=== PATIENT | female | born 1960 | race Caucasian/White ===

== ENCOUNTER 2022-10-18 08:49 | Outpatient (CLI) | payer MEDICAID, SELFPAY ==
--- NOTE | 2022-10-18 | DI.RAD_ITS ---
Exam(s) XR THUMB LT EXAM: XR THUMB LT EXAM DATE/TIME: CLINICAL HISTORY: LT THUMB PAIN, M79.645. TECHNIQUE: 2D digital imaging was performed of the left finger. Three views were obtained. PA/AP, oblique, and lateral views were obtained. COMPARISON: None. FINDINGS: BONES: No acute fracture is present. No bony destructive lesion is seen. JOINTS: No dislocation is present. SOFT TISSUE: Normal. IMPRESSION: No evidence of acute fracture or dislocation. DATA REPOSITORY: RADIATION DOSE DELIVERED:
== END 2022-10-18 09:09 ==
PROVIDERS: PCP Family Medicine; Visit Provider Physician Assistant
DX: M79.645 Pain in left finger(s) (principal)
CPT/HCPCS: 73140

== ENCOUNTER 2022-12-14 11:11 | Emergency (ER) | payer MEDICAID, SELFPAY ==
[2022-12-14 11:14] VITALS: BP 142/67; PULSE 78; RESP 16; TEMP 36.4; O2SAT 98
--- NOTE | 2022-12-14 11:29 | DI.CT_ITS ---
Exam(s) CT LUMBAR SPINE RECONS CT RENAL COLIC WO EXAM: CT RENAL COLIC WO and CT lumbar spine recons CLINICAL HISTORY: left flank pain. TECHNIQUE: Imaging Protocol: Axial computed tomography images with coronal and sagittal reformatted images were created and reviewed. COMPARISON: CT CT LUMBAR SPINE RECONS from 12/14/2022 FINDINGS: ABDOMEN: Lung Bases: Normal where visualized. Liver: Normal density. There is a 1.6 cm cyst in the left lobe of the liver. No suspicious hepatic l esions are seen on this noncontrast examination. Gallbladder and biliary tract: Status post cholecystectomy. No significant biliary ductal dilatation . Pancreas: Normal density, no abnormal calcifications or inflammatory process. Spleen: Normal. Kidneys: Normal size, contour and axis.No radiodense stones or obstructive uropathy. No masses seen. Adrenal glands: No mass is seen. Lymph nodes: Within normal limits. Abdominal Aorta: Abdominal portion non-dilated. Atherosclerosis. PELVIS: Bladder:Symmetric distention, no gross wall thickening. Bowel: No obstruction or bowel wall thickening. Appendix is unremarkable. There are few scattered di verticula seen in the sigmoid colon, but no evidence of acute diverticulitis. Peritoneal cavity: No ascites, collection or mesenteric inflammatory response. No free air. Reproductive organs: Unremarkable as visualized. Bones: Within normal limits. There is a mild left convex lumbar scoliosis. Soft Tissues: There are mildly prominent lymph nodes in the inguinal regions bilaterally. CT recons lumbar spine: Degenerative changes are present throughout the lumbar spine. No acute fract ure or subluxation is seen. Multilevel degenerative changes are seen particularly from L3-4 through L5-S1. Bilateral neural foraminal stenosis is seen at these levels. The findings are most marked on the right at L4-L5 and L5-S1. IMPRESSION: 1. No evidence of nephrolithiasis or hydronephrosis. 2. No acute abdominal pelvic process. 3. No acute fracture or subluxation in the lumbar spine. 4. Moderate degenerative changes in the lumbar spine as described above. 5. Findings were discussed with Dr. Wu at 12:16 p.m. on 12/14/2022. RADIATION DOSE DELIVERED: Total DLP DATA REPOSITORY: All CT scans at this facility are submitted to the National Radiology Data Registry (NRDR) Dose Index Registry (DIR) with the [employer] ([employer]). RADIATION OPTIMIZATION: All CT scans at this facility use at least one of these dose optimization te chniques: automated exposure control; mA and/or kV adjustment per patient size (includes targeted exa ms where dose is matched to clinical indication); or iterative reconstruction.
--- NOTE | 2022-12-14 11:31 | ED.GENADUL_ITS ---
Discharge Plan Disposition Patient Disposition: Home Condition: Stable Discharge Details Clinical Impression: Lumbar back pain Primary Care Provider: Aida Mccabe ED Provider: Efren Wu Home Meds and New Rx's Prescriptions: New oxycodone 5 mg tablet 5 mg PO Q6H PRNQty: 10 0RF Continued albuterol sulfate [Ventolin HFA] 90 mcg/actuation HFA aerosol inhaler 2 puff inhalation Q6H PRN bupropion HCl 150 mg tablet extended release 24 hr 150 mg PO QAM fluticasone furoate-vilanterol [Breo Ellipta] 100-25 mcg/dose blister with device 1 inh inhalation DAILY tizanidine [Zanaflex] 2 mg capsule 2 mg PO Q8H PRN baclofen 10 mg tablet 10 mg PO DAILY sertraline 100 mg tablet 100 mg PO DAILY Patient Comments: patient states it has been over a year since she took this medication fluticasone propion-salmeterol [Advair Diskus] 250-50 mcg/dose blister with device 1 inh inhalation BID tolterodine [Detrol LA] 4 mg capsule,extended release 24hr 4 mg PO DAILY amitriptyline 25 mg tablet 25 mg PO QHS cholecalciferol (vitamin D3) 25 mcg (1,000 unit) capsule 25 mcg PO DAILY magnesium oxide 400 mg (241.3 mg magnesium) tablet 400 mg PO DAILY teriflunomide [Aubagio] 14 mg tablet 14 mg PO DAILY vitamin B complex Capsule 1 cap PO DAILY Discharge Instructions Instructions: Back Pain (ED) Additional Instructions: Follow up as scheduled next week with your primary care provider you can take tylenol and ibuprofen as needed, follow dosing instructions on packaging if you feel more ill, have severe worsening pain or fevers return to the emergency department Medical Decision Making 62 yo female with hx of ms, rls, lumbar radiculopathy and si joint dysfunction comes in with 3 weeks of left lower back pain without history of trauma. She denies fevers, chills, chest pain, dyspnea, abdominal pain. She states the pain will intermittently radiate down the left leg. She arrives stable speaking clearly in no distress. She has tenderness to the left lumbar and mid lumbar region, no rashes or erythema noted. She has no saddle anesthesia, intact distal sensation and pulses, normal reflexes. no abdominal tenderness. Given location suspect lumbar radiculopathy vs sciatica, given 3 weeks and not improving with otc medications will obtain ct renal colic though seems unlikely given lack of colic pain, and recons of the lumbar spine. No findings on exam or history to suggest cauda equina or spinal epidural abscess. imaging shows no acute findings, does have degenerative disc disease, no other acute findings. Pain significantly better and no new findings on exam. She is stable for d/c, will provide short course of pain medication, she has f/u with pcp Tuesday, return precautions given Differential Diagnosis Differential Diagnosis: muscle spasm, disc hernation, compression fracture Imaging Data Radiologic Study: Attestation: I personally reviewed and interpreted this imaging study as follows: Imaging: CT Scan Radiologist's impression: no acute findings, degenerative disc disease Lab Data Lab results reviewed: Yes I reviewed the patient's lab results. HPI General Mode of arrival: ambulatory . Date/Time Provider Initiated Documentation: 12/14/22 11:12 . Limitations to Documentation: no limitations . Information obtained by: patient . History of Present Illness 62 year old F presents to the emergency department with the chief complaint of left lower back pain, Quality is described as aching, and is localized to the back. Patient started experiencing this week(s) (3) and it has been constant. No relieving factors improve symptom(s), No exacerbating factors reported . Patient notes denies fever/chills. Patient did receive the following treatments prior to arrival, none Related Data Home Medications Medication Instructions Recorded Confirmed albuterol sulfate 90 mcg/actuation 2 puff inhalation Q6H PRN 11/25/22 12/14/22 aerosol inhaler (Ventolin HFA) amitriptyline 25 mg tablet 25 mg PO QHS 11/25/22 baclofen 10 mg tablet 10 mg PO DAILY 11/25/22 12/14/22 bupropion HCl 150 mg 24 hr tablet, 150 mg PO QAM 11/25/22 12/14/22 extended release cholecalciferol (vitamin D3) 25 25 mcg PO DAILY 11/25/22 12/14/22 mcg (1,000 unit) capsule fluticasone 250 mcg-salmeterol 50 1 inh inhalation BID 11/25/22 12/14/22 mcg/dose blistr powdr for inhalation (Advair Diskus) fluticasone furoate 100 1 inh inhalation DAILY 11/25/22 12/14/22 mcg-vilanterol 25 mcg/dose inhalation powder (Breo Ellipta) magnesium oxide 400 mg (241.3 mg 400 mg PO DAILY 11/25/22 12/14/22 magnesium) tablet sertraline 100 mg tablet 100 mg PO DAILY 11/25/22 teriflunomide 14 mg tablet 14 mg PO DAILY 11/25/22 12/14/22 (Aubagio) tizanidine 2 mg capsule (Zanaflex) 2 mg PO Q8H PRN 11/25/22 12/14/22 tolterodine 4 mg capsule,extended 4 mg PO DAILY 11/25/22 12/14/22 release 24 hr (Detrol LA) vitamin B complex 1 cap PO DAILY 11/25/22 12/14/22 oxycodone 5 mg tablet 5 mg PO Q6H PRN #10 tabs 12/14/22 Previous Rx's Medication Instructions Recorded oxycodone 5 mg tablet 5 mg PO Q6H PRN #10 tabs 12/14/22 Allergies Allergy/AdvReac Type Severity Reaction Status Date / Time No Known Allergies Allergy Verified 12/14/22 11:23 General Stated Complaint: Nk/Back Pain ROSALVA: 4 Review of Systems All systems reviewed & are unremarkable except as noted in HPI and below Constitutional Constitutional: Denies chills, Denies fever(s) and Denies weakness Cardiovascular Cardiovascular: Denies chest pain and Denies dyspnea Respiratory Respiratory: Denies cough and Denies dyspnea Gastrointestinal Gastrointestinal: Denies abdominal pain and Denies vomiting Musculoskeletal Musculoskeletal: Denies joint swelling Neurologic Neurologic: Denies weakness PFSH All Active Problems (Updated 12/14/22 @ 12:32 by Efren Wu MD) Lumbar back pain (Acute) Corns and callosities (Acute) Equinus contracture of ankle (Acute) Metatarsalgia of both feet (Acute) Chronic fatigue (Acute) Exertional dyspnea (Acute) SI (sacroiliac) joint dysfunction (Acute) GERD (gastroesophageal reflux disease) (Chronic) RLS (restless legs syndrome) (Acute) Depression (Chronic) Cervical spondylosis without myelopathy (Acute) Radiculopathy, lumbar region (Acute) Multiple sclerosis (Chronic) Surgical History History of knee surgery right, microfracture surgery @ 1999 Social History Smoking/Tobacco Use Status: Never Smoking risk assessment performed?: Yes Do you feel safe at home: Yes Do you feel safe in your relationship?: Yes Exam Const General: no acute distress Orientation: alert HENMT Head: normal to inspection Ears: external ears normal General nose exam: external nose normal Mouth: moist mucous membranes Eyes General: appearance normal, both eyes and all related structures Neck Neck: normal visual inspection Resp Effort & Inspection: normal respiratory effort and able to speak in complete sentences Cardio Rate: regular rate GI Palpation: soft and nontender Back/Spine/Pelvis Back: no CVA tenderness Thoracic/Lumbar Spine: lumbar spinal tenderness Skin General skin exam: no rashes or lesions noted Neuro General: patient alert and patient oriented x3 Extrem General: normal to inspection Psych Mental Status: mental status grossly normal Course Vital Signs Vital signs: Vital Signs Temperature 36.4 C 12/14/22 11:14 Pulse 78 12/14/22 11:14 Respiratory Rate 16 12/14/22 11:14 Blood Pressure 142/67 H 12/14/22 11:14 Pulse Oximetry 98 12/14/22 11:14 Temperature 36.4 C 12/14/22 11:14 Temperature Source Oral 12/14/22 11:14 Pulse 78 12/14/22 11:14 Respiratory Rate 16 12/14/22 11:14 Respiratory Effort Normal 12/14/22 11:17 Blood Pressure 142/67 H 12/14/22 11:14 Blood Pressure Position Sitting 12/14/22 11:14 Pulse Oximetry 98 12/14/22 11:14 Oxygen Delivery Method Room Air 12/14/22 11:14 Oxygen Flow Rate 0 12/14/22 11:14 Pain Level 8 12/14/22 11:14
[2022-12-14 11:54] LABS: Abs Immature Grans 0.02 10^3/uL (0.0-0.06); Absolute Basophil Count 0.03 10^3/uL (0.0-0.2); Absolute Eosinophil Count 0.12 10^3/uL (0.0-0.7); Absolute Lymphocyte Count 1.37 10^3/uL (1.2-3.4); Absolute Monocyte Count 0.41 10^3/uL (0.1-0.8); Absolute Neutrophil Count 4.39 10^3/uL (1.2-6.7); Basophils % 0.5; Eosinophils % 1.9; HGB 13.1 g/dL (11.2-15.7); Immature Grans % 0.3; Lymphocytes % 21.6; MCH 30.6 pg (27.0-33.0); MCHC 33.6 % (32.0-36.0); MCV 91 fL (80-95); MPV 10.9 fL (8.0-11.0); Monocytes % 6.5; Neutrophils % 69.2; Platelet Count 249 10^3/uL (130-400); RBC 4.28 10^6/uL (3.93-5.22); RDW 12.5 % (11.7-14.6); RDW-SD 41.4 fL; WBC 6.34 10^3/uL (4.4-10.8)
[2022-12-14] MEDS: Ketorolac 15 MG/ML VIAL IVP (12:01)
[2022-12-14] MEDS: HYDROmorphone 2 MG/ML SYR 1 MG IVP (12:01)
[2022-12-14] MEDS: Normal Saline 1,000 ML 1000 ML IV (12:04)
[2022-12-14 12:10] LABS: ALT 24 U/L (14-59); AST 15 U/L (15-37); Albumin 3.9 g/dL (3.4-5.0); Alkaline Phosphatase 107 U/L (46-116); Anion Gap 6.8 mmol/L (3-11); BUN 19 mg/dL (7-18); Bilirubin, Total 0.5 mg/dL (0.2-1.0); CO2 28.2 mmol/L (21.0-32.0); CREATININE 0.8 mg/dL (0.55-1.02); Calcium 9.1 mg/dL (8.5-10.1); Chloride 105 mmol/L (98-107); Estimated GFR 83.78 (mL/min/1.73m2); Glucose 98 mg/dL (74-106); Lipase 25 U/L (16-77); Magnesium 1.9 mg/dL (1.8-2.4); Potassium 3.4 mmol/L (3.5-5.1); Sodium 140 mmol/L (136-145); Total Protein 7.7 g/dL (6.4-8.2)
== END 2022-12-14 12:38 | disposition home or self-care (01) ==
PROVIDERS: Emergency Provider Emergency Medicine; PCP Family Medicine
DX: M51.16 Intervertebral disc disorders with radiculopathy, lumbar region (principal)
CPT/HCPCS: 36415; 80053; 83690; 96361; 96374; 96375; 99284; 74176; 83735; 85025; J1170; J1885

== ENCOUNTER → 2024-03-07 02:26 | Outpatient (CLI) | payer BC, SELFPAY ==
--- NOTE | 2024-03-07 | DI.RAD_ITS ---
Exam(s) XR SACROILIAC JOINTS XR HIP RT COMPLETE AP PELVIS EXAM: XR HIP RT COMPLETE AP PELVIS CLINICAL HISTORY: Pain in rt hip, M25.551. TECHNIQUE: 2D digital imaging was performed. Two views COMPARISON: CT CT RENAL COLIC WO from 12/14/2022 CR XR SACROILIAC JOINTS from 03/07/2024 FINDINGS: BONES: No acute fracture is present. No bony destructive lesion is seen. JOINTS: No dislocation present. Mild hip joint spaces are maintained. Minimal acetabular spurring. SI joints show minimal degenerative changes. Pubic symphysis is unremarkable. There are advanced de generative changes at L4-5 and L5-S1. SOFT TISSUE: Normal. IMPRESSION: Mild degenerative changes of the hips and SI joints. DATA REPOSITORY: RADIATION DOSE DELIVERED:
--- OUTSIDE RECORDS SUMMARY | 2024-03-07 02:28 | XMS_ITS | Encounter Summary ---
Author Organization [facility] Address [facility] [place] [address] Care Team Providers Care Receiving Clerk Name Role Phone Rufina Mccabe MD Primary Care Provider [phone] Encounter Details Date Type Department Care Team (Late st Contact Info) Description 01/12/2023 Telephone Family Medicine at [facility] [address] [place] [phone] Rufina Mccabe MD [facility] [address] [address] Social History Tobacco Use Types Packs/Day Years Used Date Smoking Tobacco: Never Smokeless Tobacco: Never Alcohol Use Standard Drinks/Week Comments No 0 (1 standard drink = 0.6 oz pur e alcohol) Sex and Gender Information Value Date Recorded Sex Assigned at Not on file Gender Identity Female 11/18/2018 8:14 PM EDT Sexual Orientation Not on file documented as of this encounter Miscellaneous Notes * Telephone Encounter - Negrita Aly RN - 01/12/2023 4:09 PM EDT Call to patient. Patient identified by name and . Patient reports that she stopped taking gabapentin because it made her dizzy and lightheaded. She is made aware that the science writer can check with again regard to the the pain and spine referral. * Telephone Encounter - Negrita Aly RN - 01/12/2023 4:08 PM EDT Call to patient. Left a voice message to call the office back. The call back number is [phone]. * Telephone Encounter - Debbie Alejandra - 01/12/2023 4:06 PM EDT Call being returned to: Pepper Osman RN Comment: The patient is returning the call from the nurse. Please call back. Caller: Sherrie Bonner Best time to call back: Anytime Ok to leave a message: Yes Ok to send my- message: Unknown MA/Nurse/guidance secretary contacted via: Message: Yes Call: Yes Pager: No * Telephone Encounter - Julianne Boucher - 01/12/2023 3:35 PM EDT Attempted to reach nursing; please call patient again. * Telephone Encounter - Pepper Osman RN - 01/12/2023 3:27 PM EDT Attempted to contact patient at [phone], unable to reach. LM on unidentified VM to please callthe office at [phone] and ask to speak to a triage nurse. * Telephone Encounter - Caridad Verma - 01/12/2023 3:15 PM EDT Message: Patient calling in regard to my dh message from 01/07/23. She has not heard from the [facility] or from our office. Patient was hoping for an update and would like to speak with anurse. No active referral. Please call to advise. Ask caller their first and last name and relationship to the patient: Self Best time to call back: Any Ok to leave a message: Yes Ok to send my- message: No Offered Appointment: MA/Nurse/[place] contacted via: Message: Yes Call: Pager: documented in this encounter Plan of Treatment Not on file documented as of this encounter Visit Diagnoses Diagnosis Radiculopathy of lumbar region Thoracic or lumbosacral neuritis or radiculitis, unspecified documented in this encounter Care Teams Receiving Clerk Relationship Specialty Start Date End Date Rufina Mccabe MD [facility] [address] [address] PCP - General Family Medicine 11/30/18 05/18/23 documented as of this encounter
--- OUTSIDE RECORDS SUMMARY | 2024-03-07 02:28 | XMS_ITS | Encounter Summary ---
Author Organization [facility] Address [facility] [place] [address] Care Team Providers Care Linux Unix System Administrator Name Role Phone Rufina Mccabe MD Primary Care Provider [phone] Encounter Details Date Type Department Care Team (Latest Contact Info) Description 07/05/2021 2:51 PM EST - 07/05/2021 11:59 PM EST Hospital [place] [phone] Screening for colon cancer Discharge Disposition: Home Social History Tobacco Use Types Packs/Day Years Used Date Smoking Tobacco: Never Smokeless Tobacco: Never Alcohol Use Standard Drinks/Week Comments No 0 (1 standard drink = 0.6 oz pur e alcohol) Sex and Gender Information Value Date Recorded Sex Assigned at Not on file Gender Identity Female 11/18/2018 8:14 PM EDT Sexual Orientation Not on file documented as of this encounter Medications at Time of Discharge Medication Sig Dispensed Refills Start Date End Date cholecalciferol, Vitamin D3, 1,000 unit Tablet Take by mouth daily. magnesium oxide (MAG-OX) 400 mg (241.3 mg magnesium) Tablet Take 400 mg by mouth daily. teriflunomide (Aubagio) 14 mg Tablet Take 14 mg by mouth daily. b complex vitamins Capsule Take 1 capsule by mouth daily. tiZANidine (Zanaflex) 2 mg Tablet Take 2 mg by mouth nightly as needed. 04/15/2021 08/18/2022 tolterodine LA (Detrol LA) 4 mg Capsule, Sust. Release 24 hr Take 4 mg by mouth daily. 03/16/2021 12/27/2022 albuteroL 90 mcg/actuation HFA Aerosol InhalerIndications:SOB (shortness of breath) on exertion Inhale 2 puffs into the lungs every 6 hours as needed. 1 each 5 06/02/2021 05/27/2022 amitriptyline (ELAVIL) 25 mg Tablet Take 25 mg by mouth daily. 10/10/2018 12/27/2022 baclofen (LIORESAL) 10 mg Tablet TAKE ONE TABLET BY MOUTH AT BEDTIME AND ONE TABLET NEEDED DURING THE DAY FOR SPASMS. CAN INCREASE TO 2 TABLETS AT BEDTIME AFTER 5 DAYS IF 3 07/26/2018 07/07/2022 documented as of this encounter Plan of Treatment Not on file documented as of this encounter Procedures Procedure Name Priority Date/Time Associated Diagnosis Comments HC IFOB (FIT) FECAL BLOOD HEMOGLOBIN; 1-3 DETERMINATIONS Routine 07/05/2021 2:30 PM EST Screening for colon cancer documented in this encounter Results * Fecal Occult Blood, Immunoassay (07/05/2021 2:30 PM EST) Fecal Occult Blood, Immunoassay Negative Negative [facility] Stool 07/05/2021 2:30 PM EST 07/09/2021 7:17 PM EST Narrative Resulting Agency Comment Spec In Lab Rufina Mccabe MD BODY FLUIDS AND STO OLS ORDERABLES [facility] [place] [address] documented in this encounter Visit Diagnoses Diagnosis Screening for colon cancer Special screening for malignant neoplasms, colon documented in this encounter Care Teams Linux Unix System Administrator Relationship Specialty Start Date End Date Rufina Mccabe MD [facility] [address] [place] [address] PCP - General Family Medicine 11/30/18 05/18/23 documented as of this encounter
--- OUTSIDE RECORDS SUMMARY | 2024-03-07 02:28 | XMS_ITS | Encounter Summary ---
Author Organization [facility] [place] [address] Care Team Providers Care Call Center Director Name Role Phone Rufina Mccabe MD Primary Care Provider [phone] Reason for Visit * Reason Comments Medication Check Encounter Details Date Type Department Care Team ([facility] Contact Info) Description 12/27/2022 11:30 AM EDT Office Visit Family Medicine at [facility] [address] [place] [address] Rufina Mccabe MD [facility] [address] [place] [address] Medication management; Multiple sclerosis; Depression, recurrent; Radiculopathy of lumbar region; Screening for colon cancer Social History Tobacco Use Types Packs/Day Years Used Date Smoking Tobacco: Never Smokeless Tobacco: Never Alcohol Use Standard Drinks/Week Comments No 0 (1 standard drink = 0.6 oz pur e alcohol) Sex and Gender Information Value Date Recorded Sex Assigned at Not on file Gender Identity Female 11/18/2018 8:14 PM EDT Sexual Orientation Not on file documented as of this encounter Last Filed Vital Signs Vital Sign Reading Time Taken Comments Blood Pressure 153/75 12/27/2022 11:20 AM EDT Pulse 76 12/27/2022 11:20 AM EDT Temperature 36.8 ??C (98.3 ??F) 12/27/2022 11:20 AM E DT Respiratory Rate - - Oxygen Saturation 99% 12/27/2022 11:20 AM EDT Inhaled Oxygen Concentration - - Weight 83 kg (183 lb) 12/27/2022 11:20 AM EDT Height 170.2 cm (5' 7) 12/27/2022 11:20 AM EDT Body Mass Index 28.66 12/27/2022 11:20 AM EDT documented in this encounter Patient Instructions * Patient Instructions* Rufina Mccabe MD - 12/27/2022 11:30 AM EDT Please call your insurance to see if they cover a chiropractor. If yes, which ones in [place] do they cover. I sent a message to the pain specialist Elizabet Brooks to ask how to get you back in her pain office. Meanwhile, while we wait for her, plz read the Juarez book (because it was on her list for you, and it's a good book!) Consider the exercises I gave you -- only if they help and don't hurt more. No change in meds otherwise. Ask Dr. Varela about the skin pain on your scalp, and if it's MS (Maybe the gabapentin will help this) * Attachments The following attachments cannot be sent through Care Everywhere. * Low Back Pain: Exercises (Bermudian) documented in this encounter Progress Notes * Charlette Le RMA - 12/27/2022 11:30 AM EDT Subjective: Chief Complaint Patient presents with ??? Medication Check Patient ID: Sherrie Bonner is a 62 y.o. female. HPI Pt is a 62 yo female who presents to the office for re-evaluation of medication. Pt is walking 3,000 steps a day at work. Long history of lumbar area pain with radiculopathy. Has had back surgery, which helped initially, but now pain back Has had radiofrequency ablation Doesn't remember Gabapentin helping the radicular pain, but it's been a long time Doesn't think PT helps Hasn't read Juarez book Has seen [facility], who had ongoing plans for pt, but truncated by COVID pandemic and lost to follow-up Sherrie would like to re-engage with pain care and be seen again by Elaine Brooks Sometimes has sharp shooting pain in her lower back and in her left side. Did go to the ER a coupleof weeks ago for the pain at [facility]. Had a CT scan performed was prescribed Oxycodone 5mg. She states the Oxycodone did not touch the pain at all did make her dizzy and lightheaded. She only took it once while at home. Does not see a chiropractor. (I reviewed the ED charting from [facility] in the media tab. CT scan done because ED provider was ruling out kidney stones. His note said CT relatively wnl, no incidental findings). 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 Feels as if her legs have to be moving at all times. Tolerating Bupropion XL well with no side effects. Feels it's quite helpful for her mood, which is generally fine Continues to live with spouse On a waiting list for a Senior Housing complex. Her office is in that building, and she really likes all the people there. Looking forward to the move. Does not check bp at home and does not have a bp monitor at home either. Review of Systems Musculoskeletal: Left lower back pain/flank area. Skin pain on scalp in half-dollar sized region, right upper occipital area (higher than where occipital nerves exit scalp) No URI sx No fevers, easy bruising, unintentional weight loss, lymphadenopathy Denies any CP, syncope, palpitations, SOB or PINA, or peripheral edema No abd pain, appetite changes, nausea, vomiting, bowel changes No urinary changes I reviewed problem list and med list in EPIC Social History Tobacco Use ??? Smoking status: Never ??? Smokeless tobacco: Never Vaping Use ??? Vaping Use: Never used Substance Use Topics ??? Alcohol use: No ??? Drug use: No 12/22/2022 2:09 PM Behavorial Health Responses (QBHI) Total RONDA-7 8 (Mild Anxiety) Objective: BP 153/75 (BP Location (NBP): Left arm, Patient Position: Sitting, BP Cuff Sizes: Adult (25-34 cm)) Pulse 76 Temp 36.8 ??C (98.3 ??F) (Temporal) Ht 170.2 cm (5' 7) Wt 83 kg (183 lb) SpO2 99% BMI 28.66 kg/m?? Physical Exam Well-appearing, active in exam room Normal neck ROM RRR S1S2 without murmur Lungs CTA with normal resp effort No extremity deformities, normal ROM observed of all extremities/joints No peripheral edema Skin intact throughout Normal symmetric standing posture No point-tenderness over vertebrae. Pointing to an area in left paraspinals out to left lumbar musculature No CVA tenderness Grossly normal strength of hip flexors/ quads/hamstrings No LE skin changes Assessment and Plan: Orders Placed This Encounter Procedures ??? Fecal Occult Blood, Immunoassay Back Pain Note received from [facility] was reviewed in Epic. Discussed idea of going back to PE At this time pt would rather see a pain specialist first because PT did not help in the past. Given HEP with relevant exercises, see AVS Counseled to let pain be her guide when performing these exercises Encouraged pt to check with her insurance company to see if a chiropractor will be covered. Different stretches were also discussed with the pt to possibly alleviate the pain. No alarm sx/ signs of urgency with the radiculopathy E.g., no bowel or bladder changes, fever, or unexpected weight loss or sweats Prescribed Gabapentin 100mg TID prn as she hasn't tried it for years and doesn't have a clear memory of her response to it. SE counseling given. Watch out especially for sedation and constipation She has an appt with her MS neurologist in [facility]. Ask neurologist if there's any chance her MS is involved in the nerve pain in her left leg. Patient Instructions Please call your insurance to see if they cover a chiropractor. If yes, which ones in [place] do they cover. I sent a message to the pain specialist Elizabet Brooks to ask how to get you back in her pain office. Meanwhile, while we wait for her, plz read the Juarez book (because it was on her list for you, and it's a good book!) Consider the exercises I gave you -- only if they help and don't hurt more. No change in meds otherwise. Ask Dr. Varela about the skin pain on your scalp, and if it's MS (Maybe the gabapentin will help this) Fecal Occult Blood test ordered for colon cancer screening. Healthy diet and continued walking for movement advised. Would be helpful to get some home BPs. It's high here today, but she's in pain, and it's usually fine. Mammogram is scheduled. I, Charlette Le, have performed the documentation for this encounter in the presence of and acting as a scribe for Rufina Mccabe MD. ROV 12 months Time-based visit: Yes: 36 minutes visit spent reviewing chart (labs, meds, imaging, consult notes),interviewing and/or examining patient, developing and discussing treatment plan, educating patient,and documenting this encounter. documented in this encounter Plan of Treatment Not on file documented as of this encounter Results * Fecal Occult Blood, Immunoassay (02/10/2023 10:45 AM EDT) Fecal Occult Blood, Immunoassay Negative Negative [facility] Stool 02/10/2023 10:4 5 AM EDT 02/24/2023 11:58 AM EDT Narrative Resulting Agency Comment Spec In Lab Rufina Mccabe MD BODY FLUIDS AND STO OLS ORDERABLES [facility] [place] [address] documented in this encounter Visit Diagnoses Diagnosis Medication management Encounter for long-term (current) use of other medications Multiple sclerosis Depression, recurrent Major depressive disorder, recurrent episode, unspecified Radiculopathy of lumbar region Thoracic or lumbosacral neuritis or radiculitis, unspecified Screening for colon cancer Special screening for malignant neoplasms, colon documented in this encounter Care Teams Call Center Director Relationship Specialty Start Date End Date Rufina Mccabe MD [facility] [address] [place] [address] PCP - General Family Medicine 11/30/18 05/18/23 documented as of this encounter
--- OUTSIDE RECORDS SUMMARY | 2024-03-07 02:28 | XMS_ITS | Encounter Summary ---
Author Organization [facility] Address [facility] [place] [place] [address] Care Team Providers Care Monitoring And Evaluation Advisor Name Role Phone Rufina Mccabe MD Primary Care Provider [phone]- [phone] Reason for Visit * Reason Comments Medication Refill Encounter Details Date Type Department Care Team ([facility] st Contact Info) Description 09/08/2022 Refill Family Medicine at [facility] [address] [place] [address] Rufina Mccabe MD [facility] [address] [address] SOB (shortness of breath) on exertion Social History Tobacco Use Types Packs/Day Years [...] encounter Miscellaneous Notes * Telephone Encounter - Mariaelena Queen CMA - 09/08/2022 9:14 AM EST Prescription Refill Request Prescription(s) Requested: Requested Prescriptions Pending Prescriptions Disp Refills ??? Ventolin HFA 90 mcg/actuation HFA Aerosol Inhaler [Pharmacy Med Name: VENTOLIN HFA INH W/DOS CTR [id number]] 18 g Sig: INHALE 2 PUFFS INTO THE LUNGS EVERY 6 HOURS NEEDED Date of Encounter last in This Dept (If over a year and no apt scheduled send to secretaries to schedule): 03/09/2022 alex/eric Next Encounter in This Dept: Visit date not found Date of Last Refill (for each medication): 05/27/2022 1 each w/3RF Medication category req. lab studies documented in this encounter Plan of Treatment Not on file documented as of this encounter Visit Diagnoses Diagnosis SOB (shortness of breath) on exertion Shortness of breath documented in this encounter Care Teams Monitoring And Evaluation Advisor Relationship Specialty Start Date End Date Rufina Mccabe MD [facility] [address] [place] [address] PCP - General Family Medicine 11/30/18 05/18/23 documented as of this encounter
--- OUTSIDE RECORDS SUMMARY | 2024-03-07 02:28 | XMS_ITS | Clinical Summary ---
Author Organization [facility] Address [facility] [place] [address] Care Team Providers Care Slot Manager Name Role Phone Selma Contreras MD Primary Care Provider [phone] Allergies No known active allergies Medications Medication Sig Dispensed Refills Start Date End Date Status b complex vitamins Capsule Take 1 capsule by mouth daily. Active cholecalciferol, Vitamin D3, 1,000 unit Tablet Take by mouth daily. Active magnesium oxide (MAG-OX) 400 mg (241.3 mg magnesium) Tablet Take 400 mg by mouth daily. Active teriflunomide (Aubagio) 14 mg Tablet Take 14 mg by mouth daily. Active baclofen (Lioresal) 10 mg Tablet TAKE ONE TABLET BY MOUTH AT BEDTIME AND ONE TABLET NEEDED DURING THE DAY FOR SPASMS. CAN INCREASE TO 2 TABLETS AT BEDTIME AFTER 5 DAYS IF Strength: 10 mg 180 tablet 3 07/07/2022 Active tiZANidine (Zanaflex) 2 mg Tablet Take 1 tablet by mouth nightly as needed. 90 tablet 3 08/19/2022 Active Ventolin HFA 90 mcg/actuation HFA Aerosol InhalerIndications:S OB (shortness of breath) on exertion INHALE 2 PUFFS INTO THE LUNGS EVERY 6 HOURS NEEDED 18 g 3 12/14/2022 Active Breo Ellipta 100-25 mcg/dose Disk with Device INHALE 1 PUFF INTO THE LUNGS DAILY 180 each 1 12/15/2022 Active gabapentin (Neurontin) 100 mg capsule Take 1 capsule by mouth 3 times daily. 90 capsule 12/27/2022 Active buPROPion XL (Wellbutrin XL) 150 mg XL 24 hr tablet Take 1 tablet by mouth every morning. 90 tablet 1 03/14/2023 Active Active Problems Problem Noted Date Diagnosed Date Metatarsalgia of both feet 12/27/2022 Lumbar back pain 12/27/2022 History of knee surgery 12/27/2022 Equinus contracture of ankle 12/27/2022 Corns and callosities 12/27/2022 Sacroiliac joint dysfunction of left side 2019 Exertional dyspnea 09/17/2019 Assessment & Plan (12/17/2019 11:52 AM EDT): The cause of Sherrie's exertional dyspnea remains cryptic. At this point, I am most suspicious of deconditioning with or without a component of a neurodegenerative process for which I will need help from her neurologist to confirm or refute. I told Sherrie that we could perform cardiopulmonary exercise testing in the PFT lab to assess her level of aerobic fitness. She is agreeable to this testing. I told her that we might need to schedule the exercise test in a few weeks depending on how [facility] [place] re[place] in the setting of COVID-19. I had intended for Sherrie to have a transthoracic echocardiogram done here at [facility] for the dyspnea work-up. This is outstanding and needs to be rescheduled, but I am skeptical that it will show any problems with her heart. I told Sherrie that I would send my note to Dr. Varela for review. Assessment & Plan (09/17/2019 3:38 PM EST): Although I am just meeting Sherrie for the first time today, the work-up performed to date suggests that respiratory muscle weakness is at least part of the basis for her shortness of breath. We reviewed her diaphragm fluoroscopy (normal) and sitting and supine spirometry results. We talked about the potential benefit of inspiratory muscle training (IMT) as a way to specifically strengthen her diaphragm. She met with Ms. Reynoso to review use of the inspiratory muscle emr trainer. I hope that we might see improved mouth pressure measurement and/or sitting and supine spirometry values at our next visit in about 6 weeks if she uses the inspiratory muscle emr trainer routinely. We will explore additional causes of dyspnea by way of echocardiogram (question diastolic dysfunction, regurgitant valvular heart disease, pulmonary hypertension) and CT angiogram of the chest (exclude PE) and also evaluate the lung parenchyma (question ILD). We might end up having to do cardiopulmonary exercise testing in the PFT lab. I described how this testing is performed, and Sherrie is amenable to testing, if needed. Respiratory muscle weakness 09/17/2019 Assessment & Plan (09/17/2019 3:37 PM EST): Her serum CK and TSH are normal. These tests respectively argue against myositis/myopathy and hypothyroidism. It is my understanding that MS can cause episodic dyspnea during flares, but I have not seen this phenomenon be a cause of sustained exertional breathlessness. I may need to discuss her case with her neurologist if we continue to question an etiology. High risk medication use 09/17/2019 Assessment & Plan (09/17/2019 3:40 PM EST): Needs creatinine checked prior to CT for PE. Other chest pain 10/18/2018 Chronic fatigue 10/18/2018 Headache 10/18/2018 RLS (restless legs syndrome) 10/18/2018 Gastroesophageal reflux 10/18/2018 Cervical spondylosis without myelopathy 07/30/20 16 Radiculopathy of lumbar region 06/03/2016 Multiple sclerosis 10/15/2015 Lumbar disc herniation 10/14/2015 Depression, recurrent Immunizations Name Administration Dates Next Due Influenza Quadrivalent, Preservative Free 2020,07/02/2019 Moderna Covid-19 Monovalent 12Yr+ (Retail Account Manager 100mc g) 12/23/2020,11/25/2020 Tdap 11/22/2018 Family History Medical History Relation Comments No Known Problems Brother Alzheimer Disease Father Cancer Father Prostate Cervical Cancer Maternal Aunt Cancer Maternal Grandmother Cancer Mother Giant B Cell Lym phoma Cancer Paternal Aunt Breast No Known Problems Sister 1 No Known Problems Sister 2 Colorectal Cancer Neg Hx Relation Status Comments Brother Alive Father Alive Prostate Maternal Aunt Maternal Grandmother Mother lympthoma Paternal Aunt Sister 1 Alive Sister 2 Alive Social History Tobacco Use Types Packs/Day Years Used Date Smoking Tobacco: Never Smokeless Tobacco: Never Alcohol Use Standard Drinks/Week Comments No 0 (1 standard drink = 0.6 oz pur e alcohol) Sex and Gender Information Value Date Recorded Sex Assigned at Not on file Gender Identity Female 11/18/2018 8:14 PM EDT Sexual Orientation Not on file Last Filed Vital Signs Vital Sign Reading Time Taken Comments Blood Pressure 153/75 12/27/2022 11:20 AM EDT Pulse 76 12/27/2022 11:20 AM EDT Temperature 36.8 ??C (98.3 ??F) 12/27/2022 11:20 AM E DT Respiratory Rate 18 03/09/2022 11:00 AM EDT Oxygen Saturation 99% 12/27/2022 11:20 AM EDT Inhaled Oxygen Concentration - - Weight 83 kg (183 lb) 12/27/2022 11:20 AM EDT Height 170.2 cm (5' 7) 12/27/2022 11:20 AM EDT Body Mass Index 28.66 12/27/2022 11:20 AM EDT Plan of Treatment Health Maintenance Due Date Last Done Comments CT Colonography 1961 Colonoscopy 1961 FIT DNA 1961 Sigmoidoscopy (10 year) with FIT yearly 1961 Sigmoidoscopy 1961 HIV screen 1979 Zoster vaccine (1 of 2) 2011 Advance Directive 2016 Covid-19 Vaccine (2022-2 4 season) 2023 12/23/2020, 11/25/2020 HPV test 11/23/2023 11/22/2018 PAP Smear 11/23/2023 11/22/2018 Breast Cancer screening 02/02/2024 02/01/2023, 11/30 Colorectal Cancer Screening 02/11/2024 FIT 02/11/2024 02/10/2023, 07/05/2021 Influenza (Flu) vaccine (1 o f 1 - Influenza standard series) 04/22/2024 06/02/2021, 07/02/2019 Diabetes Screening (HgbA1C o r Glucose) 12/15/2024 12/15/2021, 09/17/2019, 11/30/2018, Additional history exists Tetanus vaccine 11/22/2028 11/22/2018 Tdap adult Completed 11/22/2018 Hepatitis C Screening Completed 11/30/2018 Lipid Screening Discontinued 11/30/2018 Procedures Procedure Name Priority Date/Time Associated Diagnosis Comments HC IFOB (FIT) FECAL BLOOD HEMOGLOBIN; 1-3 DETERMINATIONS Routine 02/10/2023 10:45 AM EDT Screening for colon cancer MAMMO SCREENING CAD AND VEL BILATERAL Routine 02/01/2023 9:15 AM EDT Visit for screening mammogram COMPREHENSIVE METABOLIC PANEL (NON-FASTING) Routine 12/15/2021 9:13 AM EDT Multiple sclerosis Vitamin D deficiency HDL/CHOL PROFILE Routine 11/30/2018 10:2 1 AM EDT Routine general medical examination at a health care facility HEPATITIS C ANTIBODY Routine 11/30/2018 10:21 AM EDT Healthcare maintenance HPV Routine 11/22/2018 1:00 PM EDT COPY PREPARER CYTOLOGY FINAL REPORT Routine 11/22/2018 1:00 PM EDT from Last 3 Months or Most Recently Relevant to Health Maintenance Results * Fecal Occult Blood, Immunoassay (02/10/2023 10:45 AM EDT) Fecal Occult Blood, Immunoassay Negative Negative [facility] Stool 02/10/2023 10:4 5 AM EDT 02/24/2023 11:58 AM EDT Narrative Resulting Agency Comment Spec In Lab Rufina Mccabe MD BODY FLUIDS AND STO OLS ORDERABLES Performing Organization Address City/State/[facility] Co de Phone Number [facility] [place] [address] * Mammo Screening Cad and Vel Bilateral (02/01/2023 9:15 AM EDT) Anatomical Region Laterality Modality Breast Bilateral Mammography Narrative 02/01/2023 12:14 PM EDT BILATERAL MAMMOGRAPHY REASON FOR EXAM: Screening TECHNIQUE: CC and MLO views were obtained of each breast using standard 2-D mammography as well as 3-D tomosynthesis. Computer aided detection was used. This is compared with prior images. FINDINGS: There are scattered areas of fibroglandular density. There are no suspicious microcalcifications, masses, or areas of distortion. The pattern is stable. CONCLUSION: No mammographic evidence of malignancy. RECOMMENDATION: Regular screening mammograms starting between age 40 and 50 reduces the risk of from breast cancer. All screening tests have both risks and benefits. These risks and benefits should be assessed for each individual patient through discussion with their provider to determine their preferred breast cancer screening schedule. Women should report any breast changes to a health care provider right away. Some women, because of their family history, a genetic tendency, or other factors, should be screened with annual breast MRI as well as with mammograms. (The number of women who fall into this category is very small). Patients and health care providers should discuss each patient? s history to decide if earlier screening and/or breast MRI are appropriate. Screening should continue as long as a woman is in good health and is expected to live 10 years or longer. Screening mammography may not detect 10-15% of breast cancers. A result letter has been sent to this patient by the [facility]. BIRADS CATEGORY 1: NEGATIVE Electronically signed by: Carl Dos Santos III, MD Rufina Mccabe MD IMG MAMMO ORDERABLE S * (ABNORMAL) Comprehensive metabolic panel (non-fasting) (12/15/2021 9:13 AM EDT) Glucose Lvl 97 65 - 199 mg/dL [facility] Comment:Diabetes: >=200 mg/d L plus symptoms BUN 24(H) 8 - 18 mg/dL [facility] Creatinine 0.74 0.70 - 1.20 mg/dL [facility] Sodium 140 135 - 145 mmol/L [facility] Potassium 3.8 3.5 - 5.0 mmol/L [facility] Comment: Please note: ??Patients with WBC >100,000 may have falsely elevated Potassium levels. ??For accurate Potassium quantification in these patients send serum separator tube (gold top) for subsequent determinations. ??Contact the Clinical Chemistry Laboratory if there are any questions. Chloride 102 98 - 107 mmol/L [facility] CO2 26 22 - 31 mmol/L [facility] Anion Gap 12 5 - 15 mmol/L [facility] Calcium 9.3 8.5 - 10.5 mg/dL [facility] Total Protein 7.3 6.1 - 8.0 g/dL [facility] Albumin 4.5 3.2 - 5.2 g/dL [facility] AST 15 0 - 30 unit/L [facility] ALT 17 0 - 30 unit/L [facility] Alk Phos 111(H) 35 - 105 unit/L [facility] Total Bilirubin 0.9 0.2 - 1.3 mg/dL [facility] Estimated GFR 88 >=60 mL/min/1. 73 m?? [facility] Comment: This patient? s estimated glomerular filtration rate (eGFR) is between 88 mL/min/1.73 m2 (patients with less muscle mass) and 102 mL/min/1.73 m2 (patients with more muscle mass) as determined by the CKD-EPI equation. Assessment of eGFR is not appropriate when creatinine concentrations are rapidly changing. For clinical decisions where creatinine clearance will affect therapy, a 24-hour urine creatinine clearance may be advised. Assignment of CKD stage 1 - 5 for patients with an eGFR near the transition point between stages may be based on clinical assessment of muscle mass and symptoms in addition to eGFR. Blood 12/15/2021 9:13 AM EDT 12/15/2021 9:24 AM EDT Narrative Resulting Agency Comment Spec In Lab Tiffany LAINEZ CHEMISTRY ORDERAB LES [facility] [place] [address] * Hepatitis C Antibody (11/30/2018 10:21 AM EDT) Hepatitis C Ab Negative Negative [facility] Blood specimen (specimen) 11/30/2018 10:21 AM EDT 11/30/2018 10:32 AM EDT Narrative Resulting Agency Comment Spec In Lab Rufina Mccabe MD IMMUNOLOGY ORDERABL ES Performing Organization Address [facility]/ZIP Co de Phone Number [facility] [place] [address] * HDL/Cholesterol Profile (11/30/2018 10:21 AM EDT) Chol, Total 208 mg/dL [facility] Comment: Lower Risk: <200 mg/dL Average Risk: 200-239 mg/dL Higher Risk: >jz=379 mg/dL HDL 68 mg/dL [facility] Comment: Males: ?? Higher Risk: <40 mg/dL Females: ?? HIgher Risk: <50 mg/dL Chol/HDL Ratio 3.1 ratio [facility] Chol/HDL Interpretation See Note [facility] Comment: Lipid management should be guided by a patient? s ASCVD risk, goals and preferences. ACC/AHA Guidelines recommend high intensity statin if clinical ASCVD or LDL greater than or equal to 190 mg/dL. http://MonkeyFind.com/ESL-WVR-Eaygsbknr Measure LDL if Total Cholesterol minus HDL Cholesterol is greater than 220 mg/dL. Adults aged 40-75 with LDL 70-189 mg/dL should have their 10 year ASCVD risk estimated with the ACC/AHA ASCVD risk drapery and upholstery estimator http://tools.acc.org/UEKAH-Wwax-Lewpchlju/ Statin should be discussed if risk greater than or equal to 7.5% in non-diabetics. With diabetes, moderate intensity statin is recommended if risk less than 7.5%, high intensity if risk greater than or equal to 7.5%. Annual lipid monitoring on statins is not necessary. Lifestyle modification is a critical component of ASCVD risk reduction. Blood specimen (specimen) 11/30/2018 10:21 AM EDT 11/30/2018 10:32 AM EDT Narrative Resulting Agency Comment Spec In Lab Rufina Mccabe MD CHEMISTRY ORDERABLE S Performing Organization Address City/[facility]/ZIP Co de Phone Number [facility] [place] [address] * HPV (11/22/2018 1:00 PM EDT) HPV 16 NEGATIVE NEGATIVE [facility] HPV 18 NEGATIVE NEGATIVE [facility] HPV Other HR NEGATIVE NEGATIVE [facility] HPV Interpretation See Comment [facility] Comment: NEGATIVE for high-risk HPV *. * Testing negative for high risk HPV means that the specimen is negative for the following 14 types tested: ??types 16, 18, 31, 33, 35, 39, 45, 51, 52, 56, 58, 59, 66, and 68. ??The test is not intended to detect low risk HPV types. Sirisha Katlyn HPV test Specimen: HPV Testing - Cytology Liquid Based Prep Cervical swab (specimen) 11/22/2018 1:00 PM EDT 11/22/2018 5:39 PM EDT Narrative Resulting Agency Comment Spec In Lab Rufina Mccabe MD PATHOLOGY/CYTOLOGY ORDERABLES Performing Organization Address City/State/[facility] Co de Phone Number [facility] [place] [address] * Roving Carrier Cytology Final Report (11/22/2018 1:00 PM EDT) Roving Carrier Cytology Final Report [id number] ? Location: [facility] The signing pathologist has (i) examined the relevant preparation(s) for the specimen(s) and (ii) rendered or confirmed the diagnosis(es). . ? Roving Carrier Final DIAGNOSIS Normal Negative for intraepithelial lesion or malignancy (NILM). For consensus guidelines for the management of cervical cancer screening test results, please see: ?? http://www.asccp.o rg . Electronically signed by: ??KEM Davila(ASCP)[place]islinn Verified: ??11/27/2018 ?Meat Blender Performed at: ??-[facility] Dept. of Pathology, [place], [place] HPV RESULTS HPV16 (Result) ?Negative HPV18 (Result) ?Negative HPVOHR (Result) ? Negative HPV (Interpretation) ?See Below HPV (Interpretation) Text: NEGATIVE for high-risk HPV *. *Testing negative for high risk HPV means that the specimen is negative for the following 14 types tested: types 16, 18, 31, 33, 35, 39, 45, 51, 52, 56, 58, 59, 66, and 68. The test is not intended to detect low risk HPV types. Air[employer] HPV test Specimen: HPV Testing - Cytology Liquid Based Prep The Webymaster katlyn ? HPV test was validated, performed and results reported through the [facility] ([facility]) at [facility]. ? - Ron Benavidez, PhD, [facility], Director-[facility] STATEMENT OF ADEQUACY Specimen submitted is satisfactory. Endocervical component present. CLINICAL INFORMATION HPV Option: ?Concurrent HPV and Pap CT/NG Option: ?? No Preparation: ? Liquid based Pap Specimen Source: ? Endocervical/Vagin al LMP: ? Post menopausal Hormones?: ? No Hysterectomy?: ? No ?: ? No ?: ? No I.U.D.?: ? No Pelvic Radiation: ?No Prior COPY PREPARER Therapy?: ?No Hist Abnl Pap/Biopsy?: ?? No Hist of HPV Vaccine?: ?No Hist of Smoking?: ?No Hist of ROSALEE exposure?: ?? No ICD Diagnosis: ? Z12.4 Encounter for screening for malignant neoplasm of cervix . CLINICAL INFORMATION Clinical Data, Significant Therapy and Clinical Impression ?? : ?_ This Pap Test has been evaluated with the assistance of the FarmainstantPrep Pap Test Imaging System. Note: The Pap test is a screening test for cervical cancer with an inherent false-negative rate dependent upon several variables. For further information please contact the [facility] Laboratory. Reference: Galo BIRD. Curtain Fitter of Pap Smear Results. In: Anitra BS, Alphonso HH, ed. The Pap Smear. [place]: Christopher, 2002: 71-77. [facility] 11/22/2018 1:00 PM EDT Rufina Mccabe MD PATHOLOGY/CYTOLOGY ORDERABLES Performing Organization Address City/State/[facility] Co de Phone Number [facility] [place] [address] from Last 3 Months or Most Recently Relevant to Health Maintenance Advance Directives * Full Code (Latest Code Status on File) Date Activated Date Inactivated Comments 10/14/2015 7:05 PM 10/15/2015 4:25 PM Question Answer Comments Does patient have capacity to make decision: Yes * Full Code Date Activated Date Inactivated Comments 10/14/2015 2:33 PM 10/14/2015 6:21 PM Question Answer Comments Does patient have capacity to make decision: Yes Care Teams Slot Manager Relationship Specialty Start Date End Date Selma Contreras MD [address] [place] [address] PCP - General 05/19/23
--- OUTSIDE RECORDS SUMMARY | 2024-03-07 02:28 | XMS_ITS | Encounter Summary ---
Author Organization [facility] Address [facility] [place] [address] Care Team Providers Care Structural Designer Name Role Phone Rufina Mccabe MD Primary Care Provider [phone] Encounter Details Date Type Department Care Team (Late st Contact Info) Description 03/16/2022 E-Consult Family Medicine at [address] [address] Dipika Galarza, [facility] Medication management Social History Tobacco Use Types Packs/Day Years [...] as of this encounter Miscellaneous Notes * [facility] - [facility]/16/2022 8:51 AM EDT Select F2 to choose the appropriate response: Proceed with eConsult 1. Restatement of the question: Pt is a 61 y.o. female on sertraline. The clinical question regarding this patient is: How often does Sertraline cause weight gain? 2. Recommendation(s): ?? Sertraline-associated weight gain is poorly understood. Product labeling stresses monitoring pediatric patients for weight loss but does not identify weight gain as an adverse effect in any population. ?? The majority of evidence suggests sertraline does not increase weight significantly compared to other SSRIs. Anticipated weight gain, if any, may be approximately 3 to 5 kg after a year of use. However, confounding factors such as dose/medication adjustments and clinical course including mood/appetite changes suggest individual patient response may vary. 3. Rationale and/or evidence for recommendation: ?? A review of short term studies (less than or equal to 12 weeks) found mean weight losses between0.5 kg and 1 kg for citalopram, duloxetine, fluoxetine and sertraline. ?? Studies that were supervisor intermediates (greater than or equal to 4 months) rosendo losses were found to be about 0.12 kg for sertraline however this was not found to be significant. ?? A 2010 meta-analysis observing antidepressants concluded data is too limited to determine the impact of antidepressants on body weight and the effects vary greatly on an individual's characteristics. ?? A 2013 analysis of 22,610 health records found no difference in sertraline- associated weight gain compared to the reference citalopram. ?? Per UpToDate: Treatment with SSRIs for longer periods of time may result in weight gain. However, in some cases it is not clear if this is a true medication side effect or the result of recovery from depression and the reversal of undesired weight loss. Sertraline leads to weight gain ranging from 1.0 to 1.6 percent of baseline body weight. A randomized trial showed a mean weight gain of 1.5 kg (3.3 lb) for sertraline, compared to 1.8 kg (4.0 lb) for placebo. A review found that weight gain during treatment with SSRIs may be due to remission of major depression, improved appetite, increased carbohydrate craving, and changes in serotonin 2C receptor activity. Conversely, weight loss during acute SSRI treatment may be related to poor appetite at the beginning of treatment. ?? Most studies have evaluated patients suffering from major depressive disorder. It is not clear whether weight change caused by SSRIs differs according to different demographic profiles such as ageor sex. References: 1. Denzel Palomo, HARRY Odonnell, Kamala Castillo. Weight gain and glucose dysregulation with second-generation antipsychotics and antidepressants: a review for primary care physicians. Postgrad Med. 2012;124(4):154-167. Doi:10.3810/pgm.2012.07.2577 2. Brayden Savage, Dewey Avery Elli. Antidepressants and body weight: a comprehensive review and meta-analysis. J Clin Psychiatry. 2010;71(10):6108-5835 3. Italo SR, Mckeon VM, Begum CC, et al. An electronic health records study of long-term weight gain following antidepressant use. CARSON psychiatry. 2014; 71(8):889-896. Doi: 10.1001/jamapsychiatry.2014.414 4. UpToDate This eConsult is focused on the specific clinical question(s) asked by the referring clinician, is based on the clinical data available to me, the consulting physician, at the time of the request, and is furnished without benefit of a comprehensive evaluation or physical examination of the patient by me. The guidance set forth in the eConsult note will need to be interpreted in light of any clinical issues not known to me or any changes in patient status that I may not be aware of at the time of filing this eConsult. If further consultation is necessary, an in-person visit with me or another member of our group is an option. documented in this encounter Plan of Treatment Not on file documented as of this encounter Visit Diagnoses Diagnosis Medication management Encounter for long-term (current) use of other medications documented in this encounter Care Teams Structural Designer Relationship Specialty Start Date End Date Rufina Mccabe MD [facility] [address] [place] [address] PCP - General Family Medicine 11/30/18 05/18/23 documented as of this encounter
--- OUTSIDE RECORDS SUMMARY | 2024-03-07 02:28 | XMS_ITS | Encounter Summary ---
Author Organization [facility] Address [facility] [place] [address] Care Team Providers Care Tip Finisher Name Role Phone Rufina Mccabe MD Primary Care Provider [phone] Reason for Visit * Reason Comments Results review test Medication Refill Encounter Details Date Type Department Care Team (Late st Contact Info) Description 06/02/2021 10:00 AM EDT Office Visit Family Medicine at [facility] [address] [place] [id number] Rufina Mccabe MD [facility] [address] [address] SOB (shortness of breath) on exertion; Routine general medical examination at a health care facility; Screening for colon cancer; Breast cancer screening by mammogram Social History Tobacco Use Types Packs/Day Years [...] Sign Reading Time Taken Comments Blood Pressure 126/74 06/02/2021 10:24 AM EDT Pulse 84 06/02/2021 9:33 AM EDT Temperature 36.6 ??C (97.9 ??F) 06/02/2021 9:33 AM ED T Respiratory Rate - - Oxygen Saturation 100% 06/02/2021 9:33 AM EDT Inhaled Oxygen Concentration - - Weight 85.3 kg (188 lb) 06/02/2021 9:33 AM EDT Height 170.2 cm (5' 7) 06/02/2021 9:33 AM EDT Body Mass Index 29.44 06/02/2021 9:33 AM EDT documented in this encounter Patient Instructions * Patient Instructions* Rufina Mccabe MD - 06/02/2021 10:00 AM EDT BP Cuff: Home Blood Pressure Monitoring: Choosing a blood pressure cuff Choose the right size cuff. If you are not sure which cuff size fits you: If you wear a small shirt use the small cuff If you wear a medium to large shirt use the medium cuff If you wear an extra-large or larger shirt use the large cuff These models are currently recommended by Consumer Reports: [id number] item #486135 [employer] Deluxe Automatic [id number] ReliOn BP 200 [id number] ([employer]) Omron 10 Series BP785 iHealthDock BP3 Taking an accurate blood pressure Ensure proper position Seated, relaxed Feet flat on floor Upper arm exposed and resting at heart level Sit for 5-10 minutes before taking the reading Sit quietly while checking your blood pressure If repeating blood pressure reading, wait at least one minute. Please bring your home cuff into the office to be checked for accuracy at least once/year. documented in this encounter Progress Notes * Rufina Mccabe MD - 06/02/2021 10:00 AM EDT Subjective: Chief Complaint Patient presents with ??? Results review test ??? Medication Refill Patient ID: Sherrie Bonner is a 60 y.o. female. 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 Went to apartment building for people 55+ Small 1-bedroom, hoping for a larger place, but everything is unaffordable as COVID pandemic has doubled prices of housing in her area and 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 Prn use of inhaler. No cough or wheeze currently. Wt Readings from Last 3 Encounters: 06/02/21 85.3 kg (188 lb) 10/09/19 77 kg (169 lb 12.1 oz) 09/17/19 77.1 kg (170 lb) Patient Active Problem List Diagnosis Code ??? 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 Multiple sclerosis G35 ??? Radiculopathy of lumbar region M54.16 ??? Cervical spondylosis without myelopathy M47.812 ??? Other chest pain R07.89 ??? Depression F32.A ??? Chronic fatigue R53.82 ??? Headache R51.9 ??? RLS (restless legs syndrome) G25.81 ??? Gastroesophageal reflux K21.9 ??? Exertional dyspnea R06.00 ??? Respiratory muscle weakness M62.81 ??? High risk medication use Z79.899 ??? Sacroiliac joint dysfunction of left side M53.3 Medications 06/02/21 0940 Medication Sig Taking? tiZANidine (Zanaflex) 2 mg Tablet Take 2 mg by mouth nightly as needed. Yes tolterodine LA (Detrol LA) 4 mg Capsule, Sust. Release 24 hr Take 4 mg by mouth daily. Yes albuteroL 90 mcg/actuation HFA Aerosol Inhaler Inhale 2 puffs into the lungs every 6 hours as needed. Yes amitriptyline (ELAVIL) 25 mg Tablet Yes baclofen (LIORESAL) 10 mg Tablet TAKE ONE TABLET BY MOUTH AT BEDTIME AND ONE TABLET NEEDED DURING THE DAY FOR SPASMS. CAN INCREASE TO 2 TABLETS AT BEDTIME AFTER 5 DAYS IF Yes AIMOVIG AUTOINJECTOR, 2 PACK, 70 mg/mL Auto-Injector Inject 140 mg subcutaneously. Yes cholecalciferol, Vitamin D3, 1,000 unit Tablet Take by mouth daily. Yes magnesium oxide (MAG-OX) 400 mg (241.3 mg magnesium) Tablet Take 400 mg by mouth daily. Yes teriflunomide (AUBAGIO) 14 mg Tablet Take 14 mg by mouth daily. Yes b complex vitamins Capsule Take 1 capsule by mouth daily. Yes Review of Systems No URI sx No fevers, easy bruising, unintentional weight loss, lymphadenopathy Denies any syncope, palpitations, SOB or PINA, or peripheral edema No abd pain, appetite changes, nausea, vomiting, bowel changes Social History Tobacco Use ??? Smoking status: Never Smoker ??? Smokeless tobacco: Never Used Vaping Use ??? Vaping Use: Never used Substance Use Topics ??? Alcohol use: No ??? Drug use: No Behavorial Health Responses 06/01/2021 Total PHQ-9 7 (Mild Depression) Total RONDA-7 5 (Mild Anxiety) Lives with Karl Objective: BP 126/74 Pulse 84 Temp 36.6 ??C (97.9 ??F) Ht 170.2 cm (5' 7) Wt 85.3 kg (188 lb) SpO2 100% BMI 29.44 kg/m?? Well-appearing, active in exam room HEENT: Normal scalp, EOMs intact KIM No cervical lymphadenopathy Normal thyroid Normal neck ROM RRR S1S2 without murmur Lungs CTA with normal resp effort Abd soft, ND/NT, no HSM/masses No extremity deformities, normal ROM observed of all extremities/joints SENIOR x 4 with equal strength Skin intact throughout Assessment and Plan: Sherrie was seen today for results and medication refill. In general, doing quite well. Will see MS specialty provider next week, her MS feels stable. Discusses migraines with neuro provider. Asthma in good shape. Diagnoses and all orders for this visit: SOB (shortness of breath) on exertion - albuteroL 90 mcg/actuation HFA Aerosol Inhaler; Inhale 2 puffs into the lungs every 6 hours as needed. Routine general medical examination at a health care facility - FluLaval Quadrivalent vaccine, Preservative Free 6MOS+ Screening for colon cancer - Fecal Occult Blood, Immunoassay; Future Breast cancer screening by mammogram - Mammo Screening Cad and Vel Bilateral; Future Time-based visit: Yes: 33 minutes visit spent reviewing chart (labs, meds, imaging, consult notes),interviewing and/or examining patient, developing and discussing treatment plan, educating patient,and documenting this encounter. ROV 6 months to f/u weight loss and BP. BP fine in clinic when accurate sized cuff used. She's seenan upward trend, so let's not go a whole year until next visit. documented in this encounter Plan of Treatment Not on file documented as of this encounter Results * Fecal Occult Blood, Immunoassay (07/05/2021 2:30 PM EST) Fecal Occult Blood, Immunoassay Negative Negative [facility] Stool 07/05/2021 2:30 PM EST 07/09/2021 7:17 PM EST Narrative Resulting Agency Comment Spec In Lab Rufina Mccabe MD BODY FLUIDS AND STO OLS ORDERABLES [facility] [place] [address] documented in this encounter Visit Diagnoses Diagnosis SOB (shortness of breath) on exertion Shortness of breath Routine general medical examination at a health care facility Screening for colon cancer Special screening for malignant neoplasms, colon Breast cancer screening by mammogram documented in this encounter Care Teams Tip Finisher Relationship Specialty Start Date End Date Rufina Mccabe MD [facility] [address] [place] [address] PCP - General Family Medicine 11/30/18 05/18/23 documented as of this encounter
--- OUTSIDE RECORDS SUMMARY | 2024-03-07 02:28 | XMS_ITS | Encounter Summary ---
Author Organization [facility] Address [facility] [place] [address] Care Team Providers Care Jewel Diameter Gauger Name Role Phone Rufina Mccabe MD Primary Care Provider [phone]- [phone] Reason for Visit * Reason Comments Medication Refill Encounter Details Date Type Department Care Team (Late st Contact Info) Description 12/14/2022 Refill Family Medicine at [facility] [address] [place] [address] Rufina Mccabe MD [facility] [place] [address] Social History Tobacco Use Types Packs/Day Years Used Date Smoking Tobacco: Never Smokeless Tobacco: Never Alcohol Use Standard Drinks/Week Comments No 0 (1 standard drink = 0.6 oz pur e alcohol) Sex and Gender Information Value Date Recorded Sex Assigned at Not on file Gender Identity Female 11/18/2018 8:14 PM EDT Sexual Orientation Not on file documented as of this encounter Plan of Treatment Not on file documented as of this encounter Visit Diagnoses Not on filedocumented in this encounter Care Teams Jewel Diameter Gauger Relationship Specialty Start Date End Date Rufina Mccabe MD [facility] [place] [address] PCP - General Family Medicine 11/30/18 05/18/23 documented as of this encounter
--- OUTSIDE RECORDS SUMMARY | 2024-03-07 02:28 | XMS_ITS | Encounter Summary ---
Author Organization [facility] [place] [address] Care Team Providers Care Sample Grinder Name Role Phone Rufina Mccabe MD Primary Care Provider [phone]- [phone] Encounter Details Date Type Department Care Team (Late st Contact Info) Description 12/14/2022 Ancillary Procedure [place] [address] Rufina Mccabe MD [facility] [address] [place] [address] Social History Tobacco Use Types Packs/Day Years [...] Procedure Name Priority Date/Time Associated Diagnosis Comments FILM LIBRARY STORAGE ONLY CT ABDOMEN Routine 12/14/2022 12:00 AM EDT documented in this encounter Results * Film Library- Storage Only CT Abdomen (12/14/2022 12:00 AM EDT) Narrative RAD - 01/24/2023 11:53 AM EDT This exam is auto-finalizing. It's purpose is for storage only. Rufina Mccabe MD IMG FILM LIBRARY OR DERABLES [place], [place] documented in this encounter Visit Diagnoses Not on filedocumented in this encounter Care Teams Sample Grinder Relationship Specialty Start Date End Date Rufina Mccabe MD [facility] [address] [place] [address] PCP - General Family Medicine 11/30/18 05/18/23 documented as of this encounter
--- OUTSIDE RECORDS SUMMARY | 2024-03-07 02:28 | XMS_ITS | Encounter Summary ---
Author Organization [facility] Address [facility] [place] [address] Care Team Providers Care Staffing Mgr Name Role Phone Rufina Mccabe MD Primary Care Provider [phone]- [phone] Reason for Visit * Reason Onset Date Comments Medication Refill 03/11/2023 Encounter Details Date Type Department Care Team ([facility] Contact Info) Description 03/11/2023 Refill Family Medicine at [facility] [address] [place] [address] Daniel Hughes PA [address] [place] [address] Social History Tobacco Use Types Packs/Day Years [...] encounter Miscellaneous Notes * Telephone Encounter - Brianna Sanchez CMA - 03/14/2023 8:16 AM EDT Prescription Renewal Request Name: Sherrie Bonner : 1960 Prescription(s) Requested: Requested Prescriptions Pending Prescriptions Disp Refills buPROPion XL (Wellbutrin XL) 150 mg XL 24 hr tablet 90 tablet 1 Sig: Take 1 tablet by mouth every morning. Date of Encounter last in This Dept (If need an appointment send to secretaries to schedule): 12/27/22 Next Encounter in This Dept: Visit date not found Date of Last Refill (for each medication): 09/07/22#90/1 Medication category requirements (labs etc): na Status of request: Pended No Known Allergies Brianna Sanchez CMA 03/14/23 8:17 AM documented in this encounter Plan of Treatment Not on file documented as of this encounter Visit Diagnoses Not on filedocumented in this encounter Care Teams Staffing Mgr Relationship Specialty Start Date End Date Rufina Mccabe MD [facility] [address] [place] [address] PCP - General Family Medicine 11/30/18 05/18/23 documented as of this encounter
--- OUTSIDE RECORDS SUMMARY | 2024-03-07 02:28 | XMS_ITS | Encounter Summary ---
Author Organization [facility] Address [facility] [place] [address] Care Team Providers Care Form Maker Plaster Name Role Phone Rufina Mccabe MD Primary Care Provider [phone]- [phone] Encounter Details Date Type Department Care Team (Latest Contact Info) Description 01/25/2023 Travel Social History Tobacco Use Types Packs/Day Years [...] on filedocumented in this encounter Care Teams Form Maker Plaster Relationship Specialty Start Date End Date Rufina Mccabe MD [facility] [address] [place] [address] PCP - General Family Medicine 11/30/18 05/18/23 documented as of this encounter
--- OUTSIDE RECORDS SUMMARY | 2024-03-07 02:28 | XMS_ITS | Encounter Summary ---
Author Organization [facility] Address [facility] [place] [address] Care Team Providers Care Veterinarian Poultry Name Role Phone Selma Contreras MD Primary Care Provider [phone] Encounter Details Date Type Department Care Team ([facility] Contact Info) Description 10/10/2023 Telephone Family Medicine at [facility] [address] [place] [phone] Deborah Ramsay Social History Tobacco Use Types Packs/Day Years [...] encounter Miscellaneous Notes * Telephone Encounter - Deborah Ramsay - 10/10/2023 11:11 AM EST Left patient a voicemail to help reschedule an appointment. Can be scheduled by [facility]. Department - [facility] family med Provider - Selma Contreras MD Appt type - Ov Appt notes - Return in about 1 year (around 12/28/2023). documented in this encounter Plan of Treatment Not on file documented as of this encounter Visit Diagnoses Not on filedocumented in this encounter Care Teams Veterinarian Poultry Relationship Specialty Start Date End Date Selma Contreras MD [address] [place] [address] PCP - General 05/19/23 documented as of this encounter
--- OUTSIDE RECORDS SUMMARY | 2024-03-07 02:28 | XMS_ITS | Encounter Summary ---
Author Organization [facility] Address [facility] [place] [address] Care Team Providers Care Link Knitting Machine Operator Name Role Phone Mike Love MD Primary Care Provider [phone] Encounter Details Date Type Department Care Team ([facility] st Contact Info) Description 11/12/2022 Telephone Family Medicine at [facility] [address] [place] [phone] Delvin Post RN Social History Tobacco Use Types Packs/Day Years [...] encounter Miscellaneous Notes * Telephone Encounter - Lyly Garcia - 11/22/2022 1:00 PM EDT Pt scheduled for an apt * Telephone Encounter - Delvin Post RN - 11/12/2022 3:20 PM EDT Copied from [facility] #[id number]. Topic: Triage - Triage >> Nov 12, 2022 1:31 PM Moira Elizabeth wrote: Symptom: Medication Check Appointment PCP: MIKE LOVE Additional Comments: Patient calling to schedule a Medication Review appointment with IVAN, MIKE O only. States pcp is taking over medications from a previous provider and also overdue for appointment. Unable to find appointment with pcp only within one week. Patient requesting a Tuesday if possible. Please call to assist. documented in this encounter Plan of Treatment Not on file documented as of this encounter Visit Diagnoses Not on filedocumented in this encounter Care Teams Link Knitting Machine Operator Relationship Specialty Start Date End Date Mike Love MD [facility] [address] [place] [address] PCP - General Family Medicine 11/30/18 05/18/23 documented as of this encounter
--- OUTSIDE RECORDS SUMMARY | 2024-03-07 02:28 | XMS_ITS | Encounter Summary ---
Author Organization Formerly [facility] [place] [address] Care Team Providers Care Plateman Name Role Phone Rufina Mccabe MD Primary Care Provider [phone] Encounter Details Date Type Department Care Team (Latest Contact Info) Description 12/15/2021 9:00 AM EDT Laboratory Appointment Lab [address] [place] [phone] Multiple sclerosis; Vitamin D deficiency Social History Tobacco Use Types Packs/Day Years [...] Procedure Name Priority Date/Time Associated Diagnosis Comments HEMOGRAM Routine 12/15/2021 9:13 AM EDT Multiple sclerosis Vitamin D deficiency DIFFERENTIAL, AUTOMATED Routine 12/15/2021 9:13 AM EDT Multiple sclerosis Vitamin D deficiency HC VITAMIN D TOTAL-25 HYDROXY Routine 12/15/2021 9:13 AM EDT Multiple sclerosis Vitamin D deficiency HC CBC,PLT & AUTO DIFF Routine 9:13 AM EDT Multiple sclerosis Vitamin D deficiency COMPREHENSIVE METABOLIC PANEL (NON-FASTING) Routine 12/15/2021 9:13 AM EDT Multiple sclerosis Vitamin D deficiency documented in this encounter Results * (ABNORMAL) Differential, Automated (12/15/2021 9:13 AM EDT) Neutrophils % 70.1 % [facility] Neutr Abs (ANC) 7.50(H) 1.70 - 6.10 x10(3)/ L [facility] Lymphocytes % 21.0 % [facility] Lymphocytes Abs 2.2 0.9 - 3.2 x10(3)/[facility]ORATORY Monocytes % 6.3 % [facility] Monocyte Abs 0.7 0.3 - 0.9 x10(3)/[facility] LABORATORY Eosinophils % 1.6 % [facility] Eosinophils Abs 0.2 0.0 - 0.4 x10(3)/[facility] LABORATORY Basophils % 0.5 % [facility] Basophils Abs 0.0 0.0 - 0.1 x10(3)/[facility] LABORATORY Immature Gran % 0.50 % [facility] Comment: Immature granulocytes(IG's)percentage and absolute count will include metamyelocytes, myelocytes, and promyelocytes. Blood smears from CBCs yielding IG's will be scanned manually for concordance. If this scan disagrees with the automated IG or if promyelocytes are noted, a manual differential will be performed. Vero Gran Abs 0.05(H) 0.00 - 0.04 x10(3)/ L [facility] Blood 12/15/2021 9:13 AM EDT 12/15/2021 9:24 AM EDT Narrative Resulting Agency Comment Spec In Lab Tiffayn LAINEZ HEMATOLOGY ORDERA BLES [facility] [place] [address] * (ABNORMAL) Hemogram (12/15/2021 9:13 AM EDT) [facility] WBC 10.7(H) 4.0 - 9.5 x10(3)/[facility] LABORATORY RBC 4.47 4.00 - 5.21 x10(6)/[facility] LABORATORY Hemoglobin 13.5 11.7 - 15.5 g/dL [facility] Hematocrit 40.8 35.7 - 45.8 % [facility] MCV 91.3 82.6 - 94.4 [facility] LABORATORY MCH 30.2 27.1 - 32.0 pg [facility] MCHC 33.1 31.7 - 35.0 g/dL [facility] Platelets 306 145 - 357 x10(3)/[facility] LABORATORY RDWSD 42.9 37.0 - 46.0 [facility] LABORATORY RDWCV 12.9 11.5 - 14.1 % [facility] MPV 10.2 7.6 - 12.9 [facility] LABORATORY nRBC % Auto 0.0 % [facility] nRBC Abs Auto 0.000 0.000 - 0.000 x10(3)/[facility] Blood 12/15/2021 9:13 AM EDT 12/15/2021 9:24 AM EDT Narrative Resulting Agency Comment Spec In Lab Tiffany LAINEZ HEMATOLOGY ORDERA BLES [facility] [place] [address] * (ABNORMAL) Comprehensive metabolic panel (non-fasting) (12/15/2021 9:13 AM EDT) [facility] Glucose Lvl 97 65 - 199 mg/dL [facility] Comment:Diabetes: >=200 mg/d L plus symptoms BUN 24(H) 8 - 18 mg/dL [facility] Creatinine 0.74 0.70 - 1.20 mg/dL [facility] Sodium 140 135 - 145 mmol/L [facility] Potassium 3.8 3.5 - 5.0 mmol/L [facility] Comment: Please note: ??Patients with WBC >100,000 may have falsely elevated Potassium levels. ??For accurate Potassium quantification in these patients send serum separator tube (gold top) for subsequent determinations. ??Contact the Clinical Chemistry Laboratory if there are any questions. Chloride 102 98 - 107 mmol/L [facility] CO2 26 22 - 31 mmol/L [facility] Anion Gap 12 5 - 15 mmol/L [facility] Calcium 9.3 8.5 - 10.5 mg/dL [facility] Total Protein 7.3 6.1 - 8.0 g/dL [facility] Albumin 4.5 3.2 - 5.2 g/dL [facility] AST 15 0 - 30 unit/L [facility] ALT 17 0 - 30 unit/L [facility] Alk Phos 111(H) 35 - 105 unit/L [facility] Total Bilirubin 0.9 0.2 - 1.3 mg/dL [facility] Estimated GFR 88 >=60 mL/min/1. 73 m?? [facility] Comment: This patient? s estimated glomerular [...] In Lab Tiffany LAINEZ CHEMISTRY ORDERAB LES Performing Organization Address City/[facility]/ZIP Co de Phone Number [facility] [place] [address] * Vitamin D, 25-Hydroxy (12/15/2021 9:13 AM EDT) 25-OH Vit D Total 30 21 - 100 ng/mL [facility] 25-OH Vit D Interp Sufficient [facility] Blood 12/15/2021 9:13 AM EDT 12/15/2021 9:24 AM EDT Narrative Resulting Agency Comment Spec In Lab Tiffany LAINEZ CHEMISTRY ORDERAB LES Performing Organization Address [facility] Co de Phone Number [facility] [place] [address] documented in this encounter Visit Diagnoses Diagnosis Multiple sclerosis Vitamin D deficiency Unspecified vitamin D deficiency documented in this encounter Care Teams Plateman Relationship Specialty Start Date End Date Rufina Mccabe MD [facility] [address] [facility] [facility]-[place] [address] PCP - General Family Medicine 11/30/18 05/18/23 documented as of this encounter
--- OUTSIDE RECORDS SUMMARY | 2024-03-07 02:28 | XMS_ITS | Encounter Summary ---
Author Organization [facility] Address [facility] [place] [address] Care Team Providers Care Boat Diesel Motor Mechanic Name Role Phone Rufina Mccabe MD Primary Care Provider [phone] Encounter Details Date Type Department Care Team (Latest Contact Info) Description 02/01/2023 8:44 AM EDT - 02/01/2023 11:59 PM EDT Hospital Encounter Mammography/[place] [address] Rufina Mccabe MD [facility] [address] [place] [address] Visit for screening mammogram Discharge Disposition: Home Social History Tobacco Use [...] Sig Dispensed Refills Start Date End Date gabapentin (Neurontin) 100 mg capsule Take 1 capsule by mouth 3 times daily. 90 capsule 12/27/2022 Breo Ellipta 100-25 mcg/dose Disk with Device INHALE 1 PUFF INTO THE LUNGS DAILY 180 each 1 12/15/2022 Ventolin HFA 90 mcg/actuation HFA Aerosol InhalerIndications:SOB (shortness of breath) on exertion INHALE 2 PUFFS INTO THE LUNGS EVERY 6 HOURS NEEDED 18 g 3 12/14/2022 tiZANidine (Zanaflex) 2 mg Tablet Take 1 tablet by mouth nightly as needed. 90 tablet 3 08/19/2022 baclofen (Lioresal) 10 mg Tablet TAKE ONE TABLET BY MOUTH AT BEDTIME AND ONE TABLET NEEDED DURING THE DAY FOR SPASMS. CAN INCREASE TO 2 TABLETS AT BEDTIME AFTER 5 DAYS IF Strength: 10 mg 180 tablet 3 07/07/2022 cholecalciferol, Vitamin D3, 1,000 unit Tablet Take by mouth daily. magnesium oxide (MAG-OX) 400 mg (241.3 mg magnesium) Tablet Take 400 mg by mouth daily. teriflunomide (Aubagio) 14 mg Tablet Take 14 mg by mouth daily. b complex vitamins Capsule Take 1 capsule by mouth daily. buPROPion XL (Wellbutrin XL) 150 mg Tablet Extended Release 24 hr TAKE 1 TABLET BY MOUTH EVERY MORNING 90 tablet 1 09/07/2022 03/11/2023 documented as of this encounter Plan of Treatment Not on file documented as of this encounter Procedures Procedure Name Priority Date/Time Associated Diagnosis Comments MAMMO SCREENING CAD AND VEL BILATERAL Routine 02/01/2023 9:15 AM EDT Visit for screening mammogram documented in this encounter Results * Mammo Screening Cad and Vel Bilateral [...] Rufina Mccabe MD IMG MAMMO ORDERABLE S documented in this encounter Visit Diagnoses Diagnosis Visit for screening mammogram Other screening mammogram documented in this encounter Care Teams Boat Diesel Motor Mechanic Relationship Specialty Start Date End Date Rufina Mccabe MD [facility] [address] [place] [address] PCP - General Family Medicine 11/30/18 05/18/23 documented as of this encounter
--- OUTSIDE RECORDS SUMMARY | 2024-03-07 02:28 | XMS_ITS | Encounter Summary ---
Author Organization [facility] Address [facility] [place] [address] Care Team Providers Care Bale Coverer Name Role Phone Rufina Mccabe MD Primary Care Provider [phone]- [phone] Reason for Visit * Reason Comments Medication Refill Encounter Details Date Type Department Care Team ([facility] st Contact Info) Description 08/10/2022 Refill Family Medicine at [facility] [address] [place] [address] Rufina Mccabe MD [facility] [address] [place] [address] Social History Tobacco Use Types Packs/Day Years [...] Telephone Encounter - Mariaelena Queen CMA - 08/10/2022 12:09 PM EST Prescription Refill Request Prescription(s) Requested: Requested Prescriptions Pending Prescriptions Disp Refills ??? buPROPion XL (Wellbutrin XL) 150 mg Tablet Extended Release 24 hr [Pharmacy Med Name: BUPROPIONXL 150MG TABLETS (24 H)] 30 tablet 3 Sig: TAKE 1 TABLET BY MOUTH EVERY MORNING Date of Encounter last in This Dept (If over a year and no apt scheduled send to secretaries to schedule):03/09/2022 w/pcp Next Encounter in This Dept: Visit date not found Date of Last Refill (for each medication):03/31/2022 #30 w/3RF Medication category req. lab studies documented in this encounter Plan of Treatment Not on file documented as of this encounter Visit Diagnoses Not on filedocumented in this encounter Care Teams Bale Coverer Relationship Specialty Start Date End Date Rufina Mccabe MD [facility] [address] [place] [address] PCP - General Family Medicine 11/30/18 05/18/23 documented as of this encounter
--- OUTSIDE RECORDS SUMMARY | 2024-03-07 02:28 | XMS_ITS | Encounter Summary ---
Author Organization [facility] Address [facility] [place] [address] Care Team Providers Care Auger Press Operator Name Role Phone Rufina Mccabe MD Primary Care Provider [phone] Reason for Visit * Reason Comments Medication Refill Encounter Details Date Type Department Care Team ([facility] st Contact Info) Description 09/07/2022 Refill Family Medicine at [facility] [address] [place] [address] Daniel Hughes PA [address] [place] [address] Social History Tobacco Use Types Packs/Day Years [...] Telephone Encounter - Mariaelena Queen CMA - 09/07/2022 1:25 PM EST Prescription Refill Request Prescription(s) Requested: Requested Prescriptions Pending Prescriptions Disp Refills ??? buPROPion XL (Wellbutrin XL) 150 mg Tablet Extended Release 24 hr [Pharmacy Med Name: BUPROPIONXL 150MG TABLETS (24 H)] 30 tablet 0 Sig: TAKE 1 TABLET BY MOUTH EVERY MORNING Date of Encounter last in This Dept (If over a year and no apt scheduled send to secretaries to schedule): 03/09/2022 w/pcp Next Encounter in This Dept: Visit date not found Date of Last Refill (for each medication): 08/10/2022 #30 Medication category req. lab studies documented in this encounter Plan of Treatment Not on file documented as of this encounter Visit Diagnoses Not on filedocumented in this encounter Care Teams Auger Press Operator Relationship Specialty Start Date End Date Rufina Mccabe MD [facility] [address] [place] [address] PCP - General Family Medicine 11/30/18 05/18/23 documented as of this encounter
--- OUTSIDE RECORDS SUMMARY | 2024-03-07 02:28 | XMS_ITS | Encounter Summary ---
Author Organization [facility] Address [facility] [place] [address] Care Team Providers Care Bleaching Machine Operator Name Role Phone Rufina Mccabe MD Primary Care Provider [phone]- [phone] Encounter Details Date Type Department Care Team (Latest Contact Info) Description 11/05/2022 Travel Social History Tobacco Use Types Packs/Day [...] on filedocumented in this encounter Care Teams Bleaching Machine Operator Relationship Specialty Start Date End Date Rufina Mccabe MD [facility] [address] [address] PCP - General Family Medicine 11/30/18 05/18/23 documented as of this encounter
--- OUTSIDE RECORDS SUMMARY | 2024-03-07 02:28 | XMS_ITS | Encounter Summary ---
Author Organization [facility] Address [facility] [place] [address] Care Team Providers Care Nip Wrapper Name Role Phone Rufina Mccabe MD Primary Care Provider [phone]- [phone] Reason for Visit * Reason Comments Medication Refill Encounter Details Date Type Department Care Team ([facility] st Contact Info) Description 08/26/2022 Refill Family Medicine at [facility] [address] [place] [phone] Rufina Mccabe MD [facility] DR [address] [facility] [address] Social History Tobacco Use Types Packs/Day Years [...] Telephone Encounter - Mariaelena Queen CMA - 08/26/2022 9:33 AM EST Prescription Refill Request Prescription(s) Requested: Requested Prescriptions Pending Prescriptions Disp Refills ??? fluticasone furoate-vilanteroL (Breo Ellipta) 100-25 mcg/dose Disk with Device [Pharmacy Med Name: FLUTIC/VILAN 100-25MCG ORAL INH(30)] 60 each 3 Sig: INHALE 1 PUFF INTO THE LUNGS DAILY Date of Encounter last in This Dept (If over a year and no apt scheduled send to secretaries to schedule): 03/09/2022 w/pcp Next Encounter in This Dept: Visit date not found Date of Last Refill (for each medication): 08/18/2021 1 each w/3RF Medication category req. lab studies documented in this encounter Plan of Treatment Not on file documented as of this encounter Visit Diagnoses Not on filedocumented in this encounter Care Teams Nip Wrapper Relationship Specialty Start Date End Date Rufina Mccabe MD [facility] DR [address] [place] [address] PCP - General Family Medicine 11/30/18 05/18/23 documented as of this encounter
--- OUTSIDE RECORDS SUMMARY | 2024-03-07 02:28 | XMS_ITS | Encounter Summary ---
Author Organization [facility] Address [facility] [place] [address] Care Team Providers Care Automotive Quality Manager Name Role Phone Rufina Mccabe MD Primary Care Provider [phone] Encounter Details Date Type Department Care Team (Late st Contact Info) Description 12/11/2021 Transcribe [place] [phone] Tiffany Wells PA [address] [place] [address] [id number] Multiple sclerosis; Vitamin D deficiency Social History [...] documented as of this encounter Results * Vitamin D, 25-Hydroxy (12/15/2021 9:13 AM EDT) 25-OH Vit D Total 30 21 - 100 ng/mL [facility] 25-OH Vit D Interp Sufficient [facility] Blood 12/15/2021 9:13 AM EDT 12/15/2021 9:24 AM EDT Narrative Resulting Agency Comment Spec In Lab Tiffany LAINEZ CHEMISTRY ORDERAB LES [facility] [place] [address] * (ABNORMAL) Comprehensive metabolic panel (non-fasting) (12/15/2021 9:13 AM EDT) Glucose Lvl 97 65 - 199 mg/dL [facility] Comment:Diabetes: >=200 mg/d L plus symptoms BUN 24(H) 8 - 18 mg/dL [facility] Creatinine 0.74 0.70 - 1.20 mg/dL [facility] Sodium 140 135 - 145 mmol/L [facility] Potassium 3.8 3.5 - 5.0 mmol/L [facility] Comment: Please note: ??Patients with WBC >100,000 may have falsely elevated Potassium levels. ??For accurate Potassium quantification in these patients send serum separator tube (gold top) for subsequent determinations. ??Contact the Clinical Chemistry Laboratory if there are any questions. Chloride 102 98 - 107 mmol/L [facility] CO2 26 22 - 31 mmol/L [facility] Anion Gap 12 5 - 15 mmol/L [facility] Calcium 9.3 8.5 - 10.5 mg/dL [facility] Total Protein 7.3 6.1 - 8.0 g/dL [facility] Albumin 4.5 3.2 - 5.2 g/dL [facility] AST 15 0 - 30 unit/L [facility] ALT 17 0 - 30 unit/L [facility] Alk Phos 111(H) 35 - 105 unit/L [facility] Total Bilirubin 0.9 0.2 - 1.3 mg/dL [facility] Estimated GFR 88 >=60 mL/min/1. 73 m?? [facility] Comment: This patient? s estimated [...] In Lab Tiffany LAINEZ CHEMISTRY ORDERAB LES [facility] [place] [address] documented in this encounter Visit Diagnoses Diagnosis Multiple sclerosis Vitamin D deficiency Unspecified vitamin D deficiency documented in this encounter Care Teams Automotive Quality Manager Relationship Specialty Start Date End Date Rufina Mccabe MD [facility] [address] [place] [address] PCP - General Family Medicine 11/30/18 05/18/23 documented as of this encounter
--- OUTSIDE RECORDS SUMMARY | 2024-03-07 02:28 | XMS_ITS | Encounter Summary ---
Author Organization [facility] Address [facility] [place] [address] Care Team Providers Care Preventive Medicine Physician Name Role Phone Rufina Mccabe MD Primary Care Provider [phone]- [phone] Reason for Visit * Reason Comments Medication Refill Encounter Details Date Type Department Care Team ([facility] st Contact Info) Description 12/14/2022 Refill Family Medicine at [facility] [address] [place] [phone] Rufina Mccabe MD [facility] [address] [place] [address] Social History Tobacco Use Types Packs/Day Years [...] encounter Miscellaneous Notes * Telephone Encounter - Kaylen Enrique MA - 12/15/2022 2:30 PM EDT Prescription Renewal Request Name: Sherrie Bonner : 1960 Prescription(s) Requested: Requested Prescriptions Pending Prescriptions Disp Refills ??? Breo Ellipta 100-25 mcg/dose Disk with Device [Pharmacy Med Name: BREO ELLIPTA 100-25MCG ORAL INH(30)] 180 each 1 Sig: INHALE 1 PUFF INTO THE LUNGS DAILY Date of Encounter last in This Dept (If need an appointment send to secretaries to schedule): 03/09/2022 [place] Next Encounter in This Dept: 12/27/2022 Date of Last Refill (for each medication): 08/26/2022 60 w 3 refill Medication category requirements (labs etc): Status of request: Pended No Known Allergies Kaylen Enrique MA 12/15/22 2:31 PM documented in this encounter Plan of Treatment Not on file documented as of this encounter Visit Diagnoses Not on filedocumented in this encounter Care Teams Preventive Medicine Physician Relationship Specialty Start Date End Date Rufina Mccabe MD [facility] [address] [place] [address] PCP - General Family Medicine 11/30/18 05/18/23 documented as of this encounter
--- OUTSIDE RECORDS SUMMARY | 2024-03-07 02:28 | XMS_ITS | Encounter Summary ---
Author Organization [facility] Address [facility] [place] [address] Care Team Providers Care Regional Guide Name Role Phone Rufina Mccabe MD Primary Care Provider [phone] Encounter Details Date Type Department Care Team (Latest Contact Info) Description 02/10/2023 9:50 AM EDT - 02/10/2023 11:59 PM EDT [place] [phone] Screening for colon cancer Discharge Disposition: Home [...] 10:45 AM EDT Screening for colon cancer documented in this encounter Results * Fecal Occult Blood, Immunoassay (02/10/2023 10:45 AM EDT) Fecal Occult Blood, Immunoassay Negative Negative [facility] Stool 02/10/2023 10:4 5 AM EDT 02/24/2023 11:58 AM EDT Narrative Resulting Agency Comment Spec In Lab Rufina Mccabe MD BODY FLUIDS AND STO OLS ORDERABLES [facility] [place] [address] documented in this encounter Visit Diagnoses Diagnosis Screening for colon cancer Special screening for malignant neoplasms, colon documented in this encounter Care Teams Regional Guide Relationship Specialty Start Date End Date Rufina Mccabe MD [facility] [address] [facility] [address] PCP - General Family Medicine 11/30/18 05/18/23 documented as of this encounter
--- OUTSIDE RECORDS SUMMARY | 2024-03-07 02:28 | XMS_ITS | Encounter Summary ---
Author Organization [facility] Address [facility] [place] [address] Care Team Providers Care Composite Assembler Name Role Phone Rufina Mccabe MD Primary Care Provider [phone]- [phone] Reason for Referral * E-Consultation (Routine) - Closed Specialty Diagnoses / Procedures Referred By Nelda sheppard Referred To Contact Pharmacy Diagnoses Weight gain Procedures eConsult to Amb Pharmacy (Primary Care Use Only) Rufina Mccabe MD [facility] [place] [address] Referral ID Status Reason Start Date Expiration Date Visits Re quested Visits Authorized [id number] Closed 03/12/2022 03/12/2023 1 1 Reason for Visit * Reason Comments Follow-up Encounter Details Date Type Department Care Team ([facility] Contact Info) Description 03/09/2022 11:00 AM EDT Office Visit Family Medicine at [facility] [address] [place] [address] Rufina Mccabe MD [facility] [place] [address] Weight gain Social History Tobacco Use Types Packs/Day Years [...] Sign Reading Time Taken Comments Blood Pressure 138/68 03/09/2022 11:00 AM EDT Pulse 73 03/09/2022 11:00 AM EDT Temperature 36.4 ??C (97.5 ??F) 03/09/2022 11:00 AM E DT Respiratory Rate 18 03/09/2022 11:00 AM EDT Oxygen Saturation 98% 03/09/2022 11:00 AM EDT Inhaled Oxygen Concentration - - Weight 91.7 kg (202 lb 3.2 oz) 03/09/2022 11:00 AM EDT Height 170.2 cm (5' 7) 03/09/2022 11:00 AM EDT Body Mass Index 31.67 03/09/2022 11:00 AM EDT documented in this encounter Patient Instructions * Patient Instructions* Rufina Mccabe MD - 03/09/2022 11:00 AM EDT Nice to see you today, Sherrie Lind had asked you to come back today to follow the weight gain. It is common after 60 to gain weight even when eating the same foods you previously ate. Let's check your thyroid function. You're already moving your body enough. Sometimes stress can cause weight gain, even if you don't eat more. The adrenalin has an effect on other hormones. Perhaps it's the sertraline increase, though that is rare. I'll call you after I see your thyroid lab result. documented in this encounter Progress Notes * Fredy Lloyd - 03/09/2022 11:00 AM EDT Annual Exam Patient ID: Sherrie Bonner is a 61 y.o. 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 Life-style choices: Dietary choices discussed Discussed weight goals, 05/31 motivation for weight management Exercise program: 150 minutes of moderate intensity exercise per week Sleep: Sleeping 6 hours per night with tossing and turning, going to bed at different times at night, no snoring Stress: Stress has increased with depression mood. Zoloft increased last month.to 50mg. Patient Active Problem List Diagnosis Code ??? 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 CHOLECYSTECTOMY ??? KNEE SURGERY Right approx 2013 Microfracture surgery ([facility], Dr. Barrera) ??? LAMINECTOMY ??? PRO LAMINOTOMY, LUMBAR DISK, 1 INTRSP N/A 10/14/2015 LAMINOTOMY, DECOMPRESSION, FORAMINOTOMY, LUMBAR performed by Trevor Rodriguez MD at [facility] MAIN OR ??? PRO MICROSURG TECHNIQUES, REQ OPER MICROSCOPE N/A 10/14/2015 MICROSCOPE USE performed by Trevor Rodriguez MD at [facility] MAIN OR ??? TUBAL LIGATION Medications 03/09/22 1102 Medication Sig Taking? sertraline (ZOLOFT) 100 mg Tablet Take 50 mg by mouth daily. Yes fluticasone furoate-vilanteroL (Breo Ellipta) 100-25 mcg/dose Disk with Device Inhale 1 puff into the lungs daily. Yes fluticasone propion-salmeteroL (ADVAIR) 250-50 mcg/dose Disk with Device Inhale 2 puffs into the lungs daily. Yes tiZANidine (Zanaflex) 2 mg Tablet Take 2 mg by mouth nightly as needed. Yes tolterodine LA (Detrol LA) 4 mg Capsule, Sust. Release 24 hr Take 4 mg by mouth daily. Yes albuteroL 90 mcg/actuation HFA Aerosol Inhaler Inhale 2 puffs into the lungs every 6 hours as needed. Yes amitriptyline (ELAVIL) 25 mg Tablet Take 25 mg by mouth daily. Yes baclofen (LIORESAL) 10 mg Tablet TAKE ONE TABLET BY MOUTH AT BEDTIME AND ONE TABLET NEEDED DURING THE DAY FOR SPASMS. CAN INCREASE TO 2 TABLETS AT BEDTIME AFTER 5 DAYS IF Yes cholecalciferol, Vitamin D3, 1,000 unit Tablet Take by mouth daily. Yes magnesium oxide (MAG-OX) 400 mg (241.3 mg magnesium) Tablet Take 400 mg by mouth daily. Yes teriflunomide (Aubagio) 14 mg Tablet Take 14 mg by mouth daily. Yes b complex vitamins Capsule Take 1 capsule by mouth daily. Yes Family History Problem Relation Age of Onset ??? Cancer Mother Giant B Cell Lymphoma ??? Cancer Father Prostate ??? Alzheimer Disease Father ??? No Known Problems Sister ??? No Known Problems Brother ??? No Known Problems Sister ??? Cancer Maternal Grandmother ??? Cervical Cancer Maternal Aunt ??? Cancer Paternal Aunt Breast ??? Colorectal Cancer Neg Hx No Known Allergies Social History Tobacco Use ??? Smoking status: Never Smoker ??? Smokeless tobacco: Never Used Vaping Use ??? Vaping Use: Never used Substance Use Topics ??? Alcohol use: No ??? 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 Well-appearing, active in exam room HEENT: Normal scalp, EOMs intact KIM No cervical lymphadenopathy Thyroid is soft and homogenous, no goiter Normal neck ROM RRR S1S2 without murmur Lungs CTA with normal resp effort Abd soft, ND, no HSM/masses, tender in LLQ No extremity deformities, normal ROM observed of all extremities/joints SENIOR x 4 with equal strength Skin intact throughout Assessment/Plan: Sherrie is a 61 yo female with hx of MS, Depression, GERD, RLS, and radiculopathy s/p lumbar procedures who was seen today for follow-up. Sleep Melatonin is working well. Discussed sleep hygiene, such as making sleep a routine and avoiding screen time before bed. Will f/u Weight gain Likely multifactorial from metabolic tolerance decline with current diet and dysregulated sleep. Adequate activity each day though can try different exercises in addition to walking. Will look into association between Sertraline and weight gain. Weight gain preceded sertraline though can be synergistic. Most recent TSH in 2020, nml. Will recheck for newly acquired hypothyroidism associated with depressed mood. CBC reviewed. - TSH [place]; Future Depression Mood is depressed with recent increase in Zoloft. Will monitor for improvement after recent dose increase Consider switching or augmenting if there is no improvement. Will also check TSH for depression due to hypothyroidism. MS and ANSARI Stable. Appreciate management from Neuro Cardiometabolic: Discussed weight in the context of BMI goals for avoidance of chronic disease Discussed structured exercise program of 30 minutes of exercise 5x/week Discussed Mediterranean diet for life-long heart health Discussed BP goals Smoking hx discussed if relevant to this specific patient Discussed patient's most recent lipids Bone Health: Discussed nutrition and exercise in terms of maintaining healthy bones Cancer screening: Discussed age and gender specific cancer screening guidelines Discussed diet, exercise, and maintaining healthy weight as cancer prevention strategies Vaccines: Discussed - Shingles vaccine is not covered by insurance and is cost-prohibitive Signed: Fredy Lloyd MS3 03/09/22 * Rufina Mccabe MD - 03/09/2022 11:00 AM EDT I have seen the patient and reviewed the medical student's above history/ROS/PE/Assessement & Plan and I agree with the details as written. The assessment and plan were formulated in discussion with me and I agree with them as documented. Pertinent History: As per HPI Pertinent Exam: As per med student PE. I independently performed exam. Major issues addressed: Health maintenance items, meds on list. Slow steady weight gain over past few years, with BMI now greater than 50 Plan: Check TSH today to ensure weight gain is not hypothyroidism. Though Sertraline is usually weight neutral, this weight gain is temporally associated with when she started this medication. Will check with psychiatry to ask how often they see weight gain with this medication. May be a coincidence. Sherrie walks 20,000 steps per day at work, and is trying to cut out carbs/ sugar I wonder if her amitriptyline could be contributing to her weight gain? She states she's been on that for many years without weight gain. Could consider a trial of Metformin, perhaps, for weight loss Insurance wouldn't pay for Ozempic as patient has normal blood sugars Last 3 Hemoglobin A1Cs Lab Results Component Value Date HA1C 5.0 11/30/2018 documented in this encounter Plan of Treatment Not on file documented as of this encounter Procedures Procedure Name Priority Date/Time Associated Diagnosis Comments HC VENIPUNCTURE Routine 03/09/2022 12:17 PM EDT Weight gain documented in this encounter Results * TSH [place] (03/09/2022 12:17 PM EDT) TSH 2.70 0.27 - 4.20 mcIU/mL [facility] Comment: Reference Interval (mcIU/mL): Females: ??First Trimester: 0.23-3.88 ??Second Trimester: 0.22-3.90 ??Third Trimester: 0.44-4.66 Blood 03/09/2022 12:1 7 PM EDT 03/09/2022 5:09 PM EDT Narrative Resulting Agency Comment Spec In Lab Rufina Mccabe MD CHEMISTRY ORDERABLE S [facility] [place] [address] documented in this encounter Visit Diagnoses Diagnosis Weight gain Abnormal weight gain documented in this encounter Care Teams Composite Assembler Relationship Specialty Start Date End Date Rufina Mccabe MD [facility] [address] [place] [address] PCP - General Family Medicine 11/30/18 05/18/23 documented as of this encounter
--- OUTSIDE RECORDS SUMMARY | 2024-03-07 02:28 | XMS_ITS | Encounter Summary ---
Author Organization [facility] Address [facility] [place] [address] Care Team Providers Care Fabrication Machine Operator Name Role Phone Rufina Mccabe MD Primary Care Provider [phone]- [phone] Reason for Visit * Reason Onset Date Comments Prior Authorization 09/10/2022 fluticasone furoate-vilanteroL (Breo Ellipta) 100-25 mcg/dose Disk with Device Encounter Details Date Type Department Care Team ([facility] Contact Info) Description 09/10/2022 Telephone Family Medicine at [facility] [address] [place] [address] Dusty Mercedes MA Prior Authorization (fluticasone furoate-vilanteroL (Breo Ellipta) 100-25 mcg/dose Disk with Device ) Social History Tobacco Use Types Packs/Day Years [...] encounter Miscellaneous Notes * Telephone Encounter - Dusty Mercedes MA - 09/10/2022 4:06 PM EST Received correspondence from insurance that patients fluticasone furoate-vilanteroL (Breo Ellipta) 100-25 mcg/dose Disk with Device Is not on formulary. Call to pharmacy, patient has secondary insurance and has already picked up this prescription at no cost. Nothing further neded documented in this encounter Plan of Treatment Not on file documented as of this encounter Visit Diagnoses Not on filedocumented in this encounter Care Teams Fabrication Machine Operator Relationship Specialty Start Date End Date Rufina Mccabe MD [facility] [address] [place] [address] PCP - General Family Medicine 11/30/18 05/18/23 documented as of this encounter
--- OUTSIDE RECORDS SUMMARY | 2024-03-07 02:28 | XMS_ITS | Encounter Summary ---
Author Organization [facility] Address [facility] [place] [address] Care Team Providers Care Caustic Room Operator Name Role Phone Rufina Mccabe MD Primary Care Provider Reason for Visit * Reason Onset Date Comments Prior Authorization 08/17/2021 fluticasone propion-salmeteroL (ADVAIR) 250-50 mcg/dose Disk with Device Encounter Details Date Type Department Care Team ([facility] Contact Info) Description 08/17/2021 Telephone Family Medicine at [facility] [address] [place] [address] Nancy Ryan LNA Prior Authorization (fluticasone propion-salmeteroL (ADVAIR) 250-50 mcg/dose Disk with Device ) Social History [...] Telephone Encounter - Negrita Aly RN - 08/18/2021 2:30 PM EST The message sent to patient via my on 08/13/21 * Telephone Encounter - Nancy Ryan LNA - 08/18/2021 2:18 PM EST Images from the original note were not included. [place] [address] DENIED: Advair Case/Reference #: [id number] Additional Information from Insurance: See media for complete letter * Telephone Encounter - Nancy Ryan LNA - 08/17/2021 12:46 PM EST Medication Prior Authorization Submitted Request received via: [facility] Patient: Sherrie Bonner Patient : 1960 Insurance Company: [employer] Medicare Part D Electronic Prior Authorization Form Sent via: [facility] [place]: [id number] - Rx #: [id number] Physician: Teddy Cool DO Medication Requested:fluticasone propion-salmeteroL (ADVAIR) 250-50 mcg/dose Disk with Device Frequency/Sig: Inhale 2 puffs into the lungs daily. Disp: 1 each Refills: 5 Currently taking: no Diagnosis for this medication: SOB (shortness of breath) on exertion (R06.02) Asthma Prior medications trialed in this patient: Adjacent Treatments: albuteroL 90 mcg/actuation HFA Aerosol Inhaler Medication: montelukast (SINGULAIR) 10 mg Tablet Approx Dates: 06/2012-09/2018 Outcome/Adverse Reactions: Additional Notes: documented in this encounter Plan of Treatment Not on file documented as of this encounter Visit Diagnoses Not on filedocumented in this encounter Care Teams Caustic Room Operator Relationship Specialty Start Date End Date Rufina Mccabe MD [facility] [address] [place] [address] PCP - General Family Medicine 11/30/18 05/18/23 documented as of this encounter
--- OUTSIDE RECORDS SUMMARY | 2024-03-07 02:28 | XMS_ITS | Encounter Summary ---
Author Organization [facility] Address [facility] [place] [address] Care Team Providers Care Boilerhouse Mechanic Name Role Phone Rufina Mccabe MD Primary Care Provider [phone]- [phone] Encounter Details Date Type Department Care Team (Latest Contact Info) Description 12/27/2022 Travel Social History Tobacco Use Types Packs/Day [...] on filedocumented in this encounter Care Teams Boilerhouse Mechanic Relationship Specialty Start Date End Date Rufina Mccabe MD [facility] [address] [address] PCP - General Family Medicine 11/30/18 05/18/23 documented as of this encounter
--- OUTSIDE RECORDS SUMMARY | 2024-03-07 02:28 | XMS_ITS | Encounter Summary ---
Author Organization [facility] Address [facility] [place] [address] Care Team Providers Care Duct Cleaner Name Role Phone Rufina Mccabe MD Primary Care Provider [phone]- [phone] Encounter Details Date Type Department Care Team (Latest Contact Info) Description 12/22/2022 Travel Social History Tobacco Use Types Packs/Day [...] on filedocumented in this encounter Care Teams Duct Cleaner Relationship Specialty Start Date End Date Rufina Mccabe MD [facility] [place] [address] PCP - General Family Medicine 11/30/18 05/18/23 documented as of this encounter
--- OUTSIDE RECORDS SUMMARY | 2024-03-07 02:28 | XMS_ITS | Encounter Summary ---
Author Organization [facility] Address [facility] [place] [address] Care Team Providers Care Washtub Worker Helper Name Role Phone Rufina Mccabe MD Primary Care Provider [phone] Encounter Details Date Type Department Care Team (Late st Contact Info) Description 06/02/2022 Transcribe [place] [address] Tiffany Wells PA [address] [facility] [address] [place] [address] Multiple sclerosis Social History Tobacco Use Types Packs/Day Years [...] documented as of this encounter Results * Hepatic Function Panel (11/05/2022 8:46 AM EDT) Total Protein 7.4 6.1 - 8.0 g/dL [facility] Albumin 4.4 3.2 - 5.2 g/dL [facility] AST 17 0 - 30 unit/L [facility] ALT 30 0 - 30 unit/L [facility] Alk Phos 104 35 - 105 unit/L [facility] Total Bilirubin 0.6 0.2 - 1.3 mg/dL [facility] Bili, Direct 0.1 0.0 - 0.3 mg/dL [facility] Blood 11/05/2022 8:46 AM EDT 11/05/2022 8:48 AM EDT Narrative Resulting Agency Comment Spec In Lab Tiffany LAINEZ CHEMISTRY ORDERAB LES Performing Organization Address City/State/[facility] Co de Phone Number [facility] [place] [address] documented in this encounter Visit Diagnoses Diagnosis Multiple sclerosis documented in this encounter Care Teams Washtub Worker Helper Relationship Specialty Start Date End Date Rufina Mccabe MD [facility] [address] [place] [address] PCP - General Family Medicine 11/30/18 05/18/23 documented as of this encounter
--- OUTSIDE RECORDS SUMMARY | 2024-03-07 02:28 | XMS_ITS | Encounter Summary ---
Author Organization [facility] [place] [address] Care Team Providers Care Repairing Calibrator Name Role Phone Rufina Mccabe MD Primary Care Provider [phone]- [phone] Reason for Visit * Reason Onset Date Comments Other 08/17/2022 Encounter Details Date Type Department Care Team ([facility] Contact Info) Description 08/17/2022 Telephone Family Medicine at [facility] [address] [place] [address] Rufina Mccabe MD [facility] [address] [place] [address] Other Social History Tobacco Use Types Packs/Day Years [...] Telephone Encounter - Negrita Aly RN - 08/18/2022 9:28 AM EST Call to patient. Patient identified by name and . She is made aware that we did not call her. She expresses understanding . * Telephone Encounter - Rufina Mccabe MD - 08/18/2022 8:30 AM EST I did not call her I sent her a portal msg about her med request, but I didn't call. * Telephone Encounter - Elida Victoria - 08/17/2022 10:35 AM EST Message: Patient is returning call she missed to a nurse. Patient stated her answered phone. They would not give any information on who was calling. This mortgage or loan underwriter was unable to see any messagesabout a call. Please advise Ask caller their first and last name and relationship to the patient: Sherrie Bonner Best time to call back: any Ok to leave a message: yes Ok to send my- message: yes Offered Appointment: NA MA/Nurse/Newspaper Publisher contacted via: Message: yes Call: no Pager: no documented in this encounter Plan of Treatment Not on file documented as of this encounter Visit Diagnoses Not on filedocumented in this encounter Care Teams Repairing Calibrator Relationship Specialty Start Date End Date Rufina Mccabe MD [facility] [address] [place] [address] PCP - General Family Medicine 11/30/18 05/18/23 documented as of this encounter
--- OUTSIDE RECORDS SUMMARY | 2024-03-07 02:28 | XMS_ITS | Encounter Summary ---
Author Organization [facility] Address [facility] [place] [address] Care Team Providers Care Insert Operator Name Role Phone Rufina Mccabe MD Primary Care Provider [phone]- [phone] Encounter Details Date Type Department Care Team (Latest Contact Info) Description 02/01/2023 Travel Social History Tobacco Use Types Packs/Day [...] on filedocumented in this encounter Care Teams Insert Operator Relationship Specialty Start Date End Date Rufina Mccabe MD [facility] [place] [address] PCP - General Family Medicine 11/30/18 05/18/23 documented as of this encounter
--- OUTSIDE RECORDS SUMMARY | 2024-03-07 02:28 | XMS_ITS | Encounter Summary ---
Author Organization [facility] Address [facility] [place] [address] Care Team Providers Care Helminthology Teacher Name Role Phone Rufina Mccabe MD Primary Care Provider [phone]- [phone] Reason for Visit * Reason Comments Medication Refill Encounter Details Date Type Department Care Team ([facility] st Contact Info) Description 12/14/2022 Refill Family Medicine at [facility] [address] [place] [address] Rufina Mccabe MD [facility] [address] [address] SOB (shortness of breath) on exertion Social [...] Telephone Encounter - Kaylen Enrique MA - 12/14/2022 4:08 PM EDT Prescription Renewal Request Name: Sherrie Bonner : 1960 Prescription(s) Requested: Requested Prescriptions Pending Prescriptions Disp Refills ??? Ventolin HFA 90 mcg/actuation HFA Aerosol Inhaler [Pharmacy Med Name: VENTOLIN HFA INH W/DOS CTR 200PUFFS] 18 g 3 Sig: INHALE 2 PUFFS INTO THE LUNGS EVERY 6 HOURS NEEDED Date of Encounter last in This Dept (If need an appointment send to secretaries to schedule): 03/09/2022 Estelle Next Encounter in This Dept: 12/27/2022 Date of Last Refill (for each medication): 09/08/2022 18g w 3 refill Medication category requirements (labs etc): Status of request: Pended No Known Allergies Kaylen Enrique MA 12/14/22 4:09 PM documented in this encounter Plan of Treatment Not on file documented as of this encounter Visit Diagnoses Diagnosis SOB (shortness of breath) on exertion Shortness of breath documented in this encounter Care Teams Helminthology Teacher Relationship Specialty Start Date End Date Rufina Mccabe MD [facility] [address] [address] PCP - General Family Medicine 11/30/18 05/18/23 documented as of this encounter
--- OUTSIDE RECORDS SUMMARY | 2024-03-07 02:28 | XMS_ITS | Encounter Summary ---
Author Organization [facility] Address [facility] [address] Care Team Providers Care School Aide Name Role Phone Selma Contreras MD Primary Care Provider [phone] Reason for Visit * Reason Comments Medication Refill Encounter Details Date Type Department Care Team (Late st Contact Info) Description 08/26/2022 Refill Family Medicine at [facility] [address] [place] [address] Rufina Mccabe MD [facility] [address] [place] [address] Social History Tobacco Use Types Packs/Day Years [...] Telephone Encounter - Mariaelena Queen CMA - 08/27/2022 10:35 AM EST Last filled 08/26/2022 #60 w/[facility] #[id number] - [place], [place] - [address] [place] [address] AT [address] [address] ?? documented in this encounter Plan of Treatment Not on file documented as of this encounter Visit Diagnoses Not on filedocumented in this encounter Care Teams School Aide Relationship Specialty Start Date End Date Selma Contreras MD [address] [address] PCP - General 05/19/23 documented as of this encounter
--- OUTSIDE RECORDS SUMMARY | 2024-03-07 02:28 | XMS_ITS | Encounter Summary ---
Author Organization [facility] [place] [address] Care Team Providers Care Intertype Operator Name Role Phone Rufina Mccabe MD Primary Care Provider [phone] Encounter Details Date Type Department Care Team (Latest Contact Info) Description 11/05/2022 8:35 AM EDT Laboratory Appointment Lab [address] [place] [id number] Multiple sclerosis Social History Tobacco Use Types [...] Priority Date/Time Associated Diagnosis Comments HEMOGRAM Routine 11/05/2022 8:46 AM EDT Multiple sclerosis DIFFERENTIAL, AUTOMATED Routine 11/05/2022 8:46 AM EDT Multiple sclerosis HC CBC,PLT & AUTO DIFF Routine 11/05/2022 8:46 AM EDT Multiple sclerosis HEPATIC FUNCTION PANEL Routine 11/05/2022 8:46 AM EDT Multiple sclerosis documented in this encounter Results * Differential, Automated (11/05/2022 8:46 AM EDT) Neutrophils % 63.3 % [facility] Neutr Abs (ANC) 4.08 1.70 - 6.10 x10(3)/[facility] Lymphocytes % 24.7 % [facility] Lymphocytes Abs 1.6 0.9 - 3.2 x10(3)/[facility] Monocytes % 8.4 % [facility] Monocyte Abs 0.5 0.3 - 0.9 x10(3)/[facility] Eosinophils % 2.8 % [facility] Eosinophils Abs 0.2 0.0 - 0.4 x10(3)/[facility] Basophils % 0.6 % [facility] Basophils Abs 0.0 0.0 - 0.1 x10(3)/[facility] Immature Gran % 0.20 % [facility] Comment: Immature granulocytes(IG's)percentage and absolute count will include metamyelocytes, myelocytes, and promyelocytes. Blood smears from CBCs yielding IG's will be scanned manually for concordance. If this scan disagrees with the automated IG or if promyelocytes are noted, a manual differential will be performed. Vero Gran Abs 0.01 0.00 - 0.04 x10(3)/[facility] Blood 11/05/2022 8:46 AM EDT 11/05/2022 8:49 AM EDT Narrative Resulting Agency Comment Spec In Lab Tiffany LAINEZ HEMATOLOGY ORDERA BLES [facility] [place] [address] * Hemogram (11/05/2022 8:46 AM EDT) WBC 6.4 4.0 - 9.5 x10(3)/[facility] RBC 4.33 4.00 - 5.21 x10(6)/[facility] Hemoglobin 12.9 11.7 - 15.5 g/dL [facility] Hematocrit 39.0 35.7 - 45.8 % [facility] MCV 90.1 82.6 - 94.4 fL [facility] MCH 29.8 27.1 - 32.0 pg [facility] MCHC 33.1 31.7 - 35.0 g/dL [facility] Platelets 245 145 - 357 x10(3)/[facility] RDWSD 42.0 37.0 - 46.0 [facility] RDWCV 12.7 11.5 - 14.1 % [facility] MPV 10.5 7.6 - 12.9 [facility] nRBC % Auto 0.0 % [facility] nRBC Abs Auto 0.000 0.000 - 0.000 x10(3)/[facility] Blood 11/05/2022 8:46 AM EDT 11/05/2022 8:49 AM EDT Narrative Resulting Agency Comment Spec In Lab Tiffany LAINEZ HEMATOLOGY ORDERA BLES [facility] [place] [address] * Hepatic Function Panel (11/05/2022 8:46 AM EDT) Total Protein 7.4 6.1 - 8.0 g/dL [facility] Albumin 4.4 3.2 - 5.2 g/dL [facility] AST 17 0 - 30 unit/L [facility] ALT 30 0 - 30 unit/L [facility] Alk Phos 104 35 - 105 unit/L [facility] Total Bilirubin 0.6 0.2 - 1.3 mg/dL [facility] Bili, Direct 0.1 0.0 - 0.3 mg/dL [facility] Blood 11/05/2022 8:46 AM EDT 11/05/2022 8:48 AM EDT Narrative Resulting Agency Comment Spec In Lab Tiffany LAINEZ CHEMISTRY ORDERAB LES [facility] [place] [address] documented in this encounter Visit Diagnoses Diagnosis Multiple sclerosis documented in this encounter Care Teams Intertype Operator Relationship Specialty Start Date End Date Rufina Mccabe MD [facility] [address] [place] [address] PCP - General Family Medicine 11/30/18 05/18/23 documented as of this encounter
--- OUTSIDE RECORDS SUMMARY | 2024-03-07 02:29 | XMS_ITS | Encounter Summary ---
Author Organization [facility] Address [facility] [place] [address] Care Team Providers Care Cognos Tm1 Developer Name Role Phone Rufina Mccabe MD Primary Care Provider [phone] Encounter Details Date Type Department Care Team (Late st Contact Info) Description 11/13/2019 [place] [phone] Leta Anne, DRIVE MAN Social History Tobacco Use Types Packs/Day Years [...] on filedocumented in this encounter Care Teams Cognos Tm1 Developer Relationship Specialty Start Date End Date Rufina Mccabe MD [facility] [address] [address] PCP - General Family Medicine 11/30/18 05/18/23 documented as of this encounter
--- OUTSIDE RECORDS SUMMARY | 2024-03-07 02:29 | XMS_ITS | Encounter Summary ---
Author Organization [facility] Address [facility] [place] [address] Care Team Providers Care Medical Transcription Supervisor Name Role Phone Rufina Mccabe MD Primary Care Provider [phone] Reason for Visit * Reason Comments Pain Management Back Pain Encounter Details Date Type Department Care Team (Late st Contact Info) Description 09/11/2019 10:00 AM EST Office Visit [place] [address] Elizabet Brooks APRN [facility] [place] [address] Facet arthritis of lumbar region (Primary Dx) Social History Tobacco Use Types Packs/Day Years [...] Sign Reading Time Taken Comments Blood Pressure 142/69 09/11/2019 9:26 AM EST Pulse 76 09/11/2019 9:26 AM EST Temperature - - Respiratory Rate - - Oxygen Saturation 100% 09/11/2019 9:26 AM EST Inhaled Oxygen Concentration - - Weight 77.1 kg (170 lb) 09/11/2019 9:26 AM EST Height 170.2 cm (5' 7) 09/11/2019 9:26 AM EST Body Mass Index 26.63 09/11/2019 9:26 AM EST documented in this encounter Progress Notes * Elizabet Brooks Dewey, HYDRAULIC PLUMBER HELPER - 09/11/2019 10:00 AM EST . [facility] [place] [place] [address] Phone: PAIN MANAGEMENT NEW PATIENT / CONSULTATION NOTE DATE OF VISIT 09/11/2019 Patient Sherrie Bonner 1960 REFERRING PROVIDER Mayra Ocampo APRN [facility] [address] [place] [address] PRIMARY CARE PROVIDER Rufina Mccabe MD CHIEF COMPLAINT: Sherrie Bonner is a 59 y.o. female with left low back pain and left calf pain/tingling, who is seen in consultation at the request of Dr. Julien for evaluation, recommendations, and management. The history is obtained from the patient, and I have reviewed medical records, provided by the referringphysician and located in the electronic medical record, to fill in gaps in the patient's recollection of events, treatments, and outcomes. HPI Ms. Bonner had a left L5-S1 diskectomy and foraminotomy on 10/14/[address] Julien for left posterolateral thigh and calf pain. She had resolution of her low back and leg pain at her follow-up appointment with Dr. Julien on 11/27/15, although she reports today that she had some residual numbness and tingling in her lower leg. In February 2016, she had an onset of worsening posterior left leg pain followi ng a fall on 01/19 (she reports that it does not feel like the pain she had prior to surgery)- she was started on Gabapentin at that time. She was also worked up for DVT- no evidence of DVT. She also has a history of multiple sclerosis, depression, and chronic headaches (followed by [facility] neurology). Interval history: Sherrie had a LESI for recurrent left-sided low back pain with some radiating pain down the left low back, buttock, lateral leg to the calf. The injection of steroid did not help her at all and subsequently she went on to have a lumbar medial branch block. She was previously seen by Ms. Vela who formulated this plan. I am following up with her because Ms. Torres has left the clinic and this is my first visit with her. She reports that she had months and months of relief from the medial branch block and but symptoms have started to recur. Her pain level is 6-7 on a scale of 10 it sharp and shooting in quality. She has had prior back surgery with Dr. julien. She is also seen Dr. Moreno for the injection. She has some sacroiliac pain as well but the majority of her pain is farther up. Interval history, September 11, 2019 Sherrie is back to review her left-sided low back pain. She was seen last September had a left-sidedmedial branch block and radiofrequency at L2-3 and L3- 4. Unfortunately she had a lot of other things going on including the of her father and did not return for follow-up. She then called around May saying that she had increasing back pain. She feels that the pain is in a different spot than it was in the past. She just continues to have the buttock pain and radiation down the leg however. She is had a prior surgery done by Dr. julien in 2015 which was a laminotomy and L5-S1 on the leftwith residual granulation tissue which may explain her left leg pain. She is also had procedures onthe right for radiofrequency lesioning. These were resulted in good results. Her pain level is described as 7-8 on a scale of 10 currently predominantly on the left. There has been a change in her health history and that she has been having some chest pain which was worked up by a tooth clerk and she is now seeing pulmonology and sees the next on Tuesday. PAIN ASSESSMENT: -Sharp and shooting left-sided low back pain radiating to the lateral leg - No saddle anesthesia - Aggravated by: hard to say, unable to see any patterns; prolonged sitting - Alleviated by: heat takes the edge off - Average pain in past week: 7-8/10 MEDICATIONS The [place] and [place] Prescription Monitoring Program was checked and no concerns were identified. -- CURRENT THERAPIES: None currently for this problem PAST THERAPIES: Oral prednisone- no relief Vicodin- no relief LESI prior to surgery Toradol- no relief Diclofenac- no relief Flexeril- no relief Tizanidine- no relief Gabapentin 900mg tid Cymbalta 60mg daily tramadol 50mg every six hours prn- takes once per day Review of Systems Constitutional: denies fever, chills, weight changes, fatigue HEENT: + daily headaches, occasional blurry vision/vision changes, denies difficulty hearing Cardiac: denies chest pain, palpitations, lower extremity edema Lungs: denies shortness of breath, wheezing, cough GI: denies constipation or diarrhea, nausea or vomiting, black or bloody stool, loss of control of bowel : denies frequency, urgency, hesitation, or incontinence Neuro: denies changes in attention or orientation; denies dizziness, seizures, tremors Muscloskeletal: denies joint swelling, use of ambulatory aide, falls Skin: denies open sores or rashes, pruritis Psychological/Mood: so-so related to pain, depression under good control- does not take medication or see counselor; denies suicidal/homicidal ideations Sleep: interrupted due to pain FUNCTIONAL /SOCIAL Lives with: and daughter 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 no Ever received methadone or suboxone (buprenorphine) for substance abuse? no Ever participated in drug or alcohol rehabilitation program? no Shared your pain medications or accepted pain medications from family/friends? no Opioid Risk Tool Female Male 1. Family history of Substance Abuse Alcohol [x] 1 [] 3 Illegal Drugs [] 2 [] 3 Prescription Drugs [] 4 [] 4 2. Personal History of Substance Abuse Alcohol [] 3 [] 3 Illegal Drugs [] 4 [] 4 Prescription Drugs [] 5 [] 5 3. Age (connor box if 16-45) [] 1 [] 1 4. History of Preadolescent Sexual Abuse [] 3 [] 0 5. Psychological Disease Attention Deficit Disorder, Obsessive Compulsive D/o, Bipolar, Schizophrenia [] 2 [] 2 Depression [x] 1 [] 1 TOTAL: 2 Comments about ORT in relation to this patient: 2- low risk Opioid Risk Category: Low risk 0-3 Moderate risk 4-7 High risk >=8 MEDICAL HISTORY Past Medical History: Diagnosis Date ??? Asthma ??? Back pain ??? Depression ??? Depression 10/18/2018 ??? Headache(784.0) ??? Leg pain, right ??? MS (multiple sclerosis) ??? RLS (restless legs syndrome) Current/history of: Heart arrhythmia? No Sleep apnea? No Implanted pacemaker? No Kidney disease? No Liver dysfunction? No SURGICAL HISTORY Past Surgical History: Procedure Laterality Date ??? CHOLECYSTECTOMY ??? KNEE SURGERY Right approx 2014 Microfracture surgery ([facility], Dr. Barrera) ??? LAMINECTOMY ??? PRO LAMINOTOMY, LUMBAR DISK, 1 INTRSP N/A 10/14/2015 LAMINOTOMY, DECOMPRESSION, FORAMINOTOMY, LUMBAR performed by Trevor Julien MD at [facility] MAIN OR ??? PRO MICROSURG TECHNIQUES, REQ OPER MICROSCOPE N/A 10/14/2015 MICROSCOPE USE performed by Trevor Julien MD at [facility] MAIN OR ??? TUBAL LIGATION FAMILY HISTORY Family History Problem Relation Age of Onset ??? Cancer Mother Giant B Cell Lymphoma ??? Cancer Father Prostate ??? Alzheimer Disease Father ??? No Known Problems Sister ??? No Known Problems Brother ??? No Known Problems Sister ??? Cancer Maternal Grandmother ??? Cervical Cancer Maternal Aunt ??? Cancer Paternal Aunt Breast ??? Colorectal Cancer Neg Hx PHYSICAL EXAMINATION Most Recent Vitals: 09/11/19 0926 BP: 142/69 Pulse: 76 SpO2: 100% PainSc: 6 Body mass index is 26.63 kg/m??. BP 142/69 Pulse 76 Ht 170.2 cm (5' 7) Wt 77.1 kg (170 lb) Appearance/ Behavior Well groomed, good eye contact, relaxed, cooperative, normal speech, no acute distress. Seen alone. Eyes Pupils round and equal, extraoccular movements intact. No conjunctival injection or excessive tearing. Sclera non-icteric. ENT Hearing grossly intact Lungs Clear to auscultation bilaterally Cardiovascular Rate and rhythm regular without murmur. Skin No rash, asymmetric hair loss, bruises, scars, swelling, or masses noted. Vascular warm to touch, + 2 pulses in bilateral upper and lower extremities, no edema Focused Musckuloskeletal/Neurological LUMBAR SPINE EXAMINATION: Inspection: Scar: Yeslumbar, consistent with stated surgery; Scoliosis: No; Obvious rash or infection: No Gait:normal gait and station and normal balance Range of motion: restricted with lumbar spine extension Left Right Muscle spasm/pain No No Sacroiliac joint tenderness No No Facet joint tenderness Yes No Yaadv's test (facet loading) Positive Negative Paraspinous region tenderness Yes No Heel walk Normal Normal Toe walk Normal Normal Straight leg raise negative negative HIP EXAMINATION: Left Right Range of motion unrestricted with internal and external rotation. unrestricted with internal and external rotation. Groin pain with range of motion? Negative Negative Trochanteric bursa tenderness? Negative Negative Psoas tenderness? Negative Negative Piriformis muscle tenderness Negative Negative SI JOINT EXAMINATION: negative Left Right Compression negative negative Gaenslen negative} negative BLAIR positive negative Brigida Finger Test positive negative Motor: Segment Muscle Action R L L3 Quadriceps Knee extension 5 /5 5/5 L4,5 Hamstring Knee Flexion 5/5 5 /5 L4 Tibialis anterior Dorsiflexion 5/5 5 /5 L5 Extensor hallucis Great toe extension 4/5 5 /5 S1 Gastrocnemius, FHL Plantar flexion 5/5 5/5 Hip ADduction 5/5 5/5 Hip ABduction 5/5 5/5 * exam limited by pain Reflexes: Segment Tendon Right Left L4 Patellar 2+ 2+ S1 Achilles 2+ 2+ Sensory: Light Touch (0=absent, 1-impaired, 2=normal) Segment location Right Left L1 upper inner thigh 2 2 L2 mid-ant thigh 2 2 L3 med femoral condyle 2 2 L4 medial mal 2 1 L5 dorsum foot, 3rd MT 2 1 S1 lat heel 2 1 S2 Popliteal fossa 2 1 No clonus, negative Bello's, Babinski with downward going toes. RADIOGRAPHIC STUDIES I have personally reviewed images from the following studies: MRI Lumbar Spine 04/05/16 FINDINGS: There is normal alignment of 5 lumbar type vertebral bodies. There is retrolisthesis of L5 on S1. Disc degenerative changes with disc space narrowing and decreased signal intensity on T2 sequence seen from L2-3 through L5-S1. Vertebral bodies are normal in height. Endplate reactive changes are seen asymmetric to the right at L3-4 and on the left L5-S1. No pars defects. Extensive facet arthropathy at L5-S1 worse on the left. Conus and straits normal size shape and signal intensity and terminates at a low normal position at the L2 level. No abdominal aortic aneurysm. T12-L1, L1-2: No disc protrusion central stenosis or foraminal narrowing. L2-3: Mild annular bulge and facet arthropathy with mild overall canal narrowing. Mild caudal foraminal narrowing bilaterally greater on the left. L3-4: Mild effacement of the ventral thecal sac secondary to annular bulge and facet arthropathy. Moderate right and mild left foraminal narrowing with asymmetric endplate proliferative change and disc space narrowing. Findings similar to prior exam L4-5: Left greater than right facet arthropathy present. There is a mild annular bulge with mild effacement of the ventral thecal sac. Mild left and mild to moderate right foraminal narrowing similar to prior examination. L5-S1: Left-sided laminotomy. There is enhancing granulation tissue projecting on the left in the epidural space extending into the left foramina. There is some and nonenhancing soft tissue centrally within the granulation tissue on the left image 6 of series 7.. There is some effacement of the thecal sac on the left. There is nonenhancing soft tissue on the left in the foramina which appears to contact but not displace or deform the exiting left L5 nerve root on image 2 and image 1 of series 7. IMPRESSION Similar pattern of degenerative changes in lumbar spine. Interval left-sided laminotomy at L5-S1 with both enhancing granulation tissue and some nonenhancing soft tissue projecting in the left epidural space and the left foramina at L5-S1. Findings suggest recurrent or residual disc material and granulation tissue ASSESSMENT Ms. Bonner has a recurrence of left-sided low back pain and lateral leg pain. Interestingly thisimproved dramatically, for almost a year after lumbar medial branch block. On the right. She has recurrent symptoms on the left. PLAN/RECOMMENDATIONS We discussed the following recommendations: I have asked her to have medial branch blocks and radio frequency if appropriate on the left at a different level, her she is pointing lower on her spine at L4- 5 and L5-S1. She will have the medial branch blocks and preprocedure RFA as appropriate. If this does not seem to help her then I might repeat her imaging. In addition, if she returns for follow-up in the spine center and does not just follow-up on the telephone I would like her to have physical therapy scheduled for the same day. Elizabet Brooks, MS, HOP FARM WORKER-BC, HYDRAULIC PLUMBER HELPER Nurse practitioner [facility] documented in this encounter Plan of Treatment Scheduled Orders Name Type Priority Associated Diagnoses Orde r Schedule INJECTION, FACET JOINT,W\FLUORO, LUMBAR, SINGLE Procedures Routine Facet arthritis of lumbar region Ordered: 09/11/2019 documented as of this encounter Visit Diagnoses Diagnosis Facet arthritis of lumbar region- Primary Lumbosacral spondylosis without myelopathy documented in this encounter Care Teams Medical Transcription Supervisor Relationship Specialty Start Date End Date Rufina Mccabe MD [facility] [address] [place] [address] PCP - General Family Medicine 11/30/18 05/18/23 documented as of this encounter
--- OUTSIDE RECORDS SUMMARY | 2024-03-07 02:29 | XMS_ITS | Encounter Summary ---
Author Organization [facility] Address [facility] [place] [address] Care Team Providers Care Painter Bottom Name Role Phone Rufina Mccabe MD Primary Care Provider [phone] Encounter Details Date Type Department Care Team (Latest Contact Info) Description 10/09/2019 7:15 AM EST - 10/09/2019 8:23 AM EST Hospital [place] [address] Yesy Hansen MD [facility] [place] [address] Spondylosis without myelopathy or radiculopathy, lumbar region; Sacroiliac joint dysfunction of left side Discharge Disposition: Home Social History Tobacco Use [...] Sign Reading Time Taken Comments Blood Pressure - - Pulse - - Temperature - - Respiratory Rate 16 10/09/2019 8:00 AM EST Oxygen Saturation - - Inhaled Oxygen Concentration - - Weight 77 kg (169 lb 12.1 oz) 10/09/2019 8:00 AM EST Height 170 cm (5' 6.93) 10/09/2019 8:00 AM EST Body Mass Index 26.64 10/09/2019 8:00 AM EST documented in this encounter Discharge Instructions * Discharge Instructions* Fabian Segal RN - 10/09/2019 8:21 AM EST Pain Management Center Discharge Instructions: You were seen today by Surgeon(s): Yesy Hansen MD Delva, Ralph Rodriguez MD The following was performed: Procedure(s) (LRB): INJECTION, FACET JOINT, W\FLUORO, LUMBAR, SINGLE (WRVU 1.52) (Left) It is normal that the injection site will be sore for up to 48 hours. [x] You may also experience mild stiffness in the joint near the injection site. You may resume your normal activities: tomorrow. You may shower today. DO NOT tub bathe, use whirlpools, hot tubs or pool therapy for 2 days. RemoveBand-Aid(s) later today/tomorrow. Do not drive until tomorrow. Use caution walking/climbing stairs as you may be unsteady on your feet. You may use your usual medications, including pain medications, as directed, unless otherwise instructed. You may use an ice pack as needed for the first 24 hours, on for 20 minutes then off for 20 minutes. Do not apply heat today. Attempt to empty your bladder 4-6 hours after your procedure. You received the following medications: Medications Given During Procedure Date/Time Order Dose Route Action 10/09/2019 0819 iohexoL (OMNIPAQUE) 240 mg/mL solution 1 mL Given 10/09/2019 0820 methylPREDNISolone acetate (DEPO-Medrol) injection 40 mg Given During regular business hours, please phone the Pain Management Center at with any questions or if the following or other troubling symptoms develop: 1) Prolonged dizziness or weakness (more than 1 day). 2) Localized swelling, redness or drainage at the injection site(s). 3) Temperature of 101 degrees that lasts for more than 4 hours. After 5 PM or on weekends, call and ask for Pain Clinic provider on-call. If you are unable to reach the Pain Management Center and have a complication, please call your Primary Care Provider or proceed to your local emergency department. Fabian Segal RN Special instructions documented in this encounter Medications at Time of Discharge Medication Sig Dispensed Refills Start Date End Date cholecalciferol, Vitamin D3, 1,000 unit Tablet Take by mouth daily. magnesium oxide (MAG-OX) 400 mg (241.3 mg magnesium) Tablet Take 400 mg by mouth daily. teriflunomide (Aubagio) 14 mg Tablet Take 14 mg by mouth daily. b complex vitamins Capsule Take 1 capsule by mouth daily. albuterol 90 mcg/actuation HFA Aerosol InhalerIndications:SOB (shortness of breath) on exertion Inhale 2 puffs into the lungs every 6 hours as needed. 1 Inhaler 11 11/22/2018 06/02/2021 amitriptyline (ELAVIL) 25 mg Tablet Take 25 mg by mouth daily. 10/10/2018 12/27/2022 baclofen (LIORESAL) 10 mg Tablet TAKE ONE TABLET BY MOUTH AT BEDTIME AND ONE TABLET NEEDED DURING THE DAY FOR SPASMS. CAN INCREASE TO 2 TABLETS AT BEDTIME AFTER 5 DAYS IF 3 07/26/2018 07/07/2022 AIMOVIG AUTOINJECTOR, 2 PACK, 70 mg/mL Auto-Injector Inject 140 mg subcutaneously. 09/22/2018 06/02/2021 oxybutynin (DITROPAN) 5 mg Tablet Take 5 mg by mouth once. 06/02/2021 documented as of this encounter H&P Notes * Ralph Sheridan - 10/09/2019 7:49 AM EST Patient Name: Sherrie Bonner Patient Age: 59 y.o. Birthdate: 1960 Admit date: 10/09/2019 Attending Physician: Yesy Hansen MD PREPROCEDURE HISTORY AND PHYSICAL Date of Visit: October 09, 2019 Chief Complaint: Chronic low back pain HPI: Subjective Sherrie Bonner is a 59 y.o. female who presents today for left lumbar medial branch block however on chart review patient is noted to have undergone a Lumbar RFA along the same region where she isscheduled for her left lumbar medial branch blocks. She reports 50% of relief after prior RFA. Today she reports focal pain along her left SI joint region. On physical exam patient demonstrates postive ayanna's finger left (left), positive Velvet test (left) and positive Gaenslen's test (left) with a diagnosis of 1. Spondylosis without myelopathy or radiculopathy, lumbar region 2. Sacroiliac joint dysfunction of left side . The history is obtained from the patient, and I have reviewed medical records provided by the referring physician and located in the electronic medical record to fill in gaps in the patient's recollection of events, treatments and outcomes. LOCATION: left sacroiliac area. PAIN LEVEL AT REST 03/31 PAST MEDICAL HISTORY: Past Medical History: Diagnosis Date ??? Asthma ??? Back pain ??? Depression ??? Depression 10/18/2018 ??? Headache(784.0) ??? Leg pain, right ??? MS (multiple sclerosis) ??? RLS (restless legs syndrome) There are no medical history contraindications to this procedure. PAST SURGICAL HISTORY: Past Surgical History: Procedure Laterality Date ??? CHOLECYSTECTOMY ??? KNEE SURGERY Right approx 2013 Microfracture surgery ([facility], Dr. Barrera) ??? LAMINECTOMY ??? PRO LAMINOTOMY, LUMBAR DISK, 1 INTRSP N/A 10/14/2015 LAMINOTOMY, DECOMPRESSION, FORAMINOTOMY, LUMBAR performed by Trevor Rodriguez MD at [facility] MAIN OR ??? PRO MICROSURG TECHNIQUES, REQ OPER MICROSCOPE N/A 10/14/2015 MICROSCOPE USE performed by Trevor Rodriguez MD at [facility] MAIN OR ??? TUBAL LIGATION There are no past surgical contraindications to this procedure ALLERGIES: Patient has no known allergies. There are no allergic contraindications to this procedure. MEDICATIONS: @[email or web address]@ There are no medication contraindications to this procedure. FAMILY HISTORY: Family History Problem Relation Age of Onset ??? Cancer Mother Giant B Cell Lymphoma ??? Cancer Father Prostate ??? Alzheimer Disease Father ??? No Known Problems Sister ??? No Known Problems Brother ??? No Known Problems Sister ??? Cancer Maternal Grandmother ??? Cervical Cancer Maternal Aunt ??? Cancer Paternal Aunt Breast ??? Colorectal Cancer Neg Hx SOCIAL HISTORY: Social History Socioeconomic History ??? Marital status: Spouse name: Not on file ??? Number of children: Not on file ??? Years of education: Not on file ??? Highest education level: Not on file Occupational History ??? Not on file Social Needs ??? Financial resource strain: Not on file ??? Food insecurity Worry: Not on file Inability: Not on file ??? Transportation needs Medical: Not on file Non-medical: Not on file Tobacco Use ??? Smoking status: Never Smoker ??? Smokeless tobacco: Never Used Substance and Sexual Activity ??? Alcohol use: No ??? Drug use: No ??? Sexual activity: Yes Partners: Male Lifestyle ??? Physical activity Days per week: Not on file Minutes per session: Not on file ??? Stress: Not on file Relationships ??? Social connections Talks on phone: Not on file Gets together: Not on file Attends judaism service: Not on file Active member of club or organization: Not on file Attends meetings of clubs or organizations: Not on file Relationship status: Not on file ??? Intimate partner violence Fear of current or ex partner: Not on file Emotionally abused: Not on file Physically abused: Not on file Forced sexual activity: Not on file Other Topics Concern ??? Not on file Social History Narrative ??? Not on file There are no social history contraindications to this procedure. ROS: Review of Systems Constitutional: Negative for fever, chills, or recent infection. Respiratory: Negative for shortness of breath. Cardiovascular: Negative for chest pain. Musculoskeletal: Positive for chronic low back pain and left sacroiliac pain. Psychiatric/Behavioral: Negative for agitation and behavioral problems. Lab Results Component Value Date HA1C 5.0 11/30/2018 Lab Results Component Value Date WBC 5.5 09/17/2019 HGB 12.6 09/17/2019 HCT 40.2 09/17/2019 MCV 94.6 (H) 09/17/2019 PLATELET 244 09/17/2019 No results found for: INR, PT PHYSICAL EXAM: There were no vitals taken for this visit. Physical Exam Constitutional: She appears well-developed and well-nourished. No distress. Cardiovascular: Normal heart rate. Pulmonary/Chest: Effort normal and breath sounds normal. Skin: She is not diaphoretic. This is no rash, apparent infection, or other abnormality to the areaof the proposed injection. Musculoskeletal exam: noted above There are no physical examination findings which would preclude this procedure. RADIOLOGIC DATA: X-ray reviewed LABS/DX RESULTS: Last wbc, hgb, hct plt No results for input(s): WBC, HGB, HCT in the last 72 hours. Invalid input(s): PLT ASSESSMENT: 1. Spondylosis without myelopathy or radiculopathy, lumbar region 2. Sacroiliac joint dysfunction of left side PLAN: Proceed with procedure as planned. The risks and benefits of this treatment plan were discussed andthe patient was encouraged to ask questions regarding today's visit and plan. For future considerations: patient would likely benefit from a repeat Lumbar RFA (left) given that she has had 50% + relief with RFA. Thank you for the opportunity to participate in Sherrie Bonner's care. Please feel free to contact me with any questions. Sincerely, Ralph Sheridan MD Pain Management Fellow [address] [id number] [email or web address] * Yesy Hansen MD - 10/02/2019 10:28 AM EST Visit rescheduled. Physical Exam documented in this encounter Miscellaneous Notes * Op Note - Yesy Hansen MD - 10/09/2019 8:06 AM EST Pain Management Operative Note Patient Name: Sherrie Bonner : [id number] MR#: [id number] Case Date: 10/09/2019 Surgeon: Surgeon(s) and Role: * Yesy Hansen MD - Primary * Ralph Sheridan MD - Fellow Present on Admission: ??? Sacroiliac joint dysfunction of left side Postoperative diagnosis: same Procedure: Left Sacroiliac Joint Injection Procedure Note:left Sacroiliac Joint Injection Chief Complaint: left Sacroiliac joint mediated pain. Sherrie Bonner has been referred to the Pain Management Center for left Sacroiliac Joint Injection. The patient presented for left lumbar MBB L4-5, L5-S1 facet joint levels. She underwent RF 10/2018 and had 50% relief for at least 6 months. She does not need to have MBB and can undergo repeat RF perMedicare criteria. She has left upper buttock today and has positive provocative SI joint testing along with positive ayanna finger's test and PSIS region tenderness. WE discussed proceeding with left Sacroiliac joint injection. The risks and benefits were reviewed with the patient, questions were answered and they wished to proceed. There are no contraindications to proceed. If the patient has ongoing back pain and relief of upper buttock pain, she can return for RF. Ms. Bonner was interviewed and the medical record reviewed. There were no medical, pharmacologic, radiographic or other structural contraindications to attempting fluoroscopically guided sacroiliac joint injection. Risks and expected side effects as well as potential benefit of the procedure were reviewed with Ms. Bonner, and her voiced concerns were addressed. The printed consent form was signed and witnessed. (The risks, benefits and rationale of sacroiliac joint injection were reviewed with the patient including but not limited to infection, allergic reaction, possible increase in symptoms over the ensuing 24 to 48 hours, possible spread of local anesthesia causing transient lower extremity numbness. The patient appeared to understand questions were answered and the patient agreed to proceed.) Standard time-out procedure was performed. Sherrie Bonner was greeted by the nurse who verified patients name and . Patient was then taken to the fluoroscopy suite. TECHNIQUE: After informed written consent was obtained, the patient was placed in the prone position. The leftlumbar spine and presacral area were prepped with ChloraPrep and draped. Sterile technique was used. Vitals signs were monitored, time out was done. The left side(s) were marked. Cap, glove, mask were worn. The C-arm was angled slightly CAUDAD and oblique. The skin and subcutaneous structures were anesthetized with Lidocaine 1% to a total volume of 5 mL. 22-gauge spinal needle(s) was advanced in co-axial approach until well seated in the sacroiliac joint. Omnipaque 240 was injected while visualized with live fluoroscopy. The joint(s) was well delineated. Lateral view was obtained and needles were within the sacroiliac joint. The patient then received Depo-Medrol 40 mg diluted in preservative-free 0.5% Bupivacaine to a total volume of 2 ml on each side after negative aspiration. OUTCOME: The patient tolerated the procedure well and had stable vital signs. The patient noted after getting up after the procedure that their pain was at a 2 -3out of 10 level. Preprocedure pain level was a 7 out of 10. Follow up plans and appointments were discussed with Sherrie Bonner. The patient was observed in the pain clinic and then discharged after having met discharge criteria to the care of a dedicated local truck driver. The patient received written instructions as documented in nursing records. COMMENTS: The patient presented for left lumbar MBB L4-5, L5-S1 facet joint levels. She underwent RF 10/2018 and had 50% relief for at least 6 months. She does not need to have MBB and can undergo repeat RF perMedicare criteria. She has left upper buttock today and has positive provocative SI joint testing along with positive ayanna finger's test and PSIS region tenderness. WE discussed proceeding with left Sacroiliac joint injection. The risks and benefits were reviewed with the patient, questions were answered and they wished to proceed. There are no contraindications to proceed. If the patient has ongoing back pain and relief of upper buttock pain, she can return for RF. Follow-up with No primary care provider on file. Follow up with DALILA Kennedy MD Pain Fellow I was the attending physician supervising the fellow or resident in the above care and I was present with the resident for the entire procedure. 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 Disorders of sacrum Sacroiliac joint dysfunction of left side Disorders of sacrum documented in this encounter Administered Medications Inactive Administered Medications - up to 3 most recent administrations Medication Order MAR Action Action Date Dose Rate Site BUpivacaine (PF) (MARCAINE) 0.5 % (5 mg/mL) injection 5 mg 5 mg (1 mL), Intra-articular, ONCE, 1 dose, On 10/09/19 at 0830, 29 mL Wasted, Routine iohexoL (OMNIPAQUE) 240 mg/mL solution 1 mL 1 mL, Other, ONCE, 1 dose, On 10/09/19 at 0830, Wasted 49 mL, Routine methylPREDNISolone acetate (DEPO-Medrol) injection 40 mg 40 mg, Intra-articular, ONCE, 1 dose, On 10/09/19 at 0830, Routine documented in this encounter Active and Recently Administered Medications Times are shown in EST. Scheduled Medication Order 10/07/2019 10/08/2019 10/09/2019 BUpivacaine (PF) (MARCAINE) 0.5 % (5 mg/mL) injection 5 mg 5 mg (1 mL), Intra-articular, ONCE, 1 dose, On Tue10/09/19 at 0830, 29 mL Wasted, Routine iohexoL (OMNIPAQUE) 240 mg/mL solution 1 mL 1 mL, Other, ONCE, 1 dose, On Tue10/09/19 at 0830, Wasted 49 mL, Routine methylPREDNISolone acetate (DEPO-Medrol) injection 40 mg 40 mg, Intra-articular, ONCE, 1 dose, On Tu10/09/19 at 0830, Routine PRN Medication Order 10/07/2019 10/08/2019 10/09/2019 BUpivacaine (PF) (MARCAINE) 0.5 % (5 mg/mL) injection (CANCELED) ONCE PRN, Starting on e 10/09/19 at 0821, Until 10/09/19 at 1023, Intra-Operative (Intra-Procedure), Routine 0821 (Given - Provid er: Ralph Sheridan - Comment: Left SI Joint) iohexoL (OMNIPAQUE) 240 mg/mL solution (CANCELED) ONCE PRN, Starting on 10/09/19 at 0819, Until 10/09/19 at 1023, Intra-Operative (Intra-Procedure), Routine 0819 (Given - Provid er: Ralph Sheridan - Comment: Left SI Joint) methylPREDNISolone acetate (DEPO-Medrol) injection (CANCELED) ONCE PRN, Starting on Tue10/09/19 at 0820, Until Tue10/09/19 at 1023, Intra-Operative (Intra-Procedure), Routine 0820 (Given - Provid er: Ralph Sheridan - Comment: Left SI Joint) documented in this encounter Care Teams Painter Bottom Relationship Specialty Start Date End Date Rufina Mccabe MD [facility] [address] [facility] [address] PCP - General Family Medicine 11/30/18 05/18/23 documented as of this encounter
--- OUTSIDE RECORDS SUMMARY | 2024-03-07 02:29 | XMS_ITS | Encounter Summary ---
Author Organization [facility] Address [facility] [place] [address] Care Team Providers Care Gunstock Spray Unit Adjuster Name Role Phone Rufina Mccabe MD Primary Care Provider [phone] Encounter Details Date Type Department Care Team (Latest Contact Info) Description 11/30/2018 10:24 AM EDT - 11/30/2018 11:59 PM EDT Hospital [place] [address] SOB (shortness of breath) on exertion Discharge Disposition: Home Social History Tobacco Use [...] once. 06/02/2021 documented as of this encounter Procedure Notes * Naveen Ricci MD - 11/30/2018 11:59 PM EDTAssociated Order(s): PULMONARY FUNCTION TEST Spirometry: FVC is normal FEV1 is normal FEV1 / FVC ratio is normal Lung Volumes: TLC is normal FRC is decreased RV is decreased RV/TLC is decreased ERV is normal Diffusion: DLCO is normal Oxygen Saturation: Oxygen saturation was 99% at rest Interpretation: Spirometry is normal. Lung volumes demonstrate a reduced RV and FRC in isolation with normal TLC. Diffusing capacity is normal (data acceptable but not reproducible). Resting oxyhemoglobin saturationis normal. Clinical correlation required. Naveen Ricci MD, 12/03/2018, 5:17 PM Pulmonary & Critical Care documented in this encounter Plan of Treatment Not on file documented as of this encounter Procedures Procedure Name Priority Date/Time Associated Diagnosis Comments COMMON PULMONARY FUNCTION TEST Routine 11/30/2018 11:59 PM EDT SOB (shortness of breath) on exertion documented in this encounter Results * Pulmonary Function Testing (11/30/2018 11:59 PM EDT) Narrative Naveen Ricci MD - 11/30/2018 11:59 PM EDT Naveen Ricci MD ? 12/03/2018 ??5:24 PM Spirometry: FVC is normal FEV1 is normal FEV1 / FVC ratio is normal Lung Volumes: TLC is normal FRC is decreased RV is decreased RV/TLC is decreased ERV is normal Diffusion: DLCO is normal Oxygen Saturation: Oxygen saturation was 99% at rest Interpretation: Spirometry is normal. Lung volumes demonstrate a reduced RV and FRC in isolation with normal TLC. Diffusing capacity is normal (data acceptable but not reproducible). Resting oxyhemoglobin saturation is normal. Clinical correlation required. Naveen Ricci MD, 12/03/2018, 5:17 PM Pulmonary & Critical Care Rufina Mccabe MD PFT ORDERABLES documented in this encounter Visit Diagnoses Diagnosis SOB (shortness of breath) on exertion Shortness of breath documented in this encounter Care Teams Gunstock Spray Unit Adjuster Relationship Specialty Start Date End Date Rufina Mccabe MD [facility] [address] [address] PCP - General Family Medicine 11/30/18 05/18/23 documented as of this encounter
--- OUTSIDE RECORDS SUMMARY | 2024-03-07 02:29 | XMS_ITS | Encounter Summary ---
Author Organization [facility] Address [facility] [place] [address] Care Team Providers Care Communication Lecturer Name Role Phone Rufina Mccabe MD Primary Care Provider [phone] Encounter Details Date Type Department Care Team (Latest Contact Info) Description 03/06/2019 1:14 PM EDT - 03/06/2019 2:02 PM EDT Hospital Encounter XRay at [address] [place] [address] Tabatha Martel MD [facility] [place]UL[place] [address] PINA (dyspnea on exertion) Discharge Disposition: Home Social History Tobacco Use [...] Capsule Take 1 capsule by mouth daily. benzonatate (TESSALON) 100 mg Capsule Take 1 capsule by mouth 3 times daily as needed for Cough. 30 tablet 12/26/2018 09/17/2019 albuterol 90 mcg/actuation HFA Aerosol InhalerIndications:SOB (shortness [...] once. 06/02/2021 documented as of this encounter Plan of Treatment Not on file documented as of this encounter Procedures Procedure Name Priority Date/Time Associated Diagnosis Comments XR FLUORO WITHOUT FILMS Routine 03/06/2019 1:58 PM EDT PINA (dyspnea on exertion) documented in this encounter Results * XR Fluoro Without Films (03/06/2019 1:58 PM EDT) Anatomical Region Laterality Modality N/A Radio Fluoroscop y Impressions 03/06/2019 2:17 PM EDT Normal motion and symmetric diaphragmatic excursion. I have personally reviewed the image(s) and the residents interpretation and agree with the findings, Megan Oreilly at 03/06/2019 2:17 PM Thank you for letting us participate in the care of this patient. For questions regarding this report, please contact the number below. ? Electronically signed by: Megan Oreilly [facility] ([phone]), at 03/06/2019 2:17 PM Narrative 03/06/2019 2:17 PM EDT EXAMINATION: XR FLUORO WITHOUT FILMS CLINICAL HISTORY: Sniff for diaphragme please. ??suspected diaphragm weakness. TECHNIQUE: Multiple fluoroscopic images of the diaphragms were obtained under continuous videofluoroscopy with the patient performing inspiration/expiration and sniff maneuver. COMPARISON: Standing PA and lateral chest radiographs dated 11/30/2018. FINDINGS: Normal and symmetric excursion of the bilateral hemidiaphragms with normal directional movement. No asymmetric diaphragmatic elevation. Procedure Note Megan Oreilly MD - 03/06/2019 EXAMINATION: XR FLUORO WITHOUT FILMS CLINICAL HISTORY: Sniff for diaphragme please. suspected diaphragmweakness. TECHNIQUE: Multiple fluoroscopic images of the diaphragms were obtained undercontinuous videofluoroscopy with the patient performing inspiration/expiration andsniff maneuver. COMPARISON: Standing PA and lateral chest radiographs dated 11/30/2018. FINDINGS: Normal and symmetric excursion of the bilateral hemidiaphragms withnormal directional movement. No asymmetric diaphragmatic elevation. IMPRESSION Normal motion and symmetric diaphragmatic excursion. I have personally reviewed the image(s) and the residents interpretationand agree with the findings, Megan Oreilly at 03/06/2019 2:17 PM Thank you for letting us participate in the care of this patient. Forquestions regarding this report, please contact the number below. Electronically signed by: Megan Oreilly [facility]([phone]), at 03/06/2019 2:17 PM Tabatha Martel MD IMG FLUORO ORDERABLE S documented in this encounter Visit Diagnoses Diagnosis PINA (dyspnea on exertion) Other dyspnea and respiratory abnormality documented in this encounter Care Teams Communication Lecturer Relationship Specialty Start Date End Date Rufina Mccabe MD [facility] [place] [address] PCP - General Family Medicine 11/30/18 05/18/23 documented as of this encounter
--- OUTSIDE RECORDS SUMMARY | 2024-03-07 02:29 | XMS_ITS | Encounter Summary ---
Author Organization [facility] [place] [address] Care Team Providers Care Supervisor Trust Accounts Name Role Phone Rufina Mccabe MD Primary Care Provider [phone]- [phone] Reason for Referral * Diagnostic Test (Emergency) - Specialty Diagnoses / Procedures Referred By Nelda sheppard Referred To Contact Radiology Diagnoses Chest pain, unspecified type Procedures CTA Chest for Pulmonary Embolus w Contrast Rufina Mccabe MD [facility] [place] [address] [facility] [place] [address] Referral ID Status Reason Start Date Expiration Date Visits Requested Visits Authorized [id number] Specialty Service Requested 01/25/2019 01/25/2020 1 1 Encounter Details Date Type Department Care Team (Late st Contact Info) Description 01/25/2019 Orders Only Family Medicine at [facility] [address] [place] [address] Rufina Mccabe MD [facility] [place] [address] Chest pain, unspecified type Social History Tobacco Use Types Packs/Day Years [...] as of this encounter Plan of Treatment Scheduled Orders Name Type Priority Associated Diagnoses Orde r Schedule CTA Chest for Pulmonary Embolus w Contrast Imaging STAT Chest pain, unspecified type Expected: 01/26/2019 (Approximate), Expires: 07/28/2019 documented as of this encounter Visit Diagnoses Diagnosis Chest pain, unspecified type documented in this encounter Care Teams Supervisor Trust Accounts Relationship Specialty Start Date End Date Rufina Mccabe MD [facility] [address] [place] [address] PCP - General Family Medicine 11/30/18 05/18/23 documented as of this encounter
--- OUTSIDE RECORDS SUMMARY | 2024-03-07 02:29 | XMS_ITS | Encounter Summary ---
Author Organization [facility] Address [facility] [place] [address] Care Team Providers Care Gathering Machine Setter Name Role Phone Rufina Mccabe MD Primary Care Provider +1- [phone] Encounter Details Date Type Department Care Team (Late st Contact Info) Description 05/28/2019 Telephone [place] [address] Charlette Goodman Social History Tobacco Use Types Packs/Day Years [...] on filedocumented in this encounter Care Teams Gathering Machine Setter Relationship Specialty Start Date End Date Rufina Mccabe MD [facility] [address] [place] [address] PCP - General Family Medicine 11/30/18 05/18/23 documented as of this encounter
--- OUTSIDE RECORDS SUMMARY | 2024-03-07 02:29 | XMS_ITS | Encounter Summary ---
Author Organization [facility] [place] [address] Care Team Providers Care Hospice Director Name Role Phone Rufina Mccabe MD Primary Care Provider +1- [phone] Encounter Details Date Type Department Care Team ([facility] st Contact Info) Description 12/12/2018 External Results [place] [address] Provider, Scanning Social History Tobacco Use Types Packs/Day Years [...] Procedure Name Priority Date/Time Associated Diagnosis Comments MAMMOGRAM SCAN Routine 09/24/2006 MAMMOGRAM SCAN Routine 02/17/2004 documented in this encounter Results * Scan Doc: Mammogram (09/24/2006) Anatomical Region Laterality Modality Other Scanning Provider MEDIA MGR SCAN EXT O RDR/RSLT * Scan Doc: Mammogram (02/17/2004) Anatomical Region Laterality Modality Other Scanning Provider MEDIA MGR SCAN EXT O RDR/RSLT documented in this encounter Visit Diagnoses Not on filedocumented in this encounter Care Teams Hospice Director Relationship Specialty Start Date End Date Rufina Mccabe MD [facility] [address] [address] PCP - General Family Medicine 11/30/18 05/18/23 documented as of this encounter
--- OUTSIDE RECORDS SUMMARY | 2024-03-07 02:29 | XMS_ITS | Encounter Summary ---
Author Organization [facility] Address [facility] [place] [address] Care Team Providers Care Film Spooler Name Role Phone Rufina Mccabe MD Primary Care Provider [phone] Encounter Details Date Type Department Care Team (Latest Contact Info) Description 09/25/2019 9:15 AM EST - 09/25/2019 11:59 PM EST Hospital Encounter [place] [phone] Respiratory muscle weakness Discharge Disposition: Home Social History Tobacco Use [...] as of this encounter Procedure Notes * Leonie Pérez MD - 09/25/2019 4:02 PM ESTAssociated Order(s): PULMONARY FUNCTION TEST Pulmonary function study interpretation FVC is normal. FEV1 is normal. FEV1/FVC ratio is normal. Supine spirometry is performed FVC is reduced by 7%. FEV1 is reduced by 5%. FEV1/FVC ratio is unchanged. Maximum inhalatory force is normal. Maximum expiratory force is reduced As compared to previous studies performed in 2019, there has been a 15% reduction in FEV1 values Conclusion Interpretation of the spirometry raises concern for respiratory muscle weakness is the driving force of possible restrictive physiology. Leonie Pérez MD documented in this encounter Plan of Treatment Not on file documented as of this encounter Procedures Procedure Name Priority Date/Time Associated Diagnosis Comments COMMON PULMONARY FUNCTION TEST Routine 09/25/2019 4:02 PM EST Respiratory muscle weakness documented in this encounter Results * Pulmonary Function Testing (09/25/2019 4:02 PM EST) Narrative Leonie Pérez MD - 09/25/2019 4:02 PM EST Leonie Pérez MD ? 09/25/2019 ??4:05 PM Pulmonary function study interpretation FVC is normal. ??FEV1 is normal. ??FEV1/FVC ratio is normal. Supine spirometry is performed FVC is reduced by 7%. ??FEV1 is reduced by 5%. ??FEV1/FVC ratio is unchanged. Maximum inhalatory force is normal. Maximum expiratory force is reduced As compared to previous studies performed in 2019, there has been a 15% reduction in FEV1 values Conclusion Interpretation of the spirometry raises concern for respiratory muscle weakness is the driving force of possible restrictive physiology. Leonie Pérez MD Emre Milligan MD PFT ORDERABLES documented in this encounter Visit Diagnoses Diagnosis Respiratory muscle weakness Muscle weakness (generalized) documented in this encounter Care Teams Film Spooler Relationship Specialty Start Date End Date Rufina Mccabe MD [facility] [address] [address] PCP - General Family Medicine 11/30/18 05/18/23 documented as of this encounter
--- OUTSIDE RECORDS SUMMARY | 2024-03-07 02:29 | XMS_ITS | Encounter Summary ---
[place] [address] Care Team Providers Care Mallet Cutter Name Role Phone Rufina Mccabe MD Primary Care Provider [phone] Encounter Details Date Type Department Care Team (Late st Contact Info) Description 05/29/2019 Transcribe [place] [id number] Sammi Varela, DO [facility] [place] [address] Multiple sclerosis Social History Tobacco Use Types [...] documented as of this encounter Results * Urinalysis with reflex Culture (09/17/2019 11:47 AM EST) Glucose UA Negative Negative mg/dL [facility] Protein UA Negative Negative mg/dL [facility] Bilirubin UA Negative Negative mg/dL [facility] Comment: Clinical correlation required for positive Urine Bilirubin results as false positive may occur with some drugs and drug related products. If a false positive is suspected a serum total bilirubin should be considered if clinically indicated. Urobilinogen UA Normal Normal mg/dL [facility] pH UA 5.5 5.0 - 8.0 [facility] Blood UA Negative Negative mg/dL [facility] Ketones UA Negative Negative mg/dL [facility] Nitrite UA Negative Negative [facility] Leukocytes UA Negative Negative mcL [facility] Appearance UA Clear Clear [facility] Spec [place] UA >=1.030 1.002 - 1.030 [facility] Color UA Yellow [facility] Culture Reflexed No [facility] Urine specimen obtained by clean catch procedure (specimen) 09/17/2019 11:47 AM EST 09/17/2019 11:55 AM EST Narrative Resulting Agency Comment Spec In Lab Sammi C [place] DO URINE ORDERABLES Performing Organization Address City/State/[facility] Co de Phone Number [facility] [place] [address] * (ABNORMAL) Comprehensive metabolic panel (non-fasting) (09/17/2019 11:43 AM EST) Glucose Lvl 101 65 - 199 mg/dL [facility] Comment:Diabetes: >=200 mg/d L plus symptoms BUN 15 8 - 18 mg/dL [facility] Creatinine 0.67(L) 0.70 - 1.20 mg/dL [facility] Sodium 141 135 - 145 mmol/L [facility] Potassium 3.7 3.5 - 5.0 mmol/L [facility] Comment: Please note: ??Patients with WBC >100,000 may have falsely elevated Potassium levels. ??For accurate Potassium quantification in these patients send serum separator tube (gold top) for subsequent determinations. ??Contact the Clinical Chemistry Laboratory if there are any questions. Chloride 106 98 - 107 mmol/L [facility] CO2 23 22 - 31 mmol/L [facility] Anion Gap 12 5 - 15 mmol/L [facility] Calcium 9.3 8.5 - 10.5 mg/dL [facility] Total Protein 7.4 6.1 - 8.0 gm/dL [facility] Albumin 4.4 3.2 - 5.2 gm/dL [facility] AST 19 0 - 30 unit/L [facility] ALT 16 0 - 30 unit/L [facility] Alk Phos 109(H) 35 - 105 unit/L [facility] Total Bilirubin 0.4 0.2 - 1.3 mg/dL [facility] Estimated GFR 97 >=60 mL/min/1. 73 m?? [facility] Comment: The eGFR was calculated using the CKD-EPI equation. As with all creatinine based estimates of kidney function, eGFR values calculated with the CKD-EPI equation are not accurate in patients with acute kidney failure, extremes of body mass or the acutely ill. [email or web address] eGFR 112 >=60 mL/min/1. 73 m?? [facility] Comment: The eGFR was calculated using the CKD-EPI equation. As with all creatinine based estimates of kidney function, eGFR values calculated with the CKD-EPI equation are not accurate in patients with acute kidney failure, extremes of body mass or the acutely ill. [email or web address] Blood specimen (specimen) 09/17/2019 11:43 AM EST 09/17/2019 11:56 AM EST Narrative Resulting Agency Comment Spec In Lab Sammi Varela DO CHEMISTRY ORDERABLES [facility] [place] [address] documented in this encounter Visit Diagnoses Diagnosis Multiple sclerosis documented in this encounter Care Teams Mallet Cutter Relationship Specialty Start Date End Date Rufina Mccabe MD [facility] [address] [place] [address] PCP - General Family Medicine 11/30/18 05/18/23 documented as of this encounter
--- OUTSIDE RECORDS SUMMARY | 2024-03-07 02:29 | XMS_ITS | Encounter Summary ---
Author Organization [facility] Address [facility] [place] [address] Care Team Providers Care Biometrics Technician Name Role Phone Rufina Mccabe MD Primary Care Provider +1- [phone] Encounter Details Date Type Department Care Team (Late st Contact Info) Description 08/07/2019 [place] [phone] Annalisa Maldonado Social History Tobacco Use Types Packs/Day Years [...] encounter Miscellaneous Notes * Telephone Encounter - Annalisa Maldonado - 08/07/2019 10:13 AM EST Spoke with patient who said she would need to call back as she was driving at the moment, and couldnot think of a good time when she could come in for her appointment. documented in this encounter Plan of Treatment Not on file documented as of this encounter Visit Diagnoses Not on filedocumented in this encounter Care Teams Biometrics Technician Relationship Specialty Start Date End Date Rufina Mccabe MD [facility] [address] [place] [address] PCP - General Family Medicine 11/30/18 05/18/23 documented as of this encounter
--- OUTSIDE RECORDS SUMMARY | 2024-03-07 02:29 | XMS_ITS | Encounter Summary ---
Author Organization [facility] Address [facility] [place] [address] Care Team Providers Care Scuba Diver Name Role Phone Rufina Mccabe MD Primary Care Provider +1- [phone] Encounter Details Date Type Department Care Team (Late st Contact Info) Description 10/09/2019 8:00 AM EST - 10/09/2019 8:30 AM EST [place] [phone] Yesy Hansen MD [facility] [place] [address] INJECTION, FACET JOINT, W\FLUORO, LUMBAR, SINGLE (WRVU 1.52) Social History Tobacco Use Types Packs/Day Years [...] this encounter Discharge Instructions * Discharge Instructions* Scripture, Max E, RN - 10/09/2019 8:21 AM EST Pain [...] this encounter H&P Notes * Ralph Sheridan R - 10/09/2019 7:49 AM EST Patient Name: [...] left sacroiliac area. PAIN LEVEL AT REST 10 PAST MEDICAL HISTORY: Past Medical History: Diagnosis Date ??? Asthma ??? Back pain ??? Depression ??? Depression 10/18/2018 ??? Headache(784.0) ??? Leg pain, right ??? MS (multiple sclerosis) ??? RLS (restless legs syndrome) There are no medical history contraindications to this procedure. PAST SURGICAL HISTORY: Past Surgical History: Procedure Laterality Date ??? CHOLECYSTECTOMY ??? KNEE SURGERY Right approx 2013 Microfracture surgery ([facility], Dr. Barrera) ??? LAMINECTOMY ??? PRO LAMINOTOMY, LUMBAR DISK, 1 INTRSP N/A 10/14/2015 LAMINOTOMY, DECOMPRESSION, FORAMINOTOMY, LUMBAR performed by Trevor Rodriguez MD at [facility] MAIN OR ??? PRO MICROSURG TECHNIQUES, REQ OPER MICROSCOPE N/A 10/14/2015 MICROSCOPE USE performed by Trveor Rodriguez MD at [facility] MAIN OR ??? TUBAL LIGATION There are [...] Sincerely, Ralph Sheridan MD Pain Management Fellow [address] [address] [email or web address] * Yesy Hansen MD - 10/02/2019 10:28 AM EST Visit rescheduled. Physical Exam documented in this encounter Miscellaneous Notes * Op Note - Yesy Hansen MD - 10/09/2019 8:06 AM EST Pain Management Operative Note Patient Name: Sherrie Bonner : [id number] MR#: [id number] Case Date: 10/09/2019 Surgeon: Surgeon(s) and Role: [...] discharge criteria to the care of a route sales delivery drivers supervisor. The patient received written instructions as documented [...] for the entire procedure. 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 Disorders of sacrum Sacroiliac joint dysfunction of left side Disorders of sacrum Facet arthritis of lumbar region Lumbosacral spondylosis without myelopathy documented in this encounter Administered Medications Inactive Administered Medications - up to 3 most recent administrations Medication Order MAR Action Action Date Dose Rate Site BUpivacaine (PF) (MARCAINE) 0.5 % (5 mg/mL) injection 5 mg 5 mg (1 mL), Intra-articular, ONCE, 1 dose, On 10/09/19 at 0830, 29 mL Wasted, Routine BUpivacaine (PF) (MARCAINE) 0.5 % (5 mg/mL) injection ONCE PRN, Starting on Tue10/09/19 at 0821, Until Tue10/09/19 at 1023, Intra-Operative (Intra-Procedure), Routine Given 10/09/2019 8:21 AM EST 3 mLs iohexoL (OMNIPAQUE) 240 mg/mL solution 1 mL 1 mL, Other, ONCE, 1 dose, On Tue10/09/19 at 0830, Wasted 49 mL, Routine iohexoL (OMNIPAQUE) 240 mg/mL solution ONCE PRN, Starting on Tue10/09/19 at 0819, Until Tue10/09/19 at 1023, Intra-Operative (Intra-Procedure), Routine Given 10/09/2019 8:19 AM EST 1 mL methylPREDNISolone acetate (DEPO-Medrol) injection 40 mg 40 mg, Intra-articular, ONCE, 1 dose, On Tue10/09/19 at 0830, Routine methylPREDNISolone acetate (DEPO-Medrol) injection ONCE PRN, Starting on Tue10/09/19 at 0820, Until Tue10/09/19 at 1023, Intra-Operative (Intra-Procedure), Routine Given 10/09/2019 8:20 AM EST 40 mg documented in this encounter Active and Recently [...] 1 dose, On 10/09/19 at 0830, Routine PRN Medication Order 10/07/2019 10/08/2019 10/09/2019 BUpivacaine (PF) (MARCAINE) 0.5 % (5 mg/mL) injection (CANCELED) ONCE PRN, Starting on 10/09/19 at 0821, Until 10/09/19 at 1023, Intra-Operative (Intra-Procedure), Routine 0821 (Given - Provid er: Ralph Sheridan - Comment: Left SI Joint) iohexoL (OMNIPAQUE) 240 mg/mL solution (CANCELED) ONCE PRN, Starting on 10/09/19 at 0819, Until 10/09/19 at 1023, Intra-Operative (Intra-Procedure), Routine 0819 (Given - Provid er: Ralph Sheridan - Comment: Left SI Joint) methylPREDNISolone acetate (DEPO-Medrol) injection (CANCELED) ONCE PRN, Starting on 10/09/19 at 0820, Until 10/09/19 at 1023, Intra-Operative (Intra-Procedure), Routine 0820 (Given - Provid er: Ralph Sheridan - Comment: Left SI Joint) documented in this encounter Care Teams Scuba Diver Relationship Specialty Start Date End Date Rufina Mccabe MD [facility] [address] [place] [address] PCP - General Family Medicine 11/30/18 05/18/23 documented as of this encounter
--- OUTSIDE RECORDS SUMMARY | 2024-03-07 02:29 | XMS_ITS | Encounter Summary ---
Author Organization [facility] [place] [address] Care Team Providers Care Networking Administrator Name Role Phone Rufina Mccabe MD Primary Care Provider [phone] Encounter Details Date Type Department Care Team (Late st Contact Info) Description 05/28/2019 Telephone [facility] and Sp[facility] at [facility] [place] [phone] Edith Chaney RN Social History Tobacco Use Types Packs/Day [...] encounter Miscellaneous Notes * Telephone Encounter - Edith Chaney RN - 05/28/2019 3:59 PM EDT In Basket message from patient she states I was seen by you and had a procedure were they burn the nerves in my back. They only burned the nerves on one side and now the pain is over the whole lower back Nurse asked pain and spine schedulers to call patient to schedule her for an office visit toevaluate for the right side back pain. Pain and spine schedulers will call patient and get her scheduled. documented in this encounter Plan of Treatment Not on file documented as of this encounter Visit Diagnoses Not on filedocumented in this encounter Care Teams Networking Administrator Relationship Specialty Start Date End Date Rufina Mccabe MD [facility] [place] [address] PCP - General Family Medicine 11/30/18 05/18/23 documented as of this encounter
--- OUTSIDE RECORDS SUMMARY | 2024-03-07 02:29 | XMS_ITS | Encounter Summary ---
Author Organization [facility] Address [facility] [place] [address] Care Team Providers Care Irish Moss Operator Name Role Phone Rufina Mccabe MD Primary Care Provider [phone]- [phone] Encounter Details Date Type Department Care Team (Late st Contact Info) Description 07/02/2019 Orders Only Family Medicine at [address] [place] [address] Rufina Mccabe MD [facility] [place] [address] Routine general medical examination at a health care facility Social History Tobacco Use Types Packs/Day Years [...] as of this encounter Visit Diagnoses Diagnosis Routine general medical examination at a health care facility documented in this encounter Care Teams Irish Moss Operator Relationship Specialty Start Date End Date Rufina Mccabe MD [facility] [place] [address] PCP - General Family Medicine 11/30/18 05/18/23 documented as of this encounter
--- OUTSIDE RECORDS SUMMARY | 2024-03-07 02:29 | XMS_ITS | Encounter Summary ---
Author Organization [facility] [place] [address] Care Team Providers Care Teacher Music Name Role Phone Rufina Mccabe MD Primary Care Provider [phone] Encounter Details Date Type Department Care Team (Late st Contact Info) Description 10/08/2019 Telephone Pain [place] [phone] Fabian Segal, RN Social History Tobacco Use Types Packs/Day [...] encounter Miscellaneous Notes * Telephone Encounter - Fabian Segal RN - 10/08/2019 8:10 AM EST Sherrie Bonner :[id number] Message left: I left a message on answering machine Ms. Bonner at 8:10 AM regarding her upcoming Left lumbar medial branch block with Dr. Yesy Hansen MD. Message included the followin. Patient instructed to arrive at 0730 (30 minutes prior to procedure start time) on 10/09/2019 (date of procedure) with their bicycle taxi driver. 2. Following instructions left in the message: - Bring Updated list of medications including dosage and reason for taking. - Call the Pain Clinic Nurse at for: ~Procedure instructions. ~If you are taking antibiotics. ~If you have any signs or symptoms of infection, cold or flu. ~If you have any skin breakdown (rashes, cysts, or abscess.) ~If you are taking anticoagulants / blood thinners (Plavix, Pletal, Lovenox, Coumadin, etc). ~If you had any steroid injections anywhere in your body within the last two weeks/or if you have taken any oral steroids in the past two weeks. MARIA T Peralta documented in this encounter Plan of Treatment Not on file documented as of this encounter Visit Diagnoses Not on filedocumented in this encounter Care Teams Teacher Music Relationship Specialty Start Date End Date Rufina Mccabe MD [facility] [address] [place] [address] PCP - General Family Medicine 11/30/18 05/18/23 documented as of this encounter
--- OUTSIDE RECORDS SUMMARY | 2024-03-07 02:29 | XMS_ITS | Encounter Summary ---
Author Organization [facility] [place] [address] Care Team Providers Care Manager Application Development Name Role Phone Rufina Mccabe MD Primary Care Provider [phone] Reason for Visit * Reason Onset Date Comments Follow-up 07/02/2019 schedule f/u Encounter Details Date Type Department Care Team (Late st Contact Info) Description 07/02/2019 [place] [id number] Ana Blount RN Follow-up (schedule f/u) Social History Tobacco Use Types Packs/Day Years [...] encounter Miscellaneous Notes * Telephone Encounter - Ana Blount RN - 07/02/2019 11:32 AM EST Called Sherrie to f/u on her [facility] message regarding scheduling f/u with Dr. Lucero today or Dr. Martel in Jul. She states she could not stay today due impending weather and travel distance. She would like to coordinate f/u for [facility]. when she will be seeing her PMD at [facility] at 8am. Was able to offer a 9:30 f/u with Dr. Martel which she accepted. We reviewed purpose of the appointmentwill be to discuss test results/findings in person and make a plan for next steps with Dr. Dodgeaving the practice in August. Sherrie denies further questions at this time. Ana Blount, RN, BSN Pulmonary Department [email or web address] Phone: [phone] Pager: [phone] documented in this encounter Plan of Treatment Not on file documented as of this encounter Visit Diagnoses Not on filedocumented in this encounter Care Teams Manager Application Development Relationship Specialty Start Date End Date Rufina Mccabe MD [facility] [address] [facility] [address] PCP - General Family Medicine 11/30/18 05/18/23 documented as of this encounter
--- OUTSIDE RECORDS SUMMARY | 2024-03-07 02:29 | XMS_ITS | Encounter Summary ---
Author Organization [facility] Address [facility] [place] [address] Care Team Providers Care Ground Crew Lines Person Name Role Phone Rufina Mccabe MD Primary Care Provider [phone] Encounter Details Date Type Department Care Team (Late st Contact Info) Description 12/13/2018 Telephone Family Medicine at [facility] [address] [place] [phone] Rufina Mccabe MD [facility] [address] [facility] [place] [address] Social History Tobacco Use Types Packs/Day Years [...] encounter Miscellaneous Notes * Telephone Encounter - Sanjana Lechuga RN - 12/21/2018 4:20 PM EDT T/C to patient. Left VM stating we have not received recent labs from [facility] and she should reach out to them and request them again. * Telephone Encounter - David Pulliam - 12/21/2018 4:10 PM EDT Patient is calling back to see if we received the lab results from [facility]. Please give the patient a call back to let her know. * Telephone Encounter - Rufina Mccabe MD - 12/13/2018 9:24 AM EDT I called patient to discuss PFTs I'm not sure why her RV is low, and wonder if that is related to her SOB at both rest and exertion This condition is present but unchanged in the past few months. I would like to refer her to pulm, and she agreed. She had a CBC at [facility] in Sep 2018 as part of MS drug monitoring. She'll call [facility] lab and ask them to fax her February labs to for the network operations technician's review as they require a recent CBC (last 6 months). * Telephone Encounter - Rufina Mccabe MD - 12/13/2018 9:24 AM EDT Regarding: FW:test results Contact: ----- Message ----- From: Sherrie Bonner Sent: 12/08/2018 9:16 AM To: [facility] Primary Care Team S1 Nurse Subject: RE:test results ----- Message from Christy Maldonado D - sent at 12/08/2018 9:16 AM EDT ----- Good morning, My breathing is about the same, some times it gets worst. Thank you Sherrie Bonner ----- Message ----- From: Rufina Mccabe MD Sent: 12/08/2018 7:48 AM EDT To: Sherrie Bonner Subject: RE:test results Good morning, Sherrie I apologize for the delay in getting back to you with the PFT result. I have viewed it. Most of the functions are normal, but there's a subtle one that is diminished. I need to ask a lung doctor whether that is a significant finding. I will reach out to them through the computer ([facility] e-consult). It will likely take a few days for them to get back to me, and then you'll hear from me again. Meanwhile, have you had any changes in your breathing? Warm regards, Rufina Mccabe MD Family Medicine [facility] ----- Message ----- From: Sherrie Bonner Sent: 12/07/2018 9:27 AM EDT To: Rufina Mccabe MD Subject: RE:test results Dr. Mccabe, I was just wondering if you have got my PFT that was done on the 30 of November yet. This test was done on the same day as my labs, chest x-ray and mammo. Thank You, Sherrie Bonner ----- Message ----- From: Rufina Mccabe MD Sent: 12/01/2018 8:21 AM EDT To: Sherrie Bonner Subject: test results Hi Sherrie, Your chest xray was completely normal, so I'm not concerned that your shortness of breath is related to a structural abnormality like a growth. I wonder if it's airway reactivity (asthma, basically) because you respond to the Albuterol. Albuterol works by dilating the airways so more air can flow through. So, I think the next step is to repeat the PFTs (pulmonary function test) that you had. If I heard you correctly, this was 5 - 10 years ago, but your current breathing problem has worsened in the past year. So, I think PFTs would help me understand if the problem is asthma, or if the problem is something else that leads to breathing difficulty with exertion. Okay with you if I order that? I think your cholesterol is fine as is. No need to make changes in that regard. You do not have pre-diabetes or diabetes, which is great. You do not have Hepatitis C. I'll await your reply about the PFTs. Warm regards, Rufina Mccabe MD Family Medicine [facility] Your mammogram was normal too. The breast center will send you a letter about that. documented in this encounter Plan of Treatment Not on file documented as of this encounter Visit Diagnoses Not on filedocumented in this encounter Care Teams Ground Crew Lines Person Relationship Specialty Start Date End Date Rufina Mccabe MD [facility] DR [facility] [place] [address] PCP - General Family Medicine 11/30/18 05/18/23 documented as of this encounter
--- OUTSIDE RECORDS SUMMARY | 2024-03-07 02:29 | XMS_ITS | Encounter Summary ---
Author Organization [facility] Address [facility] [place] [address] Care Team Providers Care Crimper Operator Name Role Phone Rufina Mccabe MD Primary Care Provider [phone] Reason for Visit * Reason Comments Referral * Consultation (Routine) - Closed Specialty Diagnoses / Procedures Referred By Nelda sheppard Referred To Contact Pulmonology Diagnoses SOB (shortness of breath) Rufina Mccabe MD [facility] [address] [facility] [place] [address] [facility] Pulmonology [address] [place] [phone] Referral ID Status Reason Start Date Expiration Date V isits Requested Visits Authorized [id number] Closed Specialty Service Requested 12/13/2018 12/13/2019 1 1 Encounter Details Date Type Department Care Team (Late st Contact Info) Description 02/19/2019 9:00 AM EDT Office [place] [phone] Tabatha Martel MD [facility] [place] [address] PINA (dyspnea on exertion) Social History Tobacco Use Types Packs/Day Years [...] Sign Reading Time Taken Comments Blood Pressure 135/63 02/19/2019 8:39 AM EDT Pulse 82 02/19/2019 8:39 AM EDT Temperature - - Respiratory Rate 20 02/19/2019 8:39 AM EDT Oxygen Saturation 100% 02/19/2019 8:39 AM EDT Inhaled Oxygen Concentration - - Weight 74.8 kg (165 lb) 02/19/2019 8:39 AM EDT Height 170.2 cm (5' 7) 02/19/2019 8:39 AM EDT Body Mass Index 25.84 02/19/2019 8:39 AM EDT documented in this encounter Progress Notes * Tabatha Martel MD - 02/19/2019 9:00 AM EDT Pulmonary Clinic Consult Note Reason for Consult: I was asked by Rufina Mccabe MD to evaluate this patient for exertional dyspnea I have personally interviewed and examined the patient, reviewed history, radiographic studies( if any) and laboratory data(if any). HPI: This is a 58 y.o. female, never smoker, with a past medical history significant for multiple sclerosis ( headache, weakness of legs and arms), cervical spondylosis, restricts leg syndrome and gastroesophageal reflex, presents here for evaluation of exertional dyspnea. Patient has had dyspnea, for the last 6 months. It is a feeling of difficult to take deep breath/catching a breath. It is mostly exertional but can happen even at rest. She also has chest pain in left upper chest. Rarely, she gets a complaint of wheezing on exertion. She has tried albuterol with subjective benefit. She has beenusing once or twice daily. Also she has tried Advair sample in the past and she felt it was helpful. She had no cough or sputum. Also has complaint of chest pain, which is different from symptoms of GERD she had in the past. She had a unremarkable chest x-ray on 11/30/2018. A PFT on 11/30/2018 showed normal spirometry and DLco. Lung volume study revealed no evidence of restriction, however RV and RV/TLC were both reduced. In October 2018, she had formal stress nuclear myocardial perfusion study, which was negative for ischemia. No ECHO available. Her primary care provider I have scheduled her for CT angiogram of the chest, which will be done after this visit. Problem List: Patient Active Problem List Diagnosis Date Noted ??? Other chest pain 10/18/2018 ??? Depression 10/18/2018 ??? Chronic fatigue 10/18/2018 ??? Headache 10/18/2018 ??? RLS (restless legs syndrome) 10/18/2018 ??? Gastroesophageal reflux 10/18/2018 ??? Cervical spondylosis without myelopathy 07/30/2016 ??? Radiculopathy of lumbar region 06/03/2016 ??? Multiple sclerosis 10/15/2015 ??? Lumbar disc herniation 10/14/2015 PMHx: Past Medical History: Diagnosis Date ??? Asthma ??? Back pain ??? Depression ??? Depression 10/18/2018 ??? Headache(784.0) ??? Leg pain, right ??? MS (multiple sclerosis) ??? RLS (restless legs syndrome) FHx: Family History Problem Relation Age of Onset ??? Cancer Mother Giant B Cell Lymphoma ??? Cancer Father Prostate ??? Alzheimer Disease Father ??? No Known Problems Sister ??? No Known Problems Brother ??? No Known Problems Sister ??? Cancer Maternal Grandmother ??? Cervical Cancer Maternal Aunt ??? Cancer Paternal Aunt Breast ??? Colorectal Cancer Neg Hx Social Hx: Social History Tobacco Use ??? Smoking status: Never Smoker ??? Smokeless tobacco: Never Used Substance Use Topics ??? Alcohol use: No ??? Drug use: No Tobacco: Work/Environmental: Allergy: No Known Allergies Medications: Outpatient Medications Marked as Taking for the 02/19/19 encounter (Office Visit) with Tabatha Martel MD Medication Sig Dispense Refill ??? albuterol 90 mcg/actuation HFA Aerosol Inhaler Inhale 2 puffs into the lungs every 6 hours as needed. 1 Inhaler 11 ??? amitriptyline (ELAVIL) 25 mg Tablet ??? baclofen (LIORESAL) 10 mg Tablet TAKE ONE TABLET BY MOUTH AT BEDTIME AND ONE TABLET NEEDED DURING THE DAY FOR SPASMS. CAN INCREASE TO 2 TABLETS AT BEDTIME AFTER 5 DAYS IF 3 ??? AIMOVIG AUTOINJECTOR, 2 PACK, 70 mg/mL Auto-Injector Inject 140 mg subcutaneously. ??? cholecalciferol, Vitamin D3, 1,000 unit Tablet Take by mouth daily. ??? oxybutynin (DITROPAN) 5 mg Tablet Take 5 mg by mouth once. ??? magnesium oxide (MAG-OX) 400 mg (241.3 mg magnesium) Tablet Take 400 mg by mouth daily. ??? teriflunomide (AUBAGIO) 14 mg Tablet Take 14 mg by mouth daily. ??? b complex vitamins Capsule Take 1 capsule by mouth daily. ROS: x: positive. [x ] Shortness of breath [ ] Abdominal pain or bloating [ ] Frequent or chronic cough [ ] Weight gain or loss [ ] Coughing up blood [ x ] Chest pain [ ] Nose, sinus, mouth, throat problems [ ] Palpitations or flutter [ ] Fevers or severe chills [ ] Swelling of hands feet ankles [ ] Night sweats [ ] Convulsions or seizures [ ] Enlarged or swollen lymph glands [ x] Frequent or severe headache [ ] Skin disease or rash [ ] Fainting or loss of consciousness [ x ] Easy bruising or bleeding [ x ] Extreme fatigue or weakness [ ] Significant joint pains or stiffness [ x ] Depression [ ] Changes in bowel habits [ x ] Changes in sleep pattern [ ] Changes in appetite [ ] All unmarked were reviewed and found negative. [ ] other system: Vitals and Physical Exam: BP 135/63 Pulse 82 Resp 20 Ht 170.2 cm (5' 7) Wt 74.8 kg (165 lb) SpO2 100% BMI 25.84 kg/m?? Gen: comfortable. HEENT: Pupils equal and round. EOMI, no pallor no icteric sclera on conjunctiva Neck: No stridor No cervical LAP Chest: CTA without wheezing/rhonchi/crackles Symmetric excursion. Cor: RRR, S1S2, No MRG. Abd: S/ND/NT Extrem: no C/C/E. Labs/Tests: Diagnostic studies: -CXR: 11/30/2018 Chest x-ray FINDINGS: ?? The cardiomediastinal silhouette, liza, and central pulmonary vascular markings are within normal limits. No focal airspace opacity. No pleural effusion. No pneumothorax. The trachea is midline. Visualized osseous structures are unremarkable. Surgical clips project in the right upper quadrant, related to prior cholecystectomy. IMPRESSION No acute cardiopulmonary abnormality. -CT:(I have reviewed personally) -PFTs: date FVC FEV1 FEV/FVC VC TLC RV RV/TLC Dsb SpO2 11/30/2018 3.71 101 3.02# 106 81 3.71 101 4.89 86 59 68 20.58 90 99 #No BD response -ECHO: -Serology: -PET: -Biopsy: -Other: Labs Summary: -PINA -r/o respiratory muscle weakness. -r/o ms related chest sx ( such as ms hug). - Other Issues: - Impression/recommendation: -58 yo woman with Multiple sclerosis ( headache and weakness of arms and legs), here for evaluationon 6 months h/o dyspnea and chest pain/discomfort. CXR was normal. Both spirometry and DLco are normal, except for reduced RV. Lungs are clear. SpO2 is 100%. She tried albuterol and Advair in the past with some subjective benefit. No cough nor sputum production. -atypical presentation for airway and parenchymal lung disease. Asthma is possible but presentationis atypical. ( no cough, mucus, ? Rare wheezing). -I am most concerned about respiratory muscle weakness from MS. MS also is known to cause non-specific chest sx, discomfort, pain and tightness MS hug. Plan 1) PFT ( upright, supine jasson, MIP/MEP and walk) 2) Sniff testing 3) If the above is not revealing, will consider ECHO to r/o PH and CT, especially if she desaturateprofoundly on walk. ( I have held CTA for now). 60 mins of this 60 min visit was used in conversation with the patient (and accompanying family members, if present) regarding my impressions and recommendations and providing counseling. All the questions were answered. I have spent an additional time in reviewing charts/records/labs/tests, or disc ussion with other health care providers. This does NOT include the time spent in ( ) Smoking cessation counseling ( ) inhaler technique demonstration and teaching. ( checked if applicable) - I personally reviewed (x ) radiographic images. ( x ) pulmonary function testing DATA ( ) Laboratory DATA ( apply if checked ) Thank you very much for participating in the care of this patient. Please contact us at [phone] for any further questions or requests. 03/12/2019 MIP 91% argues with a significant respiratory muscle weakness, though FVC and FEV1 dropped in supine significantly. Wide variation in mouth pressure may be the result is inaccurate. Sniff testing wasnegative ( for unilateral paralysis). No ambulatory desaturation ( together with normal DLco, I think PE is less likely). Continue clinical monitoring with repeat MIP/MEP as necessary. documented in this encounter Plan of Treatment Not on file documented as of this encounter Results * Pulmonary Function Testing (03/06/2019 5:07 PM EDT) Narrative Leonie Pérez MD - 03/06/2019 5:07 PM EDT Leonie Pérez MD ? 03/06/2019 ??5:09 PM Pulmonary function study interpretation: Normal spirometry. Spirometry assessed while patient is supine with significant decrease of both FVC and FEV1 of greater than 22% change. Patient is unable to reproduce mouth pressures due to large difference in measurements from the first the second third effort. Current measurements of the inspiratory mouth pressure is 91% predicted. ??Current measurements of expiratory mouth pressures 47% predicted. Normal spirometry however significant changes present when patient is lying supine. ??FEV1 and FVC show evidence of restriction that may be a component of potential diaphragmatic paresis or paralysis. ??Normal resting and ambulatory oximetry on room air. ??Mouth pressures cannot be fully interpreted due to large difference in attempts Tabatha Martel MD PFT ORDERABLES * XR Fluoro Without Films (03/06/2019 1:58 [...] report, please contact the number below. ? Narrative 03/06/2019 2:17 PM EDT EXAMINATION: XR [...] this report, please contact the number below. Tabatha Martel MD IMG FLUORO ORDERABLE S documented in this encounter Visit Diagnoses Diagnosis PINA (dyspnea on exertion) Other dyspnea and respiratory abnormality Chest pain, unspecified type PINA (dyspnea on exertion) Other dyspnea and respiratory abnormality PINA (dyspnea on exertion) Other dyspnea and respiratory abnormality documented in this encounter Care Teams Crimper Operator Relationship Specialty Start Date End Date Rufina Mccabe MD [facility] [address] [facility] [place] [address] PCP - General Family Medicine 11/30/18 05/18/23 documented as of this encounter
--- OUTSIDE RECORDS SUMMARY | 2024-03-07 02:29 | XMS_ITS | Encounter Summary ---
Author Organization [facility] Address [facility] [place] [address] Care Team Providers Care Complaint Supervisor Name Role Phone Rufina Mccabe MD Primary Care Provider [phone] Reason for Referral * Diagnostic Test (Routine) - Closed Specialty Diagnoses / Procedures Referred By Contac t Referred To Contact Cardiology Diagnoses Exertional dyspnea Procedures Echocardiogram Transthoracic([facility]) Juventino Milligan MD [facility] [address] [facility] [place] [address] Referral ID Status Reason Start Date Expiration Date V isits Requested Visits Authorized [id number] Closed Specialty Service Requested 09/19/2019 09/18/2020 1 1 * Diagnostic Test (Emergency) - Closed Specialty Diagnoses / Procedures Referred By Contac t Referred To Contact Radiology Diagnoses Exertional dyspnea Procedures CT Angiogram Chest for Pulmonary Embolus w Contrast Juventino Milligan MD [facility] [address] [facility] [place] [address] Referral ID Status Reason Start Date Expiration Date V isits Requested Visits Authorized [id number] Closed Specialty Service Requested 09/17/2019 03/17/2021 1 1 Reason for Visit * Reason Comments Follow-up Encounter Details Date Type Department Care Team (Late st Contact Info) Description 09/17/2019 10:00 AM EST [place] [address] Juventino Milligan MD [facility] [place] [address] Exertional dyspnea; Respiratory muscle weakness; High risk medication use Social History Tobacco Use Types Packs/Day Years [...] Sign Reading Time Taken Comments Blood Pressure 142/60 09/17/2019 9:45 AM EST Pulse 65 09/17/2019 9:45 AM EST Temperature - - Respiratory Rate 16 09/17/2019 9:45 AM EST Oxygen Saturation 100% 09/17/2019 9:45 AM EST Inhaled Oxygen Concentration - - Weight 77.1 kg (170 lb) 09/17/2019 9:45 AM EST Height 170.2 cm (5' 7) 09/17/2019 9:45 AM EST Body Mass Index 26.63 09/17/2019 9:45 AM EST documented in this encounter Progress Notes * Elizabeth Reynoso, RT - 09/17/2019 10:00 AM EST BREATHING EXERCISES: -Introduced concept of Inspiratory Muscle Training (IMT) to Sherrie Ha Initial settings: 11 cm H20 X 10 breaths, Sherrie Bonner tolerated this well with minimal to moderate dyspnea at the end of the 10th breath Plan: utilize IMT 10 breaths X 3 times per day. Once able to do this comfortably will increase to 15 breaths x 3 times per day and then 20 breaths x 3 times per day. She will send message via [employer] once she is able to do this with goal to then increase pressure to 13 cm H20 and repeat cycle of progressive breaths on this. * Juventino Milligan MD - 09/17/2019 10:00 AM EST [facility] Section of Pulmonary and Critical Care Medicine Follow-Up Visit Date of Encounter: 09/17/2019 Location: Office Referring Provider: Rufina Mccabe MD [address] [place] [address] Pulmonary Problem List: 1. Exertional breathlessness: Work-up has included multiple diagnostic tests; suspect respiratory muscle weakness as predominant mechanism ?? Negative nuclear cardiac stress test (November 02, 2018) ?? Spirometry (November 23, 2018): Normal with no bronchodilator response ?? Lung volume measurement (November 23, 2018): Normal TLC, mildly reduced FRC and RV ?? Diffusion capacity (November 23, 2018): Normal. ?? Spirometry sitting and supine (March 06, 2019): Decrease in FEV1 of 22% and decrease in FVC of 23% in supine position; progressive decline in maximal inspiratory pressure and maximal expiratory pressure measurements but variable performance of these maneuvers ?? Normal diaphragm fluoroscopy (March 06, 2019). Interval History: Sherrie is a 59-year-old woman with relapsing remitting muscular sclerosis here for follow-up of dyspnea. She has heretofore been seen by , a colleague who has recently left our section. I reviewed his notes and the aforementioned work-up. Dr. Martel last saw her in February 2019. His note mentions that she often experiences difficulty taking a deep breath. Today, she says that she also catches herself sighing sometimes. Equivocal response to bronchodilators and inhaled steroids. Dr. Martel did not think that she had asthma. He questioned whether her symptoms wererelated to the MS. He ordered the most recent round of testing to evaluate respiratory muscle strength. Today, Sherrie says that she is skeptical about the relationship between her MS and the dyspnea. She says that she has discussed this with her neurologist. She has not had any major changes in symptomatology. She does say that she sometimes feels discomfort in the left breast area at the same time that she feels short of breath. This is consistent with the memorandum associated with her cardiac st ress testing. She does not have any brash or dysphagia. She is not having diplopia. She is not having any trouble getting up out of a chair from a seated position. SOBQ Responses 09/16/2019 Rate my breathlessness at rest 3 Walking on a level at your own pace 2 Walking on a level with others your age 3 Walking up a hill 3 Walking up stairs 3 Eating 2 Standing up from chair 2 Brushing teeth 3 Shaving and/or brushing 2 Showering or bathing 2 Dressing 3 Picking up/Straightening 3 Doing dishes 2 Sweeping/vaccuming 3 Making bed 2 Shopping 2 Doing laundry 2 Washing car 3 Mowing lawn 0 None at all Watering lawn 0 None at all Sexual activities 2 Shortness of breath limiting daily life 3 Fear of hurting myself 3 Fear of shortness of breath 3 SOBQ Score 56 Past Medical History: Past Medical History: Diagnosis Date ??? Asthma ??? Back pain ??? Depression ??? Depression 10/18/2018 ??? Headache(784.0) ??? Leg pain, right ??? MS (multiple sclerosis) ??? RLS (restless legs syndrome) Past Surgical History: Past Surgical History: Procedure Laterality Date ??? CHOLECYSTECTOMY ??? KNEE SURGERY Right approx 2013 Microfracture surgery ([facility], Dr. Barrera) ??? LAMINECTOMY ??? PRO LAMINOTOMY, LUMBAR DISK, 1 INTRSP N/A 10/14/2015 LAMINOTOMY, DECOMPRESSION, FORAMINOTOMY, LUMBAR performed by Trevor Rodriguez MD at [facility] MAIN OR ??? PRO MICROSURG TECHNIQUES, REQ OPER MICROSCOPE N/A 10/14/2015 MICROSCOPE USE performed by Trevor Rodriguez MD at [facility] MAIN OR ??? TUBAL LIGATION Updated Social History: Never smoker. Says that she ran cross-country and track in high school. Current Medications: Medications 09/17/19 0922 Medication Sig Taking? albuterol 90 mcg/actuation HFA Aerosol Inhaler Inhale [...] unit Tablet Take by mouth daily. Yes oxybutynin (DITROPAN) 5 mg Tablet Take 5 mg by mouth once. Yes teriflunomide (AUBAGIO) 14 mg Tablet Take 14 mg by mouth daily. Yes b complex vitamins Capsule Take 1 capsule by mouth daily. Yes magnesium oxide (MAG-OX) 400 mg (241.3 mg magnesium) Tablet Take 400 mg by mouth daily. Adverse Drug Reactions: No Known Allergies Review of Systems: Review of Systems Constitutional: Positive for malaise/fatigue. Negative for sleep disturbance. Respiratory: Positive for shortness of breath and chest discomfort. Negative for cough, increased sputum, wheezing, hemoptysis, orthopnea and pleuritic pain. Gastrointestinal: Negative for abdominal discomfort and GERD. HENT: Negative for throat clearing, hoarse voice and voice change. Psychiatric/Behavioral: Negative for depression and physiological symptoms of anxiety. Musculoskeletal: Muscle stiffness and pain attributed to MS. Cardiovascular: Negative for near-syncope and syncope. All other systems reviewed and are negative. Physical Examination: BP 142/60 Pulse 65 Resp 16 Ht 170.2 cm (5' 7) Wt 77.1 kg (170 lb) SpO2 100% BMI 26.63 kg/m?? I did not examine the patient today given that this was exclusively a counseling visit. IMAGING: Reviewed above. SPIROMETRY: Reviewed above. PERTINENT LABS: Metabolic Parameters Lab Results Component Value Date NA 141 09/17/2019 K 3.7 09/17/2019 CL 106 09/17/2019 CO2 23 09/17/2019 ANIONGAP 12 09/17/2019 BUN 15 09/17/2019 CREATININE 0.67 (L) 09/17/2019 GLUCOSE 101 09/17/2019 CALCIUM 9.3 09/17/2019 TSH (mcIU/mL) Date Value Status 09/17/2019 2.23 Final CK, Total (unit/L) Date Value Status 09/17/2019 68 Final Hematologic Parameters Lab Results Component Value Date WBC 5.5 09/17/2019 NEUTOPHILPCT 60.3 09/17/2019 IMMGRANPCT 0.40 09/17/2019 LYMPHOPCT 30.6 09/17/2019 MONOPCT 5.6 09/17/2019 BASOPCT 0.4 09/17/2019 EOSPCT 2.7 09/17/2019 HGB 12.6 09/17/2019 HCT 40.2 09/17/2019 RBC 4.25 09/17/2019 MCV 94.6 (H) 09/17/2019 MCHC 31.3 (L) 09/17/2019 RDWSD 43.4 09/17/2019 PLATELET 244 09/17/2019 LFT and Associated Parameters Lab Results Component Value Date AST 19 09/17/2019 ALT 16 09/17/2019 ALKPHOS 109 (H) 09/17/2019 BILITOT 0.4 09/17/2019 ALBUMIN 4.4 09/17/2019 Diabetes Laboratory Tests Lab Results Component Value Date HA1C 5.0 11/30/2018 Immunology Laboratory Tests Impression / Plan of Care: Problem List Items Addressed This Visit Exertional dyspnea Although I am just meeting Sherrie for the first time today, the work-up performed to date suggeststhat respiratory muscle weakness is at least part of the basis for her shortness of breath. We reviewed her diaphragm fluoroscopy (normal) and sitting and supine spirometry results. We talked about the potential benefit of inspiratory muscle training (IMT) as a way to specifically strengthen her diaphragm. She met with Edgardo to review use of the inspiratory muscle assistive technology trainer. I hope that we might see improved mouth pressure measurement and/or sitting and supine spirometry values at our next visit in about 6 weeks if she uses the inspiratory muscle assistive technology trainer routinely. We will explore additional causes [...] Sherrie is amenable to testing, if needed. Relevant Orders Echocardiogram Transthoracic([facility]) CT Angiogram Chest for Pulmonary Embolus w Contrast Respiratory muscle weakness Her serum CK and TSH are normal. These tests respectively argue against myositis/myopathy and hypothyroidism. It is my understanding that MS can cause episodic dyspnea during flares, but I have not seen this phenomenon be a cause of sustained exertional breathlessness. I may need to discuss her case with her neurologist if we continue to question an etiology. Relevant Orders CK (Completed) TSH (Completed) Aldolase Acetylcholine Receptor Ab Binding Pulmonary Function Testing High risk medication use Needs creatinine checked prior to CT for PE. Follow-up: 11/12/2019 JUVENTINO MILLIGAN MD 09/17/2019 3:15 PM documented in this encounter Miscellaneous Notes * Assessment & Plan Note - Juventino Milligan MD - 09/17/2019 3:39 PM EST Associated Problem(s): High risk medication use Needs creatinine checked prior to CT for PE. * Assessment & Plan Note - Juventino Milligan MD - 09/17/2019 3:36 PM EST Associated Problem(s): Respiratory muscle weakness Her serum CK and TSH are normal. These tests respectively argue against myositis/myopathy and hypothyroidism. It is my understanding that MS can cause episodic dyspnea during flares, but I have not seen this phenomenon be a cause of sustained exertional breathlessness. I may need to discuss her case with her neurologist if we continue to question an etiology. * Assessment & Plan Note - Juventino Milligan MD - 09/17/2019 3:33 PM EST Associated Problem(s): Exertional dyspnea Although I am just meeting Sherrie for the first time today, the work-up performed to date suggeststhat respiratory muscle weakness is at least part of the basis for her shortness of breath. We reviewed her diaphragm fluoroscopy (normal) and sitting and supine spirometry results. We talked about the potential benefit of inspiratory muscle training (IMT) as a way to specifically strengthen her diaphragm. She met with Ms. Reynoso to review use of the inspiratory muscle assistive technology trainer. I hope that we might see improved mouth pressure measurement and/or sitting and supine spirometry values at our next visit in about 6 weeks if she uses the inspiratory muscle assistive technology trainer routinely. We will explore additional causes [...] Sherrie is amenable to testing, if needed. * Addendum Note - Juventino Milligan MD - 09/17/2019 10:00 AM ESTAddended by: JUVENTINO MILLIGAN on: 09/19/2019 11:54 AM Modules accepted: Orders documented in this encounter Plan of Treatment Not on file documented as of this encounter Results * ECHO COMPLETE (04/07/2020 11:11 AM EDT) EF 66 HEARTLAB SYSTEM Anatomical Region Laterality Modality Other 04/07/2020 Narrative 04/07/2020 11:18 AM EDT Procedure: ?Transthoracic Echocardiogram Patient: ?HA SHERRIE ? (Age): 1960(59y) Med Rec#: ? [id number] ?Sex: ?F ? Site Loc: ? [facility] ?Ht / Wt: ??170(cm)/77(kg) Pt. Loc: ?Echo Lab ?BSA: ?1.88 Study Date: ?? 04/07/2020 ?Pt. Type: Outpatient Tape: ? Referring: TRACEE Reading: Bernabe Miller ([id number]) Beater Dumper: Zeenat Carmen Diagnosis: *Dyspnea, unspecified (R06.00) BP: ? 141/65 SUMMARY: 1. The left ventricular chamber size is normal. ??Left ventricular wall thickness is normal. ??There is normal global left ventricular systolic function. ??The quantitative left ventricular ejection fraction by biplane Tang's method is 66%. ??There are no left ventricular segmental wall motion abnormalities. 2. Right ventricular chamber size, wall thickness, and systolic function are within normal limits. 3. There is no hemodynamically significant valve disease. 4. See remainder of report for additional findings. Findings ? : Left Ventricle: ? The left ventricular chamber size is normal. ?Left ventricular wall thickness is normal. ?There is no evidence of LVOT obstruction. ?There is normal global left ventricular systolic function. ?The quantitative left ventricular ejection fraction by biplane Tang's method is 66%. ?There are no left ventricular segmental wall motion abnormalities. ?Doppler assessment is consistent with normal left sided filling pressure. Left Atrium: ? The left atrium is normal in size.(26 ml/m2) Right Ventricle: ? Right ventricular chamber size, wall thickness, and systolic function are within normal limits. ?The estimated pulmonary artery systolic pressure is 24 mmHg. ?The estimated right atrial pressure is 3 mmHg. Right Atrium: ? The right atrium appears normal. Aortic Valve: ? The aortic valve is trileaflet. The leaflets are thin with normal excursion. There is no aortic stenosis or regurgitation present. Mitral Valve: ? The mitral valve appears normal in structure and function. ?There is trace mitral regurgitation present. Tricuspid Valve: ? The tricuspid valve appears normal in structure and function. ?There is trace tricuspid regurgitation present. Pulmonic Valve: ? The pulmonic valve appears normal in structure and function. Pericardium: ? The pericardium appears normal and there is no evidence of a pericardial effusion. Aorta: ? The aortic root is normal in size. ?The ascending aorta is normal in size. Pulmonary Artery: ? The main pulmonary artery appears normal. Venous: ? The inferior vena cava appears normal in size. ?There is a greater than 50% respiratory change in the inferior vena cava dimension. Misc: ? There is no hemodynamically significant valve disease. ?Two-dimensional echo, spectral Doppler and color Doppler performed. Chambers 2D ?Value ?Units (Range) ? IVSd (2D) ? 0.75 ? cm ? LVPWd (2D) ?0.92 ? cm ? IVS:LVPW ratio (2D) 0.82 ? ratio ? RWT (2D) ?0.4 ?ratio ? RWT PW (2D) ? 0.44 ? ratio ? LVIDd (2D) ?4.2 ?cm ? LVIDs (2D) ?2.79 ? cm ? LVIDd (2D) index ?2.23 ? cm/m2 ? LVIDs (2D) index ?1.48 ? cm/m2 ? LV FS (2D) ?33.7 ? % ? EF Teichholz (2D) ?? 62.89 ?% ? Ao root diameter (2D2.99 ? cm (2.1 - 3.6) ? Ascending Ao ?2.9 ?cm (2 - 3.5) ? Volumes/Mass ?Value ?Units (Range) ? LA Area 4 CH ?14.2 ? cm2 (<21) ? LA ESV BP (A/L) inde26.38 ?ml/m2 ? RA AREA 4CH ? 13.1 ? cm2 ? LV ESV SP 4CH (MOD) 34.22 ?ml ? LV ESV SP 2CH (MOD) 33.86 ?ml ? LV EDV BP ? 102.65 ? ml ? LV ESV BP ? 34.62 ?ml ? LV EDV BP index ? 54.47 ?ml/m2 ? LV ESV BP index ? 18.37 ?ml/m2 ? BP EF (MOD) ? 66.27 ?% ? LV mass (2D) ?107.61 ? g ? LV mass (2D) index ??57.1 ? g/m2 ? Diastolic/Systolic Function ?Value ?Units (Range) ? MV E-wave Vmax ?0.84 ? m/sec ? MV deceleration qcmx329.39 ? msec ? MV A-wave Vmax ?0.93 ? m/sec ? MV E:A ratio ?0.91 ? ratio ? LV septal e' Vmax ?? 0.09 ? m/sec ? LV lateral e' Vmax ??0.13 ? m/sec ? LV average e' Vmax ??0.11 ? m/sec ? LV E:e' septal ratio9.35 ? ratio ? LV E:e' lateral rati6.47 ? ratio ? LV average E:e' rati7.65 ? ratio ? Tricuspid Valve ?Value ?Units (Range) ? TR Vmax ? 2.3 ?m/sec ? TR peak gradient ?21.16 ?mmHg ? RAP ? 3 ?mmHg ? RVSP ?24 ? mmHg ? Wall Motion: Segment Name ?Rest ? Base-Anteroseptal ?? Normal ? Base-Anterior ? Normal ? Base-Anterolateral ??Normal ? Base-Posterolateral Normal ? Base-Inferior ? Normal ? Base-Inferoseptal ?? Normal ? Mid-Anteroseptal ?Normal ? Mid-Anterior ?Normal ? Mid-Anterolateral ?? Normal ? Mid-Posterolateral ??Normal ? Mid-Inferior ?Normal ? Mid-Inferoseptal ?Normal ? [place]-Septal ? Normal ? [place]-Anterior ? Normal ? [place]-Lateral ?Normal ? [place]-Inferior ? Normal ? [place]-Tip ?Normal ? This report has been electronically signed by: Bernabe Miller M.D. ? 04/07/2020 11:17:34 Images reviewed and interpretation verified [facility] Cardiac Ultrasound Laboratory Procedure Note Bernabe Miller MD - 04/07/2020 Procedure: Transthoracic Echocardiogram Patient: HA NEWMAN (Age): 1960(59y) Med Rec#: [id number] Sex: F Site Loc: [facility] Ht / Wt: 170(cm)/77(kg) Pt. Loc: Echo Lab BSA: 1.88 Study Date: 04/07/2020 Pt. Type: Outpatient Tape: Referring: MARTHA Reading: Bernabe Miller ([id number]) Beater Dumper: Zeenat Carmen Diagnosis: *Dyspnea, unspecified (R06.00) BP: 141/65 SUMMARY: 1. The left ventricular chamber size is normal. Left ventricular wall thickness is normal. There is normal global left ventricular systolic function. The quantitative left ventricular ejection fraction by biplane Tang's method is 66%. There are no left ventricular segmental wall motion abnormalities. 2. Right ventricular chamber size, wall thickness, and systolic function are within normal limits. 3. There is no hemodynamically significant valve disease. 4. See remainder of report for additional findings. Findings : Left Ventricle: The left ventricular chamber size is normal. Left ventricular wall thickness is normal. There is no evidence of LVOT obstruction. There is normal global left ventricular systolic function. The quantitative left ventricular ejection fraction by biplane Tang's method is 66%. There are no left ventricular segmental wall motion abnormalities. Doppler assessment is consistent with normal left sided filling pressure. Left Atrium: The left atrium is normal in size.(26 ml/m2) Right Ventricle: Right ventricular chamber size, wall thickness, and systolic function are within normal limits. The estimated pulmonary artery systolic pressure is 24 mmHg. The estimated right atrial pressure is 3 mmHg. Right Atrium: The right atrium appears normal. Aortic Valve: The aortic valve is trileaflet. The leaflets are thin with normal excursion. There is no aortic stenosis or regurgitation present. Mitral Valve: The mitral valve appears normal in structure and function. There is trace mitral regurgitation present. Tricuspid Valve: The tricuspid valve appears normal in structure and function. There is trace tricuspid regurgitation present. Pulmonic Valve: The pulmonic valve appears normal in structure and function. Pericardium: The pericardium appears normal and there is no evidence of a pericardial effusion. Aorta: The aortic root is normal in size. The ascending aorta is normal in size. Pulmonary Artery: The main pulmonary artery appears normal. Venous: The inferior vena cava appears normal in size. There is a greater than 50% respiratory change in the inferior vena cava dimension. Misc: There is no hemodynamically significant valve disease. Two-dimensional echo, spectral Doppler and color Doppler performed. Chambers 2D Value Units (Range) IVSd (2D) 0.75 cm LVPWd (2D) 0.92 cm IVS:LVPW ratio (2D) 0.82 ratio RWT (2D) 0.4 ratio RWT PW (2D) 0.44 ratio LVIDd (2D) 4.2 cm LVIDs (2D) 2.79 cm LVIDd (2D) index 2.23 cm/m2 LVIDs (2D) index 1.48 cm/m2 LV FS (2D) 33.7 % EF Teichholz (2D) 62.89 % Ao root diameter (2D2.99 cm (2.1 - 3.6) Ascending Ao 2.9 cm (2 - 3.5) Volumes/Mass Value Units (Range) LA Area 4 CH 14.2 cm2 (<21) LA ESV BP (A/L) inde26.38 ml/m2 RA AREA 4CH 13.1 cm2 LV ESV SP 4CH (MOD) 34.22 ml LV ESV SP 2CH (MOD) 33.86 ml LV EDV BP 102.65 ml LV ESV BP 34.62 ml LV EDV BP index 54.47 ml/m2 LV ESV BP index 18.37 ml/m2 BP EF (MOD) 66.27 % LV mass (2D) 107.61 g LV mass (2D) index 57.1 g/m2 Diastolic/Systolic Function Value Units (Range) MV E-wave Vmax 0.84 m/sec MV deceleration pbgc911.39 msec MV A-wave Vmax 0.93 m/sec MV E:A ratio 0.91 ratio LV septal e' Vmax 0.09 m/sec LV lateral e' Vmax 0.13 m/sec LV average e' Vmax 0.11 m/sec LV E:e' septal ratio9.35 ratio LV E:e' lateral rati6.47 ratio LV average E:e' rati7.65 ratio Tricuspid Valve Value Units (Range) TR Vmax 2.3 m/sec TR peak gradient 21.16 mmHg RAP 3 mmHg RVSP 24 mmHg Wall Motion: Segment Name Rest Base-Anteroseptal Normal Base-Anterior Normal Base-Anterolateral Normal Base-Posterolateral Normal Base-Inferior Normal Base-Inferoseptal Normal Mid-Anteroseptal Normal Mid-Anterior Normal Mid-Anterolateral Normal Mid-Posterolateral Normal Mid-Inferior Normal Mid-Inferoseptal Normal [place]-Septal Normal [place]-Anterior Normal [place]-Lateral Normal [place]-Inferior Normal [place]-Tip Normal This report has been electronically signed by: Bernabe Miller M.D. 04/07/2020 11:17:34 Images reviewed and interpretation verified [facility] Cardiac Ultrasound Laboratory Juventino Milligan MD ECHO ORDERABLES * Pulmonary Function Testing (09/25/2019 4:02 PM [...] of possible restrictive physiology. Leonie Pérez MD Juventino Milligan MD PFT ORDERABLES * CT Angiogram Chest for Pulmonary Embolus w Contrast (09/25/2019 9:08 AM EST) Anatomical Region Laterality Modality Chest Computed Tomogra phy Impressions 09/25/2019 10:23 AM EST No pulmonary embolism identified. I have personally reviewed the image(s) and the resident's interpretation and agree with the findings, Yulia Washburn at 09/25/2019 10:23 AM Thank you for letting us participate in the care of this patient. For questions regarding this report, please contact the number below. ? Electronically signed by: Yulia Washburn [facility] ([phone]), at 09/25/2019 10:23 AM Narrative 09/25/2019 10:23 AM EST EXAMINATION: CTA CHEST PULMONARY EMBOLISM W CONTRAST CLINICAL HISTORY: Shortness of breath TECHNIQUE: 3mm thick axial contiguous sections were obtained through the chest via helical acquisition after the intravenous administration of contrast, Administered 53.0 ml of OMNIPAQUE 350.00 mg/ml. Thin-section reconstructions as well as coronal and sagittal MIP reformatted images were generated to aid in evaluation. COMPARISON: Chest radiograph 11/30/2018 FINDINGS: Pulmonary arteries: No pulmonary arterial filling defects. Other cardiovascular structures: No significant findings. Pulmonary parenchyma: Trace dependent atelectasis. No architectural distortion or evidence of fibrosis. Airways: No significant findings. Pleura: No pleural effusion. Lymph nodes: Small bilateral axillary lymph nodes, likely reactive. Other mediastinal structures: No significant findings. Upper abdomen: Status post cholecystectomy. Skeletal structures: No significant findings. Procedure Note Yulia Washburn MD - 09/25/2019 EXAMINATION: CTA CHEST PULMONARY EMBOLISM W CONTRAST CLINICAL HISTORY: Shortness of breath TECHNIQUE: 3mm thick axial contiguous sections were obtained through thechest via helical acquisition after the intravenous administration ofcontrast, Administered 53.0 ml of OMNIPAQUE 350.00 mg/ml. Thin-sectionreconstructions as well as coronal and sagittal MIP reformatted images were generated to aidin evaluation. COMPARISON: Chest radiograph 11/30/2018 FINDINGS: Pulmonary arteries: No pulmonary arterial filling defects. Other cardiovascular structures: No significant findings. Pulmonary parenchyma: Trace dependent atelectasis. No architecturaldistortion or evidence of fibrosis. Airways: No significant findings. Pleura: No pleural effusion. Lymph nodes: Small bilateral axillary lymph nodes, likely reactive. Other mediastinal structures: No significant findings. Upper abdomen: Status post cholecystectomy. Skeletal structures: No significant findings. IMPRESSION No pulmonary embolism identified. I have personally reviewed the image(s) and the resident's interpretationand agree with the findings, Yulia Washburn at 09/25/2019 10:23 AM Thank you for letting us participate in the care of this patient. Forquestions regarding this report, please contact the number below. Electronically signed by: Yulia Washburn [facility]([phone]), at 09/25/2019 10:23 AM Juventino Milligan MD IMG CT ORDERABLES * Acetylcholine Receptor Ab Binding (09/17/2019 11:43 AM EST) ACHr Binding Ab 0.00 <=0.02 nmol/L [facility] Comment: ADDITIONAL INFORMATION This test was developed and its performance characteristics determined by [facility] in a manner consistent with CLIA requirements. This test has not been cleared or approved by the U.S. Food and Drug Administration. Test Performed by: [place] [address] Concert Promoter: Guero Bateman M.D. Ph.D.; CLIA# [id number] Blood specimen (specimen) 09/17/2019 11:43 AM EST 09/17/2019 4:07 PM EST Narrative Resulting Agency Comment Spec In Lab Juventino Milligan MD CHEMISTRY ORDERABLES Performing Organization Address [facility] Co de Phone Number [facility] [place] [address] * Aldolase (09/17/2019 11:43 AM EST) [facility] Aldolase 4.0 <7.7 unit/L [facility] Comment: Test Performed by: [facility] - [address] [address] Concert Promoter: Guero Bateman M.D. Ph.D.; CLIA# [id number] Blood specimen (specimen) 09/17/2019 11:43 AM EST 09/17/2019 4:07 PM EST Narrative Resulting Agency Comment Spec In Lab Juventino Milligan MD CHEMISTRY ORDERABLES Performing Organization Address [facility] Co de Phone Number [facility] [place] [address] * TSH (09/17/2019 11:43 AM EST) TSH 2.23 0.27 - 4.20 mcIU/mL [facility] Blood specimen (specimen) 09/17/2019 11:43 AM EST 09/17/2019 11:56 AM EST Narrative Resulting Agency Comment Spec In Lab Juventino Milligan MD CHEMISTRY ORDERABLES Performing Organization Address [facility] Co de Phone Number [facility] [place] [address] * CK (09/17/2019 11:43 AM EST) CK, Total 68 0 - 160 unit/L [facility] Blood specimen (specimen) 09/17/2019 11:43 AM EST 09/17/2019 11:56 AM EST Narrative Resulting Agency Comment Spec In Lab Juventino Milligan MD CHEMISTRY ORDERABLES Performing Organization Address [facility] de Phone Number [facility] [place] [address] documented in this encounter Visit Diagnoses Diagnosis Exertional dyspnea Other dyspnea and respiratory abnormality Respiratory muscle weakness Muscle weakness (generalized) High risk medication use Encounter for long-term (current) use of other medications Exertional dyspnea Other dyspnea and respiratory abnormality Respiratory muscle weakness Muscle weakness (generalized) Exertional dyspnea Other dyspnea and respiratory abnormality documented in this encounter Care Teams Complaint Supervisor Relationship Specialty Start Date End Date Rufina Mccabe MD [facility] [address] [place] [address] PCP - General Family Medicine 11/30/18 05/18/23 documented as of this encounter
--- OUTSIDE RECORDS SUMMARY | 2024-03-07 02:29 | XMS_ITS | Encounter Summary ---
Author Organization [facility] Address [facility] [place] [address] Care Team Providers Care Fire Prevention Officer Name Role Phone Rufina Mccabe MD Primary Care Provider Encounter Details Date Type Department Care Team (Latest Contact Info) Description 11/30/2018 9:43 AM EDT - 11/30/2018 10:23 AM EDT Hospital Encounter XRay at [address] [place] [address] Rufina Mccabe MD [facility] [address] [address] SOB (shortness of breath) on exertion Discharge [...] Name Priority Date/Time Associated Diagnosis Comments XR CHEST PA AND LATERAL Routine 11/30/2018 10:08 AM EDT SOB (shortness of breath) on exertion documented in this encounter Results * XR Chest PA & Lateral (Generic) (11/30/2018 10:08 AM EDT) Anatomical Region Laterality Modality Chest N/A Digital Radiogra phy Impressions 11/30/2018 10:33 AM EDT No acute cardiopulmonary abnormality. Thank you for letting us participate in the care of this patient. For questions regarding this report, please contact the number below. ? Narrative 11/30/2018 10:33 AM EDT EXAMINATION: XR CHEST PA AND LATERAL (GENERIC) CLINICAL HISTORY: shortness of breath with exertion TECHNIQUE: Frontal and lateral views of the chest COMPARISON: None FINDINGS: The cardiomediastinal silhouette, liza, and central pulmonary vascular markings are within normal limits. No focal airspace opacity. No pleural effusion. No pneumothorax. The trachea is midline. Visualized osseous structures are unremarkable. Surgical clips project in the right upper quadrant, related to prior cholecystectomy. Procedure Note Kaushik Nagy MD - 11/30/2018 EXAMINATION: XR CHEST PA AND LATERAL (GENERIC) CLINICAL HISTORY: shortness of breath with exertion TECHNIQUE: Frontal and lateral views of the chest COMPARISON: None FINDINGS: The cardiomediastinal silhouette, liza, and central pulmonary vascularmarkings are within normal limits. No focal airspace opacity. No pleural effusion.No pneumothorax. The trachea is midline. Visualized osseous structures are unremarkable. Surgical clips project in the right upper quadrant, related to prior cholecystectomy. IMPRESSION No acute cardiopulmonary abnormality. Thank you for letting us participate in the care of this patient. Forquestions regarding this report, please contact the number below. Rufina Mccabe MD IMG DX ORDERABLES documented in this encounter Visit Diagnoses Diagnosis SOB (shortness of breath) on exertion Shortness of breath documented in this encounter Care Teams Fire Prevention Officer Relationship Specialty Start Date End Date Rufina Mccabe MD [facility] [address] [address] PCP - General Family Medicine 11/30/18 05/18/23 documented as of this encounter
--- OUTSIDE RECORDS SUMMARY | 2024-03-07 02:29 | XMS_ITS | Encounter Summary ---
Author Organization [facility] [place] [address] Care Team Providers Care Rice Dryer Mechanic Name Role Phone Rufina Mccabe MD Primary Care Provider [phone] Encounter Details Date Type Department Care Team (Late st Contact Info) Description 12/17/2019 8:00 AM EDT TH Visit (TeleHealth) [place] [phone] Juventino Milligan MD [facility] [place] [address] Exertional dyspnea Social History Tobacco Use Types Packs/Day Years Used Date Smoking Tobacco: Never Smokeless Tobacco: Never Alcohol Use Standard Drinks/Week Comments No 0 (1 standard drink = 0.6 oz pur e alcohol) Sex and Gender Information Value Date Recorded Sex Assigned at Not on file Gender Identity Female 11/18/2018 8:14 PM EDT Sexual Orientation Not on file documented as of this encounter Progress Notes * Juventino Milligan MD - 12/17/2019 8:00 AM EDT Images from the original note were not included. MEDICINE Section of Pulmonary and Critical Care Medicine Telephone Visit Sammi Varela DO [id number] [place] [address] Rufina Mccabe MD [address] [place], [place] [id number] Date of Visit: 12/17/2019 Time of Visit: 7:54 AM Has the patient provided verbal consent to have today's telephone visit? Yes Does the patient understand that he/she and/or his/her health insurance plan may receive a bill forthis visit? Yes Medication List Reconciled with Patient? Yes Medication Allergy/Adverse Drug Reaction List Reconciled with Patient? Yes Pulmonary Problem List: 1. Exertional breathlessness: Work-up [...] ?? Normal diaphragm fluoroscopy (March 06, 2019). ?? Chest CT scan for PE (September 25, 2019): No PE. No ILD. Normal. 2. Relapsing-remitting multiple sclerosis Interval History: Sherrie is a 59-year-old woman with exertional breathlessness. 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 She had previously seen my colleague, , who left the practice. The work-up performed to date is outlined above. I was most suspicious of a neuromuscular basis for her dyspnea based on findings of sitting and supine spirometry and pertinent negative results from other tests. I had wanted her to see her primary neurologist prior to ourfollow-up visit, but the COVID-19 pandemic disrupted this plan. During our phone call today, she says that not much has changed with respect to her exertional breathlessness. 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 She continues to have episodic dyspnea not triggered by specific activities or changes in body position. She still has some left-sided chest discomfort in the area of her left breast (she mentioned this to me in August). Does not sound anginal. No associated diaphoresis or nausea. She has been working with our pain clinic recently for back pain. Review of Systems: Review of Systems Constitution: Negative for chills, decreased appetite, fever, night sweats and weight loss. HENT: Negative for hoarse voice. Eyes: Negative for visual disturbance. Cardiovascular: Positive for dyspnea on exertion. Negative for irregular heartbeat and leg swelling. Respiratory: Negative for cough (had cough on phone today - says not major problem, only recent onset) and hemoptysis. Musculoskeletal: Positive for back pain. Gastrointestinal: Negative for change in bowel habit and dysphagia. All other systems reviewed and are negative. Since our last visit, she had a negative CT scan of the chest. She also had normal serum CPK and aldolase levels. She had negative acetylcholinesterase antibody testing. She also had the following relatively normal blood work. TSH (mcIU/mL) Date Value Status 09/17/2019 2.23 Final Lab Results Component Value Date NA 141 09/17/2019 K 3.7 09/17/2019 CL 106 09/17/2019 CO2 23 09/17/2019 BUN 15 09/17/2019 CREATININE 0.67 (L) 09/17/2019 GLUCOSE 101 09/17/2019 CALCIUM 9.3 09/17/2019 ESTGFR 97 09/17/2019 Lab Results Component Value Date ALT 16 09/17/2019 AST 19 09/17/2019 ALKPHOS 109 (H) 09/17/2019 BILITOT 0.4 09/17/2019 ALBUMIN 4.4 09/17/2019 PROT 7.4 09/17/2019 Lab Results Component Value Date WBC 5.5 09/17/2019 HGB 12.6 09/17/2019 HCT 40.2 09/17/2019 MCV 94.6 (H) 09/17/2019 PLATELET 244 09/17/2019 Impression / Plan of Care: Problem List Items Addressed This Visit Exertional dyspnea The cause of Sherrie's exertional dyspnea remains [...] in a few weeks depending on how [facility] reopens in the setting of COVID-19. I had intended for Sherrie to have a transthoracic echocardiogram done here at [facility] for the dyspnea work-up. This is outstanding and needs to be rescheduled, but I am skeptical that it will show anyproblems with her heart. I told Sherrie that I would send my note to Dr. Varela for review. Relevant Orders Pulmonary Function Testing Medication Changes / Refills Conducted Today: None Follow-Up: Schedule cardiopulmonary exercise test and echocardiogram here at [facility], as soon as feasible. I asked Sherrie to follow-up GENOVEVA with . I will get back to the patient with the aforementioned test results. Counseling Statement: I spent >50% of this 25 minute visit counseling the patient about the following topics: Differential diagnosis for exertional dyspnea; review of test results performed to date. Patient did not have any outstanding questions. Level of Service Codes (check one that applies) [] PRO ESTABLISHED PATIENT LEVEL 1 [[id number]] [] PRO ESTABLISHED PATIENT LEVEL 2 [[id number]] [] PRO ESTABLISHED PATIENT LEVEL 3 [[id number]] [x] PRO ESTABLISHED PATIENT LEVEL 4 [[id number]] [] PRO ESTABLISHED PATIENT LEVEL 5 [[id number]] JUVENTINO MILLIGAN MD 12/17/2019 7:19 AM documented in this encounter Miscellaneous Notes * Assessment & Plan Note - Juventino Milligan MD - 12/17/2019 11:49 AM EDT Associated Problem(s): Exertional dyspnea The cause of Sherrie's exertional dyspnea remains [...] in a few weeks depending on [facility] in the setting of [facility]-19. I had intended for Sherrie to have a transthoracic echocardiogram done here at [facility] for the dyspnea work-up. This is outstanding and needs to be rescheduled, but I am skeptical that it will show anyproblems with her heart. I told Sherrie that I would send my note to Dr. Varela for review. documented in this encounter Plan of Treatment Not on file documented as of this encounter Visit Diagnoses Diagnosis Exertional dyspnea Other dyspnea and respiratory abnormality documented in this encounter Care Teams Rice Dryer Mechanic Relationship Specialty Start Date End Date Rufina Mccabe MD [facility] [address] [place] [address] PCP - General Family Medicine 11/30/18 05/18/23 documented as of this encounter
--- OUTSIDE RECORDS SUMMARY | 2024-03-07 02:29 | XMS_ITS | Encounter Summary ---
Author Organization [facility] Address [facility] [place] [address] Care Team Providers Care Supreme Court Justice Name Role Phone Rufina Mccabe MD Primary Care Provider [phone] Encounter Details Date Type Department Care Team (Late st Contact Info) Description 12/11/2019 Telephone [place] [phone] Dorys oMura Social History Tobacco Use Types Packs/Day Years [...] on filedocumented in this encounter Care Teams Supreme Court Justice Relationship Specialty Start Date End Date Rufina Mccabe MD [facility] [address] [place] [address] PCP - General Family Medicine 11/30/18 05/18/23 documented as of this encounter
--- OUTSIDE RECORDS SUMMARY | 2024-03-07 02:29 | XMS_ITS | Encounter Summary ---
Author Organization [facility] [place] [address] Care Team Providers Care Photography Sales Associate Name Role Phone Rufina Mccabe MD Primary Care Provider [phone] Reason for Referral * Diagnostic Test (Emergency) - Specialty Diagnoses / Procedures Referred By Nelda sheppard Referred To Contact Radiology Diagnoses Chest pain, unspecified type Procedures CTA Chest for Pulmonary Embolus w Contrast Rufina Mccabe MD [facility] [address] [place] [address] [facility] [place] [address] Referral ID Status Reason Start Date Expiration Date Visits Requested Visits Authorized [id number] Specialty Service Requested 01/25/2019 01/25/2020 1 1 Encounter Details Date Type Department Care Team (Latest Contact Info) Description 03/06/2019 2:03 PM EDT - 03/06/2019 11:59 PM EDT Hospital En[place] [address] Chest pain, unspecified type; PINA (dyspnea on exertion) Discharge Disposition: Home [...] Procedure Notes * Leonie Pérez MD - 03/06/2019 5:07 PM EDTAssociated Order(s): PULMONARY FUNCTION TEST Pulmonary function study interpretation: Normal spirometry. Spirometry assessed while patient is supine with significant decrease of both FVC and FEV1 of greater than 22% change. Patient is unable to reproduce mouth pressures due to large difference in measurements from the first the second third effort. Current measurements of the inspiratory mouth pressure is 91% predicted. Current measurements of expiratory mouth pressures 47% predicted. Normal spirometry however significant changes present when patient is lying supine. FEV1 and FVC show evidence of restriction that may be a component of potential diaphragmatic paresis or paralysis. Normal resting and ambulatory oximetry on room air. Mouth pressures cannot be fully interpreted due to large difference in attempts documented in this encounter Plan of Treatment Scheduled Orders Name Type Priority Associated Diagnoses Orde r Schedule CTA Chest for Pulmonary Embolus w Contrast Imaging STAT Chest pain, unspecified type 1 Occurrences starting 03/06/2019 until 03/06/2019 documented as of this encounter Procedures Procedure Name Priority Date/Time Associated Diagnosis Comments COMMON PULMONARY FUNCTION TEST Routine 03/06/2019 5:07 PM EDT PINA (dyspnea on exertion) documented in this encounter Results * Pulmonary [...] in attempts Tabatha Martel MD PFT ORDERABLES documented in this encounter Visit Diagnoses Diagnosis Chest pain, unspecified type PINA (dyspnea on exertion) Other dyspnea and respiratory abnormality documented in this encounter Care Teams Photography Sales Associate Relationship Specialty Start Date End Date Rufina Mccabe MD [facility] [address] [place] [address] PCP - General Family Medicine 11/30/18 05/18/23 documented as of this encounter
--- OUTSIDE RECORDS SUMMARY | 2024-03-07 02:29 | XMS_ITS | Encounter Summary ---
Author Organization [facility] Address [facility] [place] [address] Care Team Providers Care Route Relief Driver Name Role Phone Rufina Mccabe MD Primary Care Provider [phone] Encounter Details Date Type Department Care Team (Latest Contact Info) Description 07/02/2019 10:00 AM EST Clinical Support Family Medicine at [facility] [address] [place] [address] Routine general medical examination at a health [...] Pressure - - Pulse - - Temperature 36.5 ??C (97.7 ??F) 07/02/2019 8:48 AM ES T Respiratory Rate - - Oxygen Saturation - - Inhaled Oxygen Concentration - - Weight - - Height - - Body Mass Index - - documented in this encounter Progress Notes * Edna Boyd CCMA - 07/02/2019 10:00 AM EST Pt name and verified. Flu vaccine was administered in Left arm successfully . Pt afebrile, tempis 97.7. Pt accompanied by spouse. VIS sheet was given and pt had no questions. No further appointments needed. documented in this encounter Plan of Treatment Not on file documented as of this encounter Visit Diagnoses Diagnosis Routine general medical examination at a health care facility documented in this encounter Care Teams Route Relief Driver Relationship Specialty Start Date End Date Rufina Mccabe MD [facility] [address] [place] [address] PCP - General Family Medicine 11/30/18 05/18/23 documented as of this encounter
--- OUTSIDE RECORDS SUMMARY | 2024-03-07 02:29 | XMS_ITS | Encounter Summary ---
Author Organization [facility] Address [facility] [place] [address] Care Team Providers Care Guard Sergeant Name Role Phone Rufina Mccabe MD Primary Care Provider [phone] Encounter Details Date Type Department Care Team (Late st Contact Info) Description 01/08/2019 Telephone [place] [phone] Dusty Hui Social History Tobacco Use Types Packs/Day Years [...] Miscellaneous Notes * Telephone Encounter - Dusty Hui - 01/08/2019 9:05 AM EDT LMOAM x1 to reschedule appointment, previously scheduled for 01/[address] Fried (new patient appointment). Please reschedule appointment with patient with any available provider, next available. documented in this encounter Plan of Treatment Not on file documented as of this encounter Visit Diagnoses Not on filedocumented in this encounter Care Teams Guard Sergeant Relationship Specialty Start Date End Date Rufina Mccabe MD [facility] [address] [place] [address] PCP - General Family Medicine 11/30/18 05/18/23 documented as of this encounter
--- OUTSIDE RECORDS SUMMARY | 2024-03-07 02:29 | XMS_ITS | Encounter Summary ---
Author Organization [facility] [place] [address] Care Team Providers Care Operational Intelligence Analyst Name Role Phone Vidhya Benitez DO Primary Care Provider Encounter Details Date Type Department Care Team (Late st Contact Info) Description 11/22/2018 [place] [phone] Ann Jaimes Social History Tobacco Use Types Packs/Day Years [...] encounter Miscellaneous Notes * Telephone Encounter - Ann Jaimes - 11/22/2018 2:27 PM EDT Sherrie Bonner [id number] Diagnosis: Healthcare maintenance 1. Have you ever had a colonoscopy before? [x] YES [] NO If Yes, Date of Last Farrell: per patient 2008 If yes, did you have any problems with the procedure? [] YES [x] NO Explain: What type of sedation was used: 2. Do you take any Blood Thinners? [] YES [] NO If Yes, type: 3. Do you have a Pacemaker or Defibrillator device? [] YES [x] NO If Yes send inc-crowd message to [employer] ENDO DEVICE CHECK 4. Are you a diabetic? [] YES [x] NO If yes, controlled by meds or diet? 5. Do you have any Allergies to Eggs, Latex or Medications? [] YES [x] NO If Yes, what: 6. Do you take any Oral Iron Supplements (Including multi vitamins)? [x] YES [] NO 7. Do you have a history of three or more abdominal surgeries? [] YES [x] NO 8. Have you had a problem with sedation or anesthesia? [] YES [x] NO 9. Do you have a c-pap machine or oxygen tank? [] C-PAP [] Oxygen [x] NO 10. Do you take prescription narcotic pain medications? [] YES [x] NO 11. You must have a responsible libertarian stay at the facility during your procedure and drive you home? [x] YES 12. Is there any other information you would like to give us to aid in scheduling? Height: 5'7 Weight:184 BMI: 28.8 Age:58 y.o. documented in this encounter Plan of Treatment Not on file documented as of this encounter Visit Diagnoses Not on filedocumented in this encounter Care Teams Operational Intelligence Analyst Relationship Specialty Start Date End Date Vidhya Benitez DO PCP - General Family Medicine 05/10/16 11/29/18 documented as of this encounter
--- OUTSIDE RECORDS SUMMARY | 2024-03-07 02:29 | XMS_ITS | Encounter Summary ---
Author Organization [facility] Address [facility] [place] [address] Care Team Providers Care Trailer Assembler Name Role Phone Rufina Mccabe MD Primary Care Provider [phone]- [phone] Reason for Referral * Diagnostic Test (Routine) - Closed Specialty Diagnoses / Procedures Referred By Contac t Referred To Contact Cardiology Diagnoses Exertional dyspnea Procedures Echocardiogram Transthoracic([facility]) Emre Milligan MD [facility] [place] [address] [facility] [place] [address] Referral ID Status Reason Start Date Expiration Date V isits Requested Visits Authorized [id number] Closed Specialty Service Requested 09/19/2019 09/18/2020 1 1 Reason for Visit * Diagnostic Test (Routine) - Closed Specialty Diagnoses / Procedures Referred By Contac t Referred To Contact Cardiology Diagnoses Exertional dyspnea Procedures Echocardiogram Transthoracic([facility]) Emre Milligan MD [facility] [place] [address] [facility] [place] [address] Referral ID Status Reason Start Date Expiration Date V isits Requested Visits Authorized [id number] Closed Specialty Service Requested 09/19/2019 09/18/2020 1 1 Encounter Details Date Type Department Care Team (Latest Contact Info) Description 04/07/2020 9:31 AM EDT - 04/07/2020 11:59 PM EDT Hospital Encounter Non-Invasive [place] [address] Emre Milligan MD [facility] [place] [address] Exertional dyspnea Discharge Disposition: Home Social History Tobacco Use [...] Procedure Name Priority Date/Time Associated Diagnosis Comments ECHO COMPLETE Routine 04/07/2020 11:11 AM EDT Exertional dyspnea documented in this encounter Results * ECHO COMPLETE (04/07/2020 11:11 AM EDT) EF 66 HEARTLAB SYSTEM Anatomical Region Laterality Modality Other 04/07/2020 Narrative 04/07/2020 11:18 AM EDT Procedure: ?Transthoracic Echocardiogram Patient: ?MARCELO SHERRIE ? (Age): 1960(59y) Med Rec#: ? [id number] ?Sex: ?F ? Site Loc: ? [facility] ?Ht / Wt: ??170(cm)/77(kg) Pt. Loc: ?Echo Lab ?BSA: ?1.88 Study Date: ?? 04/07/2020 ?Pt. Type: Outpatient Tape: ? Referring: TRACEE Reading: Bernabe Miller ([id number]) Dynamite Shooter: Zeenat Carmen Diagnosis: *Dyspnea, unspecified (R06.00) BP: [...] Vmax ?0.84 ? m/sec ? MV deceleration shfw407.39 ? msec ? MV A-wave Vmax ?0.93 [...] ? Mid-Inferior ?Normal ? Mid-Inferoseptal ?Normal ? [place]-Septal ? Normal ? [place]-Anterior ? Normal ? [place]-Lateral ?Normal ? [place]-Inferior ? Normal ? [place]-Tip ?Normal ? This report has been electronically signed by: Bernabe Miller M.D. ? 04/07/2020 11:17:34 Images reviewed and interpretation verified [facility] Cardiac Ultrasound Laboratory Procedure Note Bernabe Miller MD - 04/07/2020 Procedure: Transthoracic Echocardiogram Patient: MARCELO MONTERO(Age): 1960(59y) Med Rec#: [id number] Sex: F Site Loc: [facility] Ht / Wt: 170(cm)/77(kg) Pt. Loc: Echo Lab BSA: 1.88 Study Date: 04/07/2020 Pt. Type: Outpatient Tape: Referring: NATHAN Reading: Bernabe Miller ([id number]) Dynamite Shooter: Zeenat Carmen Diagnosis: *Dyspnea, unspecified (R06.00) BP: [...] MV E-wave Vmax 0.84 m/sec MV deceleration [id number] msec MV A-wave Vmax 0.93 m/sec MV [...] Normal Mid-Posterolateral Normal Mid-Inferior Normal Mid-Inferoseptal Normal [place]-Septal Normal [place]-Anterior Normal [place]-Lateral Normal [place]-Inferior Normal [place]-Tip Normal This report has been electronically signed by: Bernabe Miller M.D. 04/07/2020 11:17:34 Images reviewed and interpretation verified [facility] Cardiac Ultrasound Laboratory Emre Milligan MD ECHO ORDERABLES documented in this encounter Visit Diagnoses Diagnosis Exertional dyspnea Other dyspnea and respiratory abnormality documented in this encounter Care Teams Trailer Assembler Relationship Specialty Start Date End Date Rufina Mccabe MD [facility] [place] [address] PCP - General Family Medicine 11/30/18 05/18/23 documented as of this encounter
--- OUTSIDE RECORDS SUMMARY | 2024-03-07 02:29 | XMS_ITS | Encounter Summary ---
Author Organization [facility] Address [facility] [place] [address] Care Team Providers Care Occupational Therapy Assistant Name Role Phone Rufina Mccabe MD Primary Care Provider [phone]- [phone] Encounter Details Date Type Department Care Team (Late st Contact Info) Description 11/02/2019 Telephone [facility] Sp[facility] at [facility] [place] [id number] Charlette Goodman Social History Tobacco Use Types [...] encounter Miscellaneous Notes * Telephone Encounter - Charlette Goodman - 11/05/2019 9:35 AM EDT ----- Message from Fabian Segal RN sent at 11/05/2019 7:55 AM EDT ----- Regarding: FW: Other Contact: Co! Could we reach out to this Pt to see if she can see Elaine Brooks APRN on the ? Thank you, Fabian ----- Message ----- From: Sherrie Bonner Sent: 11/04/2019 11:05 AM EDT To: [facility] -Pain Team Nurse Subject: RE: Stephenie Mcneal, I have 2 appointments on the of this month, one is at 8:30 and the other is at 9:30. I would like to get the appointments together as [place] the [facility]. I am also trying to schedule an appointment with my primary provider for the same day. Thank You, Sherrie documented in this encounter Plan of Treatment Not on file documented as of this encounter Visit Diagnoses Not on filedocumented in this encounter Care Teams Occupational Therapy Assistant Relationship Specialty Start Date End Date Rufina Mccabe MD [facility] [address] [place] [address] PCP - General Family Medicine 11/30/18 05/18/23 documented as of this encounter
--- OUTSIDE RECORDS SUMMARY | 2024-03-07 02:29 | XMS_ITS | Encounter Summary ---
Author Organization [facility] [place] [address] Care Team Providers Care Draw Bench Operator Name Role Phone Vidhya Benitez DO Primary Care Provider Encounter Details Date Type Department Care Team ([facility] st Contact Info) Description 11/22/2018 Telephone [place] [phone] Ann Jaimes Social History Tobacco Use Types [...] Telephone Encounter - Ann Jaimes - 11/22/2018 2:30 PM EDT Spoke with patient this afternoon to schedule her colonoscopy. While on the phone the patient stated that she was not aware that she would need a tower truck driver. She said sh would call the office back to schedule once she has spoken with her . documented in this encounter Plan of Treatment Not on file documented as of this encounter Visit Diagnoses Not on filedocumented in this encounter Care Teams Draw Bench Operator Relationship Specialty Start Date End Date Vidhya Benitez DO PCP - General Family Medicine 05/10/16 11/29/18 documented as of this encounter
--- OUTSIDE RECORDS SUMMARY | 2024-03-07 02:29 | XMS_ITS | Encounter Summary ---
Author Organization [facility] Address [facility] [place] [address] Care Team Providers Care Regional Climate Change Analyst Name Role Phone Rufina Mccabe MD Primary Care Provider +1- [phone] Encounter Details Date Type Department Care Team (Late st Contact Info) Description 11/09/2019 [place] [phone] Christ Garay Social History Tobacco Use Types Packs/Day Years [...] on filedocumented in this encounter Care Teams Regional Climate Change Analyst Relationship Specialty Start Date End Date Rufina Mccabe MD [facility] [address] [place] [address] PCP - General Family Medicine 11/30/18 05/18/23 documented as of this encounter
--- OUTSIDE RECORDS SUMMARY | 2024-03-07 02:29 | XMS_ITS | Encounter Summary ---
Author Organization [facility] Address [facility] [place] [address] Care Team Providers Care Kitchen Aide Name Role Phone Rufina Mccabe MD Primary Care Provider +1- [phone] Encounter Details Date Type Department Care Team (Late st Contact Info) Description 12/19/2019 Telephone [place] [phone] Leta Anne LNA Social History Tobacco Use Types Packs/Day Years [...] encounter Miscellaneous Notes * Telephone Encounter - Leta Anne LNA - 12/19/2019 1:19 PM EDT Pt calling back to schedule CPEX and Echo for 03/04. Letter sent. documented in this encounter Plan of Treatment Not on file documented as of this encounter Visit Diagnoses Not on filedocumented in this encounter Care Teams Kitchen Aide Relationship Specialty Start Date End Date Rufina Mccabe MD [facility] [address] [address] PCP - General Family Medicine 11/30/18 05/18/23 documented as of this encounter
--- OUTSIDE RECORDS SUMMARY | 2024-03-07 02:29 | XMS_ITS | Encounter Summary ---
Author Organization [facility] Address [facility] [place] [address] Care Team Providers Care Extruding Press Adjuster Name Role Phone Rufina Mccaeb MD Primary Care Provider +1- [phone] Reason for Visit * Reason Onset Date Comments Appointment 03/16/2021 Encounter Details Date Type Department Care Team ([facility] Contact Info) Description 03/16/2021 Telephone Family Medicine at [facility] [address] [place] [address] Shital Denise Appointment Social History Tobacco Use Types Packs/Day Years [...] * Telephone Encounter - Lyly Garcia - 03/17/2021 11:45 AM EDT Got pt scheduled for the next available Tuesday * Telephone Encounter - Shital Denise - 03/16/2021 4:09 PM EDT Message: Patient is calling to reschedule her appointment from 03/30/21. Patient states she wanted this for a Tuesday but only wants to see PCP. No availability. Please call to help reschedule Ask caller their first and last name and relationship to the patient: self Best time to call back: any Ok to leave a message: y Ok to send my- message: n Offered Appointment: n MA/Nurse/Basket Operator contacted via: Message: y Call: y Pager: n documented in this encounter Plan of Treatment Not on file documented as of this encounter Visit Diagnoses Not on filedocumented in this encounter Care Teams Extruding Press Adjuster Relationship Specialty Start Date End Date Rufina Mccabe MD [facility] [address] [place] [address] PCP - General Family Medicine 11/30/18 05/18/23 documented as of this encounter
--- OUTSIDE RECORDS SUMMARY | 2024-03-07 02:29 | XMS_ITS | Encounter Summary ---
Author Organization [facility] [place] [address] Care Team Providers Care Cv/Cvn Cv Tsc System Operator Name Role Phone Rufina Mccabe MD Primary Care Provider +1- [phone] Reason for Referral * Physical Therapy (Routine) - Closed Specialty Diagnoses / Procedures Referred By Contannie t Referred To Contact Physical Therapy Diagnoses Lumbosacral spondylosis without myelopathy Eval & treat - wait for MRI to be completed before scheduling *patient also needs to schedule MRI and f/u with Elizabet (safety questions need to be asked) Elizabet Brooks APRN [facility] [place] [address] [facility] [place] [address] Referral ID Status Reason Start Date Expiration Date V isits Requested Visits Authorized [id number] Closed Evaluate and Treat 12/17/2019 12/16/2020 12 12 Reason for Visit * Reason Comments Back Pain Encounter Details Date Type Department Care Team (Latest Contact Info) Description 12/17/2019 12:00 PM EDT TH Visit (TeleHealth) [facility] [place] [address] Elizabet Brooks APRN [facility] [place] [address] Lumbosacral spondylosis without myelopathy (Primary Dx) Social History Tobacco Use Types Packs/Day Years Used Date Smoking Tobacco: Never Smokeless Tobacco: Never Alcohol Use Standard Drinks/Week Comments No 0 (1 standard drink = 0.6 oz pur e alcohol) Sex and Gender Information Value Date Recorded Sex Assigned at Not on file Gender Identity Female 11/18/2018 8:14 PM EDT Sexual Orientation Not on file documented as of this encounter Patient Instructions * Patient Instructions* Elizabet Brooks APRN - 12/17/2019 12:00 PM EDT Lumbar MRI Pt evaluation same day as MRI FU with me,either in person ( same as PT and MRI) or by phone documented in this encounter Progress Notes * Elizabet Brooks APRN - 12/17/2019 12:00 PM EDT . [facility] [place] [address] Phone: PAIN MANAGEMENT TELEPHONE FOLLOW UP NOTE DATE OF VISIT 12/17/2019 Patient Sherrie Bonner 1960 REFERRING PROVIDER Rufina Mccabe MD [address] [place] [id number] PRIMARY CARE PROVIDER Rufina Mccabe MD CHIEF [...] sclerosis, depression, and chronic headaches (followed by [facility] neurology) The patient verbally consents to this telephone visit and understands that this visit may be billed, similar to a clinic office visit. I provided care to the patient today via telephone call. The total time associated with this visit was the patient did have a pulmonary telephone visit and the palliative medicine physician has ordered some pulmonary function tests and a fitness evaluation and he believes that her complaint of shortness of breath may be related to deconditioning. The patient reports he has had no different difference in her symptoms. Since I saw her last, she reports her pain level is worse but on further discussion she reports pain level of 7-8 which is the same as her previous visit. She tells me that after her last injection she actually feels that her symptoms were worse and not better. 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 She is tells me she walks a lot through the day. We had discussed at her last visit that if she did not have a good response to this it might be worthwhile to reimage her lumbar spine and we revisited that today. Interval history, September 11, 2019 Sherrie is [...] pain which was worked up by a traffic safety administrator and she is now seeing pulmonology and sees the next on Tuesday. 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 Barrera) ??? LAMINECTOMY ??? PRO LAMINOTOMY, LUMBAR DISK, 1 INTRSP N/A 10/14/2015 LAMINOTOMY, DECOMPRESSION, FORAMINOTOMY, LUMBAR performed by Trevor Julien MD at [facility] MAIN OR ??? PRO MICROSURG TECHNIQUES, REQ OPER MICROSCOPE N/A 10/14/2015 MICROSCOPE USE performed by Trevor Julien MD at [facility] MAIN OR ??? TUBAL LIGATION FAMILY [...] Neg Hx PHYSICAL EXAMINATION Most Recent Vitals: 12/17/19 1135 PainSc: 8 There is no height or weight on file to calculate BMI. There were no vitals taken for this visit. Physical exam was not performed today as the patient is visiting with me in a telephone visit because of the COVID-19 pandemic. Her speech is nonpressured. She does answer questions appropriately. She has full opportunity and voices an understanding and that all of her questions were answered today. RADIOGRAPHIC STUDIES I have personally reviewed images [...] low back pain and lateral leg pain. This did not improve after lumbar medial branch blocks. The patient did not follow-up with my previous recommendation of physical therapy and we had a conversation about this. PLAN/RECOMMENDATIONS We discussed the following recommendations: She is going to have an MRI of the lumbar spine and follow-up with me either the same day or via telephone. She understands that if I did not follow-up with him or her in person she will not be able to view the the results but I could not describe them to her. If she follows up the same day as her MRI, in person, I will go ahead and review everything with her using the computer monitor. I would also like her to have a [place] physical therapy evaluation I did discuss with her this was evidence-based and something that usually local physical therapy providers are not able to do for her. I answered all her questions today. 20 minutes was spent in discussion of present symptoms, future plan of care, documentation. Elizabet Brooks, MS, MANAGER SECONDARY-BC, HIGHWAY RESEARCH ENGINEER Nurse practitioner [facility] documented in this encounter Plan of Treatment Scheduled Referrals Name Type Priority Associated Diagnoses Orde r Schedule Referral to Physical Therapy Outpatient Referral Routine Lumbosacral spondylosis without myelopathy Ordered: 12/17/2019 documented as of this encounter Visit Diagnoses Diagnosis Lumbosacral spondylosis without myelopathy- Primary documented in this encounter Care Teams Cv/Cvn Cv Tsc System Operator Relationship Specialty Start Date End Date Rufina Mccabe MD [facility] [address] [place] [address] PCP - General Family Medicine 11/30/18 05/18/23 documented as of this encounter
--- OUTSIDE RECORDS SUMMARY | 2024-03-07 02:29 | XMS_ITS | Encounter Summary ---
Author Organization [facility] Address [facility] [place] [address] Care Team Providers Care Cyber Incident Handler Name Role Phone Rufina Mccabe MD Primary Care Provider [phone]- [phone] Reason for Visit * Reason Onset Date Comments Public Health Screening 08/14/2020 Encounter Details Date Type Department Care Team ([facility] Contact Info) Description 08/14/2020 Tele[address] Medicine [address] [facility] [address] [place] [address] Anh Lakhani Public Health Screening Social History Tobacco Use Types Packs/Day Years [...] encounter Miscellaneous Notes * Telephone Encounter - Anh Lakhani - 08/14/2020 3:11 PM EST HTI Questions- Travel Y/N: N Exposure Y/N: Yes Symptoms Y/N: N Other notes: Pt's daughters boyfriends friend tested positive for Covid-19 today and she has come in contact with her daughters boyfriend. Please call back to discuss. Ask Caller their name and relationship to the patient: Pt Best time to call back: any Ok to leave message: yes Nurse contacted via: Message: x Call: Pager: documented in this encounter Plan of Treatment Not on file documented as of this encounter Visit Diagnoses Not on filedocumented in this encounter Care Teams Cyber Incident Handler Relationship Specialty Start Date End Date Rufina Mccabe MD [facility] [address] [place] [address] PCP - General Family Medicine 11/30/18 05/18/23 documented as of this encounter
--- OUTSIDE RECORDS SUMMARY | 2024-03-07 02:29 | XMS_ITS | Encounter Summary ---
Author Organization [facility] [place] [address] Care Team Providers Care Industrial Engineering Analyst Name Role Phone Rufina Mccabe MD Primary Care Provider [phone] Encounter Details Date Type Department Care Team (Latest Contact Info) Description 11/30/2018 9:55 AM EDT Laboratory Appointment Lab [address] [place] [phone] Healthcare maintenance; Routine general medical examination at a health [...] Procedure Name Priority Date/Time Associated Diagnosis Comments HEPATITIS C ANTIBODY Routine 11/30/2018 10:21 AM EDT Healthcare maintenance LDL CHOLESTEROL, DIRECT Routine 11/30/2018 10:21 AM EDT Routine general medical examination at a health care facility HDL/CHOL PROFILE Routine 11/30/2018 10:2 1 AM EDT Routine general medical examination at a health care facility HEMOGLOBIN A1C Routine 11/30/2018 10:21 AM EDT Healthcare maintenance documented in this encounter Results * HDL/Cholesterol Profile (11/30/2018 10:21 AM EDT) Chol, Total 208 mg/dL [facility] Comment: Lower Risk: <200 mg/dL Average Risk: 200-239 mg/dL Higher Risk: >hg=098 mg/dL HDL 68 mg/dL [facility] Comment: Males: ?? Higher Risk: <40 mg/dL Females: ?? HIgher Risk: <50 mg/dL Chol/HDL Ratio 3.1 ratio [facility] Chol/HDL Interpretation See Note [facility] Comment: Lipid management should be guided by a patient? s ASCVD risk, goals and preferences. ACC/AHA Guidelines recommend high intensity statin if clinical ASCVD or LDL greater than or equal to 190 mg/dL. http://[employer].com/YTS-KWW-Lferlnrus Measure LDL if Total Cholesterol minus HDL Cholesterol is greater than 220 mg/dL. Adults aged 40-75 with LDL 70-189 mg/dL should have their 10 year ASCVD risk estimated with the ACC/AHA ASCVD risk clinical quality rn http://tools.acc.org/CHBKM-Amja-Rtogcbfjj/ Statin should be discussed if risk greater [...] Lab Rufina Mccabe MD CHEMISTRY ORDERABLE S [facility] [place] [address] * LDL Cholesterol, Direct (11/30/2018 10:21 AM EDT) LDL Chol Direct 140 mg/dL [facility] Comment: Lowest Risk: <100 mg/dL Lower Risk: 100-129 mg/dL Borderline High Risk: 130-159 mg/dL High Risk: 160-189 mg/dL Very High Risk: >sl=362 mg/dL Blood specimen (specimen) 11/30/2018 10:21 AM EDT 11/30/2018 10:32 AM EDT Narrative Resulting Agency Comment Spec In Lab Rufina Mccabe MD CHEMISTRY ORDERABLE S Performing Organization Address [facility] Co de Phone Number [facility] [place] [address] * Hepatitis C Antibody (11/30/2018 10:21 AM EDT) Hepatitis C Ab Negative Negative [facility] Blood specimen (specimen) 11/30/2018 10:21 AM EDT 11/30/2018 10:32 AM EDT Narrative Resulting Agency Comment Spec In Lab Rufina Mccabe MD IMMUNOLOGY ORDERABL ES Performing Organization Address [facility] Co de Phone Number [facility] [address] * Hemoglobin A1c (11/30/2018 10:21 AM EDT) Hemoglobin A1C 5.0 4.3 - 5.6 % [facility] Comment: Reference Range: 4.3 - 5.6% 5.7 - 6.4% - Increased Risk of Developing Diabetes Mellitus >= 6.5% - Consistent with diagnosis of Diabetes Mellitus In the absence of hyperglycemia (i.e. plasma glucose > 200 mg/dL) or classic symptoms of hyperglycemia a repeat measurement of HbA1c should be performed on a separate sample to confirm the diagnosis. Diagnosis and Classification of Diabetes Mellitus, Diabetes Care 2013; 36: Suppl. 1, S67-23 Est Avg Gluc 97 mg/dL [facility] Comment: eAG equivalents for HbA1c percentages: HbA1c(%) ?eAG(mg/dL) 6.0 ?126 6.5 ?140 7.0 ?154 7.5 ?169 8.0 ?183 8.5 ?197 9.0 ?212 9.5 ?226 10.0 ? 240 Limitations: The eAG calculation has not been validated on women, individuals below 18 years old and above 70 years old, and individuals with hemoglobinopathies. Additional resources are available on the ADA website. Elmer CHAVIS, Isatu J, Dayana R, et al. ??Translating the A1C assay into estimated average glucose values. ??Diabetes Care 2008:31(8):7819-4203. Blood specimen (specimen) 11/30/2018 10:21 AM EDT 11/30/2018 10:32 AM EDT Narrative Resulting Agency Comment Spec In Lab Rufina Mccabe MD CHEMISTRY ORDERABLE S Performing Organization Address City/State/[facility] Co de Phone Number [facility] [place] [address] documented in this encounter Visit Diagnoses Diagnosis Healthcare maintenance Routine general medical examination at a health care facility Routine general medical examination at a health care facility documented in this encounter Care Teams Industrial Engineering Analyst Relationship Specialty Start Date End Date Rufina Mccabe MD [facility] [address] [place] [address] PCP - General Family Medicine 11/30/18 05/18/23 documented as of this encounter
--- OUTSIDE RECORDS SUMMARY | 2024-03-07 02:29 | XMS_ITS | Encounter Summary ---
Author Organization [facility] [place] [address] Care Team Providers Care Apprentice Cook Name Role Phone Rufina Mccabe MD Primary Care Provider [phone]- [phone] Encounter Details Date Type Department Care Team (Late st Contact Info) Description 01/28/2020 Telephone [facility] [place] [phone] Nori Bowers RN Social History Tobacco Use Types Packs/Day [...] encounter Miscellaneous Notes * Telephone Encounter - Nori Bowers RN - 01/28/2020 1:37 PM EDT Outgoing call was made to pt to advise her that per Elaine Brooks APRN, pt was supposed to have a follow-up appointment with Elizabet Brooks. No appointment has been made, message left on pt's voicemail asking her to please call the schedulers to make an appointment to speak with Elaine Brooks. * Telephone Encounter - Nori Bowers RN - 01/28/2020 1:37 PM EDT ----- Message from Elizabet Brooks APRN sent at 01/28/2020 10:39 AM EDT ----- Regarding: FW: Other Contact: We were supposed to be following up. Can you see if she has an appointment? CO ----- Message ----- From: Nori Bowers RN Sent: 01/28/2020 8:41 AM EDT To: Elizabet Brooks APRN Subject: FW: Other Elizabet, please read and advise. Nori LIVE ----- Message ----- From: Sherrie Bonner Sent: 01/28/2020 8:35 AM EDT To: [facility] -Pain Team Nurse Subject: RE: Stephenie Mcneal, Ok, then what is the treatment for this?, and why was I not informed that I had this? What is the next step that we need to do? documented in this encounter Plan of Treatment Not on file documented as of this encounter Visit Diagnoses Not on filedocumented in this encounter Care Teams Apprentice Cook Relationship Specialty Start Date End Date Rufina Mccabe MD [facility] [address] [place] [address] PCP - General Family Medicine 11/30/18 05/18/23 documented as of this encounter
--- OUTSIDE RECORDS SUMMARY | 2024-03-07 02:29 | XMS_ITS | Encounter Summary ---
Author Organization [facility] Address [facility] [place] [address] Care Team Providers Care Instantizer Operator Name Role Phone Rufina Mccabe MD Primary Care Provider [phone]- [phone] Encounter Details Date Type Department Care Team (Latest Contact Info) Description 11/30/2018 9:18 AM EDT - 11/30/2018 9:42 AM EDT Hospital Encounter Mammography/[place] [address] [facility] [address] [address] Healthcare maintenance Discharge Disposition: Home Social History Tobacco Use [...] MAMMO SCREENING CAD AND VEL BILATERAL Routine 11/30/2018 9:42 AM EDT Healthcare maintenance documented in this encounter Results * Mammo Screening Cad and Vel Bilateral (11/30/2018 9:42 AM EDT) Anatomical Region Laterality Modality Breast Bilateral Mammography Narrative 11/30/2018 9:49 AM EDT BILATERAL MAMMOGRAPHY REASON FOR EXAM: Screening TECHNIQUE: CC and MLO views were obtained of each breast using standard 2-D mammography as well as 3-D tomosynthesis. Computer aided detection was used. There are no prior images for comparison. FINDINGS: There are scattered areas of fibroglandular density. There are no suspicious microcalcifications, masses, or areas of distortion. CONCLUSION: No mammographic evidence of malignancy. RECOMMENDATION: Medical organizations agree that annual screening mammography beginning at age 40 saves the most lives. The risks of screening are negligible compared to dying from breast cancer or suffering from more aggressive treatment required when detected at a later stage. No woman is at low risk for breast cancer. Some women, because of their family history, a genetic tendency, or certain other factors, should be screened with breast MRI along with mammograms. (The number of women who fall into this category is very small). The patient and health care provider should discuss the patient history and decide if earlier screening and breast MRI are appropriate. Screening should continue as long as a woman is in good health and is expected to live 10 years or longer. Screening mammography may not detect 10-15% of breast cancers. Women should report any breast changes to a health care provider right away. A result letter has been sent to this patient by the [facility]. BIRADS CATEGORY 1: NEGATIVE Rufina Mccabe MD IMG MAMMO ORDERABLE S documented in this encounter Visit Diagnoses Diagnosis Healthcare maintenance Routine general medical examination at a health care facility documented in this encounter Care Teams Instantizer Operator Relationship Specialty Start Date End Date Rufina Mccabe MD [facility] [address] [place] [address] PCP - General Family Medicine 11/30/18 05/18/23 documented as of this encounter
--- OUTSIDE RECORDS SUMMARY | 2024-03-07 02:29 | XMS_ITS | Encounter Summary ---
Author Organization [facility] [place] [address] Care Team Providers Care Rug Touch Up Painter Name Role Phone Rufina Mccabe MD Primary Care Provider [phone]- [phone] Encounter Details Date Type Department Care Team (Late st Contact Info) Description 10/09/2019 8:00 AM EST Ancillary [place] [phone] Yesy Hansen MD [facility] [place] [address] Pain Social History Tobacco Use Types Packs/Day Years [...] Associated Diagnosis Comments FILM LIBRARY STORAGE ONLY PAIN CLINIC C ARM Routine 10/10/2019 4:22 PM EST Pain documented in this encounter Results * Film Library- Storage Only pain Clinic C-Arm (10/10/2019 4:22 PM EST) Narrative [facility] RAD - 10/10/2019 4:22 PM EST See PACS for result report. Yesy Hansen MD G FILM LIBRARY ORD ERABLES [facility] [place], [place] documented in this encounter Visit Diagnoses Diagnosis Pain Generalized pain documented in this encounter Care Teams Rug Touch Up Painter Relationship Specialty Start Date End Date Rufina Mccabe MD [facility] [address] [place] [address] PCP - General Family Medicine 11/30/18 05/18/23 documented as of this encounter
--- OUTSIDE RECORDS SUMMARY | 2024-03-07 02:29 | XMS_ITS | Encounter Summary ---
Author Organization [facility] Address [facility] [place] [address] Care Team Providers Care Filter Worker Name Role Phone Rufina Mccabe MD Primary Care Provider [phone]- [phone] Reason for Referral * Diagnostic Test (Emergency) - Closed Specialty Diagnoses / Procedures Referred By Contac t Referred To Contact Radiology Diagnoses Exertional dyspnea Procedures CT Angiogram Chest for Pulmonary Embolus w Contrast Emre Milligan MD [facility] [address] [facility] [place] [address] Referral ID Status Reason Start Date Expiration Date V isits Requested Visits Authorized [id number] Closed Specialty Service Requested 09/17/2019 03/17/2021 1 1 Reason for Visit * Diagnostic Test (Emergency) - Closed Specialty Diagnoses / Procedures Referred By Contac t Referred To Contact Radiology Diagnoses Exertional dyspnea Procedures CT Angiogram Chest for Pulmonary Embolus w Contrast Emre Milligan MD [facility] [place] [address] [facility] [place] [address] Referral ID Status Reason Start Date Expiration Date V isits Requested Visits Authorized [id number] Closed Specialty Service Requested 09/17/2019 03/17/2021 1 1 Encounter Details Date Type Department Care Team (Latest Contact Info) Description 09/25/2019 8:13 AM EST - 09/25/2019 9:14 AM EST Hospital Encounter CT Scan [place] [facility] [place] [phone] Emre Milligan MD [facility] [place] [address] Exertional dyspnea Discharge Disposition: Home Social History [...] Procedure Name Priority Date/Time Associated Diagnosis Comments CT CHEST PULMONARY EMBOLISM W CONTRAST STAT 09/25/2019 9:08 AM EST Exertional dyspnea documented in this encounter Results * CT Angiogram Chest for Pulmonary Embolus [...] number below. ? Electronically signed by: Yulia Washburn, [facility] ([phone]), at 09/25/2019 10:23 AM Narrative 09/25/2019 10:23 [...] number below. Electronically signed by: Yulia Washburn [facility]([phone]), at 09/25/2019 10:23 AM Emre Milligan MD IMG CT ORDERABLES documented in this encounter Visit Diagnoses Diagnosis Exertional dyspnea Other dyspnea and respiratory abnormality documented in this encounter Administered Medications Inactive Administered Medications - up to 3 most recent administrations Medication Order MAR Action Action Date Dose Rate Site iohexoL (OMNIPAQUE) 350 mg/mL solution 0-200 mL 0-200 mL, Intravenous, ONCE PRN, 1 dose, Starting on Tue09/25/19 at 0902, Until Tue09/25/19 at 0902, Per Protocol, Warning Vesicant/Irritant Medication , Radiology Contrast, Routine Given 09/25/2019 9:02 AM EST 53 mLs documented in this encounter Care Teams Filter Worker Relationship Specialty Start Date End Date Rufina Mccabe MD [facility] [address] [address] PCP - General Family Medicine 11/30/18 05/18/23 documented as of this encounter
--- OUTSIDE RECORDS SUMMARY | 2024-03-07 02:29 | XMS_ITS | Encounter Summary ---
Author Organization [facility] Address [facility] [place] [address] Care Team Providers Care Dispatcher Ship Pilot Name Role Phone Rufina Mccabe MD Primary Care Provider [phone]- [phone] Encounter Details Date Type Department Care Team (Late st Contact Info) Description 12/18/2019 Telephone [place] [phone] Leta Anne LNA Social History Tobacco Use [...] Telephone Encounter - Leta Anne LNA - 12/18/2019 4:38 PM EDT LM for pt to call us back to schedule PFT and echo. documented in this encounter Plan of Treatment Not on file documented as of this encounter Visit Diagnoses Not on filedocumented in this encounter Care Teams Dispatcher Ship Pilot Relationship Specialty Start Date End Date Rufina Mccabe MD [facility] [address] [address] PCP - General Family Medicine 11/30/18 05/18/23 documented as of this encounter
--- OUTSIDE RECORDS SUMMARY | 2024-03-07 02:29 | XMS_ITS | Encounter Summary ---
Author Organization Formerly [facility] [place] [address] Care Team Providers Care Distance Learning Unit Leader Name Role Phone Rufina Mccabe MD Primary Care Provider [phone] Encounter Details Date Type Department Care Team (Latest Contact Info) Description 09/17/2019 11:35 AM EST Laboratory Appointment Lab [address] [place] [phone] Multiple sclerosis; High risk medication use; Respiratory muscle weakness Social History Tobacco Use Types Packs/Day Years [...] Procedure Name Priority Date/Time Associated Diagnosis Comments URINALYSIS WITH REFLEX CULTURE Routine 09/17/2019 11:47 AM EST Multiple sclerosis HEMOGRAM Routine 09/17/2019 11:43 AM EST Multiple sclerosis DIFFERENTIAL, AUTOMATED Routine 09/17/2019 11:43 AM EST Multiple sclerosis [facility] ACETYLCHOLINE RECEPTOR ANTIBODY Routine 09/17/2019 11:43 AM EST Respiratory muscle weakness HC [facility] ALDOLASE Routine 09/17/2019 11:43 AM EST Respiratory muscle weakness HC CBC,PLT & AUTO DIFF Routine 0 11:43 AM EST Multiple sclerosis HC THYROID STIMULATING HORMONE, SERUM Routine 09/17/2019 11:43 AM EST Respiratory muscle weakness HC CREATINE PHOSPHOKINASE, SERUM Routine 09/17/2019 11:43 AM EST Respiratory muscle weakness HC VENIPUNCTURE Routine 09/17/2019 11:43 AM EST Multiple sclerosis documented in this encounter Results * Urinalysis with reflex Culture (09/17/2019 11:47 AM EST) Glucose UA Negative Negative mg/dL [facility] Protein UA Negative Negative mg/dL [facility] Bilirubin UA Negative Negative mg/dL [facility] Comment: Clinical correlation required for positive Urine Bilirubin results as false positive may occur with some drugs and drug related products. If a false positive is suspected a serum total bilirubin should be considered if clinically indicated. Urobilinogen UA Normal Normal mg/dL [facility] pH UA 5.5 5.0 - 8.0 [facility] Blood UA Negative Negative mg/dL [facility] Ketones UA Negative Negative mg/dL [facility] Nitrite UA Negative Negative [facility] Leukocytes UA Negative Negative [facility] Appearance UA Clear Clear [facility] Spec [place] UA >=1.030 1.002 - 1.030 [facility] Color UA Yellow [facility] Culture Reflexed No [facility] Urine specimen obtained by clean catch procedure (specimen) 09/17/2019 11:47 AM EST 09/17/2019 11:55 AM EST Narrative Resulting Agency Comment Spec In Lab Sammi Varela DO URINE ORDERABLES [facility] [place] [address] * Differential, Automated (09/17/2019 11:43 AM EST) Neutrophils % 60.3 % [facility] Neutr Abs (ANC) 3.34 1.70 - 6.10 x10(3)/[facility] Lymphocytes % 30.6 % [facility] Lymphocytes Abs 1.7 0.9 - 3.2 x10(3)/[facility] Monocytes % 5.6 % [facility] Monocyte Abs 0.3 0.3 - 0.9 x10(3)/[facility] Eosinophils % 2.7 % [facility] Eosinophils Abs 0.2 0.0 - 0.4 x10(3)/[facility] Basophils % 0.4 % [facility] Basophils Abs 0.0 0.0 - 0.1 x10(3)/[facility] Immature Gran % 0.40 % [facility] Comment: Immature granulocytes(IG's)percentage and absolute count will include metamyelocytes, myelocytes, and promyelocytes. Blood smears from CBCs yielding IG's will be scanned manually for concordance. If this scan disagrees with the automated IG or if promyelocytes are noted, a manual differential will be performed. Vero Gran Abs 0.02 0.00 - 0.04 x10(3)/[facility] Blood specimen (specimen) 09/17/2019 11:43 AM EST 09/17/2019 11:55 AM EST Narrative Resulting Agency Comment Spec In Lab Sammi Varela DO HEMATOLOGY ORDERABLE S [facility] [place] [address] * (ABNORMAL) Hemogram (09/17/2019 11:43 AM EST) WBC 5.5 4.0 - 9.5 x10(3)/[facility] RBC 4.25 4.00 - 5.21 x10(6)/[facility] Hemoglobin 12.6 11.7 - 15.5 gm/dL [facility] Hematocrit 40.2 35.7 - 45.8 % [facility] MCV 94.6(H) 82.6 - 94.4 [facility] MCH 29.6 27.1 - 32.0 pg [facility] MCHC 31.3(L) 31.7 - 35.0 gm/dL [facility] Platelets 244 145 - 357 x10(3)/[facility] RDWSD 43.4 37.0 - 46.0 [facility] RDWCV 12.4 11.5 - 14.1 % [facility] MPV 10.8 7.6 - 12.9 [facility] nRBC % Auto 0.0 % [facility] nRBC Abs Auto 0.000 0.000 - 0.000 x10(3)/[facility] Blood specimen (specimen) 09/17/2019 11:43 AM EST 09/17/2019 11:55 AM EST Narrative Resulting Agency Comment Spec In Lab Sammi Varela DO HEMATOLOGY ORDERABLE S [facility] [place] [address] * CK (09/17/2019 11:43 AM EST) [facility] CK, Total 68 0 - 160 unit/L [facility] Blood specimen (specimen) 09/17/2019 11:43 AM EST 09/17/2019 11:56 AM EST Narrative Resulting Agency Comment Spec In Lab Emre Milligan MD CHEMISTRY ORDERABLES [facility] [place] [address] * TSH (09/17/2019 11:43 AM EST) TSH 2.23 0.27 - 4.20 mcIU/mL [facility] Blood specimen (specimen) 09/17/2019 11:43 AM EST 09/17/2019 11:56 AM EST Narrative Resulting Agency Comment Spec In Lab Emre Milligan MD CHEMISTRY ORDERABLES Performing Organization Address City/[facility] Co de Phone Number [facility] [place] [address] * Aldolase (09/17/2019 11:43 AM EST) Pathologist [facility] Aldolase 4.0 <7.7 unit/L [facility] Comment: Test Performed by: [place] [address] International Student Advisor: Guero Bateman M.D. Ph.D.; CLIA# [id number] Blood specimen (specimen) 09/17/2019 11:43 AM EST 09/17/2019 4:07 PM EST Narrative Resulting Agency Comment Spec In Lab Emre Milligan MD CHEMISTRY ORDERABLES Performing Organization Address [facility] de Phone Number [facility] [place] [address] * Acetylcholine Receptor Ab Binding (09/17/2019 11:43 AM EST) Pathologist [facility] ACHr Binding Ab 0.00 <=0.02 nmol/L [facility] Comment: ADDITIONAL INFORMATION This test was developed and its performance characteristics determined by [facility] in a manner consistent with CLIA requirements. This test has not been cleared or approved by the U.S. Food and Drug Administration. Test Performed by: [address] [address] International Student Advisor: Guero Bateman M.D. Ph.D.; CLIA# [id number] Blood specimen (specimen) 09/17/2019 11:43 AM EST 09/17/2019 4:07 PM EST Narrative Resulting Agency Comment Spec In Lab Emre Milligan MD CHEMISTRY ORDERABLES [facility] [place] [address] * (ABNORMAL) Comprehensive metabolic panel (non-fasting) (09/17/2019 11:43 AM EST) Glucose Lvl 101 65 - 199 mg/dL [facility] Comment:Diabetes: >=200 mg/d L plus symptoms BUN 15 8 - 18 mg/dL [facility] Creatinine 0.67(L) 0.70 - 1.20 mg/dL [facility] Sodium 141 135 - 145 mmol/L [facility] Potassium 3.7 3.5 - 5.0 mmol/L [facility] Comment: Please note: ??Patients with WBC >100,000 may have falsely elevated Potassium levels. ??For accurate Potassium quantification in these patients send serum separator tube (gold top) for subsequent determinations. ??Contact the Clinical Chemistry Laboratory if there are any questions. Chloride 106 98 - 107 mmol/L [facility] CO2 23 22 - 31 mmol/L [facility] Anion Gap 12 5 - 15 mmol/L [facility] Calcium 9.3 8.5 - 10.5 mg/dL [facility] Total Protein 7.4 6.1 - 8.0 gm/dL [facility] Albumin 4.4 3.2 - 5.2 gm/dL [facility] AST 19 0 - 30 unit/L [facility] ALT 16 0 - 30 unit/L [facility] Alk Phos 109(H) 35 - 105 unit/L [facility] Total Bilirubin 0.4 0.2 - 1.3 mg/dL [facility] Estimated GFR 97 >=60 mL/min/1. 73 m?? [facility] Comment: The eGFR was calculated using the CKD-EPI equation. As with all creatinine based estimates of kidney function, eGFR values calculated with the CKD-EPI equation are not accurate in patients with acute kidney failure, extremes of body mass or the acutely ill. [email or web address] eGFR 112 >=60 mL/min/1. 73 m?? [facility] Comment: The eGFR was calculated using the CKD-EPI equation. As with all creatinine based estimates of kidney function, eGFR values calculated with the CKD-EPI equation are not accurate in patients with acute kidney failure, extremes of body mass or the acutely ill. [email or web address] Blood specimen (specimen) 09/17/2019 11:43 AM EST 09/17/2019 11:56 AM EST Narrative Resulting Agency Comment Spec In Lab Sammi Varela DO CHEMISTRY ORDERABLES Performing Organization Address City/State/[facility] Co de Phone Number [facility] [place] [address] documented in this encounter Visit Diagnoses Diagnosis Multiple sclerosis High risk medication use Encounter for long-term (current) use of other medications Respiratory muscle weakness Muscle weakness (generalized) documented in this encounter Care Teams Distance Learning Unit Leader Relationship Specialty Start Date End Date Rufina Mccabe MD [facility] [address] [facility] [place] [address] PCP - General Family Medicine 11/30/18 05/18/23 documented as of this encounter
--- OUTSIDE RECORDS SUMMARY | 2024-03-07 02:29 | XMS_ITS | Encounter Summary ---
Author Organization [facility] Address [facility] [place] [address] Care Team Providers Care Commercial Leasing Manager Name Role Phone Rufina Mccabe MD Primary Care Provider [phone] Reason for Visit * Reason Comments Cough Encounter Details Date Type Department Care Team ([facility] st Contact Info) Description 12/26/2018 9:30 AM EDT Office Visit Family Medicine at [facility] [address] [place] [address] Rufina Mccabe MD [facility] [address] [facility] [place] [address] Acute URI Social History Tobacco Use Types Packs/Day Years [...] Sign Reading Time Taken Comments Blood Pressure 118/72 12/26/2018 9:29 AM EDT Pulse 69 12/26/2018 9:29 AM EDT Temperature 36.3 ??C (97.4 ??F) 12/26/2018 9:29 AM ED T Respiratory Rate 16 12/26/2018 9:29 AM EDT Oxygen Saturation 100% 12/26/2018 9:29 AM EDT Inhaled Oxygen Concentration - - Weight 80.4 kg (177 lb 4.8 oz) 12/26/2018 9:29 A M EDT Height 170.2 cm (5' 7.01) 12/26/2018 9:29 AM ED T Body Mass Index 27.76 12/26/2018 9:29 AM EDT documented in this encounter Patient Instructions * Patient Instructions* Rufina Mccabe MD - 12/26/2018 9:30 AM EDT Images from the original note were not included. Patient Education Upper Respiratory Infection (Cold): Care Instructions Your Care Instructions An upper respiratory infection, or URI, is an infection of the nose, sinuses, or throat. URIs are spread by coughs, sneezes, and direct contact. The common cold is the most frequent kind of URI. The flu and sinus infections are other kinds of URIs. Almost all URIs are caused by viruses. Antibiotics won't cure them. But you can treat most infections with home care. This may include drinking lots of fluids and taking zcgm-czz-wxcoeob pain medicine. You will probably feel better in 4 to 10 days. The doctor has checked you carefully, but problems can develop later. If you notice any problems ornew symptoms, get medical treatment right away. Follow-up care is a sanchez part of your treatment and safety. Be sure to make and go to all appointments, and call your doctor if you are having problems. It's also a good idea to know your test resultsand keep a list of the medicines you take. How can you care for yourself at home? ?? To prevent dehydration, drink plenty of fluids, enough so that your urine is light yellow or clear like water. Choose water and other caffeine-free clear liquids until you feel better. If you havekidney, heart, or liver disease and have to limit fluids, talk with your doctor before you increasethe amount of fluids you drink. ?? Take an bdwt-glv-cvgpglu pain medicine, such as acetaminophen (Tylenol), ibuprofen (Advil, Motrin), or naproxen (Aleve). Read and follow all instructions on the label. ?? Before you use cough and cold medicines, check the label. These medicines may not be safe for young children or for people with certain health problems. ?? Be careful when taking urhy-szf-mpypszs cold or flu medicines and Tylenol at the same time. Manyof these medicines have acetaminophen, which is Tylenol. Read the labels to make sure that you are not taking more than the recommended dose. Too much acetaminophen (Tylenol) can be harmful. ?? Get plenty of rest. ?? Do not smoke or allow others to smoke around you. If you need help quitting, talk to your doctorabout stop-smoking programs and medicines. These can increase your chances of quitting for good. When should you call for help? Call 911 anytime you think you may need emergency care. For example, call if: ? You have severe trouble breathing. ??Call your doctor now or seek immediate medical care if: ? You seem to be getting much sicker. ? You have new or worse trouble breathing. ? You have a new or higher fever. ? You have a new rash. ??Watch closely for changes in your health, and be sure to contact your doctor if: ? You have a new symptom, such as a sore throat, an earache, or sinus pain. ? You cough more deeply or more often, especially if you notice more mucus or a change in the color of your mucus. ? You do not get better as expected. Where can you learn more? Visit our health information library at http://Distra/Elevate Digitalinfo. You can also view health information on ITema, your personal patient account. Log in or sign uptoday. Enter K520 in the search box to learn more about Upper Respiratory Infection (Cold): Care Instructions. Current as of: April 26, 2018 Content Version: 12.0 ?? [id number] [employer]. Care instructions adapted under license by [facility]. If you have questions about a medical condition or this instruction, always ask your healthcare professional. [employer] disclaims any warranty or liability for your use of this information. documented in this encounter Progress Notes * Rufina Mccabe MD - 12/26/2018 9:30 AM EDT Images from the original note were not included. Subjective: Chief Complaint Patient presents with ??? Cough Patient ID: Sherrie Bonner is a 58 y.o. female. HPI Had been in her usual health until 10 days ago when she developed a cough and laryngitis Nyquil helps Low-grade fever, temperature instaiblity Feels her dyspnea more (that we're sorting out, going to pulm) With coughing, CP, but no CP otherwise Dry cough, not productive No rhinorrhrea, no ear pain Review of Systems No n/v/d/c, arthralgias, urinary changes, or rashes Social History Tobacco Use ??? Smoking status: Never Smoker ??? Smokeless tobacco: Never Used Substance Use Topics ??? Alcohol use: No ??? Drug use: No Behavorial Health Responses 11/18/2018 Total PHQ-9 8 (Mild Depression) Objective: BP 118/72 Pulse 69 Temp 36.3 ??C (97.4 ??F) (Temporal) Resp 16 Ht 170.2 cm (5' 7.01) Wt 80.4 kg (177 lb 4.8 oz) SpO2 100% BMI 27.76 kg/m?? Physical Exam NAD Atraumatic, normocephalic KIM, no conjunctival injection or discharge Normal TMs bilaterally Throat with normal appearance No cervical lymphadenopathy Lungs CTA with normal respiratory effort No rash Assessment and Plan: Sherrie was seen today for cough. Diagnoses and all orders for this visit: Acute URI, likely viral in origin because of laryngitis, improving Other orders - benzonatate (TESSALON) 100 mg Capsule; Take 1 capsule by mouth 3 times daily as needed for Cough. Patient Instructions Patient Education Upper Respiratory Infection (Cold): Care Instructions Your Care Instructions An upper respiratory infection, or URI, is an infection of the nose, sinuses, or throat. URIs are spread by coughs, sneezes, and direct contact. The common cold is the most frequent kind of URI. The flu and sinus infections are other kinds of URIs. Almost all URIs are caused by viruses. Antibiotics won't cure them. But you can treat most infections with home care. This may include drinking lots of fluids and taking nxye-adx-wpnyvqs pain medicine. You will probably feel better in 4 to 10 days. The doctor has checked you carefully, but problems can develop later. If you notice any problems ornew symptoms, get medical treatment right away. Follow-up care is a sanchez part of your treatment and safety. Be sure to make and go to all appointments, and call your doctor if you are having problems. It's also a good idea to know your test resultsand keep a list of the medicines you take. How can you care for yourself at home? ?? To prevent dehydration, drink plenty of fluids, enough so that your urine is light yellow or clear like water. Choose water and other caffeine-free clear liquids until you feel better. If you havekidney, heart, or liver disease and have to limit fluids, talk with your doctor before you increasethe amount of fluids you drink. ?? Take an hceu-olh-mnzumae pain medicine, such as acetaminophen (Tylenol), ibuprofen (Advil, Motrin), or naproxen (Aleve). Read and follow all instructions on the label. ?? Before you use cough and cold medicines, check the label. These medicines may not be safe for young children or for people with certain health problems. ?? Be careful when taking mfxc-ykt-nfyhyfa cold or flu medicines and Tylenol at the same time. Manyof these medicines have acetaminophen, which is Tylenol. Read the labels to make sure that you are not taking more than the recommended dose. Too much acetaminophen (Tylenol) can be harmful. ?? Get plenty of rest. ?? Do not smoke or allow others to smoke around you. If you need help quitting, talk to your doctorabout stop-smoking programs and medicines. These can increase your chances of quitting for good. When should you call for help? Call 911 anytime you think you may need emergency care. For example, call if: ? You have severe trouble breathing. ??Call your doctor now or seek immediate medical care if: ? You seem to be getting much sicker. ? You have new or worse trouble breathing. ? You have a new or higher fever. ? You have a new rash. ??Watch closely for changes in your health, and be sure to contact your doctor if: ? You have a new symptom, such as a sore throat, an earache, or sinus pain. ? You cough more deeply or more often, especially if you notice more mucus or a change in the color of your mucus. ? You do not get better as expected. Where can you learn more? Visit our health information library at http://Distra/Elevate Digitalinfo. You can also view health information on ITema, your personal patient account. Log in or sign uptoday. Enter K520 in the search box to learn more about Upper Respiratory Infection (Cold): Care Instructions. Current as of: April 26, 2018 Content Version: 12.0 ?? [id number] Guidekick. Care instructions adapted under license by [facility]. If you have questions about a medical condition or this instruction, always ask your healthcare professional. [employer] disclaims any warranty or liability for your use of this information. documented in this encounter Plan of Treatment Not on file documented as of this encounter Visit Diagnoses Diagnosis Acute URI Acute upper respiratory infections of unspecified site documented in this encounter Care Teams Commercial Leasing Manager Relationship Specialty Start Date End Date Rufina Mccabe MD [facility] [address] [facility] [place] [address] PCP - General Family Medicine 11/30/18 05/18/23 documented as of this encounter
--- OUTSIDE RECORDS SUMMARY | 2024-03-07 02:29 | XMS_ITS | Encounter Summary ---
Author Organization [facility] [place] [address] Care Team Providers Care Publicity Consultant Name Role Phone Vidhya Benitez DO Primary Care Provider [phone] Encounter Details Date Type Department Care Team ([facility] st Contact Info) Description 11/24/2018 Telephone [place] [address] Jeanie Linn Social History Tobacco Use Types Packs/Day Years [...] encounter Miscellaneous Notes * Telephone Encounter - Jeanie Linn - 11/24/2018 4:08 PM EDT Called pt to schedule a colo from her ref. She stated that she will give us a call back when she issure on a ride. So I am closing the ref and sending her a letter so that she can call us when she is ready. documented in this encounter Plan of Treatment Not on file documented as of this encounter Visit Diagnoses Not on filedocumented in this encounter Care Teams Publicity Consultant Relationship Specialty Start Date End Date Vidhya Benitez DO PCP - General Family Medicine 05/10/16 11/29/18 documented as of this encounter
--- OUTSIDE RECORDS SUMMARY | 2024-03-07 02:29 | XMS_ITS | Encounter Summary ---
Author Organization [facility] [place] [address] Care Team Providers Care Multiple Coil Winder Name Role Phone Rufina Mccabe MD Primary Care Provider [phone] Encounter Details Date Type Department Care Team (Late st Contact Info) Description 10/02/2019 1:00 PM EST Ancillary [place] [address] Yesy Hansen MD [facility] [place] [address] Pain Social History Tobacco Use Types Packs/Day [...] as of this encounter Plan of Treatment Pending Results Name Type Priority Associated Diagnoses Date /Time Film Library- Storage Only pain Clinic [facility] Storage Only Routine Pain 10/01/2019 8:22 AM EST documented as of this encounter Visit Diagnoses Diagnosis Pain Generalized pain documented in this encounter Care Teams Multiple Coil Winder Relationship Specialty Start Date End Date Rufina Mccabe MD [facility] [address] [facility] [address] PCP - General Family Medicine 11/30/18 05/18/23 documented as of this encounter
--- OUTSIDE RECORDS SUMMARY | 2024-03-07 02:30 | XMS_ITS | Encounter Summary ---
Author Organization [facility] [place] [address] Care Team Providers Care Funding Analyst Name Role Phone Santos Hernandez MD Primary Care Provider [phone] Encounter Details Date Type Department Care Team (Late st Contact Info) Description 02/26/2016 [place] [address] Rosana Kennedy APRN [facility] [place] [address] Social History Tobacco Use Types Packs/Day Years [...] encounter Miscellaneous Notes * Telephone Encounter - Rosana Limon APRN - 02/26/2016 9:58 AM EDT Call from patient with 1 week history of worsening posterior LLE pain. Denies weakness. Went to urgent care last week and was given IM Toradol, oral diclofenac and flexeril. Does not feel a significant improvement. Advised will start gabapentin at 300mg tid. Patient to call early next week and willtitrate up to 600mg tid if benefit inadequate. Will consider ROSALVA and referral to PT. documented in this encounter Plan of Treatment Not on file documented as of this encounter Visit Diagnoses Not on filedocumented in this encounter Care Teams Funding Analyst Relationship Specialty Start Date End Date Santos Hernandez MD [address] [place] [address] PCP - General Family Medicine 07/16/15 05/09/16 documented as of this encounter
--- OUTSIDE RECORDS SUMMARY | 2024-03-07 02:30 | XMS_ITS | Encounter Summary ---
Author Organization Formerly [facility] [place] [address] Care Team Providers Care Psychiatric Technician Assistant Name Role Phone Eli Vidhya Primary Care Provider Encounter Details Date Type Department Care Team (Late st Contact Info) Description 05/10/2016 1:00 PM EDT Office [place] [address] Trevor Rodriguez MD [facility] [place] [address] [place] [address] Left leg pain Social History Tobacco Use Types Packs/Day Years [...] as of this encounter Progress Notes * Trevor Rodriguez MD - 05/10/2016 1:00 PM EDT Sherrie Bonner returns to the Sp[facility] to follow up for a lumbar laminectomy and diskectomy. She was evaluated by the Pain Clinic this morning and planned for steroid injections. We discussed the options here. I told her I did not see much of an indication for repeat surgery here, but I will follow along with the Pain Clinic, and I will see her a few weeks following her injection. All questions were answered. documented in this encounter Plan of Treatment Not on file documented as of this encounter Visit Diagnoses Diagnosis Left leg pain Pain in limb documented in this encounter Care Teams Psychiatric Technician Assistant Relationship Specialty Start Date End Date Vidhya Benitez DO PCP - General Family Medicine 05/10/16 11/29/18 documented as of this encounter
--- OUTSIDE RECORDS SUMMARY | 2024-03-07 02:30 | XMS_ITS | Encounter Summary ---
Author Organization [facility] [place] [address] Care Team Providers Care Grounds And Nursery Specialist Name Role Phone Santos Hernandez MD Primary Care Provider [phone] Encounter Details Date Type Department Care Team (Late st Contact Info) Description 03/08/2016 [place] [address] Trevor Rodriguez MD [facility] [place] [address] [place] [address] Social History Tobacco Use Types Packs/Day Years [...] on filedocumented in this encounter Care Teams Grounds And Nursery Specialist Relationship Specialty Start Date End Date Santos Hernandez MD [facility] [place] [address] PCP - General Family Medicine 07/16/15 05/09/16 documented as of this encounter
--- OUTSIDE RECORDS SUMMARY | 2024-03-07 02:30 | XMS_ITS | Encounter Summary ---
Author Organization [facility] [place] [address] Care Team Providers Care Employment Case Manager Name Role Phone Vidhya Benitez DO Primary Care Provider Reason for Referral * Diagnostic Test (Routine) - Closed Specialty Diagnoses / Procedures Referred By Contac t Referred To Contact Radiology Diagnoses Other chest pain Procedures NM Pharmacologic Stress Myocardial Perfusion Cameron Saldivar MD [facility] [place] [address] [place] [address] Referral ID Status Reason Start Date Expiration Date V isits Requested Visits Authorized [id number] Closed Specialty Service Requested 10/19/2018 10/19/2019 1 1 * Diagnostic Test (Routine) - Closed Specialty Diagnoses / Procedures Referred By Contac t Referred To Contact Radiology Diagnoses Other chest pain Procedures NM Pharmacologic Stress CT Component Cameron Saldivar MD [facility] [place] [address] [place] [address] Referral ID Status Reason Start Date Expiration Date V isits Requested Visits Authorized [id number] Closed Specialty Service Requested 10/19/2018 10/19/2019 1 1 Reason for Visit * Reason Comments Chest Pain Ekg * Consultation (Routine) - Closed Specialty Diagnoses / Procedures Referred By Nelda sheppard Referred To Contact Cardiology Diagnoses LEFT SIDED INTERMITTENT CHEST PAIN Mayra Ocampo, DRYING TUMBLER OPERATOR [address] [place] [address] [facility] [address] [address] [place] [phone] Referral ID Status Reason Start Date Expiration Date V isits Requested Visits Authorized [id number] Closed Consult, Test & Treat Connection Center 10/12/2018 10/12/2019 1 1 Encounter Details Date Type Department Care Team (Late st Contact Info) Description 10/19/2018 10:40 AM EST Office Visit Cardiology at [address] [address] Cameron Saldivar MD [facility] [place] [address] Other chest pain (Primary Dx) Social History Tobacco Use Types [...] Sign Reading Time Taken Comments Blood Pressure 122/76 10/19/2018 10:50 AM EST Pulse 81 10/19/2018 10:50 AM EST Temperature - - Respiratory Rate - - Oxygen Saturation 100% 10/19/2018 10:50 AM EST Inhaled Oxygen Concentration - - Weight 79.8 kg (176 lb) 10/19/2018 10:50 AM EST Height 170.2 cm (5' 7) 10/19/2018 10:50 AM EST Body Mass Index 27.57 10/19/2018 10:50 AM EST documented in this encounter Progress Notes * Cameron Saldivar MD - 10/19/2018 10:40 AM EST Images from the original note were not included. [facility] [place] [id number] CARDIOLOGY/ VASCULAR OUTPATIENT NOTE Sherrie Benitez, DO Reason for consult: chest pain SUBJECTIVE: Pleasant 58 year old female who has a history of multiple sclerosis (has a neurologist in [place]) who is referred for further evaluation of left sided chest pain. She states that she has noticed this more over the past 2 months. 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 She reports that she would only carry two plates at a time. Her , who is withher today, also reports that she has been doing more snow shoveling recently. She states that she gets a left sided chest pain that is sharp in nature and tends to be superior to her left breast. Shehas an ache at times about once a day (reports having it while in the office) that mostly occurs atrest. When she walks up a flight of stairs, she does not get any chest pain. She also notes that she has had an increase in shortness of breath over the past 2 months. She denies any change in her medications or other obvious causes. She had a remote stress test many years ago that was normal. Denies having an echo previously. PAST MEDICAL HISTORY Patient Active Problem List Diagnosis ??? Other chest pain ??? Depression ??? Chronic fatigue ??? Headache ??? RLS (restless legs syndrome) ??? Gastroesophageal reflux ??? Cervical spondylosis without myelopathy ??? Radiculopathy of lumbar region ??? Multiple sclerosis ??? Lumbar disc herniation Meds: Current Outpatient Medications Medication Sig Dispense Refill ??? amitriptyline (ELAVIL) 25 mg Tablet ??? [...] Take 14 mg by mouth daily. ??? albuterol (PROVENTIL HFA;VENTOLIN HFA;PROAIR) 90 mcg/actuation HFA Aerosol Inhaler Take 2 puffsby mouth daily as needed. ??? fluticasone-salmeterol (ADVAIR) 250-50 mcg/dose Disk with Device Take 2 puffs by mouth daily. ??? b complex vitamins Capsule Take 1 capsule by mouth daily. ??? gabapentin (NEURONTIN) 300 mg Capsule Take 300 mg by mouth 3 times daily. ??? mirabegron (MYRBETRIQ) 50 mg Tablet Sustained Release 24 hr Take 50 mg by mouth daily. ??? ergocalciferol (ERGOCALCIFEROL) 50,000 unit Capsule Take 50,000 Units by mouth once a week. ??? montelukast (SINGULAIR) 10 mg Tablet Take 10 mg by mouth daily. OBJECTIVE: BP 122/76 Pulse 81 Ht 170.2 cm (5' 7) Wt 79.8 kg (176 lb) SpO2 100% BMI 27.57 kg/m?? Physical Exam: General: well developed, well nourished HEENT: PERRLA Neck: supple, JVP normal Lungs: clear to ascultation Cardiac: RRR, no murmurs, rubs or gallops Abdomen: nontender, nondistended Extremities: normal ROM, No edema. Neuro: alert and oriented x 3, normal muscle strength Skin: no new rashes Results for SHERREI ROBERTSON ( ) as of 10/19/2018 11:25 Ref. Range 10/15/2015 02:33 WBC Latest Ref Range: 4.0 - 10.0 x10(3)/mcL 9.9 RBC Latest Ref Range: 3.93 - 5.22 x10(6)/mcL 3.77 (L) Hemoglobin Latest Ref Range: 11.2 - 15.7 gm/dL 11.5 Hematocrit Latest Ref Range: 34.0 - 45.0 % 34.6 MCV Latest Ref Range: 79.0 - 94.0 fL 91.8 MCH Latest Ref Range: 26.6 - 32.2 pg 30.5 MCHC Latest Ref Range: 32.0 - 36.5 gm/dL 33.2 RDWSD Latest Ref Range: 35.0 - 46.0 fL 42.2 RDWCV Latest Ref Range: 10.9 - 14.4 % 12.5 Platelets Latest Ref Range: 145 - 370 x10(3)/mcL 204 MPV Latest Ref Range: 9.0 - 12.0 fL 11.2 Neutr Abs (ANC) Latest Ref Range: 1.50 - 6.30 x10(3)/mcL 9.17 (H) Neutrophils % Latest Units: % 92.7 Immature Gran % Latest Units: % 0.20 Lymphocytes % Latest Units: % 4.4 Monocytes % Latest Units: % 2.6 Eosinophils % Latest Units: % 0.0 Basophils % Latest Units: % 0.1 Vero Gran Abs Latest Ref Range: 0.00 - 0.05 x10(3)/mcL 0.02 Lymphocytes Abs Latest Ref Range: 1.0 - 3.6 x10(3)/mcL 0.4 (L) Monocyte Abs Latest Ref Range: 0.2 - 1.0 x10(3)/mcL 0.3 Eosinophils Abs Latest Ref Range: 0.0 - 0.5 x10(3)/mcL 0.0 Basophils Abs Latest Ref Range: 0.0 - 0.2 x10(3)/mcL 0.0 Sodium Latest Ref Range: 135 - 145 mmol/L 140 Potassium Latest Ref Range: 3.5 - 5.0 mmol/L 4.3 Chloride Latest Ref Range: 98 - 107 mmol/L 104 CO2 Latest Ref Range: 22 - 31 mmol/L 25 Anion Gap Latest Ref Range: 5 - 15 mmol/L 11 BUN Latest Ref Range: 8 - 18 mg/dL 15 Creatinine Latest Ref Range: 0.70 - 1.20 mg/dL 1.07 eGFR Latest Ref Range: >=60 53 (L) Glucose Lvl Latest Ref Range: 65 - 199 mg/dL 146 Calcium Latest Ref Range: 8.5 - 10.5 mg/dL 8.5 ECG today: NSR. NO ST-TW abnormalities. No Q waves. Normal ECG. ASSESSMENT / PLAN: 58 year old female with a history of multiple sclerosis with atypical chest pain and increased dyspnea on exertion x 2 months. By her description alone, the chest pain sounds more musculo-skeletal innature. However, with the shortness of breath as well and her concerns - I did not think that a stress test would be unreasonable. She states that she can walk on a treadmill but with her multiple sclerosis - probably best with a pharmacologic. Therefore, I ordered a regadenoson nuclear stress test. She will call our nurse, Maya LIVE, for results. If this is normal - no further cardiac testing would be recommended at this time. If it is abnormal - I will be happy to speak with her about the appr opriate next steps. 35 min spent in face to face discussion with her and her . documented in this encounter Plan of Treatment Not on file documented as of this encounter Procedures Procedure Name Priority Date/Time Associated Diagnosis Comments EKG 12-LEAD Routine 10/19/2018 11:04 AM EST Other chest pain documented in this encounter Results * NM Pharmacologic Stress CT Component (11/02/2018 11:01 AM EDT) Anatomical Region Laterality Modality Nuclear Medicine Impressions 11/02/2018 5:25 PM EDT No ischemia or scar. ??Left ventricular function is normal. Preliminary report signed by: Davey Blue at 11/02/2018 4:10 PM I have personally reviewed the image(s) and the residents interpretation and agree with the findings, Ascencion Day at 11/02/2018 5:25 PM Thank you for letting us participate in the care of this patient. For questions regarding this report, please contact the number below. ? Electronically signed by: Ascencion Day [facility] ([phone]), at 11/02/2018 5:25 PM Narrative 11/02/2018 5:25 PM EDT EXAMINATION: NM PHARMACOLOGIC STRESS MYOCARDIAL PERFUSION, NM PHARMACOLOGIC STRESS CT COMPONENT CLINICAL HISTORY: increased shortness of breath and left sided chest pain x 1 month. TECHNIQUE: During rest, 7.7 mCi of technetium-99m sestamibi was administered intravenously. Approximately 20 minutes later, SPECT images of the heart were obtained with reconstruction in the short, vertical long and horizontal long axis. The patient then received regadenoson intravenously at a dose of 0.4 mg. 20 seconds later, 26.5 mCi of technetium-99m sestamibi was administered intravenously. Images of the heart were then again obtained with SPECT reconstruction. A low-dose CT scan was acquired for the purpose of attenuation correction COMPARISON: None FINDINGS: No fixed or reversible perfusion defects are present. Functional analysis: Myocardial function: There is normal wall thickening and wall motion. Left ventricular ejection fraction: 73 % (normal greater than than 50%). No significant incidental CT findings. Procedure Note Ascencion Day MD - 11/02/2018 EXAMINATION: NM PHARMACOLOGIC STRESS MYOCARDIAL PERFUSION, NMPHARMACOLOGIC STRESS CT COMPONENT CLINICAL HISTORY: increased shortness of breath and left sided chest painx 1 month. TECHNIQUE: During rest, 7.7 mCi of technetium-99m sestamibi wasadministered intravenously. Approximately 20 minutes later, SPECT images of the heartwere obtained with reconstruction in the short, vertical long and horizontallong axis. The patient then received regadenoson intravenously at a dose of 0.4 mg.20 seconds later, 26.5 mCi of technetium-99m sestamibi was administered intravenously. Images of the heart were then again obtained with SPECT reconstruction. A low-dose CT scan was acquired for the purpose of attenuationcorrection COMPARISON: None FINDINGS: No fixed or reversible perfusion defects are present. Functional analysis: Myocardial function: There is normal wall thickening and wall motion. Left ventricular ejection fraction: 73 % (normal greater than than 50%). No significant incidental CT findings. IMPRESSION No ischemia or scar. Left ventricular function is normal. Preliminary report signed by: Davey Blue at 11/02/2018 4:10 PM I have personally reviewed the image(s) and the residents interpretationand agree with the findings, Ascencion Day at 11/02/2018 5:25 PM Thank you for letting us participate in the care of this patient. Forquestions regarding this report, please contact the number below. Electronically signed by: Ascencion Day [facility]([phone]), at 11/02/2018 5:25 PM Cameron Saldivar MD IMG NM ORDERABLES * NM Pharmacologic Stress Myocardial Perfusion (11/02/2018 10:43 AM EDT) Anatomical Region Laterality Modality Nuclear Medicine Impressions 11/02/2018 5:25 PM EDT No ischemia or scar. ??Left ventricular function is normal. Preliminary report signed by: Davey Blue at 11/02/2018 4:10 PM I have personally reviewed the image(s) and the residents interpretation and agree with the findings, Ascencion Day at 11/02/2018 5:25 PM Thank you for letting us participate in the care of this patient. For questions regarding this report, please contact the number below. ? Electronically signed by: Ascencion Day [facility] ([phone]), at 11/02/2018 5:25 PM Narrative 11/02/2018 5:25 PM EDT EXAMINATION: NM PHARMACOLOGIC STRESS MYOCARDIAL PERFUSION, NM PHARMACOLOGIC STRESS CT COMPONENT CLINICAL HISTORY: increased shortness of breath and left sided chest pain x 1 month. TECHNIQUE: During rest, 7.7 mCi of technetium-99m sestamibi was administered intravenously. Approximately 20 minutes later, SPECT images of the heart were obtained with reconstruction in the short, vertical long and horizontal long axis. The patient then received regadenoson intravenously at a dose of 0.4 mg. 20 seconds later, 26.5 mCi of technetium-99m sestamibi was administered intravenously. Images of the heart were then again obtained with SPECT reconstruction. A low-dose CT scan was acquired for the purpose of attenuation correction COMPARISON: None FINDINGS: No fixed or reversible perfusion defects are present. Functional analysis: Myocardial function: There is normal wall thickening and wall motion. Left ventricular ejection fraction: 73 % (normal greater than than 50%). No significant incidental CT findings. Procedure Note Ascencion Day MD - 11/02/2018 EXAMINATION: NM PHARMACOLOGIC STRESS MYOCARDIAL PERFUSION, NMPHARMACOLOGIC STRESS CT COMPONENT CLINICAL HISTORY: increased shortness of breath and left sided chest painx 1 month. TECHNIQUE: During rest, 7.7 mCi of technetium-99m sestamibi wasadministered intravenously. Approximately 20 minutes later, SPECT images of the heartwere obtained with reconstruction in the short, vertical long and horizontallong axis. The patient then received regadenoson intravenously at a dose of 0.4 mg.20 seconds later, 26.5 mCi of technetium-99m sestamibi was administered intravenously. Images of the heart were then again obtained with SPECT reconstruction. A low-dose CT scan was acquired for the purpose of attenuationcorrection COMPARISON: None FINDINGS: No fixed or reversible perfusion defects are present. Functional analysis: Myocardial function: There is normal wall thickening and wall motion. Left ventricular ejection fraction: 73 % (normal greater than than 50%). No significant incidental CT findings. IMPRESSION No ischemia or scar. Left ventricular function is normal. Preliminary report signed by: Davey Blue at 11/02/2018 4:10 PM I have personally reviewed the image(s) and the residents interpretationand agree with the findings, Ascencion Day at 11/02/2018 5:25 PM Thank you for letting us participate in the care of this patient. Forquestions regarding this report, please contact the number below. Electronically signed by: Ascencion Day [facility]([phone]), at 11/02/2018 5:25 PM Cameron Saldivar MD [facility] ORDERABLES * Nuclear Pharmacologic Stress Cardiology (11/02/2018 10:42 AM EDT) Anatomical Region Laterality Modality Other Cameron Saldivar MD CARDIAC SERVICES OR DERABLES * EKG 12 Lead (10/19/2018 11:04 AM EST) Ventricular rate 69 BPM MUSE SYSTEM Atrial Rate 69 BPM MUSE SYSTEM P-R Interval 144 ms MUSE SYSTEM QRS Duration 76 ms MUSE SYSTEM Q-T Interval 390 ms MUSE SYSTEM QTC Calculated (Bezet) 417 ms MUSE SYSTEM Calculated P [place] 55 degrees MUSE SYSTEM Calculated R [place] 57 degrees MUSE SYSTEM Calculated T [place] 61 degrees MUSE SYSTEM INTERPRETATION Normal sinus rhythm Normal ECG No previous ECGs available Confirmed by MD Diana, Ron Hughes ([id number]) on 10/19/2018 9:30:14 PM MUSE SYSTEM 10/19/2018 11:0 4 AM EST 10/19/2018 9:30 PM EST Cameron Saldivar MD ECG ORDERABLES MUSE SYSTEM documented in this encounter Visit Diagnoses Diagnosis Other chest pain- Primary Other chest pain Other chest pain documented in this encounter Care Teams Employment Case Manager Relationship Specialty Start Date End Date Vidhya Benitez DO PCP - General Family Medicine 05/10/16 11/29/18 documented as of this encounter
--- OUTSIDE RECORDS SUMMARY | 2024-03-07 02:30 | XMS_ITS | Encounter Summary ---
Author Organization [facility] [place] [address] Care Team Providers Care Audit Clerks Supervisor Name Role Phone Santos Hernandez MD Primary Care Provider [phone] Reason for Visit * Reason Comments Follow-up Encounter Details Date Type Department Care Team (Latest Contact Info) Description 11/27/2015 1:30 PM EDT Office [place] [phone] Trevor Rodriguez MD [facility] [place] [address] [place] [address] Intervertebral disc disorder with radiculopathy of lumbar region Social History Tobacco Use Types Packs/Day Years [...] Sign Reading Time Taken Comments Blood Pressure 129/61 11/27/2015 12:49 PM EDT Pulse 78 11/27/2015 12:49 PM EDT Temperature - - Respiratory Rate - - Oxygen Saturation - - Inhaled Oxygen Concentration - - Weight 72.6 kg (160 lb) 11/27/2015 12:49 PM EDT Height 170.2 cm (5' 7) 11/27/2015 12:49 PM EDT Body Mass Index 25.06 11/27/2015 12:49 PM EDT documented in this encounter Progress Notes * Trevor Rodriguez MD - 11/27/2015 1:37 PM EDT Sherrie Bonner returns to Neurosurgery Clinic in followup for lumbar diskectomy. Since being seen last time, she is doing extremely well. She has no leg or back pain and is happy with her situation. On examination, her wound is nicely healed. Motor strength is full. Straight leg raising is negative. I think this represents a good outcome. She knows she can call here at any time if further questions or problems do arise. documented in this encounter Plan of Treatment Not on file documented as of this encounter Visit Diagnoses Diagnosis Intervertebral disc disorder with radiculopathy of lumbar region Thoracic or lumbosacral neuritis or radiculitis, unspecified documented in this encounter Care Teams Audit Clerks Supervisor Relationship Specialty Start Date End Date Santos Hernandez MD [facility] [place] [id number] PCP - General Family Medicine 07/16/15 05/09/16 documented as of this encounter
--- OUTSIDE RECORDS SUMMARY | 2024-03-07 02:30 | XMS_ITS | Encounter Summary ---
Author Organization [facility] Address [facility] [place] [address] Care Team Providers Care Plastic Welding Machine Operator Name Role Phone Vidhya Benitez DO Primary Care Provider Reason for Referral * Routine Exam (Routine) - Specialty Diagnoses / Procedures Referred By Contac t Referred To Contact Diagnoses Lumbosacral spondylosis without myelopathy Procedures NERVE BLOCK - LUMBOSACRAL - [place] Pete Hansen MD [facility] [place] [address] Referral ID Status Reason Start Date Expiration Date Visits Requested Visits Authorized [id number] Specialty Service Requested 07/06/2017 07/06/2018 1 1 Reason for Visit * Reason Comments Back Pain left * Surgical (Routine) - Closed Specialty Diagnoses / Procedures Referred By Contac t Referred To Contact Pain Management Diagnoses left L3-L4, L4-L5, and L5-S1 LMBB Procedures PRO INJ, PARAVERTEBRAL FACET JT W/IMAGE GUID, LUMBAR/SACRAL, SINGLE LEVEL PRO INJ, PARAVERTEBRAL FACET JT, W/IMAGE GUID, LUMBAR/SACRAL, SECOND LEVEL PRO INJ PARAVERTEBRAL FACET JT W/IMAGE GUID, LUMBAR/SACRAL, 3RD OR ADDL LEVEL PROCEDURE 1 Trevor Rodriguez MD [facility] [place] [address] Pete Hansen MD [facility] [place] [address] Referral ID Status Reason Start Date Expiration Date Visits Re quested Visits Authorized [id number] Closed 07/06/2017 07/06/2018 1 1 Encounter Details Date Type Department Care Team (Latest Contact Info) Description 07/06/2017 3:30 PM EST Procedure [place] [address] Pete Hansen MD [facility] [place] [address] Lumbosacral spondylosis without myelopathy Social History Tobacco Use Types Packs/Day Years [...] Sign Reading Time Taken Comments Blood Pressure 151/77 07/06/2017 4:47 PM EST Pulse 80 07/06/2017 4:47 PM EST Temperature - - Respiratory Rate 18 07/06/2017 4:47 PM EST Oxygen Saturation 100% 07/06/2017 4:47 PM EST Inhaled Oxygen Concentration - - Weight 77.1 kg (170 lb) 07/06/2017 4:28 PM EST Height 170.2 cm (5' 7) 07/06/2017 4:28 PM EST Body Mass Index 26.63 07/06/2017 4:28 PM EST documented in this encounter Patient Instructions * Patient Instructions* Edith Chaney RN - 07/06/2017 3:30 PM EST Pain Management Center Discharge Instructions: You were seen by Dr. Pete Hansen MD and Danisha Bauman DO who performed left lumbar medial branch block. It is normal that the injection site will be sore for up to 48 hours. You may also experience mild stiffness in the joint near the injection site. [x] You may resume your normal activities: today. You may shower today. DO NOT tub [...] your procedure. You received the following medications: Bupivacaine. During regular business hours, please phone the [...] or proceed to your local emergency department. Edith Chaney RN Special instructions Pain Management Center Post -Procedure Pain Log Patient: Sherrie Bonner [id number] It is important for you to keep track of your pain after your procedure that took place 07/06/2017.This information will help your Provider to determine how to help reduce your pain. Today you had a procedure for pain in your left back . Your pain level before the procedure in this area was 8 /10. Your pain level immediately after your procedure was 0/10. Time Pain Score # Comments % of pain relief 1 hour 5:40 2 hours 6:40 3 hours 7:40 4 hours 8:40 Please call the nurse in the Pain Management Center a day or two after your procedure and report the information above. She will assess your response to the procedure, and will recommend appropriate follow-up. documented in this encounter Progress Notes * Edith Chaney RN - 07/06/2017 3:30 PM EST Pre-Procedure Screening Questions: 1. Status: No 2. Patient states they have a highway truck driver to transport after procedure? Yes 3. Patient taking antibiotics at present? No 4. NPO per Pain Management Center protocol? No 5. Patient diabetic: No Patient routinely taking anticoagulants ? No Patient Vital Signs documented in Doc Flowsheets associated with this encounter. Patient Discharge Instructions were reviewed with patient and copy provided to patient. documented in this encounter Procedure Notes * Pete Hansen MD - 07/06/2017 3:30 PM ESTAssociated Order(s): NERVE BLOCK - LUMBOSACRAL Procedure(s): NERVE BLOCK - LUMBOSACRAL Pre-Procedure Diagnose(s): Lumbosacral spondylosis without myelopathy Diagnostic Lumbar Medial Branch Nerve Blocks leftL3-L4, L4-L5 and L5-S1 Procedure date: 07/06/2017 Chief Complaint: back pain-left Diagnosis: 1. Lumbosacral spondylosis without myelopathy Preoperative Note History and Exam Patient demonstrates today moderate to severe non- radicular back pain without neurologic deficit aggravated by hyperextension yes Back pain greater than leg pain yes Patient today has tenderness over the suspected joint(s) no History of post-traumatic injury no Back pain associated with suspected motion segment instability or Hypermobility or pseudoarthrosis no Pre-testing pain score: 8/10 Sherrie Bonner has been referred to the Pain Management Center for Diagnostic Medial Branch Nerve Blocks left L-3, L-4 and L-5. (Facet joint levels L3-L4, L4-L5 and L5-S1 ) Ms. Bonner was interviewed and the medical record reviewed. There were no medical, pharmacologic, radiographic or other structural contraindications to attempting fluoroscopically guided injection. Risks and expected side effects as well as potential benefit of the procedure were reviewed with Ms. Bonner, and her voiced concerns were addressed. The printed consent form was signed and witnessed. (The procedure, risks, and benefits of Lumbar Medial Branch Nerve Blocks were reviewed with thepatient, including but not limited to: nerve injury, allergic reaction, infection, transient numbness from spread of local anesthesia to nerve roots. The patient appeared to understand, questions were answered and the patient agreed to proceed.) Standard time-out procedure was performed. Sherrie Bonner was greeted by the nurse who verified patients name and . Patient was then taken to the fluoroscopy suite. TECHNIQUE: After informed written consent was obtained, the patient was placed in the prone position. The lumbar spine was prepped with chloraprep and draped. Sterile technique was used, vital signs were monitored, time out was done and the left side was marked. Cap, glove, mask were worn. left Medial Branch Nerves L2, L-3 and L-4 Under fluoroscopic guidance, in the AP view, coaxial approach, 25-gauge spinal needles were advanced to the junction of the L3, L-4 and L-5 transverse processes and superior articulating processes. AP and lateral views were obtained. The needle tip was outside of the neural foramen. BUPIVICAINE 0.5% 0.5 ml was administered at each level after negative aspiration. left L5 Dorsal ramus: Under fluoroscopic guidance, in AP view, coaxial approach, 25G spinal needles were advanced to the junction of the sacral ala and superior articulating processes. AP and lateral views were obtained. BUPIVICAINE 0.5% 0.5 ml was administered after negative aspiration. Outcome: The patient tolerated the procedure well and had stable vital signs. The patient noted after getting up after the procedure that their pain was at a 0 out of 10 level. Preprocedure pain level was a 8 out of 10. Follow up plans and appointments were discussed with Sherrie Bonner. Ms. Bonner was instructed to keep careful note of how the usual pain was modified by these injections. Specifically, she wasasked to keep a pain diary for the next 24 hours using a numeric pain scale of 0-10 and report these results by phone the following business day. The patient was observed in the pain clinic and then discharged after having met discharge criteria to the care of a highway truck driver. The patient received writteninstructions as documented in nursing records. Based on the medial branches blocked today, if they patient has adequate relief and we are able to proceed to radiofrequency ablation, the treatment should result in the denervation of the left L3-L4, L4-L5 and L5-S1. We would expect to denervate a total of 3 facets during the radiofrequency ablation. COMMENTS: If criteria met, Ms. Bonner will proceed to lumbar medial branch nerve blocks with Lidocaine . The patient will otherwise follow-up with Nae Bauman DO Pain Fellow I was the attending physician supervising the fellow or resident in the above care and I was present with the resident for the entire procedure. PETE HANSEN MD CC: Vidhya eBnitez DO @PCPADD@ documented in this encounter Plan of Treatment Not on file documented as of this encounter Procedures Procedure Name Priority Date/Time Associated Diagnosis Comments NERVE BLOCK - LUMBOSACRAL Routine 07/06/2017 5:54 PM EST Lumbosacral spondylosis without myelopathy documented in this encounter Results * NERVE BLOCK - LUMBOSACRAL (07/06/2017 5:54 PM EST) Narrative Pete Hansen MD - 07/06/2017 5:54 PM EST Pete Hansen MD ? 07/06/2017 ??5:54 PM Diagnostic Lumbar Medial Branch Nerve Blocks leftL3-L4, L4-L5 and L5-S1 Procedure date: 07/06/2017 Chief Complaint: back pain-left Diagnosis: 1. Lumbosacral spondylosis without myelopathy ?? Preoperative Note History and Exam Patient demonstrates today moderate to severe non- radicular back pain without neurologic deficit aggravated by hyperextension ??yes Back pain greater than leg pain ? yes Patient today has tenderness over the suspected joint(s) ??no History of post-traumatic injury ? no Back pain associated with suspected motion segment instability or Hypermobility or pseudoarthrosis ? no Pre-testing pain score: ? 03/31 Sherrie Bonner has been referred to the [facility] for Diagnostic Medial Branch Nerve Blocks ??left L-3, L-4 and L-5. (Facet joint levels ??L3-L4, L4-L5 and L5-S1 ) Ms. Bonner was interviewed and the medical record reviewed. ?? There were no medical, pharmacologic, radiographic or other structural contraindications to attempting fluoroscopically guided ??injection. ??Risks and expected side effects as well as potential benefit of the procedure were reviewed with Ms. Bonner, and her voiced concerns were addressed. ??The printed consent form was signed and witnessed. (The procedure, risks, and benefits of Lumbar Medial Branch Nerve Blocks were reviewed with the patient, including but not limited to: nerve injury, allergic reaction, infection, transient numbness from spread of local anesthesia to nerve roots. ??The patient appeared to understand, questions were answered and the patient agreed to proceed.) Standard time-out procedure was performed. Sherrie Bonner was greeted by the nurse who verified patients name and . ??Patient was then taken to the fluoroscopy suite. TECHNIQUE: After informed written consent was obtained, the patient was placed in the prone position. ??The lumbar spine was prepped with chloraprep and draped. ??Sterile technique was used, vital signs were monitored, time out was done and the left side was marked. Cap, glove, mask were worn. ?? left ??Medial Branch Nerves L2, ??L-3 and L-4 ?? Under fluoroscopic guidance, in the AP view, coaxial approach, 25-gauge spinal needles were advanced to the junction of the L3, ?? L-4 and L-5 ?transverse processes and superior articulating processes. ??AP and lateral views were obtained. ??The needle tip was outside of the neural foramen. ?BUPIVICAINE 0.5% ??0.5 ml was administered at each level after negative aspiration. ?? left L5 Dorsal ramus: Under fluoroscopic guidance, in AP view, coaxial approach, 25G spinal needles were advanced to the junction of the sacral ala and superior articulating processes. ??AP and lateral views were obtained. ? BUPIVICAINE 0.5% ?0.5 ml was administered after negative aspiration. ?? Outcome: The patient tolerated the procedure well and had stable vital signs. The patient noted after getting up after the procedure that their pain was at a ??0 out of 10 level. ?? Preprocedure pain level was a ??8 out of 10. ?? Follow up plans and appointments were discussed with Sherrie Bonner. Ms. Bonner was instructed to keep careful note of how the usual pain was modified by these injections. ?? Specifically, she was asked to keep a pain diary for the next 24 hours using a numeric pain scale of 0-10 and report these results by phone the following business day. ?? The patient was observed in the pain clinic and then discharged after having met discharge criteria ??to the care of a highway truck driver. ??The patient received written instructions as documented in nursing records. ?? Based on the medial branches blocked today, if they patient has adequate relief and we are able to proceed to radiofrequency ablation, the treatment should result in the denervation of the left L3-L4, L4-L5 and L5-S1. We would expect to denervate a total of 3 facets during the radiofrequency ablation. COMMENTS: ?? If criteria met, ??Ms. Bonner will proceed to lumbar medial branch nerve ?? blocks with ?? Lidocaine . The patient will ?? otherwise follow-up with Nae Bauman DO Pain Fellow I was the attending physician supervising the fellow or resident in the above care and I was present with the resident for the entire procedure. PETE HANSEN MD CC: Vidhya Benitez DO @[email or web address]@ Pete Hansen MD NEUROLOGY ORDERABLES documented in this encounter Visit Diagnoses Diagnosis Lumbosacral spondylosis without myelopathy documented in this encounter Administered Medications Inactive Administered Medications - up to 3 most recent administrations Medication Order MAR Action Action Date Dose Rate Site BUpivacaine (PF) (MARCAINE) 0.5 % (5 mg/mL) injection 50 mg 50 mg (10 mL), Subcutaneous, ONCE, 1 dose, On Tue07/06/17 at 1700, Wasted 20ml, Routine Given 07/06/2017 5:00 PM EST 50 mg documented in this encounter Care Teams Plastic Welding Machine Operator Relationship Specialty Start Date End Date Vidhya Benitez DO PCP - General Family Medicine 05/10/16 11/29/18 documented as of this encounter
--- OUTSIDE RECORDS SUMMARY | 2024-03-07 02:30 | XMS_ITS | Encounter Summary ---
Author Organization [facility] Address [facility] [place] [address] Care Team Providers Care Improvement Spec Name Role Phone Vidhya Benitez DO Primary Care Provider Encounter Details Date Type Department Care Team ([facility] st Contact Info) Description 11/06/2018 Telephone Cardiology at [address] [phone] Vidhya Charles RN Social History Tobacco Use Types Packs/Day [...] encounter Miscellaneous Notes * Telephone Encounter - Vidhya Schreiber RN - 11/06/2018 5:25 PM EDT Pt called requesting Nuclear Stress test Results. Read pt results report. Pt is happy with report and has no further questions. Advised pt a letter should be coming with official read from Dr. Saldivar.Pt verbalizes understanding and has no further questions. documented in this encounter Plan of Treatment Not on file documented as of this encounter Visit Diagnoses Not on filedocumented in this encounter Care Teams Improvement Spec Relationship Specialty Start Date End Date Vidhya Benitez DO PCP - General Family Medicine 05/10/16 11/29/18 documented as of this encounter
--- OUTSIDE RECORDS SUMMARY | 2024-03-07 02:30 | XMS_ITS | Encounter Summary ---
Author Organization [facility] Address [facility] [place] [address] Care Team Providers Care Weed Cooking Operator Name Role Phone Santos Hernandez MD Primary Care Provider [phone] Reason for Visit * Diagnostic Test (Routine) - Closed Specialty Diagnoses / Procedures Referred By Contac t Referred To Contact Radiology Diagnoses Left leg pain Procedures MRI Lumbar Spine With/WO Contrast MRI Lumbar Spine Without Contrast (GENERIC) Trevor Rodriguez MD [facility] [place] [address] [place] [address] [place] [address] Referral ID Status Reason Start Date Expiration Date V isits Requested Visits Authorized [id number] Closed Specialty Service Requested 03/08/2016 03/08/2017 1 1 Encounter Details Date Type Department Care Team (Latest Contact Info) Description 04/05/2016 9:17 AM EDT - 04/05/2016 11:59 PM EDT Hospital [place] [address] Trevor Rodriguez MD [facility] [place] [address] [place] [address] Left leg pain Discharge Disposition: Home Social History Tobacco Use [...] Sig Dispensed Refills Start Date End Date b complex vitamins Capsule Take 1 capsule by mouth daily. enoxaparin (LOVENOX) 80 mg/0.8 mL Syringe 03/27/2016 016 methylPREDNISolone (MEDROL DOSPACK) 4 mg Tablets, Dose Pack 03/25/2016 6 gabapentin (NEURONTIN) 300 mg Capsule Take 3 capsules by mouth 3 times daily. 90 capsule 3 03/16/2016 04/15/2016 ergocalciferol (ERGOCALCIFEROL) 50,000 unit Capsule Take 50,000 Units by mouth once a week. 11/22/2018 teriflunomide 14 mg Tablet Take 14 mg by mouth daily. 07/25/2014 10/19/2018 montelukast (SINGULAIR) 10 mg Tablet Take 10 mg by mouth daily. 06/26/2012 10/19/2018 mirabegron 50 mg Tablet Sustained Release 24 hr Take 50 mg by mouth daily. 10/17/2012 07/30/2016 albuterol (PROVENTIL HFA;VENTOLIN HFA;PROAIR) 90 mcg/actuation HFA Aerosol Inhaler Take 2 puffs by mouth daily as needed. 06/26/2012 11/22/2018 fluticasone-salmeterol (ADVAIR) 250-50 mcg/dose Disk with Device Take 2 puffs by mouth daily. 06/26/2012 11/22/2018 documented as of this encounter Plan of Treatment Not on file documented as of this encounter Procedures Procedure Name Priority Date/Time Associated Diagnosis Comments MRI LUMBAR SPINE WITH/WO CONTRAST Routine 04/05/2016 10:16 AM EDT Left leg pain documented in this encounter Results * MRI Lumbar Spine With/WO Contrast (04/05/2016 10:16 AM EDT) Anatomical Region Laterality Modality L-spine Magnetic Resonan ce Impressions 04/05/2016 11:33 AM EDT Similar pattern of degenerative changes in lumbar spine. Interval left-sided laminotomy at L5-S1 with both enhancing granulation tissue and some nonenhancing soft tissue projecting in the left epidural space and the left foramina at L5-S1. Findings suggest recurrent or residual disc material and granulation tissue Comment: The following findings are so common in people without low back pain that while we report their presence, they must be interpreted with caution and in context of the clinical situation (Reference- Zoëk et al, Spine 2001). Findings: (Prevalence in patients without low back pain), disc degeneration (decreased T2 signal, height loss, bulge) (91%), disc T2-signal loss (83%), disc height loss (56%), disc bulge (64%), disc protrusion (32%), annular fissure (38%). Narrative 04/05/2016 11:33 AM EDT EXAMINATION: MRI LUMBAR SPINE WITH/WO CONTRAST CLINICAL HISTORY: 2 week history of worsening posterior LLE pain, s/p lumbar diskectomy 10/14/15 TECHNIQUE: MRI lumbar spine without with gadolinium. 7 cc gadavist COMPARISON: 06/17/2015 FINDINGS: There is normal alignment of 5 [...] tissue on the left in the foramina ??which appears to contact but not displace or deform the exiting left L5 nerve root on image 2 and image 1 of series 7. Procedure Note Max Vines MD - 04/05/2016 EXAMINATION: MRI LUMBAR SPINE WITH/WO CONTRAST CLINICAL HISTORY: 2 week history of worsening posterior LLE pain, s/plumbar diskectomy 10/14/15 TECHNIQUE: MRI lumbar spine without with gadolinium. 7 cc gadavist COMPARISON: 06/17/2015 FINDINGS: There is normal alignment of 5 lumbar type vertebral bodies.There is retrolisthesis of L5 on S1. Disc degenerative changes with disc spacenarrowing and decreased signal intensity on T2 sequence seen from L2-3 throughL5-S1. Vertebral bodies are normal in height. Endplate reactive changes areseen asymmetric to the right at L3-4 and on the left L5-S1. No pars defects. Extensive facet arthropathy at L5-S1 worse on the left. Conus and straitsnormal size shape and signal intensity and terminates at a low normal position atthe L2 level. No abdominal aortic aneurysm. T12-L1, L1-2: No disc protrusion central stenosis or foraminalnarrowing. L2-3: Mild annular bulge and facet arthropathy with mild overall canal narrowing. Mild caudal foraminal narrowing bilaterally greater on theleft. L3-4: Mild effacement of the ventral thecal sac secondary to annular bulgeand facet arthropathy. Moderate right and mild left foraminal narrowing with asymmetric endplate proliferative change and disc space narrowing.Findings similar to prior exam L4-5: Left greater than right facet arthropathy present. There is a mildannular bulge with mild effacement of the ventral thecal sac. Mild left and mildto moderate right foraminal narrowing similar to prior examination. L5-S1: Left-sided laminotomy. There is enhancing granulation tissueprojecting on the left in the epidural space extending into the left foramina. Thereis some and nonenhancing soft tissue centrally within the granulation tissueon the left image 6 of series 7.. There is some effacement of the thecal sac onthe left. There is nonenhancing soft tissue on the left in the foraminawhich appears to contact but not displace or deform the exiting left L5 nerveroot on image 2 and image 1 of series 7. IMPRESSION Similar pattern of degenerative changes in lumbar spine. Interval left-sided laminotomy at L5-S1 with both enhancing granulationtissue and some nonenhancing soft tissue projecting in the left epidural spaceand the left foramina at L5-S1. Findings suggest recurrent or residual discmaterial and granulation tissue Comment: The following findings are so common in people without low backpain that while we report their presence, they must be interpreted with cautionand in context of the clinical situation (Reference- Jarvik et al, [id number]). Findings: (Prevalence in patients without low back pain), discdegeneration (decreased T2 signal, height loss, bulge) (91%), disc T2-signal loss(83%), disc height loss (56%), disc bulge (64%), disc protrusion (32%), annularfissure (38%). Trevor Rodriguez MD IMG MRI ORDERABLES documented in this encounter Visit Diagnoses Diagnosis Left leg pain Pain in limb documented in this encounter Administered Medications Inactive Administered Medications - up to 3 most recent administrations Medication Order MAR Action Action Date Dose Rate Site gadobutrol (GADAVIST) 1 mMol/mL injection 7 mL 7 mL, Intravenous, ONCE PRN, 1 dose, Starting on Tue04/05/16 at 0950, Until Tue04/05/16 at 1004, Per Protocol, Routine Given 04/05/2016 10:04 AM EDT 7 mLs documented in this encounter Care Teams Weed Cooking Operator Relationship Specialty Start Date End Date Santos Hernandez MD [facility] [place] [address] PCP - General Family Medicine 07/16/15 05/09/16 documented as of this encounter
--- OUTSIDE RECORDS SUMMARY | 2024-03-07 02:30 | XMS_ITS | Encounter Summary ---
Author Organization [facility] [place] [address] Care Team Providers Care Funeral Planner Name Role Phone Vidhya Benitez DO Primary Care Provider Reason for Referral * Diagnostic Test (Routine) - Closed Specialty Diagnoses / Procedures Referred By Contac t Referred To Contact Radiology Diagnoses Other chest pain Procedures NM Pharmacologic Stress CT Component Cameron Saldivar MD [facility] [place] [address] [place] [address] Referral ID Status Reason Start Date Expiration Date V isits Requested Visits Authorized [id number] Closed Specialty Service Requested 10/19/2018 10/19/2019 1 1 Reason for Visit * Diagnostic Test (Routine) - Closed Specialty Diagnoses / Procedures Referred By Contac t Referred To Contact Radiology Diagnoses Other chest pain Procedures NM Pharmacologic Stress CT Component Cameron Saldivar MD [facility] [place] [address] [place] [address] Referral ID Status Reason Start Date Expiration Date V isits Requested Visits Authorized [id number] Closed Specialty Service Requested 10/19/2018 10/19/2019 1 1 Encounter Details Date Type Department Care Team (Late st Contact Info) Description 11/02/2018 8:54 AM EDT - 11/02/2018 10:40 AM EDT Hospital Encounter [place] [address] Cameron Saldivar MD [facility] [place] [address] Other chest pain Discharge Disposition: Home Social History Tobacco [...] Capsule Take 1 capsule by mouth daily. amitriptyline (ELAVIL) 25 mg Tablet Take 25 [...] Take 5 mg by mouth once. 06/02/2021 mirabegron (MYRBETRIQ) 50 mg Tablet Sustained Release 24 hr Take 50 mg by mouth daily. 11/22/2018 ergocalciferol (ERGOCALCIFEROL) 50,000 unit Capsule Take 50,000 Units by mouth once a week. 11/22/2018 albuterol (PROVENTIL HFA;VENTOLIN HFA;PROAIR) 90 mcg/actuation HFA Aerosol Inhaler Take 2 puffs by mouth daily as needed. 06/26/2012 11/22/2018 fluticasone-salmeterol (ADVAIR) 250-50 mcg/dose Disk with Device Take 2 puffs by mouth daily. 06/26/2012 11/22/2018 documented as of this encounter Plan of Treatment Not on file documented as of this encounter Procedures Procedure Name Priority Date/Time Associated Diagnosis Comments NM PHARMACOLOGIC STRESS CT COMPONENT Routine 11/02/2018 11:01 AM EDT Other chest pain documented in this encounter [...] please contact the number below. ? Narrative 11/02/2018 5:25 PM EDT EXAMINATION: NM [...] this report, please contact the number below. Cameron Saldivar MD IMG NM ORDERABLES documented in this encounter Visit Diagnoses Diagnosis Other chest pain documented in this encounter Care Teams Funeral Planner Relationship Specialty Start Date End Date Vidhya Benitez DO PCP - General Family Medicine 05/10/16 11/29/18 documented as of this encounter
--- OUTSIDE RECORDS SUMMARY | 2024-03-07 02:30 | XMS_ITS | Encounter Summary ---
[place] [address] Care Team Providers Care Furnace And Wash Equipment Operator Name Role Phone Santos Hernandez MD Primary Care Provider [phone] Encounter Details Date Type Department Care Team (Late st Contact Info) Description 03/03/2016 Telephone [place] [address] Rosana Kennedy APRN [facility] [place] [address] Social History Tobacco Use Types Packs/Day Years [...] Telephone Encounter - Rosana Limon APRN - 03/03/2016 4:10 PM EDT Call from patient. Taking gabapentin 300mg tid with no effect, has just started 600mg tid. Will rx prednisone taper and arrange for consult with Dr. Rodriguez. Patient not currenlty interested in PT or ROS[facility]VA. Will have her discuss with DR. Rodriguez. documented in this encounter Plan of Treatment Not on file documented as of this encounter Visit Diagnoses Not on filedocumented in this encounter Care Teams Furnace And Wash Equipment Operator Relationship Specialty Start Date End Date Santos Hernandez MD [address] [place] [address] PCP - General Family Medicine 07/16/15 05/09/16 documented as of this encounter
--- OUTSIDE RECORDS SUMMARY | 2024-03-07 02:30 | XMS_ITS | Encounter Summary ---
Author Organization [facility] [place] [address] Care Team Providers Care Benefits Specialist Name Role Phone Vidhya Benitez DO Primary Care Provider [phone] Reason for Referral * Diagnostic Test (Routine) - Closed Specialty Diagnoses / Procedures Referred By Contac t Referred To Contact Radiology Diagnoses Other chest pain Procedures NM Pharmacologic Stress Myocardial Perfusion Cameron Saldivar MD [facility] [place] [address] [place] [address] Referral ID Status Reason Start Date Expiration Date V isits Requested Visits Authorized [id number] Closed Specialty Service Requested 10/19/2018 10/19/2019 1 1 Reason for Visit * Diagnostic Test (Routine) - Closed Specialty Diagnoses / Procedures Referred By Contac t Referred To Contact Radiology Diagnoses Other chest pain Procedures NM Pharmacologic Stress Myocardial Perfusion Cameron Saldivar MD [facility] [place] [address] [place] [address] Referral ID Status Reason Start Date Expiration Date V isits Requested Visits Authorized [id number] Closed Specialty Service Requested 10/19/2018 10/19/2019 1 1 Encounter Details Date Type Department Care Team (Late st Contact Info) Description 11/02/2018 8:49 AM EDT - 11/02/2018 8:52 AM EDT Hospital Encounter [place] [address] Cameron Saldivar MD [facility] [place] [address] Other chest pain Discharge Disposition: Home Social [...] Date/Time Associated Diagnosis Comments NM PHARMACOLOGIC STRESS AND REST MYOCARDIAL PERFUSION Routine 11/02/2018 10:43 AM EDT Other chest pain documented in this encounter Results * NM Pharmacologic Stress Myocardial Perfusion (11/02/2018 [...] number below. ? Electronically signed by: Ascencion Day, [facility] ([phone]), at 11/02/2018 5:25 PM Narrative 11/02/2018 5:25 [...] number below. Electronically signed by: Ascencion Day [facility]([phone]), at 11/02/2018 5:25 PM Cameron P Saldivar MD IMG NM ORDERABLES documented in this encounter Visit Diagnoses Diagnosis Other chest pain documented in this encounter Administered Medications Inactive Administered Medications - up to 3 most recent administrations Medication Order MAR Action Action Date Dose Rate Site technetium (Tc-99m) sestamibi injection 7.7 mCi 7.7 mCi, Intravenous, ONCE PRN, 1 dose, Starting on Alejandra 11/02/18 at 0908, Until Alejandra 11/02/18 at 0905, Per Protocol, Routine Given 11/02/2018 9:05 AM EDT 7.7 mCi documented in this encounter Care Teams Benefits Specialist Relationship Specialty Start Date End Date Vidhya Benitez DO PCP - General Family Medicine 05/10/16 11/29/18 documented as of this encounter
--- OUTSIDE RECORDS SUMMARY | 2024-03-07 02:30 | XMS_ITS | Encounter Summary ---
[place] [address] Care Team Providers Care Property Custodian Name Role Phone Eli Vidhya Primary Care Provider [phone] Reason for Visit * Reason Onset Date Comments Pre Procedure Call 11/07/2018 Encounter Details Date Type Department Care Team (Late Contact Info) Description 11/07/2018 Telephone [place] [phone] Camille Alberts LNA Pre Procedure Call Social History Tobacco Use Types Packs/Day Years [...] encounter Miscellaneous Notes * Telephone Encounter - Camille Alberts LNA - 11/07/2018 2:08 PM EDT Sherrie Bonner :1960 Contact made with patient: I spoke to Ms. Bonner at 2:08 PM regarding her upcoming Left RFA scheduled on 11/08/18 (date) scheduled at 9:45 (time) with Dr. Fidelina Priest MD. Medication and Allergy reconciliation: 1. Changes were made in the telephone encounter per patient; marked as reviewed, and closed. 2. Patient confirmed no IVP dye allergy. 3. Have you had any steroid injections anywhere in your body within the last two weeks? no Arrival time: The patient was instructed to arrive at 9:15 (30 minutes prior to procedure start time - 60 minutesprior for RF patients with a pacemaker) on 11/08/18 (date of procedure). Technical Service Representative: The patient was reminded that they need to have a truck driver accompany them to her procedure who will remain onsite. Antibiotics/Skin assessment/Illness symptoms/Pain level assessment : 1. The patient confirmed that she is not taking antibiotics at this time. 2. The patient confirmed that she does not have any rashes, blisters, or skin breakdown on their body. 3. The patient confirmed that she does not have any active infections. 4. The patient confirmed that she does not have any symptoms of illness: fever, chills, cold, flu, nausea, vomiting. 5. The patient confirmed that she isstill experiencing significant pain. (Significant pain is defined as interfering with performing ADL.) Pain and Anti-anxiety Medications: 1. Nerve Block Procedure Patients: Patient was instructed NOT to take their pain medications on theday of the procedure and anti-anxiety medications are part of their daily medication regiment; theycan and should continue taking that medication. 2. All Other Procedure Patients: The patient was instructed that if they take daily pain or anti-anxiety medications, they can and should continue taking on the day of the procedure. Does patient have history of any diagnosed bleeding disorders: No Anticoagulants: No NSAIDs: Does the patient take Aspirin/ASA? No Does the patient take an NSAID? No NPO instructions given to patient: 1. Last solid food intake until 3:45am (6 hours prior to procedure). 2. Clear liquids (conrad marck, tea, black coffee, water, grape juice, apple juice, or cranberry juice) only intake until 7:45am (2 hours prior to procedure). Diabetic instructions: Patient was advised to inform their PCP regarding safe fasting and the NPO requirements for their upcoming procedure and given the [facility] Nurse Triage Line . Implant: Patient has pacemaker/defibrillator: No Prior to checking in at [employer] Supervisor, please be sure to empty your bladder. Patient confirmed understanding that if they do not follow the above their instructions, their procedure is likely to be cancelled. JOSE Gusman documented in this encounter Plan of Treatment Not on file documented as of this encounter Visit Diagnoses Not on filedocumented in this encounter Care Teams Property Custodian Relationship Specialty Start Date End Date Vidhya Benitez DO PCP - General Family Medicine 05/10/16 11/29/18 documented as of this encounter
--- OUTSIDE RECORDS SUMMARY | 2024-03-07 02:30 | XMS_ITS | Encounter Summary ---
Author Organization [facility] [place] [address] Care Team Providers Care Human Relations Professor Name Role Phone Santos Hernandez MD Primary Care Provider Encounter Details Date Type Department Care Team (Late st Contact Info) Description 03/08/2016 Orders [place] [address] Moraima Urena RN Left leg pain Social History Tobacco Use [...] limb documented in this encounter Care Teams Human Relations Professor Relationship Specialty Start Date End Date Santos Hernandez MD [facility] [place] [address] PCP - General Family Medicine 07/16/15 05/09/16 documented as of this encounter
--- OUTSIDE RECORDS SUMMARY | 2024-03-07 02:30 | XMS_ITS | Encounter Summary ---
Author Organization [facility] Address [facility] [place] [address] Care Team Providers Care Wireless Retail Manager Name Role Phone EliVidhya Primary Care Provider Encounter Details Date Type Department Care Team (Late st Contact Info) Description 11/02/2018 10:41 AM EDT - 11/02/2018 11:59 PM EDT Hospital Encounter Non-[place] [address] Cameron Saldivar MD [facility] [place] [address] Other chest pain Discharge Disposition: Home Social [...] Procedure Name Priority Date/Time Associated Diagnosis Comments NUCLEAR PHARMACOLOGIC STRESS CARDIOLOGY Routine 11/02/2018 10:42 AM EDT Other chest pain documented in this encounter Results * Nuclear Pharmacologic Stress Cardiology (11/02/2018 10:42 AM EDT) Anatomical Region Laterality Modality Other Cameron Saldivar MD CARDIAC SERVICES OR DERABLES documented in this encounter Visit Diagnoses Diagnosis Other chest pain documented in this encounter Care Teams Wireless Retail Manager Relationship Specialty Start Date End Date Vidhya Benitez DO PCP - General Family Medicine 05/10/16 11/29/18 documented as of this encounter
--- OUTSIDE RECORDS SUMMARY | 2024-03-07 02:30 | XMS_ITS | Encounter Summary ---
Author Organization [facility] Address [facility] [place] [address] Care Team Providers Care Web Architect Name Role Phone Melissa Loco DO Primary Care Provider [phone] Reason for Visit * Reason Comments Pain Management Left Leg Pain * Consultation (Routine) - Closed Specialty Diagnoses / Procedures Referred By Nelda t Referred To Contact Pain Management Diagnoses Left leg pain Trevor Rodriguez MD [facility] [place] [address] [facility] [address] [place] [phone] Referral ID Status Reason Start Date Expiration Date V isits Requested Visits Authorized [id number] Closed Consult, Test & Treat 04/05/2016 04/05/2017 1 1 Encounter Details Date Type Department Care Team (Latest Contact Info) Description 05/10/2016 11:00 AM EDT Office Visit [place] [phone] Nae Vela APRN [facility] [place] [id number] Facet arthropathy, lumbar; Sciatica, left; Spondylosis of lumbar region without myelopathy or radiculopathy Social History Tobacco Use Types Packs/Day Years [...] Sign Reading Time Taken Comments Blood Pressure 115/61 05/10/2016 10:47 AM EDT Pulse 81 05/10/2016 10:47 AM EDT Temperature - - Respiratory Rate - - Oxygen Saturation 100% 05/10/2016 10:47 AM EDT Inhaled Oxygen Concentration - - Weight 72.6 kg (160 lb) 05/10/2016 10:47 AM EDT Height 170.2 cm (5' 7) 05/10/2016 10:47 AM EDT Body Mass Index 25.06 05/10/2016 10:47 AM EDT documented in this encounter Progress Notes * MirianNae dow, DOBBY LOOM FIXER - 05/10/2016 11:00 AM EDT [facility] [place] [address] Phone: PAIN MANAGEMENT NEW PATIENT / CONSULTATION NOTE DATE OF VISIT 05/10/2016 Patient Sherrie Bonner 1960 REFERRING PROVIDER Trevor Rodriguez MD [facility] [place] [address] PRIMARY CARE PROVIDER MELISSA LOCO DO CHIEF COMPLAINT: Sherrie Bonner is a 55 y.o. female with left low back pain and left calf pain/tingling, who is seen in consultation at the request of Dr. Rodriguez for evaluation, recommendations, and management. The history is obtained from the patient, and I have reviewed medical records, provided by the referringphysician and located in the electronic medical record, to fill in gaps in the patient's recollection of events, treatments, and outcomes. HPI Ms. Bonner had a left L5-S1 diskectomy and foraminotomy on 10/14/[address] Rodriguez for left posterolateral thigh and calf pain. She had resolution of her low back and leg pain at her follow-up appointment with Dr. Rodriguez on 11/27/15, although she reports today that [...] sclerosis, depression, and chronic headaches (followed by [facility] neurology). PAIN ASSESSMENT: - Constant aching, burning, and tenderness to touch in the left low back - Constant burning and pins and needles in the medial, lateral, and posterior left thigh; intermittently radiating into top of foot and great toe; some intermittent tingling in posterolateral left thigh - + left leg weakness, with leg giving out at times - No saddle anesthesia - Aggravated by: hard to say, unable to see any patterns; prolonged sitting - Alleviated by: heat takes the edge off - Average pain in past week: 02/28 MEDICATIONS [facility] Prescription Monitoring Program was checked and no concerns were identified. -- Tramadol 50mg, #80 filled on 04/14/16, prescribed by Rosana Mckenzie APRN. Medications 04/05/16 1400 Medication Sig Taking? gabapentin (NEURONTIN) 300 mg Capsule TAKE 1 CAPSULE AT NIGHT ON DAY 1, THEN 1 CAPSULE TWICE ON DAY2, THEN 1 CAPSULE THREE TIMES DAILY Yes DULoxetine (CYMBALTA) 30 mg Capsule, Delayed Release(E.C.) Take 2 capsules by mouth daily. Week #1 1 capsule daily, then 2 capsules shayla. Yes ergocalciferol (ERGOCALCIFEROL) 50,000 unit Capsule Take 50,000 Units by mouth once a week. Yes teriflunomide 14 mg Tablet Take 14 mg by mouth daily. Yes montelukast (SINGULAIR) 10 mg Tablet Take 10 mg by mouth daily. Yes mirabegron 50 mg Tablet Sustained Release 24 hr Take 50 mg by mouth daily. Yes albuterol (PROVENTIL HFA;VENTOLIN HFA;PROAIR) 90 mcg/actuation HFA Aerosol Inhaler Take 2 puffs by mouth daily as needed. Yes fluticasone-salmeterol (ADVAIR) 250-50 mcg/dose Disk with Device Take 2 puffs by mouth daily. Yes b complex vitamins Capsule Take 1 capsule by mouth daily. Yes ADVERSE DRUG REACTIONS Allergies as of 05/10/2016 ??? 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 Asthma ??? Back pain ??? Depression ??? Headache(784.0) ??? Leg pain, right ??? MS (multiple sclerosis) ??? RLS (restless legs syndrome) Current/history of: Heart arrhythmia? No Sleep apnea? No Implanted pacemaker? No Kidney disease? No Liver dysfunction? No SURGICAL HISTORY Past Surgical History Procedure Laterality Date ??? Pro laminotomy, lumbar disk, 1 intrsp N/A 10/14/2015 LAMINOTOMY, DECOMPRESSION, FORAMINOTOMY, LUMBAR performed by Trevor Rodriguez MD at [facility] OR ??? Pro microsurg techniques, req oper microscope N/A 10/14/2015 MICROSCOPE USE performed by Trevor Rodriguez MD at [facility] OR ??? Laminectomy ??? Tubal ligation ??? Cholecystectomy FAMILY HISTORY Family History Problem Relation Age of Onset ??? Cancer Mother ??? Cancer Father ??? Alzheimer Disease Father PHYSICAL EXAMINATION Vitals: 05/10/16 1047 BP: 115/61 Pulse: 81 Body mass index is 25.06 kg/(m^2). Visit Vitals ??? Ht 170.2 cm (5' 7) ??? Wt 72.6 kg (160 lb) Appearance/ Behavior Well groomed, good eye [...] No No Facet joint tenderness Yes No Yadav's test (facet loading) Positive Negative Paraspinous region [...] negative BLAIR positive negative Brigida Finger Test negative} negative Motor: Segment Muscle Action R L [...] and granulation tissue ASSESSMENT Ms. Bonner has new onset (about three months) left low back pain and left posterior, medial, andlateral thigh pain and numbness. She had a left L5-S1 diskectomy in [place] [address] Rodriguez- her symptoms were improved following the surgery. She developed the new pain following a fall on her left side. On physical exam, she has a positive left Yadav's test indicating facet arthropathy, as well as decreased sensation in the left calf and foot, as well as decreased strength in her left great toe. Her MRI shows what looks like scar tissue at the left L5-S1 foramen, causing foraminal narrowing. She also has facet arthropathy in the lumbar spine. She is currently taking Gabapentin, Tramadol,and Cymbalta with some relief, but her symptoms are still bothersome and interfering with her dailyfunctioning and sleep. She was assessed by Dr. Rodriguez and he did not think further surgery was warranted at this time. PLAN/RECOMMENDATIONS We discussed the following recommendations: Diagnostic testing: None at this time. I did review her lumbar MRI with her using both the images and anatomic models. Referrals: None at this time. Physical rehabilitation: None at this time, may be indicated in the future if symptoms persist. Although, she is very active and walks 6-9 miles per day. Cognitive behavioral/Body mind therapies: None at this time. Interventional Procedures: #1-- LESI: I have scheduled her for a lumbar epidural steroid-induced injection. I discussed that since it is likely that the left L5-S1 foramen is being occluded by scar tissue, the injection may not help. I also discussed that injection is aimed to help with pain- she reports the pins and needles feeling as painful, but I told her that it may not improve numbness or tingling. She would like to proceed with the LESI. Since she has had prior surgery at that level I am not sure whether it would be possible to do a left L5 transforaminal injection and I'll leave that up to the physician performing the procedure. She had an LESI in the past prior to her surgery which was not helpful at that time. She does not have diabetes and she is not on a blood thinner. I discussed that if the LESI gives her some relief we could repeat it in about 2-4 weeks. Following that we would be able to do up to three LESI injections per year. #2 LMBB with possible RFA: I discussed the lumbar medial branch blocks with radiofrequency ablationare likely to help her left low back pain. I have advised her that she can call our clinic and schedule this procedure following her LESI. She does not need a follow-up appointment with me before shecan schedule, as we have already discussed this procedure and she lives 2 [place]. I recommend diagnostic lumbar facet blocks using the medial branch block technique at the left L3-L4, L4-L5, and L5-S1 facet joint levels. Ms. Bonner exhibits mechanical low back pain and no obvious radicular signs or symptoms and she has no history of spinal fusion at these facet levels. She exhibits pathology on MRI consistent with the facet joints as being the major low back pain generator.If these diagnostic blocks are successful at temporarily blocking at least 80% of her pain, I will recommend that we proceed on with radiofrequency ablation at the same medial branches. If insignificant relief is achieved with this block, we will investigate other causes of her current pain. Ms. Bonner and I discussed all of this at length using anatomical models. All significant risks, benefits, indications, and alternatives were discussed with the patient. She does consent to proceed forward with this this treatment plan. Medications: non-opioids: Continue gabapentin 2700 mg per day. I have discussed that she could alsotake an additional 1-2 tablets per day as needed. Also advised her to continue Cymbalta 60 mg per day. She has not had relief with NSAIDs, and she reports that muscle relaxants made her feel loopy. Medications: opioids: Continue tramadol 50 mg as needed. She is taking one tablet per day at the most. She wishes to avoid opiates. Therapeutic cannabis: Not indicated at this time, as the pain is still in the acute phase and we have not trialed any interventions or procedures. She is going to have the LESI injection and then called to let us know if she has relief. At that point if she did have some relief of her left calf symptoms, the injection could be repeated. After the LESI injection, she is going to call to schedule medial branch blocks- she does not need to follow-up with me before scheduling this (she lives two hours away). I have provided her with informational pamphlets for both of these procedures. She can follow up with me as needed. Sherrie Bonner had the opportunity to ask questions and indicated that all questions were answered to her satisfaction. Nae Vela, MSN, CHILD DEVELOPMENT TEACHER-BC, DOBBY LOOM FIXER Nurse Practitioner [facility] documented in this encounter Plan of Treatment Not on file documented as of this encounter Visit Diagnoses Diagnosis Facet arthropathy, lumbar Lumbosacral spondylosis without myelopathy Sciatica, left Spondylosis of lumbar region without myelopathy or radiculopathy Lumbosacral spondylosis without myelopathy documented in this encounter Care Teams Web Architect Relationship Specialty Start Date End Date Melissa Loco DO PCP - General Family Medicine 05/10/16 11/29/18 documented as of this encounter
--- OUTSIDE RECORDS SUMMARY | 2024-03-07 02:30 | XMS_ITS | Encounter Summary ---
Author Organization [facility] [place] [address] Care Team Providers Care Tour Agent Name Role Phone Santos Hernandez MD Primary Care Provider [phone] Encounter Details Date Type Department Care Team (Late st Contact Info) Description 12/30/2015 Ancillary Procedure [place] [phone] Param Kenny MD [facility] [place] [address] Social History Tobacco Use Types Packs/Day Years [...] Associated Diagnosis Comments FILM LIBRARY STORAGE ONLY MAMMO Routine 12/30/2015 12:00 AM EDT documented in this encounter Results * Film Library- Storage Only Mammo (12/30/2015 12:00 AM EDT) Narrative [facility] - 12/12/2018 10:35 AM EDT This exam is auto-finalizing. It's purpose is for storage only. Param Kenny MD G FILM LIBRARY ORD ERABLES [facility] [place], [place] documented in this encounter Visit Diagnoses Not on filedocumented in this encounter Care Teams Tour Agent Relationship Specialty Start Date End Date Santos Hernandez MD [address] [place] [phone] PCP - General Family Medicine 07/16/15 05/09/16 documented as of this encounter
--- OUTSIDE RECORDS SUMMARY | 2024-03-07 02:30 | XMS_ITS | Encounter Summary ---
Author Organization [facility] [place] [address] Care Team Providers Care Director Sales Training Name Role Phone EliVidhya Primary Care Provider Encounter Details Date Type Department Care Team (Late st Contact Info) Description 11/08/2018 9:45 AM EDT Ancillary [place] [phone] Fidelina Priest MD [facility] [place] [address] Pain Social History Tobacco Use Types Packs/Day [...] STORAGE ONLY PAIN CLINIC C ARM Routine 02/12/2019 5:07 PM EDT Pain documented in this encounter Results * Film Library- Storage Only pain Clinic C-Arm (02/12/2019 5:07 PM EDT) Narrative [facility] - 02/12/2019 5:07 PM EDT See PACS for result report. Fidelina Priest MD G FILM LIBRARY ORD ERABLES DH [place], [place] documented in this encounter Visit Diagnoses Diagnosis Pain Generalized pain documented in this encounter Care Teams Director Sales Training Relationship Specialty Start Date End Date Vidhya Benitez DO PCP - General Family Medicine 05/10/16 11/29/18 documented as of this encounter
--- OUTSIDE RECORDS SUMMARY | 2024-03-07 02:30 | XMS_ITS | Encounter Summary ---
Author Organization [facility] Address [facility] [place] [address] Care Team Providers Care Recreational Facilities Motel Manager Name Role Phone Santos Hernandez MD Primary Care Provider [phone] Reason for Referral * Consultation (Routine) - Closed Specialty Diagnoses / Procedures Referred By Contac t Referred To Contact Pain Management Diagnoses Left leg pain Trevor Rodriguez MD [facility] [place] [address] [facility] [address] [place] [address] Referral ID Status Reason Start Date Expiration Date V isits Requested Visits Authorized [id number] Closed Consult, Test & Treat 04/05/2016 04/05/2017 1 1 Reason for Visit * Reason Comments Back Pain lower Left Leg Pain lower calf Encounter Details Date Type Department Care Team (Late st Contact Info) Description 04/05/2016 2:00 PM EDT Office Visit [place] [phone] Trevor Rodriguez MD [facility] [place] [address] Left leg pain Social History Tobacco Use [...] Sign Reading Time Taken Comments Blood Pressure 111/95 04/05/2016 2:00 PM EDT Pulse - - Temperature - - Respiratory Rate - - Oxygen Saturation - - Inhaled Oxygen Concentration - - Weight 68 kg (150 lb) 04/05/2016 2:00 PM EDT Height 170.2 cm (5' 7) 04/05/2016 2:00 PM EDT Body Mass Index 23.49 04/05/2016 2:00 PM EDT documented in this encounter Progress Notes * Trevor Rodriguez MD - 04/05/2016 2:00 PM EDT Sherrie Bonner returns to the Spine Center. She had excellent relief following her surgery and then about 5 weeks ago she fell and just since that time has had pain in her left calf. There is no buttock or posterior thigh pain. She was seen in the Emergency Room and an underwent ultrasound and was given 2 doses of anticoagulation, but she has not received the results of that ultrasound. She is currently on gabapentin 900 mg three times a day. On examination the wound is nicely healed. Motor strength is full. There is tenderness to palpation over the calf and straight leg raising worsens her calf pain. Report of her ultrasound from [facility] in [place] shows no evidence for DVT. Her lumbar MRI, with and without gadolinium shows some combination of disk and scar at her surgical site. My view is that this looks to me like mostly scar tissue, although I cannot be obviously certain that there is not some component of a small residual disk here. I told her that I was not enthusiastic about repeat operation here, given her imaging. I think it would be reasonable for her to be seen in the pain clinic and I will see her after her pain clinic appointment. All questions were answered. documented in this encounter Plan of Treatment Scheduled Referrals Name Type Priority Associated Diagnoses Orde r Schedule Referral to Pain Clinic Outpatient Referral Routine Left leg pain Ordered: 04/05/2016 documented as of this encounter Visit Diagnoses Diagnosis Left leg pain Pain in limb documented in this encounter Care Teams Recreational Facilities Motel Manager Relationship Specialty Start Date End Date Santos Hernandez MD [address] [place] [address] PCP - General Family Medicine 07/16/15 05/09/16 documented as of this encounter
--- OUTSIDE RECORDS SUMMARY | 2024-03-07 02:30 | XMS_ITS | Encounter Summary ---
Author Organization [facility] Address [facility] [place] [address] Care Team Providers Care Utilization Engineer Name Role Phone Vidhya Benitez DO Primary Care Provider Reason for Visit * Diagnostic Test (Routine) - Closed Specialty Diagnoses / Procedures Referred By Nelda sheppard Referred To Contact Radiology Diagnoses Other chest pain Procedures NM Pharmacologic Stress Myocardial Perfusion Cameron Saldivar MD [facility] [place] [address] [place] [address] Referral ID Status Reason Start Date Expiration Date V isits Requested Visits Authorized [id number] Closed Specialty Service Requested 10/19/2018 10/19/2019 1 1 Encounter Details Date Type Department Care Team (Late st Contact Info) Description 11/02/2018 8:54 AM EDT - 11/02/2018 10:40 AM EDT Hospital Encounter [place] [address] Cameron Saldivar MD [facility] [place] [address] Discharge Disposition: Home Social History Tobacco Use [...] Other chest pain documented in this encounter Visit Diagnoses Not on filedocumented in this encounter Administered Medications Inactive Administered Medications - up to 3 most recent administrations Medication Order MAR Action Action Date Dose Rate Site regadenoson (LEXISCAN) injection 0.4 mg 0.4 mg, Intravenous, ONCE, 1 dose, On Alejandra 11/02/18 at 1100, Routine Given 11/02/2018 10:32 AM EDT 0.4 mg technetium (Tc-99m) sestamibi injection 26.5 mCi 26.5 mCi, Intravenous, ONCE PRN, 1 dose, Starting on Alejandra 11/02/18 at 1032, Until Alejandra 11/02/18 at 1032, Per Protocol, IV: R-ACF, Routine Given 11/02/2018 10:32 AM EDT 26.5 mCi documented in this encounter Care Teams Utilization Engineer Relationship Specialty Start Date End Date Vidhya Benitez DO PCP - General Family Medicine 05/10/16 11/29/18 documented as of this encounter
--- OUTSIDE RECORDS SUMMARY | 2024-03-07 02:30 | XMS_ITS | Encounter Summary ---
Author Organization [facility] [place] [address] Care Team Providers Care Ceramic Sprayer Name Role Phone Vidhya Benitez DO Primary Care Provider Reason for Visit * Diagnostic Test (Routine) - Closed Specialty Diagnoses / Procedures Referred By Nelda sheppard Referred To Contact Radiology Diagnoses Other chest pain Procedures NM Pharmacologic Stress Myocardial Perfusion Cameron Saldivar MD [facility] [place] [address] [place] [address] Referral ID Status Reason Start Date Expiration Date V isits Requested Visits Authorized [id number] Closed Specialty Service Requested 10/19/2018 10/19/2019 1 1 Encounter Details Date Type Department Care Team (Late st Contact Info) Description 11/02/2018 8:53 AM EDT Hospital Encounter [place] [address] Cameron Saldivar MD [facility] [place] [address] Discharge Disposition: Home Social History [...] below. Cameron Saldivar MD IMG NM ORDERABLES * [...] the number below. ? Electronically signed by: PRADEEP Christopher [facility] ([phone]), at 11/02/2018 5:25 PM Narrative 11/02/2018 5:25 [...] ORDERABLES documented in this encounter Visit Diagnoses Not on filedocumented in this encounter Care Teams Ceramic Sprayer Relationship Specialty Start Date End Date Vidhya Benitez DO PCP - General Family Medicine 05/10/16 11/29/18 documented as of this encounter
--- OUTSIDE RECORDS SUMMARY | 2024-03-07 02:30 | XMS_ITS | Encounter Summary ---
Author Organization [facility] [place] [address] Care Team Providers Care President Sales And Marketing Name Role Phone Santos Hernandez MD Primary Care Provider [phone] Encounter Details Date Type Department Care Team (Late st Contact Info) Description 04/14/2016 [place] [address] Rosana Kennedy APRN [facility] [place] [address] Social History Tobacco Use Types Packs/Day Years [...] Telephone Encounter - Rosana Limon APRN - 04/14/2016 10:59 AM EDT Call from patient who continues to have severe LLE pain. Cannot see pain clinic until 05/10/16. Gabapentin has been marginally effective, as have NSAIDs, steroid taper, and tizanidine. Will rx tramadol for acute pain and add cymbalta with upward taper. Possible side effects discussed with patient. May consider taper of gabapentin once therapeutic dose of cymbalta reached. documented in this encounter Plan of Treatment Not on file documented as of this encounter Visit Diagnoses Not on filedocumented in this encounter Care Teams President Sales And Marketing Relationship Specialty Start Date End Date Santos Hernandez MD [address] [place] [address] PCP - General Family Medicine 07/16/15 05/09/16 documented as of this encounter
--- OUTSIDE RECORDS SUMMARY | 2024-03-07 02:30 | XMS_ITS | Encounter Summary ---
Author Organization [facility] [place] [address] Care Team Providers Care Guest Services Lead Name Role Phone EliVidhya Primary Care Provider Encounter Details Date Type Department Care Team ([facility] st Contact Info) Description 06/06/2017 Telephone [place] [phone] Edith Chaney, RN Social History Tobacco Use Types Packs/Day [...] Telephone Encounter - Edith Chaney RN - 06/06/2017 5:52 PM EDT Return call to patient as she had sent an [employer] message to Nae Soni, ? I was seen by you in 2015 and you recommended that I have a procedure LESI, which I did have and it do help for some time, but I can no longer stand the pain. ??You also recommended Medial Branch Blocks and then Radiofrequency Ablation. ??I was wondering if I have to see you again for you to set the procedure up. ? I look forward to hearing from you. ? Sincerely, ? Sherrie Bonner Per Nae Vela last office visit Nae states 2 LMBB with possible RFA: I discussed the lumbar medial branch blocks with radiofrequency ablation are likely to help her left low back pain. I have advised her that she can call our clinic and schedule this procedure following her LESI. She does not need a follow-up appointment with me before she can schedule, as we have already discussed this procedure and she [place] 2 [place]. I recommend diagnostic lumbar facet blocks using the medial branch block technique at the left L3-L4, L4-L5, and L5-S1 facet joint levels Nurse called patient to let her know and also Nurse advised pain clinic secretaries to call patient and schedule. Patient was not home at the time so Nurse lefta message awaiting call back at this time. * Telephone Encounter - Edith Chaney RN - 06/06/2017 5:52 PM EDT ----- Message from Sherrie Bonner sent at 06/06/2017 5:26 PM EDT ----- Regarding: Other Contact: Nae, I was seen by you in Apr. 2015 and you recommended that I have a procedure LESI, which I did have and it do help for some time, but I can no longer stand the pain. You also recommended Medial BranchBlocks and then Radiofrequency Ablation. I was wondering if I have to see you again for you to set the procedure up. I look forward to hearing from you. Sincerely, Sherrie Bonner documented in this encounter Plan of Treatment Not on file documented as of this encounter Visit Diagnoses Not on filedocumented in this encounter Care Teams Guest Services Lead Relationship Specialty Start Date End Date Vidhya Benitez DO PCP - General Family Medicine 05/10/16 11/29/18 documented as of this encounter
--- OUTSIDE RECORDS SUMMARY | 2024-03-07 02:30 | XMS_ITS | Encounter Summary ---
[place] [address] Care Team Providers Care Printing Plate Clerk Name Role Phone Santos Hernandez MD Primary Care Provider [phone] Encounter Details Date Type Department Care Team (Late st Contact Info) Description 03/16/2016 Refill [place] [address] [place] [address] Social History Tobacco Use Types Packs/Day Years [...] on filedocumented in this encounter Care Teams Printing Plate Clerk Relationship Specialty Start Date End Date Santos Hernandez MD [facility] [place] [address] PCP - General Family Medicine 07/16/15 05/09/16 documented as of this encounter
--- OUTSIDE RECORDS SUMMARY | 2024-03-07 02:30 | XMS_ITS | Encounter Summary ---
Author Organization [facility] [place] [address] Care Team Providers Care Activity Director Name Role Phone Vidhya Benitez DO Primary Care Provider Reason for Visit * Reason Onset Date Comments Other 06/09/2016 Encounter Details Date Type Department Care Team ([facility] Contact Info) Description 06/09/2016 Telephone [place] [phone] Lyly Baez [facility] [place] [address] Other Social History Tobacco Use Types Packs/Day [...] Miscellaneous Notes * Telephone Encounter - Lyly Baez MSW - 06/09/2016 11:58 AM EDT OFFICE OF CARE MANAGEMENT CCM Telephone call from Ms. Bonner that she will not be able to return to [facility] in [facility] to get a physical copy of her xray but by our fax request to them fax [phone] they will send report for review at Dr. Delaney's appt 06/22 regarding her neck. In the meantime she is advised to please contact [facility] and request release of disc to [facility]. She verbalizes understanding and states she will proceed. Update to clinic staff. No further concerns identified at this time. documented in this encounter Plan of Treatment Not on file documented as of this encounter Visit Diagnoses Not on filedocumented in this encounter Care Teams Activity Director Relationship Specialty Start Date End Date Vidhya Benitez DO PCP - General Family Medicine 05/10/16 11/29/18 documented as of this encounter
--- OUTSIDE RECORDS SUMMARY | 2024-03-07 02:30 | XMS_ITS | Encounter Summary ---
Author Organization [facility] Address [facility] [place] [address] Care Team Providers Care Teller Coordinator Name Role Phone Vidhya Benitez DO Primary Care Provider Reason for Visit * Reason Comments Back Pain * Consultation (Routine) - Closed Specialty Diagnoses / Procedures Referred By Contac t Referred To Contact Pain Management Diagnoses Low back pain low back pain discuss RFA Mayra Ocampo, DALILA [address] [place] [phone] [facility] [address] [place] [phone] Referral ID Status Reason Start Date Expiration Date Visits Re quested Visits Authorized [id number] Closed 10/11/2018 10/11/2019 1 1 Encounter Details Date Type Department Care Team (Late st Contact Info) Description 10/19/2018 2:45 PM EST Office [place] [phone] Elizabet Brooks, DALILA [facility] [place] [address] Lumbosacral spondylosis without myelopathy Social History Tobacco [...] Sign Reading Time Taken Comments Blood Pressure 119/62 10/19/2018 2:30 PM EST Pulse 79 10/19/2018 2:30 PM EST Temperature - - Respiratory Rate - - Oxygen Saturation 100% 10/19/2018 2:30 PM EST Inhaled Oxygen Concentration - - Weight 81 kg (178 lb 9.6 oz) 10/19/2018 2:30 PM EST Height 170.2 cm (5' 7) 10/19/2018 2:30 PM EST Body Mass Index 27.97 10/19/2018 2:30 PM EST documented in this encounter Progress Notes * Elizabet Brooks, FREEZING ROOM WORKER - 10/19/2018 2:45 PM EST [facility] [place] [address] Phone: PAIN MANAGEMENT NEW PATIENT / CONSULTATION NOTE DATE OF VISIT 10/19/2018 Patient Sherrie Bonner 1960 REFERRING PROVIDER Mayra Ocampo APRN [phone] [address] PRIMARY CARE PROVIDER Vidhya Benitez DO CHIEF COMPLAINT: Sherrie Bonner is a 58 y.o. female with left low back pain [...] sclerosis, depression, and chronic headaches ([place] [facility] [place]). Interval history: Sherrie had a LESI [...] majority of her pain is farther up. 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 CHOLECYSTECTOMY ??? LAMINECTOMY ??? PRO LAMINOTOMY, LUMBAR DISK, 1 INTRSP N/A 10/14/2015 LAMINOTOMY, DECOMPRESSION, FORAMINOTOMY, LUMBAR performed by Trevor Julien MD at [facility] MAIN OR ??? PRO MICROSURG TECHNIQUES, REQ OPER MICROSCOPE N/A 10/14/2015 MICROSCOPE USE performed by Trevor Julien MD at [facility] MAIN OR ??? TUBAL LIGATION FAMILY HISTORY Family History Problem Relation Age of Onset ??? Cancer Mother ??? Cancer Father ??? Alzheimer Disease Father PHYSICAL EXAMINATION Most Recent Vitals: 10/19/18 1430 BP: 119/62 Pulse: 79 SpO2: 100% PainSc: 6 Body mass index is 27.97 kg/m??. BP 119/62 Pulse 79 Ht 170.2 cm (5' 7) Wt 81 kg (178 lb 9.6 oz) Appearance/ Behavior Well groomed, good eye contact, [...] a year after lumbar medial branch block. A LESI was not helpful. PLAN/RECOMMENDATIONS We discussed the following recommendations: I have ordered that she progressed to the radiofrequency lesioning procedure that she had discussedin the past with him and his matter. She and I also reviewed the process. If this does not seem to help her I would be happy to have her repeat the lumbar medial branch block on the left since I gaveher such good relief in the past. I also discussed with her that she can follow-up with me by telephone through the nursing staff because [place]. I answered all her questions today. Elizabet Brooks, MS, NOTEMAN-BC, FREEZING ROOM WORKER Nurse practitioner Pain management [facility] documented in this encounter Plan of Treatment Not on file documented as of this encounter Visit Diagnoses Diagnosis Lumbosacral spondylosis without myelopathy documented in this encounter Care Teams Teller Coordinator Relationship Specialty Start Date End Date Vidhya Benitez DO PCP - General Family Medicine 05/10/16 11/29/18 documented as of this encounter
--- OUTSIDE RECORDS SUMMARY | 2024-03-07 02:30 | XMS_ITS | Encounter Summary ---
Author Organization [facility] [place] [address] Care Team Providers Care Waste Baler Name Role Phone EliVidhya Primary Care Provider [phone] Encounter Details Date Type Department Care Team ([facility] st Contact Info) Description 06/02/2016 Telephone Pain Management at [facility] [place] [phone] Aislinn Orozco, RN Social History Tobacco Use Types Packs/Day [...] encounter Miscellaneous Notes * Telephone Encounter - Aislinn Orozco, BOY'S ADVISER - 06/02/2016 1:09 PM EDT Sherrie Hsuult :1960 Contact made with patient: I spoke to Ms. Bonner at 1:09 PM regarding her upcoming Neither lumbar epidural steroid injection scheduled on 06-03-16 (date) scheduled at (:00 (time) with Dr. Santos Moreno DO. Medication and Allergy reconciliation: 1. Changes were made in the telephone encounter per patient; marked as reviewed, and closed. 2. Patient confirmed no IVP dye allergy. 3. Have you had any steroid injections anywhere in your body within the last two weeks? no Arrival time: The patient was instructed to arrive at 8:30 (30 minutes prior to procedure start time - 60 minutesprior for RF patients with a pacemaker) on 06-03-16 (date of procedure). Unit Manager [employer]ience [employer]: The patient was reminded that they need to have a recycle driver accompany them to her procedure who [...] any diagnosed bleeding disorders: No Anticoagulants: No Implant: Patient has pacemaker/defibrillator: No Prior to checking in at [employer], please be sure to empty your bladder. Patient confirmed understanding that if they do not follow the above their instructions, their procedure is likely to be cancelled. Aislinn Orozco LPN documented in this encounter Plan of Treatment Not on file documented as of this encounter Visit Diagnoses Not on filedocumented in this encounter Care Teams Waste Baler Relationship Specialty Start Date End Date Vidhya Benitez DO PCP - General Family Medicine 05/10/16 11/29/18 documented as of this encounter
--- OUTSIDE RECORDS SUMMARY | 2024-03-07 02:30 | XMS_ITS | Encounter Summary ---
Author [place] [address] Care Team Providers Care Equal Employment Opportunity Officer Name Role Phone Santos Hernandez MD Primary Care Provider [phone] Reason for Visit * Reason Onset Date Comments Other 10/27/2015 Encounter Details Date Type Department Care Team ([facility] st Contact Info) Description 10/27/2015 Tele[place] [phone] Abby Tomas, RN Other Social History Tobacco Use Types Packs/Day Years Used Date Smoking Tobacco: Never Smokeless Tobacco: Never Sex and Gender Information Value Date Recorded Sex Assigned at Not on file Gender Identity Female 11/18/2018 8:14 PM EDT Sexual Orientation Not on file documented as of this encounter Miscellaneous Notes * Telephone Encounter - Abby Tomas RN - 10/27/2015 10:28 AM EST Received call from patient, she is s/p 10/14/15 lumbar discectomy and foraminotomy, she is reportingleft leg numbness and tingling in her left foot. She states that she is no longer having any pain in her back, she has stopped using Oxycodone and is using Tylenol. Above discussed with Dr. Rodriguez, this is not unexpected post op can try gabapentin titration. Patient was contacted and informed, she has used Gabapentin 100 mg tabs in distant past, discussed titration schedule to work up to Gabapentin 100 mg three times a day and patient stated understanding. She will follow up as needed if she is not improving. documented in this encounter Plan of Treatment Not on file documented as of this encounter Visit Diagnoses Not on filedocumented in this encounter Care Teams Equal Employment Opportunity Officer Relationship Specialty Start Date End Date Santos Hernandez MD [address] [place] [address] PCP - General Family Medicine 07/16/15 05/09/16 documented as of this encounter
--- OUTSIDE RECORDS SUMMARY | 2024-03-07 02:30 | XMS_ITS | Encounter Summary ---
[place] [address] Care Team Providers Care Fish Roe Processor Name Role Phone Vidhya Benitez DO Primary Care Provider Reason for Visit * Reason Onset Date Comments Pre Procedure Call 07/04/2017 Encounter Details Date Type Department Care Team (Late st Contact Info) Description 07/04/2017 Tele[place] [phone] Radha Mancilla RN Pre Procedure Call Social History Tobacco Use [...] encounter Miscellaneous Notes * Telephone Encounter - Radha Mancilla RN - 07/04/2017 12:25 PM EST Sherrie Bonner :1960 Message left: I left a message on answering machine Ms. Bonner at 12:25 PM regarding her upcoming Left lumbar medial branch block with Dr. Yesy Hansen MD. Message included the followin. Patient instructed to arrive at 300pm (30 minutes prior to procedure start time) on 07/06/17 (date of procedure) with their hazmat cdl driver. 2. Following instructions left in the [...] your body within the last two weeks? Radha Mancilla RN documented in this encounter Plan of Treatment Not on file documented as of this encounter Visit Diagnoses Not on filedocumented in this encounter Care Teams Fish Roe Processor Relationship Specialty Start Date End Date Vidhya Benitez DO PCP - General Family Medicine 05/10/16 11/29/18 documented as of this encounter
--- OUTSIDE RECORDS SUMMARY | 2024-03-07 02:30 | XMS_ITS | Encounter Summary ---
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 Name Role Phone Vidhya Benitez DO Primary Care Provider Reason for Referral * Consultation (Routine) - Closed Specialty Diagnoses / Procedures Referred By Nelda sheppard Referred To Contact Gastroenterology Diagnoses Healthcare maintenance Rufina Mccabe MD [facility] [place] [address] [facility] Endoscopy [address] [place] [address] Referral ID Status Reason Start Date Expiration Date V isits Requested Visits Authorized [id number] Closed Test Only 11/22/2018 11/22/2019 1 1 Reason for Visit * Reason Comments Establish Care Encounter Details Date Type Department Care Team (Late st Contact Info) Description 11/22/2018 1:00 PM EDT Office Visit Family Medicine at [facility] [address] [place] [address] Rufina Mccabe MD [facility] [address] [place], [place] [id number] Annual physical exam (Primary Dx); Screening for malignant neoplasm of the cervix; Healthcare maintenance; SOB (shortness of breath) on exertion; Routine [...] Sign Reading Time Taken Comments Blood Pressure 136/72 11/22/2018 12:49 PM EDT Pulse 94 11/22/2018 12:49 PM EDT Temperature 36.6 ??C (97.8 ??F) 11/22/2018 12:49 PM E DT Respiratory Rate 18 11/22/2018 12:49 PM EDT Oxygen Saturation 98% 11/22/2018 12:49 PM EDT Inhaled Oxygen Concentration - - Weight 83.6 kg (184 lb 3.2 oz) 11/22/2018 12:49 PM EDT Height 170.2 cm (5' 7) 11/22/2018 12:49 PM EDT Body Mass Index 28.85 11/22/2018 12:49 PM EDT documented in this encounter Patient Instructions * Patient Instructions* Rufina Mccabe MD - 11/22/2018 1:00 PM EDT Images from the original note were not included. Patient Education In regards to the new Shingles vaccine: (1) Check your insurance to see how much your brq-pv-afbvgg cost would be (2) Be prepared for a sore arm muscle for 1-2 weeks after the shot, and for a feeling of tiredness and maybe achiness for 1-2 weeks after the shot (3) It is given at every major pharmacy chain in [place]. In general, we do not stock it in clinic. We may have a supply of this next summer, so if you cannot find it at a pharmacy near here, call here after February 19 to see if we do have some. (4) I recommend this vaccine in general, because it's 97% effective at preventing shingles, which is a painful condition that can have jail pain consequences. More information can be found at: https://www.cdc.gov/shingles/fact-sheets/xvregpax-ylzbvbqok-cyrjdc.html General nutrition guidelines regarding food choices: Most benefit: Fruits, nuts, fish, vegetables, vegetable oils like olive oil, whole grains, beans, yogurt In moderation: Cheese, eggs, poultry, milk, butter, unprocessed red meats Avoid (can cause harm): Refined grains, starches, sugars, processed meats, high sodium foods, industrial trans fats Target exercise goal: 30 minutes of exercise five days per week Please try to avoid any weight gain. Well Visit, Women 50 to 65: Care Instructions Your Care Instructions Physical exams can help you stay healthy. Your doctor has checked your overall health and may have suggested ways to take good care of yourself. He or she also may have recommended tests. At home, you can help prevent illness with healthy eating, regular exercise, and other steps. Follow-up care is a sanchez part of your treatment and safety. Be sure to make and go to all appointments, and call your doctor if you are having problems. It's also a good idea to know your test resultsand keep a list of the medicines you take. How can you care for yourself at home? ?? Reach and stay at a healthy weight. This will lower your risk for many problems, such as obesity, diabetes, heart disease, and high blood pressure. ?? Get at least 30 minutes of exercise on most days of the week. Walking is a good choice. You alsomay want to do other activities, such as running, swimming, cycling, or playing tennis or team sports. ?? Do not smoke. Smoking can make health problems worse. If you need help quitting, talk to your doctor about stop-smoking programs and medicines. These can increase your chances of quitting for good. ?? Protect your skin from too much sun. When you're outdoors from 10 a.m. to 4 p.m., stay in the shade or cover up with clothing and a hat with a wide brim. Wear sunglasses that block UV rays. Even when it's cloudy, put broad-spectrum sunscreen (SPF 30 or higher) on any exposed skin. ?? See a dentist one or two times a year for checkups and to have your teeth cleaned. ?? Wear a seat belt in the car. Follow your doctor's advice about when to have certain tests. These tests can spot problems early. ?? Cholesterol. Your doctor will tell you how often to have this done based on your age, family history, or other things that can increase your risk for heart attack and stroke. ?? Blood pressure. Have your blood pressure checked during a routine doctor visit. Your doctor willtell you how often to check your blood pressure based on your age, your blood pressure results, andother factors. ?? Mammogram. Ask your doctor how often you should have a mammogram, which is an X-ray of your breasts. A mammogram can spot breast cancer before it can be felt and when it is easiest to treat. ?? Pap test and pelvic exam. Ask your doctor how often you should have a Pap test. You may not needto have a Pap test as often as you used to. ?? Vision. Have your eyes checked every year or two or as often as your doctor suggests. Some experts recommend that you have yearly exams for glaucoma and other age-related eye problems starting at age 50. ?? Hearing. Tell your doctor if you notice any change in your hearing. You can have tests to find out how well you hear. ?? Diabetes. Ask your doctor whether you should have tests for diabetes. ?? Colorectal cancer. Your risk for colorectal cancer gets higher as you get older. Some experts say that adults should start regular screening at age 50 and stop at age 75. Others say to start before age 50 or continue after age 75. Talk with your doctor about your risk and when to start and stop screening. ?? Thyroid disease. Talk to your doctor about whether to have your thyroid checked as part of a regular physical exam. Women have an increased chance of a thyroid problem. ?? Osteoporosis. You should begin tests for bone density at age 65. If you are younger than 65, askyour doctor whether you have factors that may increase your risk for this disease. You may want to have this test before age 65. ?? Heart attack and stroke risk. At least every 4 to 6 years, you should have your risk for heart attack and stroke assessed. Your doctor uses factors such as your age, blood pressure, cholesterol, and whether you smoke or have diabetes to show what your risk for a heart attack or stroke is over the next 10 years. When should you call for help? Watch closely for changes in your health, and be sure to contact your doctor if you have any problems or symptoms that concern you. Where can you learn more? Visit our health information library at [email or web address]. You can also view health information on [employer], your personal patient account. Log in or sign uptoday. Enter Y074 in the search box to learn more about Well Visit, Women 50 to 65: Care Instructions. Current as of: August 03, 2018 Content Version: 12.0 ?? [id number] [employer]. Care instructions adapted under license by [facility]. If you have questions about a medical condition or this instruction, always ask your healthcare professional. [employer] disclaims any warranty or liability for your use of this information. documented in this encounter Progress Notes * Rufina Mccabe MD - 11/22/2018 1:00 PM EDT Images from the original note were not included. Here for an Annual Exam New patient to in/ [facility] primary care practice Switching from Vidhya Benitez in [place] for communication reasons Other involved providers: [facility]: Dr. Maritza Varela, sees her every 6 months, her Aimovig is now up to 140 mg for daily intractable headaches. Not called a migraine, many med trials including Botox. This headache problem had started at the same time she was diagnosed with MS Feels like her head is in a vice and someone is just pounding her head Amitripyline helps with sleep Also with RLS dx, which is better, maybe the magnesium supplement? Does feel rested in the morning, no known snoring or CHATA /Cardiology , just had a nuclear stress test for CP, came back fine /Pain Clinic, just had radiofrequency ablation at , and h/o back surgery Chronic back pain as per problem list In the past saw /Neuro headache Dx with chronic daily headache, not migrainous Chest pain on problem list Now short-winded very easily, this is a change This started within the past year Had an EKG and a stress test, and didn't think it's cardiac Does have wheezing with exertion, but not at rest Inhaler does help going up the stairs Had PFTs at [facility], 5 - 10 years ago Used to have GERD sx and was on meds, but now off meds and doing well, infrequent GERD Current CP doesn't remind her of heart-burn she's had in the past Reaches for Albuterol 1-2 x per day, now out of med, helps her get up stairs Does not wake up at night wheezing or coughing Adv is on list, it was a preventative, and it helped (This was a sample, never had to buy it, from 2 PCPs ago, who had samples in their office Has chronic fatigue, related to the MS Typical day: Wakes up at 5:30, 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 Multiple sclerosis G35 ??? Radiculopathy of lumbar region M54.16 ??? Cervical spondylosis without myelopathy M47.812 ??? Other chest pain R07.89 ??? Depression F32.9 ??? Chronic fatigue R53.82 ??? Headache R51 ??? RLS (restless legs syndrome) G25.81 ??? Gastroesophageal reflux K21.9 Past Surgical History: Procedure Laterality Date ??? CHOLECYSTECTOMY ??? KNEE SURGERY Right approx 2013 Microfracture surgery ([facility], Dr. Barrera) ??? LAMINECTOMY ??? PRO LAMINOTOMY, LUMBAR DISK, 1 INTRSP N/A 10/14/2015 LAMINOTOMY, DECOMPRESSION, FORAMINOTOMY, LUMBAR performed by Trevor Rodriguez MD at [facility] MAIN OR ??? PRO MICROSURG TECHNIQUES, REQ OPER MICROSCOPE N/A 10/14/2015 MICROSCOPE USE performed by Trevor Rodriguez MD at [facility] MAIN OR ??? TUBAL LIGATION Medications 11/22/18 1249 Medication Sig Taking? amitriptyline (ELAVIL) 25 mg Tablet Yes baclofen [...] Take 5 mg by mouth once. Yes magnesium oxide (MAG-OX) 400 mg (241.3 mg magnesium) Tablet Take 400 mg by mouth daily. Yes teriflunomide (AUBAGIO) 14 mg Tablet Take 14 mg by mouth daily. Yes mirabegron (MYRBETRIQ) 50 mg Tablet Sustained Release 24 hr Take 50 mg by mouth daily. Yes ergocalciferol (ERGOCALCIFEROL) 50,000 unit Capsule Take 50,000 Units by mouth once a week. Yes albuterol (PROVENTIL HFA;VENTOLIN HFA;PROAIR) 90 mcg/actuation [...] Alcohol use: No ??? Drug use: No PHQ9 Questionnaires Data (Clinic and Pt Entered): last 4 values of depression scores PHQ-9 QUESTIONNAIRE SCORE ONLY (Patient) 11/18/2018 PHQ - 9 Score (Patient) 8 (Mild Depression) No flowsheet data found. No vision complaints Hearing okay Goes to dentist 1-2x/year, good dental hygiene habits Wears seat-belts and uses sunscreen Safe at home and work Occupation: Lives with: Spouse Colon Cancer Screening: Mammogram: Prostate Cancer Screening Discussion: Pap: Done today Has 4 kids Youngest a senior in college Objective: BP 136/72 (BP Location (NBP): Left arm, Patient Position: Sitting, BP Cuff Sizes: Adult (25-34 cm)) Pulse 94 Temp 36.6 ??C (97.8 ??F) (Temporal) Resp 18 Ht 170.2 cm (5' 7) Wt 83.6 kg (184 lb 3.2 oz) SpO2 98% BMI 28.85 kg/m?? Physical Exam Constitutional: She is oriented to person, place, and time. She appears well- developed and well-nourished. No distress. HENT: Head: Normocephalic. Mouth/Throat: Oropharynx is clear and moist. Eyes: Pupils are equal, round, and reactive to light. No scleral icterus. Neck: Normal range of motion. No thyromegaly present. Cardiovascular: Normal rate, regular rhythm and normal heart sounds. No murmur heard. Pulmonary/Chest: Effort normal and breath sounds normal. No respiratory distress. Abdominal: Soft. She exhibits no distension and no mass. There is no tenderness. Genitourinary: Vagina normal. No vaginal discharge found. Genitourinary Comments: Cervix with normal apperance No adnexal tenderness/ masses Musculoskeletal: Normal range of motion. She exhibits no edema or deformity. Lymphadenopathy: She has no cervical adenopathy. Neurological: She is alert and oriented to person, place, and time. She exhibits normal muscle tone. Coordination normal. Skin: Skin is warm and dry. No rash noted. Psychiatric: She has a normal mood and affect. Her behavior is normal. Thought content normal. Assessment/Plan: Sherrie was seen today for establish care. Diagnoses and all orders for this visit: Screening for malignant neoplasm of the cervix - HIV Screen, 4th Generation; Future - Cytopathology Gynecological Healthcare maintenance - Cancel: Hemoglobin A1c; Future - Tdap vaccine greater than or equal to 7yo IM - Mammo Screening Cad and Vel Bilateral; Future - Referral to Gastroenterology SOB (shortness of breath) on exertion - XR Chest PA & Lateral (Generic); Future - albuterol 90 mcg/actuation HFA Aerosol Inhaler; Inhale 2 puffs into the lungs every 6 hours as needed. Routine general medical examination at a health care facility Cardiometabolic: Discussed maintaining a normal weight with BMI of 19 to 25 Discussed structured exercise program of 30 minutes of exercise 5x/week Discussed Mediterranean diet for life-long heart health Discussed BP goals Discussed risk of smoking (patient has never smoked) Discussed patient's most recent lipids, drawn in [place] Patient articulated understanding Bone health: Discussed nutrition and exercise in terms of maintaining healthy bones Cancer screening: Discussed age and gender specific cancer screening guidelines Discussed diet, exercise, and maintaining healthy weight as cancer prevention strategies Discussed CDC recommendation for one-time HIV and Hep C screening test (if applicable for age) Vaccines: Discussed Patient Instructions Patient Education In regards to the new Shingles vaccine: (1) Check your insurance to see how much your pxz-oy-[id number] cost would be (2) Be prepared for a sore arm muscle for 1-2 weeks after the shot, and for a feeling of tiredness and maybe achiness for 1-2 weeks after the shot (3) It is given at every major pharmacy chain in [place]. In general, we do not stock it in clinic. We may have a supply of this next summer, so if you cannot find it at a pharmacy near here, call here after February 19 to see if we do have some. (4) I recommend this vaccine in general, because it's 97% effective at preventing shingles, which is a painful condition that can have extermination inspector pain consequences. More information can be found at: https://www.cdc.gov/shingles/fact-sheets/vhydvkvc-qxctnmhhu-jlhhqv.html General nutrition guidelines regarding food choices: Most benefit: Fruits, nuts, fish, vegetables, vegetable oils like olive oil, whole grains, beans, yogurt In moderation: Cheese, eggs, poultry, milk, butter, unprocessed red meats Avoid (can cause harm): Refined grains, starches, sugars, processed meats, high sodium foods, industrial trans fats Target exercise goal: 30 minutes of exercise five days per week Please try to avoid any weight gain. Well Visit, Women 50 to 65: Care Instructions Your Care Instructions Physical exams can help you stay healthy. Your doctor has checked your overall health and may have suggested ways to take good care of yourself. He or she also may have recommended tests. At home, you can help prevent illness with healthy eating, regular exercise, and other steps. Follow-up care is a sanchez part of your treatment and safety. Be sure to make and go to all appointments, and call your doctor if you are having problems. It's also a good idea to know your test resultsand keep a list of the medicines you take. How can you care for yourself at home? ?? Reach and stay at a healthy weight. This will lower your risk for many problems, such as obesity, diabetes, heart disease, and high blood pressure. ?? Get at least 30 minutes of exercise on most days of the week. Walking is a good choice. You alsomay want to do other activities, such as running, swimming, cycling, or playing tennis or team sports. ?? Do not smoke. Smoking can make health problems worse. If you need help quitting, talk to your doctor about stop-smoking programs and medicines. These can increase your chances of quitting for good. ?? Protect your skin from too much sun. When you're outdoors from 10 a.m. to 4 p.m., stay in the shade or cover up with clothing and a hat with a wide brim. Wear sunglasses that block UV rays. Even when it's cloudy, put broad-spectrum sunscreen (SPF 30 or higher) on any exposed skin. ?? See a dentist one or two times a year for checkups and to have your teeth cleaned. ?? Wear a seat belt in the car. Follow your doctor's advice about when to have certain tests. These tests can spot problems early. ?? Cholesterol. Your doctor will tell you how often to have this done based on your age, family history, or other things that can increase your risk for heart attack and stroke. ?? Blood pressure. Have your blood pressure checked during a routine doctor visit. Your doctor willtell you how often to check your blood pressure based on your age, your blood pressure results, andother factors. ?? Mammogram. Ask your doctor how often you should have a mammogram, which is an X-ray of your breasts. A mammogram can spot breast cancer before it can be felt and when it is easiest to treat. ?? Pap test and pelvic exam. Ask your doctor how often you should have a Pap test. You may not needto have a Pap test as often as you used to. ?? Vision. Have your eyes checked every year or two or as often as your doctor suggests. Some experts recommend that you have yearly exams for glaucoma and other age-related eye problems starting at age 50. ?? Hearing. Tell your doctor if you notice any change in your hearing. You can have tests to find out how well you hear. ?? Diabetes. Ask your doctor whether you should have tests for diabetes. ?? Colorectal cancer. Your risk for colorectal cancer gets higher as you get older. Some experts say that adults should start regular screening at age 50 and stop at age 75. Others say to start before age 50 or continue after age 75. Talk with your doctor about your risk and when to start and stop screening. ?? Thyroid disease. Talk to your doctor about whether to have your thyroid checked as part of a regular physical exam. Women have an increased chance of a thyroid problem. ?? Osteoporosis. You should begin tests for bone density at age 65. If you are younger than 65, askyour doctor whether you have factors that may increase your risk for this disease. You may want to have this test before age 65. ?? Heart attack and stroke risk. At least every 4 to 6 years, you should have your risk for heart attack and stroke assessed. Your doctor uses factors such as your age, blood pressure, cholesterol, and whether you smoke or have diabetes to show what your risk for a heart attack or stroke is over the next 10 years. When should you call for help? Watch closely for changes in your health, and be sure to contact your doctor if you have any problems or symptoms that concern you. Where can you learn more? Visit our health information library at [email or web address]. You can also view health information on [employer], your personal patient account. Log in or sign uptoday. Enter Y074 in the search box to learn more about Well Visit, Women 50 to 65: Care Instructions. Current as of: August 03, 2018 Content Version: 12.0 ?? [id number] [employer]. Care instructions adapted under license by [facility]. If you have questions about a medical condition or this instruction, always ask your healthcare professional. [employer] disclaims any warranty or liability for your use of this information. . documented in this encounter Plan of Treatment Scheduled Referrals Name Type Priority Associated Diagnoses Order Schedule Referral to Gastroenterology Outpatient Referral Routine Healthcare maintenance Ordered: 11/22/2018 documented as of this encounter Procedures Procedure Name Priority Date/Time Associated Diagnosis Comments CYTOPATHOLOGY GYNECOLOGICAL Routine 11/22/2018 1:45 PM EDT Screening for malignant neoplasm of the cervix HPV Routine 11/22/2018 1:00 PM EDT MOTO MIX OPERATOR CYTOLOGY INTERPRETATION Routine 11/22/2018 1:00 PM EDT MOTO MIX OPERATOR CYTOLOGY FINAL REPORT Routine 11/22/2018 1:00 PM EDT documented in this encounter Results * Pulmonary [...] Critical Care Rufina Mccabe MD PFT ORDERABLES * LDL Cholesterol, Direct (11/30/2018 10:21 AM EDT) LDL Chol Direct 140 mg/dL [facility] Comment: Lowest Risk: <100 mg/dL Lower Risk: 100-129 mg/dL Borderline High Risk: 130-159 mg/dL High Risk: 160-189 mg/dL Very High Risk: >hf=736 mg/dL Blood specimen (specimen) 11/30/2018 10:21 AM EDT 11/30/2018 10:32 AM EDT Narrative Resulting Agency Comment Spec In Lab Rufina Mccabe MD CHEMISTRY ORDERABLE S [facility] [place] [address] * HDL/Cholesterol Profile (11/30/2018 10:21 AM EDT) Chol, Total 208 mg/dL [facility] Comment: Lower Risk: <200 mg/dL Average Risk: 200-239 mg/dL Higher Risk: >rd=887 mg/dL HDL 68 mg/dL [facility] Comment: Males: ?? Higher Risk: <40 mg/dL Females: ?? HIgher Risk: <50 mg/dL Chol/HDL Ratio 3.1 ratio [facility] Chol/HDL Interpretation See Note [facility] Comment: Lipid management should be guided by a patient? s ASCVD risk, goals and preferences. ACC/AHA Guidelines recommend high intensity statin if clinical ASCVD or LDL greater than or equal to 190 mg/dL. http://LogFire.com/KLN-QFU-Drudjirkt Measure LDL if Total Cholesterol minus HDL Cholesterol is greater than 220 mg/dL. Adults aged 40-75 with LDL 70-189 mg/dL should have their 10 year ASCVD risk estimated with the ACC/AHA ASCVD risk solar sales estimator http://tools.acc.org/TVDZC-Izcj-Ncyizjnea/ Statin should be discussed if risk greater [...] Lab Rufina Mccabe MD CHEMISTRY ORDERABLE S [facility] [place] [address] * Hemoglobin A1c (11/30/2018 10:21 AM EDT) Hemoglobin A1C 5.0 4.3 - 5.6 % [facility] Comment: Reference Range: 4.3 - [...] Mellitus, Diabetes Care 2013; 36: Suppl. 1, S67-74 Est Avg Gluc 97 mg/dL [facility] Comment: eAG equivalents for HbA1c [...] into estimated average glucose values. ??Diabetes Care 2008:31(8):3086-2369. Blood specimen (specimen) 11/30/2018 10:21 AM EDT 11/30/2018 10:32 AM EDT Narrative Resulting Agency Comment Spec In Lab Rufina Mccabe MD CHEMISTRY ORDERABLE S [facility] [place] [address] * Hepatitis C Antibody (11/30/2018 10:21 AM EDT) Hepatitis C Ab Negative Negative [facility] Blood specimen (specimen) 11/30/2018 10:21 AM EDT 11/30/2018 10:32 AM EDT Narrative Resulting Agency Comment Spec In Lab Rufina Mccabe MD IMMUNOLOGY ORDERABL ES Performing Organization Address [facility] Co de Phone Number [facility] [place] [address] * XR Chest PA & Lateral (Generic) [...] quadrant, related to prior cholecystectomy. Procedure Note López Nagy MD - 11/30/2018 EXAMINATION: XR CHEST [...] below. Rufina Mccabe MD IMG DX ORDERABLES * Mammo Screening Cad and Vel Bilateral [...] Mccabe MD IMG MAMMO ORDERABLE S * Cytopathology Gynecological (11/22/2018 1:45 PM EDT) AP Specimen 11/22/2018 1:45 PM EDT 11/22/2018 4:33 PM EDT Narrative [facility] - 11/22/2018 4:34 PM EDT Specimen requisition ordered. ??Separate Pathology report to follow Resulting Agency Comment Spec In Lab Rufina Mccabe MD PATHOLOGY/CYTOLOGY ORDERABLES [facility] [place] [address] * Slot Floorman Cytology Final Report (11/22/2018 1:00 PM EDT) Slot Floorman Cytology Final Report [id number] ? Location: [facility] The signing pathologist has (i) examined the relevant preparation(s) for the specimen(s) and (ii) rendered or confirmed the diagnosis(es). . ? Slot Floorman Final DIAGNOSIS Normal Negative for intraepithelial lesion or malignancy (NILM). For consensus guidelines for the management of cervical cancer screening test results, please see: ?? [email or web address] rg . Electronically signed by: ??KEM Davila(ASCP)Aislinn Verified: ??11/27/2018 ?Corporate Meeting Planner Performed at: ??-[facility] Dept. of Pathology, [place], [place] HPV RESULTS HPV16 (Result) ?Negative HPV18 [...] intended to detect low risk HPV types. [employer] katlyn HPV test Specimen: HPV Testing - Cytology Liquid Based Prep The Sirisha katlyn ? HPV test was validated, performed and results reported through the [facility] ([facility]) at [facility]. ? - Ron Benavidez, PhD, [facility], Director-[facility] STATEMENT OF ADEQUACY Specimen submitted is satisfactory. Endocervical component present. CLINICAL INFORMATION HPV Option: ?Concurrent HPV and Pap CT/NG Option: ?? No Preparation: ? Liquid based Pap Specimen Source: ? Endocervical/Vagin al LMP: ? Post menopausal Hormones?: ? No Hysterectomy?: ? No ?: ? No ?: ? No I.U.D.?: ? No Pelvic Radiation: ?No Prior MOTO MIX OPERATOR Therapy?: ?No Hist Abnl Pap/Biopsy?: ?? No Hist of HPV Vaccine?: ?No Hist of Smoking?: ?No Hist of ROSALEE exposure?: ?? No ICD Diagnosis: ? Z12.4 Encounter for screening for malignant neoplasm of cervix . CLINICAL INFORMATION Clinical Data, Significant Therapy and Clinical Impression ?? : ?_ This Pap Test has been evaluated with the assistance of the TelemetryWebPrep Pap Test Imaging System. Note: The Pap test is a screening test for cervical cancer with an inherent false-negative rate dependent upon several variables. For further information please contact the [facility] Laboratory. Reference: Galo BIRD. Fleet Administrative Assistant of Pap Smear Results. In: Anitra BS, Alphonso HH, ed. The Pap Smear. [facility] [place]: Christopher, 2002: 71-77. [facility] 11/22/2018 1:00 PM EDT Rufina Mccabe MD PATHOLOGY/CYTOLOGY ORDERABLES Performing Organization Address [facility] Co de Phone Number [facility] [place] [address] * MOTO MIX OPERATOR Cytology Interpretation (11/22/2018 1:00 PM EDT) Slot Floorman Cytology Interpretation [facility] Comment:Slot Floorman Cytology Final R eport Endocervical Component Present [facility] AP Specimen 11/22/2018 1:00 PM EDT 11/27/2018 11:44 AM EDT Rufina Mccabe MD PATHOLOGY/CYTOLOGY ORDERABLES Performing Organization Address [facility] Co de Phone Number [facility] [place] [address] * HPV (11/22/2018 1:00 PM EDT) HPV 16 NEGATIVE NEGATIVE [facility] HPV 18 NEGATIVE NEGATIVE [facility] HPV Other HR NEGATIVE NEGATIVE [facility] HPV Interpretation See Comment [facility] Comment: NEGATIVE for high-risk HPV *. [...] In Lab Rufina Mccabe MD PATHOLOGY/CYTOLOGY ORDERABLES [facility] [place] [phone] documented in this encounter Visit Diagnoses Diagnosis Annual physical exam- Primary Routine general medical examination at a health care facility Screening for malignant neoplasm of the cervix Healthcare maintenance Routine general medical examination at a health care facility SOB (shortness of breath) on exertion Shortness of breath Routine general medical examination at a [facility] care facility Healthcare maintenance Routine general medical examination at a health care facility SOB (shortness of breath) on exertion Shortness of breath SOB (shortness of breath) on exertion Shortness of breath documented in this encounter Care Teams Auto Technician Mechanic Relationship Specialty Start Date End Date Vidhya Benitez DO PCP - General Family Medicine 05/10/16 11/29/18 documented as of this encounter
--- OUTSIDE RECORDS SUMMARY | 2024-03-07 02:30 | XMS_ITS | Encounter Summary ---
Author Organization [facility] Address [facility] [place] [address] Care Team Providers Care Analytical Data Miner Name Role Phone Vidhya Benitez DO Primary Care Provider Reason for Referral * Physical Therapy (Routine) - Specialty Diagnoses / Procedures Referred By Contac t Referred To Contact Physical Therapy Diagnoses Cervical spondylosis without myelopathy José Miguel Vieira, SUPERVISOR [employer]TING [facility] [place] [address] Referral ID Status Reason Start Date Expiration Date V isits Requested Visits Authorized [id number] Evaluate and Treat 07/30/2016 01/26/2017 12 12 Reason for Visit * Reason Comments Neck Pain Bilateral Arm Pain Bilateral Shoulder Pain * Consultation (Routine) - Closed Specialty Diagnoses / Procedures Referred By Contac t Referred To Contact Orthopaedics Diagnoses chronic neck pain Procedures chronic neck pain Sammi Varela, [address] [place] [address] [facility] [address] [place] [address] Referral ID Status Reason Start Date Expiration Date Visits Re quested Visits Authorized [id number] Closed 02/06/2016 02/05/2017 1 1 Encounter Details Date Type Department Care Team (Late st Contact Info) Description 07/30/2016 11:00 AM EST Office [place] [address] José Miguel Vieira, SUPERVISOR [employer] [facility] [place] [address] Cervical spondylosis without myelopathy Social History Tobacco Use [...] as of this encounter Progress Notes * José Miguel Vieira, DALILA - 07/30/2016 11:00 AM EST CLARIFICATION NEEDED: Blank SUBJECTIVE: Sherrie Bonner is a right-hand dominant 55-year-old female patient being seen at the request of Sammi Varela DO with the chief complaint of neck pain. The patient states her neck pain began insidiously approximately 1 year ago and has been worsening over the last 6 months. Her pain is bilateral posterior neck radiating into the bilateral superior trapezius and occasionally into the lateral deltoid and upper arms ending before the elbows bilaterally. She denies upper extremity numbness or weakness. She denies fine motor disturbances, does state she has unsteadiness, but has had that since 2003 when she was diagnosed with MS. She has not identified any particular aggravating factors for her neck and trapezius pain. It is present when she wakes up in the morning and persist all day. She does find the application of heat to be an alleviating factor. Prior treatments have included physical therapy although she has not had physical therapy for the last 1.5 years for her neck and it was not particularly helpful at the time. Review of systems is negative for constitutional, GI and symptoms. She has had a history of bladder incontinence x5 years. Patient denies tobacco or alcohol use. 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 Her accompanies her today in the exam room. OBJECTIVE: On examination, the patient's affect is bright, her speech is in good time and to the point, and she responds appropriately to questions and direction. She moves from seated to standing position without difficulty, she stands with level shoulders and a straight cervical spine. There is no obvious deformities in her neck or trapezius, and she is nontender in the posterior neck or trapezius. Cervical ROM is 50 degrees of flexion, 70 degrees of extension and 85 degrees of both right and left rotation, rotation aggravates her bilateral neck pain. She walks with a steady gait and is able to tandem walk. Motor exam is 5/5 strength of all upper extremity muscle groups bilaterally. Sensation is intact in both upper extremities. Reflexes are symmetrical and 2 at the biceps, 2 at the brachioradialis, 2 at the triceps, 3 at the knees, and 2 at the ankles. There is no Spurling's, Halima's, clonus, or Babinski. Cervical MRI of 07/24/2015 is reviewed. There is multilevel spondylosis most pronounced at C3-4, C4-5, and C5-6. There is mild retrolisthesis of C4 on 5. There is facet hypertrophy at that level as well as C3-4, and C5-6. There is disk bulging at those levels with mild thecal sac effacement, but no clear spinal cord impingement, and there are no signal changes in the spinal cord. There is mild neural foraminal stenosis at C4-5, but no obvious nerve root impingement. These images were reviewed with the patient and her . ASSESSMENT: Sherrie Bonner is a 55-year-old female with a 1 year history of axial neck pain in the setting of degenerative changes of the cervical spine, but absence of radiculopathy or myelopathy. I discussed with the patient the treatment options which include inflammatories, physical therapy, and possible injections. She stated that her PCP orders spine MRIs annually and she is anticipating that she will be getting an updated cervical spine MRI soon. I explained to her that it does not appear based on the existing MRI that she has a surgical lesion and she is quite interested in conservative treatment options. She does have a history of chronic low back pain for which she had diskectomy and laminectomy surgery by Dr. Rodriguez in September 2015. She states that, that surgery did not alleviate her back and leg pain entirely and her leg pain has now worsened again less than a year later. I encouraged her to consider a [place]-certified physical therapist for her neck, but she prefers to receive PT closer to home at least initially. So we have therefore mutually agreed to proceed as follows: PLAN: 1. Referral to a physical therapist for mechanical diagnosis and treatment of her neck pain at a therapist of her choosing closer to home. 2. A trial of OTC naproxen 500 mg twice a day for 2 weeks. 3. If the patient calls to request that a referral to [facility] physical therapist for mechanical diagnosis and treatment of her neck pain would be appropriate. 4. If the above all fail to provide adequate relief over the course of a few weeks, the patient already sees the Pain Clinic here regularly for her low back pain and will ask about what other pain treatment options may be available to her there. 5. I am happy to see this patient in follow up to review her new MRI images or discuss any other concern she has should she call to request it. documented in this encounter Plan of Treatment Scheduled Referrals Name Type Priority Associated Diagnoses Orde r Schedule Referral to Physical Therapy Outpatient Referral Routine Cervical spondylosis without myelopathy Ordered: 07/30/2016 documented as of this encounter Visit Diagnoses Diagnosis Cervical spondylosis without myelopathy documented in this encounter Care Teams Analytical Data Miner Relationship Specialty Start Date End Date Vidhya Benitez DO PCP - General Family Medicine 05/10/16 11/29/18 documented as of this encounter
--- OUTSIDE RECORDS SUMMARY | 2024-03-07 02:30 | XMS_ITS | Encounter Summary ---
Author Organization [facility] [place] [address] Care Team Providers Care Engine Lathe Set Up Operator Tool Name Role Phone Vidhya Benitez DO Primary Care Provider [phone] Reason for Referral * Surgical (Routine) - Specialty Diagnoses / Procedures Referred By Nelda sheppard Referred To Contact Diagnoses Radiculopathy of lumbar region Procedures TRANSFORAMINAL INJECTION Christoph Daugherty MD [facility] [place] [address] Referral ID Status Reason Start Date Expiration Date V isits Requested Visits Authorized [id number] Consult, Test & Treat 06/03/2016 06/03/2017 1 1 Reason for Visit * Reason Comments Back Pain radiating down LLE Encounter Details Date Type Department Care Team (Latest Contact Info) Description 06/03/2016 9:00 AM EDT Procedure [place] [address] David Mendoza DO [facility] [place] [address] Radiculopathy of lumbar region Social History Tobacco Use [...] Sign Reading Time Taken Comments Blood Pressure 132/76 06/03/2016 8:46 AM EDT Pulse 80 06/03/2016 8:46 AM EDT Temperature - - Respiratory Rate 16 06/03/2016 8:46 AM EDT Oxygen Saturation 100% 06/03/2016 8:46 AM EDT Inhaled Oxygen Concentration - - Weight 68 kg (150 lb) 06/03/2016 8:35 AM EDT Height 170.2 cm (5' 7) 06/03/2016 8:35 AM EDT Body Mass Index 23.49 06/03/2016 8:35 AM EDT documented in this encounter Patient Instructions * Patient Instructions* Pratik Nash, RN - 06/03/2016 9:00 AM EDT Pain Management Center Discharge Instructions: You were seen by Dr. David Mendoza DO and Christoph Daugherty MD who performed lumbar epidural steroid injection. It is normal that the injection site will be sore for up to 48 hours. You may also experience mild stiffness in the joint near the injection site. [x] You may resume your normal activities: tomorrow. [...] 20 minutes. Do not apply heat today. You received the following medications: Lidocaine, Omnipaque (contrast dye) and Dexamethasone Sodium Phosphate 15 mg. During regular business hours, please phone the Pain Management Center at for appointments or with any questions or if the following [...] or proceed to your local emergency department. Pratik Nash RN Special instructions documented in this encounter Progress Notes * Claudia Orozco RN - 06/03/2016 9:00 AM EDT Pre-Procedure Screening Questions: 1. Status: No 2. Patient states they have a local truck driver to transport after procedure? Yes 3. Patient taking antibiotics at present? No 4. NPO per Pain Management Center protocol? No 5. Patient diabetic: No Patient routinely taking anticoagulants ? No Patient Vital Signs documented in Doc Flowsheets associated with this encounter. Patient Discharge Instructions were reviewed with patient and copy provided to patient. documented in this encounter Procedure Notes * Christoph Daugherty MD - 06/03/2016 9:00 AM EDTAssociated Order(s): TRANSFORAMINAL INJECTION Procedure(s): TRANSFORAMINAL INJECTION Pre-Procedure Diagnose(s): Radiculopathy of lumbar region PROCEDURE NOTE Transforaminal Epidural Steroid Injection with Fluoroscopic Guidance at left L5-S1 Chief Complaint: left leg pain. Sherrie Bonner has been referred to the Pain Management Center for Lumbar Transforaminal Epidural Steroid Injection left L5-S1 COMMENTS: Referring provider: Dr. Benitez Allergies: No Known Allergies Pre-procedure VAS: 6/10 to the left leg. Follow up plan: return to clinic or for procedure as needed. Sherrie Bonner was greeted by the nurse who verified patients name and . Patient was then taken to the fluoroscopy suite. Ms. Bonner was interviewed and the medical record reviewed. There were no medical, pharmacologic, radiographic or other structural contraindications to attempting fluoroscopically guided transforaminal lumbar epidural steroid injection. The risks, benefits, and potential side effects were reviewed with the patient. Risk include, but not limited to, post dural puncture, headache, infection, nerve injury, allergic reaction, possible increase in symptoms over the ensuing 24 to 48 hours, and paralysis. The patient appeared to understand, questions were answered and the patient agreed to proceed. Once I obtained informed verbal consent, the printed consent form was signed by the patient and myself. Standard time-out procedure was performed. TECHNIQUE: After informed written consent was obtained the patient was placed in the prone position. The lumbar spine spine was prepped with chloraprep and draped. Sterile technique was observed during the entire procedure ( cap, gloves, and mask were worn). Vitals signs were monitored throughout the procedure. The left side was marked with a radioopaque marker. The skin and subcutaneous structures were anesthetized with lidocaine 1% to a total volume of 3 ML at each level. Under fluoroscopic guidance, in ipsilateral oblique view, co-axial approach, 22g spinal needle(s) were advanced to the base of the L-5. pedicle(s). The needle(s) were advanced to the superio-posterior aspect of the neural foramen under lateral view. Oblique and AP views were rechecked. Under AP view Omnipaque 240 0.5 cc's was injected while visualized with fluoroscopy. There was no evidence of intravascular uptake, the epidural space was delineated. 15 mg Dexamethasone was injected after negative aspiration, at each level, followed by lidocaine 1% 1.0-ML at each level. Outcome: The patient tolerated the procedure well and had stable vital signs. The patient noted after getting up after the procedure that their left leg pain was at a 2 out of 10 level. Follow up plans and appointments were discussed with Ms. Bonner. The patient was observed in thepain clinic and then discharged after having met discharge criteria to the care of a local truck driver. The patient received written instructions as documented in nursing records. Disposition: Ms. Bonner was discharged from the procedure suite without new neurological complaints. Follow-up: Follow up with Dr. Benitez as scheduled or PRN. Christoph Daugherty MD Pain Fellow I was the attending physician supervising the fellow in the above care and I was present with the fellow for the entire procedure. DAVID MENDOZA DO, MPH ABPMR-subspecialty board certification in Pain Medicine Attending Physician - Pain Management CC: Vidhya Benitez DO [address] [place] [address] documented in this encounter Plan of Treatment Not on file documented as of this encounter Procedures Procedure Name Priority Date/Time Associated Diagnosis Comments TRANSFORAMINAL INJECTION Routine 06/03/2016 12:42 PM EDT Radiculopathy of lumbar region documented in this encounter Results * TRANSFORAMINAL INJECTION (06/03/2016 12:42 PM EDT) Narrative David Mendoza V, DO - 06/03/2016 12:42 PM EDT David Mendoza V, DO ? 06/03/2016 12:42 PM PROCEDURE NOTE Transforaminal Epidural Steroid Injection with Fluoroscopic Guidance at left L5-S1 Chief Complaint: left leg pain. ?? Sherrie Bonner has been referred to the Pain Management Center for Lumbar Transforaminal Epidural Steroid Injection ??left L5-S1 COMMENTS: Referring provider: Dr. Benitez Allergies: No Known Allergies Pre-procedure VAS: 6/10 to the left leg. Follow up plan: return to clinic or for procedure as needed. Sherrie Bonner was greeted by the nurse who verified patients name and . ??Patient was then taken to the fluoroscopy suite. Ms. Bonner was interviewed and the medical record reviewed. ?? There were no medical, pharmacologic, radiographic or other structural contraindications to attempting fluoroscopically guided transforaminal lumbar epidural steroid injection. ??The risks, benefits, and potential side effects were reviewed with the patient. ??Risk include, but not limited to, post dural puncture, headache, infection, nerve injury, allergic reaction, possible increase in symptoms over the ensuing 24 to 48 hours, and paralysis. ??The patient appeared to understand, ??questions were answered and the patient agreed to proceed. ??Once I obtained informed verbal consent, the printed consent form was signed by the patient and myself. Standard time-out procedure was performed. TECHNIQUE: ??After informed written consent was obtained the patient was placed in the prone position. ??The lumbar spine spine was prepped with chloraprep and draped. ??Sterile technique was observed during the entire procedure ( cap, gloves, and mask were worn). Vitals signs were monitored throughout the procedure. ??The left side was marked with a radioopaque marker. ??The skin and subcutaneous structures were anesthetized with lidocaine 1% to a total volume of 3 ??ML at each level. Under fluoroscopic guidance, in ipsilateral oblique view, co-axial approach, ??22g spinal needle(s) were advanced to the base of the ?? L-5. ?? pedicle(s). ??The needle(s) were advanced to the superio-posterior aspect of the neural foramen under lateral view. ??Oblique and AP views were rechecked. ?? Under AP view Omnipaque 240 ??0.5 cc's was injected while visualized with fluoroscopy. ?? There was no evidence of intravascular uptake, the epidural space was delineated. ??15 mg Dexamethasone was injected after negative aspiration, at each level, followed by lidocaine 1% 1.0-ML at each level. Outcome: The patient tolerated the procedure well and had stable vital signs. The patient noted after getting up after the procedure that their left leg pain was at a ??2 out of 10 level. ? Follow up plans and appointments were discussed with Ms. Bonner. The patient was observed in the pain clinic and then discharged after having met discharge criteria ??to the care of a local truck driver. ??The patient received written instructions as documented in nursing records. ?? Disposition: ??Ms. Bonner was discharged from the procedure suite without new neurological complaints. Follow-up: Follow up with Dr. Benitez as scheduled or PRN. Christoph Daugherty MD Pain Fellow I was the attending physician supervising the fellow in the above care and I was present with the fellow for the entire procedure. DAVID MENDOZA DO, MPH ABPMR-subspecialty board certification in Pain Medicine Attending Physician - Pain Management CC: Vidhya Benitez DO [address] [place], [place] [id number] David Araya DO PROCEDURE/MINOR SURG ICAL ORDERABLES documented in this encounter Visit Diagnoses Diagnosis Radiculopathy of lumbar region Thoracic or lumbosacral neuritis or radiculitis, unspecified documented in this encounter Administered Medications Inactive Administered Medications - up to 3 most recent administrations Medication Order MAR Action Action Date Dose Rate Site dexamethasone(PF) (DECADRON) 10 mg/mL injection 15 mg 15 mg, Epidural, ONCE, 1 dose, On Alejandra 06/03/16 at 1230, Wasted 2mg, Routine Given 06/03/2016 12:30 PM EDT 15 mg iohexol (OMNIPAQUE) 240 mg/mL solution 2 mL 2 mL, Epidural, ONCE, 1 dose, On Alejandra 06/03/16 at 1230, Wasted 48 ml, Routine Given 06/03/2016 12:30 PM EDT 2 mLs documented in this encounter Care Teams Engine Lathe Set Up Operator Tool Relationship Specialty Start Date End Date Vidhya Benitez DO PCP - General Family Medicine 05/10/16 11/29/18 documented as of this encounter
--- OUTSIDE RECORDS SUMMARY | 2024-03-07 02:30 | XMS_ITS | Encounter Summary ---
Author Organization [facility] Address [facility] [place] [address] Care Team Providers Care Truck Headlight Assembler Name Role Phone Santos Hernandez MD Primary Care Provider [phone] Encounter Details Date Type Department Care Team (Late st Contact Info) Description 03/25/2016 [place] [id number] Moraima Urena RN Social History Tobacco Use Types Packs/Day [...] encounter Miscellaneous Notes * Telephone Encounter - Moraima Urena RN - 03/25/2016 4:28 PM EDT Sherrie called with c/o unbearable pain behind the left knee and calf causing difficulty walking. She has some pain in the left buttock but most severe in the calf. She has been taking Gabapentin 900mg three times daily without relief. She is s/p lumbar discectomy on 10/14/15. Sherrie is scheduled for a MRI and f/u with Dr. Rodriguez on 04/05/16 but was wondering what could be done between now and then. She can not take Tramadol and has tried other pain medications. She tried Prednisone in the past with some relief. A Medrol dose pack was called in to the [facility] pharmacy in [place], [place]. I asked specifically about swelling, temperature, and redness in the left calf which she doesn't think she has, which would be concerning for a DVT. Sherrie agrees to having it looked at by her PCP to be sure an u/s isn't warranted. documented in this encounter Plan of Treatment Not on file documented as of this encounter Visit Diagnoses Not on filedocumented in this encounter Care Teams Truck Headlight Assembler Relationship Specialty Start Date End Date Santos Hernandez MD [facility] [place] [address] PCP - General Family Medicine 07/16/15 05/09/16 documented as of this encounter
--- OUTSIDE RECORDS SUMMARY | 2024-03-07 02:30 | XMS_ITS | Encounter Summary ---
Author Organization [facility] Address [facility] [place] [address] Care Team Providers Care Care Tech Name Role Phone Santos Hernandez MD Primary Care Provider [phone] Reason for Visit * Consultation (Routine) - Closed Specialty Diagnoses / Procedures Referred By Nelda sheppard Referred To Contact Neurology Diagnoses Chronic Migraines Sammi Varela, DO [address] [place] [address] [facility] [address] [place] [address] Referral ID Status Reason Start Date Expiration Date V isits Requested Visits Authorized [id number] Closed Consult, Test & Treat 07/14/2015 07/13/2016 1 1 Encounter Details Date Type Department Care Team (Late st Contact Info) Description 11/18/2015 10:00 AM EDT [place] [phone] César Kimble MD [facility] [place] [id number] New daily persistent headache Social History Tobacco Use Types Packs/Day Years [...] Sign Reading Time Taken Comments Blood Pressure 124/64 11/18/2015 9:31 AM EDT Pulse 77 11/18/2015 9:31 AM EDT Temperature - - Respiratory Rate - - Oxygen Saturation - - Inhaled Oxygen Concentration - - Weight 72.6 kg (160 lb) 11/18/2015 9:31 AM EDT Height 170.2 cm (5' 7) 11/18/2015 9:31 AM EDT Body Mass Index 25.06 11/18/2015 9:31 AM EDT documented in this encounter Patient Instructions * Patient Instructions* César Kimble MD - 11/18/2015 10:40 AM EDT 11-18-15 Diagnosis: New Daily Persistent Headache (NDPH) Treatment: Go to [employer] and buy the Members Jovanni CoQ10 300 mg and start one every morning Go to [email or web address] and buy the store brand magnesium oxide 500 mg capsule and start one daily Go on the web and order Enzymatic Therapy Riboflavin Vitamin B2 400 mg and start one every morning. See me in 3 months. César Kimble MD documented in this encounter Progress Notes * César Kimble MD - 11/18/2015 9:48 AM EDT Neurology Headache New Patient? 11-18-15 Headache [facility] Referring Provider: Sammi Varela DO This is a 55 old year old??R-handed woman referred by Sammi Varela DO, to whom I will send the consult upon completion. Accompanied by:?? CC:?? headache HPI: This 55 yo woman with MS, asthma, and depression has HAs continuously since 2005. She was coming home from a softball game in December or January 2006 on a particular day, and the ANSARI began that day and has never stopped. No antecedent stress, head injury or stress. No HAs in childhood, no FHx, no hx of motion sickness Currently, the ANSARI is bilateral and global. It gets severe daily. It is throbbing, pounding, not worse with activity, no photophonophobia, some N, no V. She is taking nothing for relief. She has Medicare Parts A and B. She is on oral teriflunomide for her MS. She has had an LP. She has tried at least 43 medication trials. Prior Treatments: BZDs 1. Midazolam as inpatient 2. Diazepam 3. Clonazepam 4. Alprazolam TCAs 5. Amitriptyline 6. Nortriptyline 7. Doxepin 8. Imipramine 5HT3 antagonists 9. Ondansetron as inpatient Neuroleptics 10. Prochorperazine 11. Metocloramide Muscle relaxants 12. Tizanidine 13. Cyclobenzaprine Beta blockers 14. Labetolol as inpatient 15. Metoprolol AEDs 16. GBP 17. PGB 18. TPM 19. VPA CCBs 20. Amlodipine SSRIs 21. Fluoxetine 22. Sertraline 23. Paroxetine 24. S-citalopram SNRIs 25. Venlafaxine 26. Desvenlafaxine 27. Duloxetine Other antidepressants 28. Bupropion 29. Mirtazepine 30. Trazodone Misc 31. APAP 32. Montelukast Steroids 33. Dexamethasone as inpatient 34. Pred Narcotics 35. Propoxyphene 36. Codeine 37. Hydrocodone 38. Oxycodone 39. Meperidine 40. Fentanyl as inpatient 41. Hydromorphone as inpatient 42. Methadone Neurotoxins 43. Botox Procedures A. ONBs B. TPIs Current Medications: Outpatient Prescriptions Marked as Taking for the 11/18/15 encounter (Office Visit) with César Kimble MD Medication Sig Dispense Refill ??? ergocalciferol (ERGOCALCIFEROL) 50,000 unit Capsule Take 50,000 Units by mouth once a week. ??? tiZANidine (ZANAFLEX) 2 mg Tablet Take 1 tablet by mouth as needed. 5 ??? gabapentin (NEURONTIN) 100 mg Capsule Take 1 capsule by mouth 3 times daily. Begin with 1 cap @HS X 3 days, then add 1 cap Q AM X 3 days, then take 1 cap 3 X daily. 90 capsule 0 ??? acetaminophen (TYLENOL) 325 mg Tablet Take 2 tablets by mouth every 4 hours as needed for Pain (mild pain). 30 tablet 1 ??? teriflunomide 14 mg Tablet Take 14 mg by mouth. ??? montelukast (SINGULAIR) 10 mg Tablet Take 10 mg by mouth daily. ??? mirabegron 50 mg Tablet Sustained Release 24 hr Take 50 mg by mouth daily. ??? albuterol (PROVENTIL HFA;VENTOLIN HFA;PROAIR) 90 mcg/actuation HFA Aerosol Inhaler Take 2 puffsby mouth daily as needed. ??? fluticasone-salmeterol (ADVAIR) 250-50 mcg/dose Disk with Device Take 2 puffs by mouth daily. ??? b complex vitamins Capsule Take 1 capsule by mouth daily. Allergies: No Known Allergies Previous testing: MRI 07-24-15: T2 demyelinating lesions, stable from 08-14-14 I reviewed reports for , ', ', ', , , , , MRI cervical spine , , , and : DJD, no MS lesions Family History: Migraine or other headaches in the family:?? no Past Medical History: Past Medical History Diagnosis Date ??? Asthma ??? Depression ??? Headache(784.0) ??? MS (multiple sclerosis) ??? Back pain ??? Leg pain, right ??? RLS (restless legs syndrome) Past Surgical History: Past Surgical History Procedure Laterality Date ??? Pro laminotomy, lumbar disk, 1 intrsp N/A 10/14/2015 LAMINOTOMY, DECOMPRESSION, FORAMINOTOMY, LUMBAR performed by Trevor Rodriguez MD at [facility] MAIN OR ??? Pro microsurg techniques, req oper microscope N/A 10/14/2015 MICROSCOPE USE performed by Trevor Rodriguez MD at [facility] MAIN OR ??? Laminectomy ??? Tubal ligation ??? Cholecystectomy L knee surgery Social History: History Social History ??? Marital Status: Spouse Name: N/A Number of Children: N/A ??? Years of Education: N/A Occupational History ??? Not on file. Social History Main Topics ??? Smoking status: Never Smoker ??? Smokeless tobacco: Never Used ??? Alcohol Use: No ??? Drug Use: No ??? Sexual Activity: Not on file Other Topics Concern ??? 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 ROS: HEENT: headache Neuro: MS Lungs: asthma Psych: Depression CV: negative GI: gallbladder out : tubal ligation Endocrine: negative Musculoskeletal: back pain, R leg pain, back surgeries, R knee sugery Physical Exam BP 124/64 mmHg Pulse 77 Ht 170.2 cm (5' 7) Wt 72.576 kg (160 lb) BMI 25.05 kg/m2 General: nl Pain Behaviors: none Skin: nl HEENT: Nl, no spasm, full ROM Abdomen/genitalia: ND Vascular: Nl, no bruits Musculoskeletal: Nl Neurological: Mental Status: nl, Affect is appropriate. Speech is clear, not dyarthric. Attention span and concentration are nl. Cranial Nerves: II: Funduscopic: nl discs & venous pulsations Visual hatfield: full to confrontation 3,4,6: Pupils: 3 mm = round reactive to light and near reflex V: nl primary sensory modalities V1-3, corneals intact bilaterally VII:symmetric VIII: nl Air conduction > Bone Conduction Hernandez midline 9, 10: Gag nl XI: SCMs 5/5; Shoulder Shru/5 XIII:Tongue protrusion: midline Motor: nl bulk, tone, strength 5/5 Reflexes 2+ Pathologic reflexes: absent Drift absent Tremor: absent Sensation: Primary sensory modalities nl in the upper extremities. Cerebellar exam: FTN nl PAULO nl . Gait examination: nl Tanderm nl Romberg negative Impression: ?? 1. New daily persistent headache The abrupt onset of a primary continuous daily headache with a known day of onset is New Daily Persistent Headache (NDPH). Unfortunately, 75% of patients with NDPH have the persisting subform at 5 years (Lyric, et al. Neurology, 2010), and nothing has been described as effective except, rarely, no rtriptyline, topiramate, and Botox, none of which worked for her. It is possible that in the futurethe ant-CGRP monoclonal antibodies will work for this disorder, but we are about 3 years from availability. She has tried at least 43 medications without success, but no supplements. So, we can try B2, CoQ10, and magnesium, and the first two could even help her chronic MS fatigue. I will initiate these and see her in 3 months. Plan/Instructions given to patient: Go to [employer] and buy the Members Jovanni CoQ10 300 mg and start one every morning Go to [employer] and buy the store brand magnesium oxide 500 mg capsule and start one daily Go on the web and order Enzymatic Therapy Riboflavin Vitamin B2 400 mg and start one every morning. I spent?? 80 minutes in this visit with 50 minutes devoted to face-to face patient counseling. Thank you, Dr. Varela, for this consult. César Kimble MD documented in this encounter Plan of Treatment Not on file documented as of this encounter Visit Diagnoses Diagnosis New daily persistent headache documented in this encounter Care Teams Care Tech Relationship Specialty Start Date End Date Santos Hernandez MD [address] [place] [address] PCP - General Family Medicine 07/16/15 05/09/16 documented as of this encounter
--- OUTSIDE RECORDS SUMMARY | 2024-03-07 02:30 | XMS_ITS | Encounter Summary ---
Author Organization [facility] [place] [address] Care Team Providers Care Pigment Processor Name Role Phone Santos Hernandez MD Primary Care Provider [phone] Reason for Visit * Reason Comments Medication Refill Encounter Details Date Type Department Care Team (Late st Contact Info) Description 04/15/2016 [place] [address] [place] [address] Social History Tobacco Use Types Packs/Day Years [...] on filedocumented in this encounter Care Teams Pigment Processor Relationship Specialty Start Date End Date Santos Hernandez MD [address] [place] [address] PCP - General Family Medicine 07/16/15 05/09/16 documented as of this encounter
--- OUTSIDE RECORDS SUMMARY | 2024-03-07 02:30 | XMS_ITS | Encounter Summary ---
Author Organization [facility] Address [facility] [address] [place] [id number] Care Team Providers Care Center Aisle Cashier Name Role Phone Vidhya Benitez DO Primary Care Provider Reason for Referral * Surgical (Routine) - Specialty Diagnoses / Procedures Referred By Contac t Referred To Contact Diagnoses Spondylosis of lumbar region without myelopathy or radiculopathy Procedures RADIOFREQUENCY-LUMBAR/SACRAL Fidelina Priest MD [facility] [place] [address] Referral ID Status Reason Start Date Expiration Date V isits Requested Visits Authorized [id number] Consult, Test & Treat 11/08/2018 11/08/2019 1 1 Reason for Visit * Reason Comments Back Pain * Surgical (Routine) - Closed Specialty Diagnoses / Procedures Referred By Contac t Referred To Contact Pain Management Diagnoses Spondylosis without myelopathy or radiculopathy, lumbosacral region Left RFA NPO Procedures PRO DSTR PARAVERTEBRAL FCT JNT NRVES LUMBAR OR SACRAL SINGLE PROCEDURE 1 Elizabet Brooks, BLEACHER PULP [facility] [place] [address] Fidelina Priest MD [facility] [place] [address] Referral ID Status Reason Start Date Expiration Date Visits Re quested Visits Authorized [id number] Closed 11/08/2018 11/08/2019 1 1 Encounter Details Date Type Department Care Team (Latest Contact Info) Description 11/08/2018 9:45 AM EDT Procedure visit Pain Management at [facility] [place] [id number] Fidelina Priest MD [facility] [place] [id number] Spondylosis of lumbar region without myelopathy or [...] Sign Reading Time Taken Comments Blood Pressure 144/75 11/08/2018 10:09 AM EDT Pulse 77 11/08/2018 10:09 AM EDT Temperature - - Respiratory Rate 16 11/08/2018 10:09 AM EDT Oxygen Saturation 99% 11/08/2018 10:09 AM EDT Inhaled Oxygen Concentration - - Weight 79.4 kg (175 lb) 11/08/2018 9:50 AM EDT Height 170.2 cm (5' 7) 11/08/2018 9:50 AM EDT Body Mass Index 27.41 11/08/2018 9:50 AM EDT documented in this encounter Patient Instructions * Patient Instructions* Aislinn Orozco, MAYCO - 11/08/2018 9:45 AM EDT Pain Management Center Discharge Instructions: You were seen by Dr. Fidelina Priest MD who performed LEFT lumbar radiofrequency. It is normal that the injection site [...] 20 minutes. Do not apply heat today. [x] You received Midazolam 1.5 mg through an intravenous line, to lessen the anxiety/pain of your procedure. DO NOT operate heavy or dangerous equipment/tools, or sign important papers today. Attempt to empty your bladder 4-6 hours after your procedure. You received the following medications: Depo-Medrol 40 mg, Lidocaine and Bupivacaine. During regular business hours, please phone [...] or proceed to your local emergency department. Aislinn Orozco LPN Special instructions documented in this encounter Progress Notes * Fidelina Priest MD - 11/08/2018 9:45 AM EDT PREPROCEDURE HISTORY AND PHYSICAL Date of Visit: November 08, 2018 Chief Complaint: Back pain HPI: Subjective Sherrie Bonner is a 58 y.o. female who presents today for lumbar medial branch nerve radiofrequency ablation. Of note, she had a prior history of left L5-S1 diskectomy and foraminatomy in 09/[address] Michael rolon posterolateral thigh and calf pain. She had resolution of back and leg pain after surgery. Then in 02/2016, she started having some posterior left leg pain. She underwent left L3, L4, L5 MBB which provided almost 1 year of pain relief, however, her left sided low back pain is intermittent. In the past, she had LESI which provided no pain relief. The history is obtained from the patient, and I have reviewed medical records provided by the referring physician and located in the electronic medical record to fill in gaps in the patient's recollection of events, treatments and outcomes. LOCATION: Left side of lower back. PAIN LEVEL AT REST 8/10 PAST MEDICAL HISTORY: Past Medical History: Diagnosis Date ??? Asthma ??? Back pain ??? Depression ??? Depression 10/18/2018 ??? Headache(784.0) ??? Leg pain, right ??? MS (multiple sclerosis) ??? RLS (restless legs syndrome) PAST SURGICAL HISTORY: Past Surgical History: Procedure Laterality Date ??? CHOLECYSTECTOMY ??? LAMINECTOMY ??? PRO LAMINOTOMY, LUMBAR DISK, 1 INTRSP N/A 10/14/2015 LAMINOTOMY, DECOMPRESSION, FORAMINOTOMY, LUMBAR performed by Trevor Rodriguez MD at [facility] MAIN OR ??? PRO MICROSURG TECHNIQUES, REQ OPER MICROSCOPE N/A 10/14/2015 MICROSCOPE USE performed by Trevor Rodriguez MD at [facility] MAIN OR ??? TUBAL LIGATION ALLERGIES: Patient has no known allergies. MEDICATIONS: Medications 11/08/18 0950 Medication Sig Taking? amitriptyline (ELAVIL) 25 mg [...] Take 1 capsule by mouth daily. Yes FAMILY HISTORY: Family History Problem Relation Age of Onset ??? Cancer Mother ??? Cancer Father ??? Alzheimer Disease Father SOCIAL HISTORY: Social History Socioeconomic History ??? Marital status: Spouse name: Not on file ??? Number of children: Not on file ??? Years of education: Not on file ??? Highest education level: Not on file Occupational History ??? Not on file Social Needs ??? Financial resource strain: Not on file ??? Food insecurity: Worry: Not on file Inability: Not on file ??? Transportation needs: Medical: Not on file Non-medical: Not on file Tobacco Use ??? Smoking status: Never Smoker ??? Smokeless tobacco: Never Used Substance and Sexual Activity ??? Alcohol use: No ??? Drug use: No ??? Sexual activity: Not on file Lifestyle ??? Physical activity: Days per week: Not on file Minutes per session: Not on file ??? Stress: Not on file Relationships ??? Social connections: Talks on phone: Not on file Gets together: Not on file Attends gnosticism service: Not on file Active member of club or organization: Not on file Attends meetings of clubs or organizations: Not on file Relationship status: Not on file ??? Intimate partner violence: Fear of current or ex partner: Not on file Emotionally abused: Not on file Physically abused: Not on file Forced sexual activity: Not on file Other Topics Concern ??? Not on file Social History Narrative ??? Not on file ROS: Denies fever, chills, SOB, abdominal pain, leg weakness/numbnes, arm weakness/numbness, bowel or bladder incontinence, balance issues PHYSICAL EXAM: Ht 170.2 cm (5' 7) Wt 79.4 kg (175 lb) BMI 27.41 kg/m?? Physical Exam Constitutional: She is oriented to person, place, and time. She appears well- developed and well-nourished. Musculoskeletal: Positive Yadav's test on left. Neurological: She is alert and oriented to person, place, and time. Skin: Skin is warm and dry. No erythema. Vitals reviewed. RADIOLOGIC DATA: MRI L spine reviewed. ASSESSMENT: Assessment 1. Spondylosis of lumbar region without myelopathy or radiculopathy PLAN: - proceed with left L2, L3, L4, L5-DR MORA radiofrequency ablation with IV anxiolytic Fidelina Priest MD * Aislinn Orozco LPN - 11/08/2018 9:45 AM EDT Pre-Procedure Screening Questions: 1. Status: No 2. 3. Patient states they have a electric screw driver operator to transport after procedure? Yes 4. Patient taking antibiotics at present? No 5. NPO per Pain Management Center protocol? No 6. 7. Patient diabetic: No __ borderline (not treated with medications) __ managed with oral medications __ managed with injected medications 8. Patient routinely taking anticoagulants ? No Date stopped Current INR Patient Vital Signs documented in Doc Flowsheets associated with this encounter. Patient Discharge Instructions were reviewed with patient and copy provided to patient. IV anxiolysis: Yes IV placement: ??? Location of IV Insertion: right [ X ] hand [ ] anterior forearm [ ] posterior forearm [ ] AC [ ] upper arm [ ] other: ??? IV Gauge: [ ] 24G [ ] 22G [X ] 20G After IV insertion completed, IV was secured with occlusive transparent dressing. IV site is patentand intact. Patient is without complaint upon completion of IV insertion. ??? Started by: Aislinn Orozco LPN ??? Initiated by: Aislinn Orozco LPN ??? IV Solution: LR 1000ml - rate as directed by proceduralist ??? Total Volume Intravenous Fluid infused documented in the Medication Administration Record (MAR) Site condition at IV removal: [X] Clear [ ] Bruised [ ] other: Administration of IV anxiolysis procedural medications documented in MAR as ordered by proceduralist documented in this encounter Procedure Notes * Fidelina Priest MD - 11/08/2018 9:45 AM EDTAssociated Order(s): RADIOFREQUENCY-LUMBAR/SACRAL Procedure(s): RADIOFREQUENCY-LUMBAR/SACRAL Pre-Procedure Diagnose(s): Spondylosis of lumbar region without myelopathy or radiculopathy LUMBAR/SACRAL MEDIAL BRANCH RADIOFREQUENCY Date of Service: 11/08/2018 Patient: Sherrie Bonner Provider: Fidelina Priest MD Sherrie Bonner has been referred to the Pain Management Center for radiofrequency treatment of chronic axial back pain. Ms. Bonner has had long standing back pain which is facet joint generatedand which has been refractory to other therapies. Local anesthetic medial branch blocks resulted inMs. Bonner reporting a significant reduction of the usual axial component of pain for at least the duration of the local anesthetic effect. COMMENTS: responded well to prior left lumbar MBB Ms. Bonner was interviewed and the medical record reviewed. There were no medical, pharmacologic, radiographic or other structural contraindications to attempting fluoroscopically guided radiofrequency treatment. Risks and expected side effects as well as potential benefit of the procedure were reviewed with Ms. Bonner, and she voiced concerns addressed. The printed consent form was signed and witnessed. Standard time-out procedure was performed. Ms. Bonner was placed in the prone position on the fluoroscopy table and automated blood pressure cuff and pulse oximeter applied. The skin entry points for approaching the anatomic target points of the segmental medial branches of left L2, L3, L4 and L5-DR were identified with fluoroscopy and marked. Following thorough Chlorhexadine preparation of the skin and draping and 1% lidocaine infiltration of the skin entry points and subcutaneous tissues, a single 10 cm 18 guage curved needle with a 10mm active tip radiofrequency cannula was placed under fluoroscopic guidance along or across the anatomic course of each respective segmental medial branch. Each placement was stimulated at 2Hz without any evidence of distal myotomal stimulation. At each placement a continuous mode radiofrequencytreatment was done at 80 degrees C for 90 secs and then rotated 180degrees and then repeated. Once the radiofrequency treatment was completed 0.3 cc of a 2 cc solution of Depomedrol (40 mg/cc) was injected at each site followed by 1 cc of 1 cc of 0.5% Bupivacaine. The needles were then removed without difficulty. This radiofrequency treatment should result in the denervation of the left L3- L4, L4-L5 and L5-S1. A total of 3 facets were expected to be denervated from today's treatment. Ms. Mayers vital signs were stable throughout the procedure and were as recorded in the docflowsheet by the nursing staff. If given, dosages of intravenous drugs for anxiolysis and analgesia were documented in the Medication Administration Record (MAR). Follow up plans and appointments were discussed with Sherrie Bonner. Post procedure instruction was given as documented in the nursing documentation and having met discharge criteria, she was discharged from the Pain Management Center. COMMENTS: patient tolerated procedure well. She received total of 1.5mg IV versed for IV anxiolytic. I personally performed the entire procedure. Fidelina Priest MD Attending Physician-Pain Management CC: Vidhya Benitez, DO [address] [place] [address] documented in this encounter Plan of Treatment Not on file documented as of this encounter Procedures Procedure Name Priority Date/Time Associated Diagnosis Comments RADIOFREQUENCY-LUM BAR/SACRAL Routine 11/08/2018 9:45 AM EDT Spondylosis of lumbar region without myelopathy or radiculopathy documented in this encounter Results * RADIOFREQUENCY-LUMBAR/SACRAL (11/08/2018 9:45 AM EDT) Narrative Fidelina Priest MD - 11/08/2018 9:45 AM EDT Fidelina Priest MD ? 11/08/2018 10:33 AM LUMBAR/SACRAL MEDIAL BRANCH RADIOFREQUENCY Date of Service: ??11/08/2018 Patient: ??Sherrie Bonner ?? Provider: ??Fidelina Priest MD Sherrie Bonner has been referred to the Pain Management Center for radiofrequency treatment of chronic axial back pain. ??Ms. Bonner has had long standing back pain which is facet joint generated and which has been refractory to other therapies. ?? Local anesthetic medial branch blocks resulted in Ms. Bonner reporting a significant reduction of the usual axial component of pain for at least the duration of the local anesthetic effect. ?? COMMENTS: responded well to prior left lumbar MBB Ms. Bonner was interviewed and the medical record reviewed. ?? There were no medical, pharmacologic, radiographic or other structural contraindications to attempting fluoroscopically guided radiofrequency treatment. ??Risks and expected side effects as well as potential benefit of the procedure were reviewed with Ms. Bonner, and she voiced concerns addressed. ??The printed consent form was signed and witnessed. ??Standard time-out procedure was performed. Ms. Bonner was placed in the prone position on the fluoroscopy table and automated blood pressure cuff and pulse oximeter applied. ??The skin entry points for approaching the anatomic target points of the segmental medial branches of left L2, L3, L4 and L5-DR were identified with ??fluoroscopy and marked. ?? Following thorough Chlorhexadine preparation of the skin and draping and 1% lidocaine infiltration of the skin entry points and subcutaneous tissues, a single 10 cm 18 guage curved needle with a 10mm active tip radiofrequency cannula was placed under fluoroscopic guidance along or across the anatomic course of each respective segmental medial branch. ??Each placement was stimulated at 2Hz ??without any evidence of distal myotomal stimulation. ??At each placement a continuous mode radiofrequency treatment was done at 80 degrees C for 90 secs and then rotated 180degrees and then repeated. ??Once the radiofrequency treatment was completed 0.3 cc of a 2 cc solution of Depomedrol (40 mg/cc) was injected at each site followed by 1 cc of 1 cc of 0.5% Bupivacaine. ??The needles were then removed without difficulty. This radiofrequency treatment should result in the denervation of the left L3-L4, L4-L5 and L5-S1. ??A total of 3 facets were expected to be denervated from today's treatment. Ms. Mayers vital signs were stable throughout the procedure and were as recorded in the docflowsheet by the nursing staff. ?? If given, dosages of intravenous drugs for anxiolysis and analgesia were documented in the Medication Administration Record (MAR). Follow up plans and appointments were discussed with Sherrie Bonner. ??Post procedure instruction was given as documented in the nursing documentation and having met discharge criteria, she was discharged from the Pain Management Center. COMMENTS: patient tolerated procedure well. She received total of 1.5mg IV versed for IV anxiolytic. I personally performed the entire procedure. Fidelina Priest MD Attending Physician-Pain Management CC: Vidhya Benitez DO [address] [place] [address] Fidelina Priest MD PROCEDURE/MINOR SURG ICAL ORDERABLES documented in this encounter Visit Diagnoses Diagnosis Spondylosis of lumbar region without myelopathy or radiculopathy Lumbosacral spondylosis without myelopathy documented in this encounter Administered Medications Inactive Administered Medications - up to 3 most recent administrations Medication Order MAR Action Action Date Dose Rate Site lactated ringers infusion 100 mL, Intravenous, ONCE, 1 dose, On Tue11/08/18 at 1015 New Bag 11/08/2018 10:15 AM EDT 100 mLs lidocaine (PF) (XYLOCAINE) 10 mg/mL (1 %) injection 100 mg 100 mg, Subcutaneous, ONCE, 1 dose, On Tue11/08/18 at 1015, Wasted 20ml, Routine Given 11/08/2018 10:15 AM EDT 100 mg midazolam (PF) (VERSED) injection 2 mg 2 mg, Intravenous, ONCE, 1 dose, On Tue11/08/18 at 1015, Routine Given 11/08/2018 10:15 AM EDT 2 mg documented in this encounter Care Teams Center Aisle Cashier Relationship Specialty Start Date End Date Vidhya Benitez DO PCP - General Family Medicine 05/10/16 11/29/18 documented as of this encounter
--- OUTSIDE RECORDS SUMMARY | 2024-03-07 02:31 | XMS_ITS | Encounter Summary ---
Author Organization [facility] Address [facility] [place] [address] Care Team Providers Care Director Motion Picture Name Role Phone Unavailable Primary Care Provider Unavailabl e Encounter Details Date Type Department Care Team (Late st Contact Info) Description 11/09/2011 12:15 AM EDT - 11/09/2011 11:59 PM EDT Hospital Encounter [place] [address] [address] Maureen Temporary Pain Discharge Disposition: Home Social History Tobacco Use Types Packs/Day Years Used Date Smoking Tobacco: Never Assessed Sex and Gender Information Value Date Recorded Sex Assigned at Not on file Gender Identity Female 11/18/2018 8:14 PM EDT Sexual Orientation Not on file documented as of this encounter Plan of Treatment Not on file documented as of this encounter Procedures Procedure Name Priority Date/Time Associated Diagnosis Comments FILM LIBRARY STORAGE ONLY MR SPINE Routine 11/09/2011 12:15 AM EDT Pain documented in this encounter Results * Film Library- Storage only MR Spine (11/09/2011 12:15 AM EDT) Narrative ANKUR - 08/11/2015 8:24 AM EST See PACS for result report. Dr Lucrecia Reddy IMG FILM LIBRARY ORD ERABLES [place], [place] documented in this encounter Visit Diagnoses Diagnosis Pain Generalized pain documented in this encounter
--- OUTSIDE RECORDS SUMMARY | 2024-03-07 02:31 | XMS_ITS | Encounter Summary ---
Author Organization [facility] Address [facility] [place] [address] Care Team Providers Care Racing Board Marker Name Role Phone Santos Hernandez MD Primary Care Provider Reason for Visit * Auth/Cert Specialty Diagnoses / Procedures Referred By Contac t Referred To Contact Diagnoses Lumbar disc herniation LEFT LEG PAIN Procedures PRO LAMINOTOMY, LUMBAR DISK, 1 INTRSP LAMINOTOMY, DECOMPRESSION, FORAMINOTOMY, LUMBAR Referral ID Status Reason Start Date Expiration Date Visits Re quested Visits Authorized [id number] 1 1 Encounter Details Date Type Department Care Team (Latest Contact Info) Description 10/14/2015 - 10/14/2015 11:11 AM [facility] Hospital Encounter [place] [address] Trevor Rodriguez MD [facility] [place] [address] [place] [address] Discharge Disposition: Home Social History Tobacco Use [...] Capsule Take 1 capsule by mouth daily. acetaminophen (TYLENOL) 325 mg Tablet Take 2 tablets by mouth every 4 hours as needed for Pain (mild pain). 30 tablet 1 10/15/2015 04/05/2016 oxyCODONE (ROXICODONE) 5 mg Tablet Take 1-2 tablets by mouth every 4 hours as needed for Pain. 50 tablet 0 10/15/2015 11/18/2015 teriflunomide 14 mg Tablet Take 14 mg by mouth daily. 07/25/2014 10/19/2018 cholecalciferol, Vitamin D3, 5,000 unit Tablet Take 50,000 mg by mouth. 01/31/2015 11/18/2015 montelukast (SINGULAIR) 10 mg Tablet Take 10 [...] Procedure Name Priority Date/Time Associated Diagnosis Comments SURGICAL PATHOLOGY REPORT Routine 10/14/2015 4:35 PM EST documented in this encounter Results * Surgical Pathology Report (10/14/2015 4:35 PM EST) Surgical Pathology Report [id number] ? Location: [facility] The signing pathologist has (i) examined the relevant preparation(s) for the specimen(s) and (ii) rendered or confirmed the diagnosis(es). . ?Surgical Pathology DIAGNOSIS A - Intervertebral disc, L5/S1 ? Gross surgical pathology examination. CR-0. 10/14/15 SHB 10/15/15 Verified by: ? Ranulfo Gonzales MD ?Pathologist ?(Electronic Signature) The attending pathologist whose signature appears on this report has reviewed all diagnostic slides and has edited the gross and/or microscopic portion of the report in rendering the final pathologic diagnosis. CLINICAL INFORMATION Specimen Submitted: A - L5/S1 disc Clinical History: Left leg pain Clinical Diagnosis: Left leg pain SPECIMEN PROCESSING A - Labeled/Fixative: L5/S1 disc, fresh. Quantity/Size: Multiple, 2.8 x 1.0 x 1.3 cm aggregate. Tissue Description: Fragments of two yellow-white fibrillary fibrocollagenous tissue. Sections/Processing : No sections are submitted. ??Gross examination only. ??shb [facility] 10/14/2015 4:35 PM EST Trevor Rodriguez MD PATHOLOGY/CYTOLOGY O RDERABLES Performing Organization Address City/State/[facility] Co de Phone Number [facility] [place] [address] documented in this encounter Visit Diagnoses Not on filedocumented in this encounter Care Teams Racing Board Marker Relationship Specialty Start Date End Date Santos Hernandez MD [facility] [place] [address] PCP - General Family Medicine 07/16/15 05/09/16 documented as of this encounter
--- OUTSIDE RECORDS SUMMARY | 2024-03-07 02:31 | XMS_ITS | Encounter Summary ---
Author Organization [facility] Address [facility] [place] [address] Care Team Providers Care Spring Bender Name Role Phone David Hernandez MD Primary Care Provider [phone] Reason for Visit * Auth/Cert Specialty Diagnoses / Procedures Referred By Contac t Referred To Contact Diagnoses Lumbar disc herniation LEFT LEG PAIN Procedures PRO LAMINOTOMY, LUMBAR DISK, 1 INTRSP LAMINOTOMY, DECOMPRESSION, FORAMINOTOMY, LUMBAR Referral ID Status Reason Start Date Expiration Date Visits Re quested Visits Authorized [id number] 1 Encounter Details Date Type Department Care Team (Late st Contact Info) Description 10/14/2015 12:58 PM EST - 10/14/2015 3:26 PM EST [place] [id number] Trevor Rodriguez MD [facility] [place] [address] LAMINOTOMY, DECOMPRESSION, FORAMINOTOMY, LUMBAR (WRVU 12) Social History Tobacco Use Types Packs/Day Years Used Date Smoking Tobacco: Never Smokeless Tobacco: Never Sex and Gender Information Value Date Recorded Sex Assigned at Not on file Gender Identity Female 11/18/2018 8:14 PM EDT Sexual Orientation Not on file documented as of this encounter Last Filed Vital Signs Vital Sign Reading Time Taken Comments Blood Pressure 124/62 10/14/2015 11:41 AM EST Pulse 67 10/14/2015 11:41 AM EST Temperature 36.8 ??C (98.2 ??F) 10/14/2015 11:[address] Respiratory Rate 15 10/14/2015 11:41 AM EST Oxygen Saturation 100% 10/14/2015 11:41 AM EST Inhaled Oxygen Concentration - - Weight 74.4 kg (164 lb) 10/14/2015 11:41 AM EST Height 170.2 cm (5' 7.01) 10/14/2015 11:[address] Body Mass Index 25.68 10/14/2015 11:41 AM EST documented in this encounter Discharge Summaries * David Galarza PA - 10/15/2015 9:17 AM EST Inpatient - Discharge Summary Patient Name: Sherrie Bonner Patient Age: 55 y.o. Birthdate: 1960 Admit date: 10/14/2015 Discharge date and time: 10/15/2015 Attending Physician: Trevor Rodriguez MD Discharge Diagnoses (Hospital Problems): Active Hospital Problems Diagnosis ??? Lumbar disc herniation Resolved Hospital Problems Diagnosis Date Resolved No resolved problems to display. Operations/Major Procedures: 10/14/15 lumbar discectomy and foraminotomy, Dr Rodriguez History of Presentation: Sherrie Bonner is a 54-year-old woman with a chief complaint of back and left leg pain.?? This began about three months ago.?? There is pain radiating down the buttock, posterolateral thigh and calf.?? She had a trial with oral prednisone, Vicodin which did not produce significant benefit.?? Shehad a lumbar epidural steroid injection that gave her one day relief of symptoms. There is no bowelor bladder dysfunction. MRI L-Spine: L5-S1 level, on the left there is a hypertrophic facet as well as a small disk fragment that has migrated to a certain extent cephalad and foraminally. Hospital Course: Patient was admitted 10/14/15 and was brought to the OR for uncomplicated lumbar discectomy and foraminotomy by Dr Rodriguez. Post-op she remained stable. She was ambulated without dificulty. She is now felt stable for d/c to home. Important Studies and Lab Data: Lab Results Component Value Date/Time WBC 9.9 10/15/2015 02:33 AM HEMOGLOBIN 11.5 10/15/2015 02:33 AM HEMATOCRIT 34.6 10/15/2015 02:33 AM PLATELETS 204 10/15/2015 02:33 AM SODIUM 140 10/15/2015 02:33 AM POTASSIUM 4.3 10/15/2015 02:33 AM CHLORIDE 104 10/15/2015 02:33 AM CO2 25 10/15/2015 02:33 AM BUN 15 10/15/2015 02:33 AM CREATININE 1.07 10/15/2015 02:33 AM Pending Studies and Lab Data: None Discharge Conditions/Prognosis: Stable Discharge to: Home Discharge Medications: Your Medications New Medications Dose Details acetaminophen 325 mg Tab Commonly known as: TYLENOL Take 2 tablets by mouth every 4 hours as needed for Pain (mild pain). 650 mg Quantity: 30 tablet Refills: 1 oxyCODONE 5 mg Tab Commonly known as: ROXICODONE Take 1-2 tablets by mouth every 4 hours as needed for Pain. 5-10 mg Quantity: 50 tablet Refills: 0 Continued medications, unchanged Dose Details albuterol 90 mcg/actuation Hfaa Commonly known as: PROVENTIL HFA;VENTOLIN HFA;PROAIR Take 2 puffs by mouth daily as needed. 2 puff Refills: 0 b complex vitamins Cap Take 1 capsule by mouth daily. 1 capsule Refills: 0 cholecalciferol (Vitamin D3) 5,000 unit Tab Take 50,000 mg by mouth. 39979 mg Refills: 0 fluticasone-salmeterol 250-50 mcg/dose Dsdv Commonly known as: ADVAIR Take 2 puffs by mouth daily. 2 puff Refills: 0 mirabegron 50 mg Tablet sr Take 50 mg by mouth daily. 50 mg Refills: 0 montelukast 10 mg Tab Commonly known as: SINGULAIR Take 10 mg by mouth daily. 10 mg Refills: 0 teriflunomide 14 mg Tab Take 14 mg by mouth. 14 mg Refills: 0 Updated Allergies/ADRs: No Known Allergies Follow-up Recommendations for Providers: See Below Instructions Given to Patient at Discharge: Patient Instructions Primary Reason for Hospitalization: Lumbar disc herniation Condition at Discharge: Stable Discharge Instructions for Spinal Surgery CALL YOUR PHYSICIAN IF: 1. You have a fever greater than 101 degrees Farenheit within one month of your surgery. 2. You have worsening back/neck pain, not controlled with your pain medication. 3. You begin having new trouble moving your arms or legs. 4. You develop pain, burning, urgency/frequency with urination. 5. You develop redness, swelling, or milky or watery drainage from your wound. Prescriptions*: The following have been prescribed to control your discomfort after surgery: (X) Narcotic pain medications, such as Percocet, Vicodin, oxycodone or Dilaudid 1. DO NOT use alcohol, drive, or operate heavy or complex machinery while taking these medications. ??? Narcotic pain medications may cause constipation. ??? Stool softeners, such as Colace; mild laxatives, such as Milk of Magnesia, Sennakot, or Ducolaxtabs; or enemas may be used if needed and are xfbp-mpy-uluvdzx (OTC) medications available at most local pharmacies. Prunes or prune juice, taken daily, can also be helpful for constipation treatmentor prevention and are available at most [employer]. Driving Restrictions*: - [X] No driving for the first two weeks after surgery. Activities: ??? Discuss return to work or school with your surgeon. ? No heavy lifting. You may lift what is comfortable to lift with one arm. Nothing greater than 3-5pounds until re-evaluated by your physician. ? Avoid pushing and/or pulling objects. No washing tompkins, windows, or floors, and no vacuuming or lifting heavy laundry or grocery bags. ? No shoveling, mowing lawns, climbing onto roofs or up ladders and no painting. ? Avoid prolonged periods of straight-back sitting (e.g., no more than 20 minutes at a time), without changing your position. ? No bending, twisting, or lifting. It is better to bend at the knees. ??? You will be advised at your follow-up appointment when you may resume these activities. Diet: ??? Eat a well-balanced diet. Fresh fruits, vegetables and fiber-containing foods are recommended. This will assist in wound healing. Recommendations: ??? Take it easy for two weeks. Remember, If it hurts, don't do it. ??? Take several slow, short walks each day for the first two weeks, and gradually increase your distance. We recommend at least 4 times a day. ??? You can go up and down stairs, but take your time and make sure your feet are securely placed on each step. ??? You can resume sexual activity over the next several weeks. You should be positioned on your back or side. ??? Ankle pump exercises (like pressing and releasing the gas pedal) should be done several times each day until you are back to your normal activities. Wound Care: - You may remove the sterile dressing 2 days after surgery. ??? After 4 days, you can shower per usual routine and wash the incision area gently. Pat incision dry with a clean, dry towel. ? Do not submerge the wound under water (avoid spas, pools and bathtubs) until it is fully healed. ? Do not use creams, oils, or ointments on the wound. ??? Keep the wound open to air if it is not draining. ??? See follow-up appointments below for removal of sutures/jeffrey. Comfort: ??? Some incision soreness can be expected. ??? Take your pain medication as needed and prescribed. ??? Taper use of pain medication as pain lessens. Follow-up Appointments: (X) Please follow-up in Neurosurgery Clinic with: (X)Dr. Rodriguez in 4-6 weeks. Please call the Neurosurgery Clinic if you have not received a scheduled appointment in the mail within 2-3 weeks. (X) Please follow-up for suture/staple removal in 14 days~10/28/15 (X)With your Primary Care Provider (X)With the Neurosurgery ON CAR SUPERVISOR/RN. Important Phone Numbers: Outpatient Nurse: Moraima Urena Inpatient Nurses: Neurosurgical Resident Delinquent Tax Collector Assistant (after 5pm or before 8am): Neurosurgery offices (weekdays between 8am-5pm): Dr. Rodriguez: Dr. Ge: Pediatric Patients , Adult [phone] [address]. Jose: Dr. Wells: Dr. Elmore: Dr. Leong David Galarza, Physician Stock Selector Diamante Maddox, Nurse Practitioner David Bah, Physician Stock Selector Mary Beth Dempsey, Nurse Practitioner Your surgeon may not be Delinquent Tax Collector Assistant, especially during the night or on weekends, so be ready to tell about yourself and your surgery when you iesha CC: Primary Care Physician: DAVID HERNANDEZ MD Future Appointments Provider Department Dept Phone 11/03/2015 10:00 AM Jenni Ramirez MD Neurology [phone] Electronically Signed By: FATOU AYALA 10/15/2015 documented in this encounter Discharge Instructions * Patient Instructions* David Galarza PA - 10/15/2015 9:15 AM EST Primary Reason for Hospitalization: Lumbar disc herniation Condition at Discharge: Stable Discharge Instructions for Spinal Surgery CALL YOUR PHYSICIAN IF: 1. You have a fever greater than 101 degrees Farenheit within one month of your surgery. 2. You have worsening back/neck pain, not controlled with your pain medication. 3. You begin having new trouble moving your arms or legs. 4. You develop pain, burning, urgency/frequency with urination. 5. You develop redness, swelling, or milky or watery drainage from your wound. Prescriptions*: The following have been prescribed to control your discomfort after surgery: (X) Narcotic pain medications, such as Percocet, Vicodin, oxycodone or Dilaudid 1. DO NOT use alcohol, drive, or operate heavy or complex machinery while taking these medications. ??? Narcotic pain medications may cause constipation. ??? Stool softeners, such as Colace; mild laxatives, such as Milk of Magnesia, Sennakot, or Ducolaxtabs; or enemas may be used if needed and are byux-xwg-phgyqgb (OTC) medications available at most local pharmacies. Prunes or prune juice, taken daily, can also be helpful for constipation treatmentor prevention and are available at most [employer]. Driving Restrictions*: - [X] No driving for the first two weeks after surgery. Activities: ??? Discuss return to work or school with your surgeon. ? No heavy lifting. You may lift what is comfortable to lift with one arm. Nothing greater than 3-5pounds until re-evaluated by your physician. ? Avoid pushing and/or pulling objects. No washing tompkins, windows, or floors, and no vacuuming or lifting heavy laundry or grocery bags. ? No shoveling, mowing lawns, climbing onto roofs or up ladders and no painting. ? Avoid prolonged periods of straight-back sitting (e.g., no more than 20 minutes at a time), without changing your position. ? No bending, twisting, or lifting. It is better to bend at the knees. ??? You will be advised at your follow-up appointment when you may resume these activities. Diet: ??? Eat a well-balanced diet. Fresh fruits, vegetables and fiber-containing foods are recommended. This will assist in wound healing. Recommendations: ??? Take it easy for two weeks. Remember, If it hurts, don't do it. ??? Take several slow, short walks each day for the first two weeks, and gradually increase your distance. We recommend at least 4 times a day. ??? You can go up and down stairs, but take your time and make sure your feet are securely placed on each step. ??? You can resume sexual activity over the next several weeks. You should be positioned on your back or side. ??? Ankle pump exercises (like pressing and releasing the gas pedal) should be done several times each day until you are back to your normal activities. Wound Care: - You may remove the sterile dressing 2 days after surgery. ??? After 4 days, you can shower per usual routine and wash the incision area gently. Pat incision dry with a clean, dry towel. ? Do not submerge the wound under water (avoid spas, pools and bathtubs) until it is fully healed. ? Do not use creams, oils, or ointments on the wound. ??? Keep the wound open to air if it is not draining. ??? See follow-up appointments below for removal of sutures/jeffrey. Comfort: ??? Some incision soreness can be expected. ??? Take your pain medication as needed and prescribed. ??? Taper use of pain medication as pain lessens. Follow-up Appointments: (X) Please follow-up in Neurosurgery Clinic with: (X)Dr. Rodriguez in 4-6 weeks. Please call the Neurosurgery Clinic if you have not received a scheduled appointment in the mail within 2-3 weeks. (X) Please follow-up for suture/staple removal in 14 days~10/28/15 (X)With your Primary Care Provider (X)With the Neurosurgery ON CAR SUPERVISOR/RN. Important Phone Numbers: Outpatient Nurse: Moraima Urena Inpatient Nurses: Neurosurgical Resident Delinquent Tax Collector Assistant (after 5pm or before 8am): Neurosurgery offices (weekdays between 8am-5pm): Dr. Rodriguez: Dr. Ge: Pediatric Patients , Adult [phone] Dr. Jose: Dr. Wells: Dr. Elmore: Dr. Leong David Galarza, Physician Stock Selector Diamante Maddox, Nurse Practitioner David Bah, Physician Stock Selector Mary Beth Dempsey, Nurse Practitioner Your surgeon may not be Delinquent Tax Collector Assistant, especially during the night or on weekends, so be ready to tell about yourself and your surgery when you iesha CC: Primary Care Physician: DAVID HERNANDEZ MD documented in this encounter Medications at Time [...] 06/26/2012 11/22/2018 documented as of this encounter Progress Notes * Sangita Cantu, RN - 10/15/2015 1:59 PM EST Patient verbalized readiness for discharge and Sherif here to provide transport home. Patient reports good pain control with Oxycodone and was encouraged to take a dose prior to discharge as she has a long ride home. She has ambulated independently and safely. She is neurovascularly intact with just a bit of numbness on the dorsal surface of her right foot (Dr Rodriguez was made aware). She istolerating a regular diet without N/V/D. He PIV's were dc'd from her right hand (none found in leftAC as documented in eD-H). The AVS was reviewed in it's entirety with patient and spouse and all questions were answered to their satisfaction. They have phone numbers for contact and were encouragedto use them for any questions that may arise. I took the lumbar dressing off to show Sherif what the incision looks like in a healthy state and I reapplied a new gauze dressing with Medipore tape which I told them can be removed tomorrow and that the incision could then be left NEY. There is no drai nage from the incsion, which is well approximated and no erythema present. Patient has her Oxycodone Rx. Patient was [facility] by [facility] via to [facility] where met her. * Jerzy Spencer RN - 10/15/2015 1:11 PM EST Record reviewed and patient discussed with multidisciplinary team. No discharge needs identified atthis time. Director Corporate Communications remains available as needed for coordination of care and discharge planning.Pt has arrnaged her own transpotation and will get her prescriptions filled at her local [facility] any needs. RN to review instructiosn, medicatiosn, activity and f/u [id number] prior to discharge. JERZY SPENCER RN 10/15/2015 * Maya Lomas RN - 10/14/2015 6:30 PM EST Patient arrived from Same Day in bed. Oriented patient and to unit/room. Patient reported feeling no pain, just discomfort. Vss on RA. Alert and oriented. Dressing to lower back cdi. Soares patent and draining. piv x2 in right hand flushed without difficulty. Fluids started per emar. Bed in low position, call light in reach. Will continue to monitor * Laura Lizama RN - 10/14/2015 6:02 PM EST Report called to [facility]. Pt transferring to 210A for overnoight observation. documented in this encounter H&P Notes * Dom Charles MD - 10/14/2015 2:41 PM EST Neurosurgery - Preop H&P Date & Time: 10/14/2015 2:41 PM ID: Sherrie Bonner, 55 y.o. female, HPI: 55 yo F presents for lumbar discectomy and foraminotomy. Denies any interval changes. Denies any recent illness. Past Medical Hx: MS Medications: No current facility-administered medications on file prior to encounter. Current Outpatient Prescriptions on File Prior to Encounter Medication Sig Dispense Refill ??? teriflunomide 14 mg Tablet Take 14 mg by mouth. ??? cholecalciferol, Vitamin D3, 5,000 unit Tablet Take 50,000 mg by mouth. ??? montelukast (SINGULAIR) 10 [...] by mouth daily. Allergies: No Known Allergies Family Hx: No family history on file. Social Hx: History Social History ??? Marital Status: Spouse Name: N/A Number of Children: N/A ??? Years of Education: N/A Social History Main Topics ??? Smoking status: Never Smoker ??? Smokeless tobacco: Never Used ??? Alcohol Use: Not on file ??? Drug Use: Not on file ??? Sexual Activity: Not on file Other Topics Concern ??? Not on file Social History Narrative ??? No narrative on file Vitals: Filed Vitals: 10/14/15 1141 BP: 124/62 Pulse: 67 Temp: 36.8 ??C (98.2 ??F) TempSrc: Temporal Resp: 15 Height: 170.2 cm (5' 7.01) Weight: 74.39 kg (164 lb) SpO2: 100% Physical Exam: Gen: NAD. Neuro: Mental Status/Cognitive: Awake, alert, oriented Speech fluent, appropriate. Cranial Nerves: PERRL CN II - Visual acuity and hatfield grossly intact CN III, IV, - EOMI CN V - Sensation intact in V1,2 and 3 distributions CN VII - No facial asymmetry/droop CN VIII - Intact hearing bilaterally to finger rub CN IX, X - Palate and uvula midline CN XI - Trapezius 5/5 bilat CN XII - Tongue midline Tone: Normal Power: Segment Muscle Action Left Right C5 Biceps Elbow flexion 5 5 C6 Extensor carpi radialis Wrist extension 5 5 C7 Triceps Elbow extension 5 5 C8, T1 Hand intrinsics Grasp 5 5 L2 Iliopsoas Hip flexion 5 5 L3 Quadriceps Knee extension 5 5 L4 Tibialis anterior Dorsiflexion 5 5 L5 Extensor hallucis Great toe extension 5 5 S1 Gastrocnemius Plantar flexion 5 5 Gait: Normal gait Sensation in the extremities: Light touch: Intact x 4 Assessment/Plan: 55 y/o F presents for lumbar discectomy. Denies any recent illness or overall changes to health status. Agrees to proceed with surgery as scheduled. documented in this encounter Miscellaneous Notes * Op Note - Dom Charles MD - 10/16/2015 8:27 AM EST [facility] Operative Note Patient Name: Sherrie Bonner : [id number] MR#: [id number] Case Date: 10/14/2015 Surgeon: Surgeon(s) and Role: * Trevor Rodriguez MD - Primary * Dom Charles MD - Resident-Surgeon Bebeto Preoperative diagnosis: LEFT LEG PAIN Postoperative diagnosis: LEFT LEG PAIN Procedure(s): LAMINOTOMY, DECOMPRESSION, FORAMINOTOMY, LUMBAR MICROSCOPE USE Findings: HNP Anesthesia: General Estimated Blood Loss: 20 mL Specimens removed during surgery: L5-S1 HNP Drains: None Surgical Closure: Primary Closure - closure of ALL tissue levels during the original surgery regardless of wires, wickes, drains, or other devices extruding through the incision Disposition: awakened from anesthesia, extubated and taken to the recovery room in a stable condition, having suffered no apparent untoward event. Condition: doing well without problems (Please see the Surgical Encounter Summary for any Implant and Specimen details pertinent to this patient.) Indications: Mrs. Bonner is a 55-year-old female who recently presented with a chief complaint of back and left leg pain. This began approximately three months ago. She describes pain radiating down the left buttocks and posterior lateral thigh and calf in the typical sciatic-like distribution. She had a trial with oral prednisone and p.o. pain medication, which had not produced significant benefit. She also had a lumbar epidural steroid injection, which only gave her transient relief of symptoms. She recently was evaluated by Dr. Rodriguez, and the decision was made to take her to the operating room for removal of an L5 to S1 herniated nucleus pulposus on the left side. Procedure: The patient was brought to the operating room and, following intubation and induction of general anesthesia, was placed on the operating room table in a Zuhair frame in the prone position. Great care was taken to assure that all pressure points were appropriately padded. The C-arm was brought into the field and used to localize the L5 to S1 level. Based on this, we then planned an incision in the lumbar spine region, which was linear and approximately 5 cm. This incision was then prepped and draped in the usual sterile fashion. 1% lidocaine with epinephrine was then injected into the field. This incision was then opened from end to end with a 10-blade scalpel. Self-retaining retractors were then deployed for exposure. Monopolar electrocautery was then used to dissect down through the fascia to the top of the spinous processes. We then dissected off the paraspinous musculature in a subperiosteal fashion. A retractor was then deployed to expose the L5 lamina on the left side. The C-arm was once again used to confirm that we were at the L5-S1 level. Next, the Zeiss operating microscope was then brought onto the field. We used the Midas Reg drill with the M8 drill bit to drill down the L5 lamina on the left side. The hemilaminectomy was then completed with Kerrison rongeurs. Using a nerve root retractor, we then gently retracted the lumbar dura medially, including the axillary nerve root. We were able to identify the L5-S1 disk space. This was then entered with an 11-blade scalpel. Valdovinos's and Grupo's rongeurs were then used to perform the diskectomy at this site. Once this was completed and adequate decompression was confirmed, bipolar electrocautery, along with Gelfoam, was used for hemostasis. The fascial layer was then closed with interrupted 0 Vicryl sutures. Interrupted 2-0 Vicryl sutures were used for deep dermal closure. The skin was closed with jeffrey. The wound was then dressed with bacitracin, Xeroform, and sterile gauze. The patient was subsequently returned to the supine position, extubated, and brought to the recovery unit having suffered no untoward events. Dr. Rodriguez was present and participated in the critical portions of the procedure. Infection Bundle used? No * Plan of Care - Anamaria Manley RN - 10/15/2015 5:25 AM EST Problem: General Plan of Care Goal: Plan of Care Review Outcome: Ongoing (Interventions Implemented as Appropriate) 10/15/15 0522 Plan of Care Review Plan of Care Outcome Status ongoing (interventions implemented as appropriate) Progress improving Coping/Psychosocial Response Interventions Plan of Care Reviewed with patient OUTCOME EVALUATION NOTE: OUTCOME SUMMARY: Pt stated she was comfortable for most of shift, requested oxycodone once, taken with good effect. Pt ate 100% of dinner and drank fluids during shift, tolerated well, denied nausea. Soares in place patent, draining adequate amts of cyu. Pts bowel sounds faint, but active, pt not yet passing flatus.Q4h neurovascular checks completed, all checks WDL. Surgical dressing in place, gauze over lumbar spine incision, some dried drainage, intact. Pt has not yet ambulated since surgery, has been instructed not to twist. PLAN MOVING FORWARD: Continue to monitor and treat pain, encourage ambulation and pulmonary hygiene. Potential dischargehome today. INDIVIDUALIZED FALL PREVENTION: Patient had spinal surgery, running IV, generalized weakness post op, using call arias appropriately. Assistance: Bed rest, not yet OOB postop Supervision: Intermittent, able to use call arias appropriately. Surveillance: Purposeful rounding, room close to nursing station. [facility] GOAL OUTCOME EVALUATION: Goal: Fall Prevention-Safe Patient Handling Outcome: Ongoing (Interventions Implemented as Appropriate) 10/14/151999 Tyler Fall Risk History of Falling 0 Secondary Diagnosis 15 Ambulatory Aids 0 Intravenous Therapy/Heparin/Saline Lock 20 Gait/Transferring 0 Mental Status 0 Score 35 OTHER Tyler Fall Risk Med Safety Interventions Safety Precautions/Fall Reduction bed alarm;environmental modification;fall reduction program maintained;lighting adjusted for task/safety;low bed;nonskid shoes/slippers when out of bed;room near unit station;supervised activity Musculoskeletal Interventions Activity/Level of Assistance bed rest (has not been OOB postop) Positioning HOB up 30-45 degrees;independent Goal: Infection Control Outcome: Ongoing (Interventions Implemented as Appropriate) 10/14/151999 Coping/Psychosocial Response Interventions Counseling reassurance provided;understanding of situation facilitated;verbalization of feelings encouraged Safety Interventions Isolation Precautions standard precautions maintained Infection Prevention bronchial hygiene promoted;environmental surveillance;hydration promoted;nutrition promoted;promote handwashing;rest/sleep promoted * Brief Op Note - Trevor Rodriguez MD - 10/14/2015 4:32 PM EST Brief Operative Note Patient Name: Sherrie Bonner : [id number] MR#: [id number] Case Date: 10/14/2015 Surgeon: Surgeon(s) and Role: * Trevor Rodriguez MD - Primary * Dom Charles MD - Resident-Surgeon Bebeto Preoperative diagnosis: LEFT LEG PAIN Postoperative diagnosis: LEFT LEG PAIN Procedure(s): LAMINOTOMY, DECOMPRESSION, FORAMINOTOMY, LUMBAR Anesthesia: GET Fluids: 1L crystalloid Estimated Blood Loss: 20cc Attestation: Case Date: 10/14/2015 I was present and I participated during the entire procedure (does not need to include opening and closing). (Please see the Surgical Encounter Summary for any Implant and Specimen details pertinent to this patient.) documented in this encounter Plan of Treatment Pending Results Name Type Priority Associated Diagnoses Date /Time FILM LIBRARY-FLUORO OR [id number] ONL Imaging Routine 10/14/2015 4:5 4 PM EST Scheduled Orders Name Type Priority Associated Diagnoses Orde r Schedule FILM LIBRARY-FLUORO OR [id number] ONL Imaging Routine Once PRN (f or Radiant use) for 1 Occurrences starting 10/14/2015 until 10/14/2015 documented as of this encounter Procedures Procedure Name Priority Date/Time Associated Diagnosis Comments HEMOGRAM Routine 10/15/2015 2:33 AM EST DIFFERENTIAL, AUTOMATED Routine 10/15/2015 2:33 AM EST CBC (WITH DIFF) Routine 10/15/2015 2:33 AM EST BASIC METABOLIC PANEL (NON-FASTING) Routine 10/15/2015 2:33 AM EST SPECIMEN TO PATHOLOGY Routine 10/14/2015 4:35 PM EST MICROSCOPE USE (WRVU 3.46) 10/14/2015 2:45 PM EST LEFT LEG PAIN LAMINOTOMY, DECOMPRESSION, FORAMINOTOMY, LUMBAR (WRVU 12) 10/14/2015 2:45 PM EST LEFT LEG PAIN TYPE AND SCREEN, SDP (FUTURE SURGERY, [facility] SAME DAY PROGRAM ONLY) STAT 10/14/2015 11:28 AM EST ABO/RH TYPING STAT 10/14/2015 11:28 AM EST ANTIBODY SCREEN STAT 10/14/2015 11:28 AM EST documented in this encounter Results * (ABNORMAL) Differential, Automated (10/15/2015 2:33 AM EST) Neutrophils % 92.7 % [facility] Neutr Abs (ANC) 9.17(H) 1.50 - 6.30 x10(3)/mc L [facility] Lymphocytes % 4.4 % [facility] Lymphocytes Abs 0.4(L) 1.0 - 3.6 x10(3)/mc L [facility] Monocytes % 2.6 % [facility] Monocyte Abs 0.3 0.2 - 1.0 x10(3)/mc L [facility] Eosinophils % 0.0 % [facility] Eosinophils Abs 0.0 0.0 - 0.5 x10(3)/mc L [facility] Basophils % 0.1 % [facility] Basophils Abs 0.0 0.0 - 0.2 x10(3)/mc L [facility] Immature Gran % 0.20 % [facility] Comment: Immature granulocytes(IG's)percentage and absolute count will include metamyelocytes, myelocytes, and promyelocytes. Blood smears from CBCs yielding IG's will be scanned manually for concordance. If this scan disagrees with the automated IG or if promyelocytes are noted, a manual differential will be performed. Vero Gran Abs 0.02 0.00 - 0.05 x10(3)/mc L [facility] Blood specimen (specimen) 10/15/2015 2:33 AM EST 10/15/2015 2:39 AM EST Narrative Resulting Agency Comment Spec In Lab Trevor Rodriguez MD HEMATOLOGY ORDERABLE S [facility] [place] [address] * (ABNORMAL) Hemogram (10/15/2015 2:33 AM EST) WBC 9.9 4.0 - 10.0 x10(3)/[facility] RBC 3.77(L) 3.93 - 5.22 x10(6)/[facility] Hemoglobin 11.5 11.2 - 15.7 gm/dL [facility] Hematocrit 34.6 34.0 - 45.0 % [facility] MCV 91.8 79.0 - 94.0 fL [facility] MCH 30.5 26.6 - 32.2 pg [facility] MCHC 33.2 32.0 - 36.5 gm/dL [facility] Platelets 204 145 - 370 x10(3)/[facility] RDWSD 42.2 35.0 - 46.0 fL [facility] RDWCV 12.5 10.9 - 14.4 % [facility] MPV 11.2 9.0 - 12.0 fL [facility] Blood specimen (specimen) 10/15/2015 2:33 AM EST 10/15/2015 2:39 AM EST Narrative Resulting Agency Comment Spec In Lab Trevor Rodriguez MD HEMATOLOGY ORDERABLE S [facility] [place] [address] * (ABNORMAL) Basic Metabolic Panel (non-fasting) (10/15/2015 2:33 AM EST) Glucose Lvl 146 65 - 199 mg/dL [facility] Comment:Diabetes: >=200 mg/d L plus symptoms BUN 15 8 - 18 mg/dL [facility] Creatinine 1.07 0.70 - 1.20 mg/dL [facility] Comment: Please note that the pediatric reference intervals supplied above were not validated at [facility]. Results from pediatric patients should be interpreted in conjunction to the patient's age, height and muscle mass. Sodium 140 135 - 145 mmol/L [facility] Potassium 4.3 3.5 - 5.0 mmol/L [facility] Comment: Please note: ??Patients with WBC >100,000 may have falsely elevated Potassium levels. ??For accurate Potassium quantification in these patients send serum separator tube (gold top) for subsequent determinations. ??Contact the Clinical Chemistry Laboratory if there are any questions. Chloride 104 98 - 107 mmol/L [facility] CO2 25 22 - 31 mmol/L [facility] Anion Gap 11 5 - 15 mmol/L [facility] Calcium 8.5 8.5 - 10.5 mg/dL [facility] Estimated GFR 53(L) >=60 [facility] Comment: This estimated GFR (eGFR) value was calculated using the MDRD equation which has been validated on patients between the ages of 18 and 70. The MDRD should not be used to assess kidney function in patients < 18 years of age or in patients with extremes of body mass, or in patients with acute kidney failure. This value should be multiplied by 1.2 for patients. For further information please copy and paste the following links into your internet browser. [email or web address] Blood specimen (specimen) 10/15/2015 2:33 AM EST 10/15/2015 2:39 AM EST Narrative Resulting Agency Comment Spec In Lab Trevor Rodriguez MD CHEMISTRY ORDERABLES Performing Organization Address [facility] Co de Phone Number [facility] [place] [address] * Specimen to Pathology (surgical or derm) (10/14/2015 4:35 PM EST) AP Specimen 10/14/2015 4:35 PM EST 10/14/2015 4:35 PM EST Narrative [facility] - 10/14/2015 4:35 PM EST Specimen requisition ordered. ??Separate Pathology report to follow Trevor Rodriguez MD PATHOLOGY/CYTOLOGY O RDERABLES Performing Organization Address [facility] [place] [address] * Antibody screen (10/14/2015 11:28 AM EST) Ab Screen Interp Negative [facility] Expires at 2359 on: 10/17/2015 [facility] Blood specimen (specimen) 10/14/2015 11:28 AM EST 10/14/2015 11:32 AM EST Narrative Resulting Agency Comment Spec In Lab Trevor Rodriguez MD BLOOD BANK LAB ORDER MARBIN Performing Organization Address [facility] Co de Phone Number [facility] [place] [address] * ABO/Rh Typing (10/14/2015 11:28 AM EST) ABORH Type A Pos [facility] Blood specimen (specimen) 10/14/2015 11:28 AM EST 10/14/2015 11:32 AM EST Narrative Resulting Agency Comment Spec In Lab Trevor Rodriguez MD BLOOD BANK LAB ORDER MARBIN Performing Organization Address City/[facility]/ZIP [place] [address] documented in this encounter Visit Diagnoses Not on filedocumented in this encounter Admitting Diagnoses Diagnosis Lumbar disc herniation Displacement of lumbar intervertebral disc without myelopathy documented in this encounter Administered Medications Inactive Administered Medications - up to 3 most recent administrations Medication Order MAR Action Action Date Dose Rate Site acetaminophen (TYLENOL) tablet 650 mg 650 mg, Oral, EVERY 4 HOURS PRN, Starting on Tue10/14/15 at 1654, Until Tue10/15/15 at 1625, Pain, mild pain, May repeat once in 30 minutes if desired effect not achieved. Do not exceed 4000 mg acetaminophen per day. Mild pain (1-3)., Routine Given 10/15/2015 1:30 PM EST 650 mg bacitracin injection ONCE PRN, Starting on Tue10/14/15 at 1530, Until Tue10/14/15 at 1821, Intra-Operative (Intra-Procedure), Routine Given 10/14/2015 3:30 PM EST 50,000 Units 19- Surgical Site bacitracin-polymyxin b (POLYSPORIN) ointment ONCE PRN, Starting on Tue10/14/15 at 1634, Until Tue10/14/15 at 1821, Intra-Operative (Intra-Procedure) Given 10/14/2015 4:34 PM EST 0.5 Tubes 19- Surgical Site ceFAZolin (ANCEF) 1g in dextrose 5% 50mL 1,000 mg (1 g), Intravenous, EVERY 8 HOURS, 3 doses, First dose on Tue10/14/15 at 1715, Last dose on Tue10/15/15 at 1500, Administer over 30 Minutes, Indication for (Active or Suspected): Prophylaxis Given 10/15/2015 6:20 AM EST 1,000 mg 100 mL/hr Given 10/15/2015 12:42 AM EST 1,000 mg 100 mL/hr famotidine (PEPCID) tablet 20 mg 20 mg, Oral, 2 TIMES DAILY, First dose (after last reorder) on Tue10/15/15 at 0900, Until Discontinued, If unable to take PO, may give IV, Routine Given 10/15/2015 9:08 AM EST 20 mg famotidine (PEPCID) tablet 20 mg 20 mg, Oral, ONCE, 1 dose, On Tue10/14/15 at 2100, Routine Given 10/14/2015 8:11 PM EST 20 mg fentaNYL (PF) 50 mcg/mL 2mL syringe 50 mcg, Intravenous, EVERY 5 MIN PRN, Pain, for 5-10 pain score, Starting on Tue10/14/15 at 1659, Until Tue10/14/15 at 1821, for 5-10 pain score Hold for respiratory rate less than 10 per minute. Maximum dose: 250 mcg over one hour., PACU Recovery Given 10/14/2015 5:04 PM EST 50 mcg fluticasone-salmeterol (ADVAIR HFA) 115-21 mcg/actuation inhaler 2 puff 2 puff, Inhalation, EVERY 12 HOURS SCHEDULED (2 times per day), First dose on Tue10/14/15 at 2100, Until Discontinued, Rinse mouth after administration Therapeutic interchange for Advair 250/50 mcg Given 10/15/2015 9:10 AM EST 2 puffs Given 10/14/2015 8:11 PM EST 2 puffs gelatin adsorbable (GELFOAM) sponge ONCE PRN, Starting on Tue10/14/15 at 1540, Until Tue10/14/15 at 1821, Intra-Operative (Intra-Procedure) Given 10/14/2015 3:40 PM EST 1 each 19- Surgical Site lactated ringers infusion 1,000 mL 1,000 mL, at 100 mL/hr, Intravenous, CONTINUOUS, Starting on Tue10/14/15 at 1200, Until Tue10/14/15 at 1821, Day of Surgery (Day of Procedure) New Bag 10/14/2015 4:13 PM EST New Bag 10/14/2015 2:41 PM EST New Bag 10/14/2015 12:00 PM EST 1,000 mLs 100 mL/hr lidocaine-EPINEPHrine 1 %-1:200,000 injection ONCE PRN, Starting on Tue10/14/15 at 1518, Until Tue10/14/15 at 1821, Intra-Operative (Intra-Procedure), Routine Given 10/14/2015 3:18 PM EST 10 mLs 19- Surgical Site montelukast (SINGULAIR) tablet 10 mg 10 mg, Oral, DAILY, First dose on Tue10/14/15 at 2100, Until Discontinued, Routine Given 10/14/2015 8:10 PM EST 10 mg oxyCODONE (ROXICODONE) immediate release tablet 10 mg 10 mg, Oral, EVERY 4 HOURS PRN, Starting on Tue10/14/15 at 1654, Until Tue10/15/15 at 1625, Pain, severe pain (7-10), May give an additional 5 mg in 30 minutes once if pain not relieved. Severe pain (7-10), Routine Given 10/15/2015 1:30 PM EST 10 mg Given 10/15/2015 7:39 AM EST 10 mg Given 10/15/2015 1:49 AM EST 10 mg senna-docusate (PERICOLACE) 8.6-50 mg per tablet 2 tablet 2 tablet, Oral, 2 TIMES DAILY, First dose on Tue10/14/15 at 2100, Until Discontinued, Routine Given 10/15/2015 9:08 AM EST 2 tablets Given 10/14/2015 8:11 PM EST 2 tablets sodium chloride 0.9 % flush 5 mL 5 mL, Intravenous, 2 TIMES DAILY, First dose on Tue10/14/15 at 2100, Until Discontinued, Recovery (Recovery-Hospital Unit), Routine Given 10/14/2015 8:11 PM EST 5 mLs sodium chloride 0.9% infusion 75 mL/hr, Intravenous, CONTINUOUS, Starting on Tue10/14/15 at 1845, Until Tue10/15/15 at 0740, Recovery (Recovery-Hospital Unit) New Bag 10/14/2015 6:37 PM EST 75 mL/hr 75 mL/hr thrombin (bovine) (THROMBIN-JMI) solution ONCE PRN, Starting on Tue10/14/15 at 1646, Until Tue10/14/15 at 1821, Intra-Operative (Intra-Procedure) Given 10/14/2015 4:46 PM EST 5,000 Units 19- Surgical Site documented in this encounter Active and Recently Administered Medications Times are shown in EST. Scheduled Medication Order 10/13/2015 10/14/2015 10/15/2015 ceFAZolin (ANCEF) 1g in dextrose 5% 50mL (COMPLETED) 1,000 mg (1 g), Intravenous, ONCE, 1 dose, On Tue10/14/15 at 1200, Administer over 30 Minutes, To be administered upon arrival to the OR within one hour prior to incision., Day of Surgery (Day of Procedure), Indication for (Active or Suspected): Prophylaxis 1510 (Given - Provider: Shyam Sweeney CRNA) ceFAZolin (ANCEF) 1g in dextrose 5% 50mL (CANCELED) 1,000 mg (1 g), Intravenous, EVERY 8 HOURS, 3 doses, First dose on Tue10/14/15 at 1715, Last dose on Tue10/15/15 at 1500, Administer over 30 Minutes, Indication for (Active or Suspected): Prophylaxis 0042 (Given - Provid er: Anamaria Manley RN)0620 (Given - Provider: Anamaria Manley RN) famotidine (PEPCID) tablet 20 mg (CANCELED)(Linked Group 1) 20 mg, Oral, 2 TIMES DAILY, First dose (after last reorder) on Tue10/15/15 at 0900, Until Discontinued, If unable to take PO, may give IV, Routine 907 (Given - Provid er: Sujata Wharton RN) famotidine (PEPCID) tablet 20 mg (COMPLETED)(Linked Group 2) 20 mg, Oral, ONCE, 1 dose, On Tue10/14/15 at 2100, Routine 2010 (Given - Provider: Anamaria Manley RN) fluticasone-salmeterol (ADVAIR HFA) 115-21 mcg/actuation inhaler 2 puff (CANCELED) 2 puff, Inhalation, EVERY 12 HOURS SCHEDULED (2 times per day), First dose on Tue10/14/15 at 2100, Until Discontinued, Rinse mouth after administration Therapeutic interchange for Advair 250/50 mcg 2010 (Given - Provider: Anamaria Manley RN) 909 (Given - Provider: Sujata Wharton RN) montelukast (SINGULAIR) tablet 10 mg (CANCELED) 10 mg, Oral, DAILY, First dose on Tue10/14/15 at 2100, Until Discontinued, Routine 2009 (Given - Provider: Anamaria Manley RN) senna-docusate (PERICOLACE) 8.6-50 mg per tablet 2 tablet (CANCELED) 2 tablet, Oral, 2 TIMES DAILY, First dose on Tue10/14/15 at 2100, Until Discontinued, Routine 2010 (Given - Provider: Anamaria Manley RN) 0908 (Given - Provider: Sujata Wharton, MARIA T) sodium chloride 0.9 % flush 5 mL (CANCELED) 5 mL, Intravenous, 2 TIMES DAILY, First dose on Tue10/14/15 at 2100, Until Discontinued, Recovery (Recovery-Hospital Unit), Routine 2010 (Given - Provider: Anamaria Manley, MARIA T) Continuous Medication Order 10/13/2015 10/14/2015 10/15/2015 lactated ringers infusion 1,000 mL (CANCELED) 1,000 mL, at 100 mL/hr, Intravenous, CONTINUOUS, Starting on Tue10/14/15 at 1200, Until Tue10/14/15 at 1821, Day of Surgery (Day of Procedure) 1200 (New Bag - Provider: Hernando Gray RN)1441 (New Bag - Provider: Niall Chahal MD)1458 (Anesthesia Volume Adjustment - Provider: Niall Chahal MD)1547 (Anesthesia Volume Adjustment - Provider: Shyam Sweeney CRNA)1613 (New Bag - Provider: Shyam Sweeney CRNA) sodium chloride 0.9% infusion (CANCELED) 75 mL/hr, Intravenous, CONTINUOUS, Starting on Tue10/14/15 at 1845, Until Tue10/15/15 at 0740, Recovery (Recovery-Hospital Unit) 1837 (New Bag - Provider: Maya Lomas, MARIA T) PRN Medication Order 10/13/2015 10/14/2015 10/15/2015 acetaminophen (TYLENOL) tablet 650 mg(Linked Group 3) 650 mg, Oral, EVERY 4 HOURS PRN, Starting on Tue10/14/15 at 1654, Until Tue10/15/15 at 1625, Pain, mild pain, May repeat once in 30 minutes if desired effect not achieved. Do not exceed 4000 mg acetaminophen per day. Mild pain (1-3)., Routine 1330 (Given - Provid er: Sangita Cantu RN) bacitracin injection (CANCELED) ONCE PRN, Starting on Tue10/14/15 at 1530, Until Tue10/14/15 at 1821, Intra-Operative (Intra-Procedure), Routine 1530 (Given - Provider: Trevor Rodriguez MD - Comment: Bacitracin 10,000 units mixed per 1L Lactated Ringers.) bacitracin-polymyxin b (POLYSPORIN) ointment (CANCELED) ONCE PRN, Starting on Tue10/14/15 at 1634, Until Tue10/14/15 at 1821, Intra-Operative (Intra-Procedure) 1634 (Given - Provider: Trevor Rodriguez MD) fentaNYL (PF) 50 mcg/mL 2mL syringe (CANCELED)(Linked Group 4) 50 mcg, Intravenous, EVERY 5 MIN PRN, Pain, for 5-10 pain score, Starting on Tue10/14/15 at 1659, Until Tue10/14/15 at 1821, for 5-10 pain score Hold for respiratory rate less than 10 per minute. Maximum dose: 250 mcg over one hour., PACU Recovery 1704 (Given - Provider: Laura Lizama RN) gelatin adsorbable (GELFOAM) sponge (CANCELED) ONCE PRN, Starting on Tue10/14/15 at 1540, Until Tue10/14/15 at 1821, Intra-Operative (Intra-Procedure) 1540 (Given - Provider: Trevor Rodriguez MD - Comment: Gelfoam soaked in thrombin 5,000 units used as needed throughout the case.) lidocaine-EPINEPHrine 1 %-1:200,000 injection (CANCELED) ONCE PRN, Starting on Tue10/14/15 at 1518, Until Tue10/14/15 at 1821, Intra-Operative (Intra-Procedure), Routine 1518 (Given - Provider: Trevor Rodriguez MD - Comment: Route: local infiltration.) oxyCODONE (ROXICODONE) immediate release tablet 10 mg (CANCELED)(Linked Group 5) 10 mg, Oral, EVERY 4 HOURS PRN, Starting on Tue10/14/15 at 1654, Until Tue10/15/15 at 1625, Pain, severe pain (7-10), May give an additional 5 mg in 30 minutes once if pain not relieved. Severe pain (7-10), Routine 1711 (Given - Provider: Laura Lizama RN) 0149 (Given - Provider: Dipika Lester RN)0739 (Given - Provider: Anamaria Manley RN)1330 (Given - Provider: Sangita Cantu RN) oxyCODONE (ROXICODONE) immediate release tablet 5 mg(Linked Group 5) 5 mg, Oral, EVERY 4 HOURS PRN, Starting on Tue10/14/15 at 1654, Until Tue10/15/15 at 1625, Pain, mild to moderate pain (1-6), May give an additional 5 mg in 30 minutes once if pain not relieved. Mild to moderate pain (1-6), Routine 1711 (See Alternative - Provider: Laura Lizama RN) 0149 (See Alternative - Provider: Dipika Lester, MARIA T)0739 (See Alternative - Provider: Anamaria Manley, MARIA T)1330 (See Alternative - Provider: Sangita Cantu RN) thrombin (bovine) (THROMBIN-JMI) solution (CANCELED) ONCE PRN, Starting on Tue10/14/15 at 1646, Until Tue10/14/15 at 1821, Intra-Operative (Intra-Procedure) 1646 (Given - Provider: Trevor Rodriguez MD - Comment: Gelfoam soaked in thrombin 5,000 units used as needed throughout the case.) Linked Groups Order Group 1: famotidine (PEPCID) tablet 20 mg (CANCELED)Jump to med 20 mg, Oral, 2 TIMES DAILY, First dose (after last reorder) on Tue10/15/15 at 0900, Until Discontinued, If unable to take PO, may give IV, Routine Or famotidine (PEPCID) injection 20 mg (CANCELED) 20 mg, Intravenous, 2 TIMES DAILY, First dose (after last reorder) on Tue10/15/15 at 0900, Until Discontinued, Routine Group 2: famotidine (PEPCID) tablet 20 mg (COMPLETED)Jump to med 20 mg, Oral, ONCE, 1 dose, On Tue10/14/15 at 2100, Routine Or famotidine (PEPCID) injection 20 mg (COMPLETED) 20 mg, Intravenous, ONCE, 1 dose, On Tue10/14/15 at 2100 Group 3: acetaminophen (TYLENOL) tablet 650 mgJump to med 650 mg, Oral, EVERY 4 HOURS PRN, Starting on Tue10/14/15 at 1654, Until Tue10/15/15 at 1625, Pain, mild pain, May repeat once in 30 minutes if desired effect not achieved. Do not exceed 4000 mg acetaminophen per day. Mild pain (1-3)., Routine Or acetaminophen (TYLENOL) suppository 650 mg (CANCELED) 650 mg, Rectal, EVERY 4 HOURS PRN, Starting on Tue10/14/15 at 1654, Until Tue10/15/15 at 0740, Pain, mild pain, Give per rectum (IA) if unable to take PO. May repeat once in 30 minutes if desired effect not achieved. Do not exceed 4000 mg acetaminophen per day. Mild pain (1-3)., Routine Group 4: fentaNYL (PF) 50 mcg/mL 2mL syringe (CANCELED) 25 mcg, Intravenous, EVERY 5 MIN PRN, Pain, for 1-4 pain score, Starting on Tue10/14/15 at 1659, Until Tue10/14/15 at 1821, for 1-4 pain score Hold for respiratory rate less than 10 per minute. Maximum dose: 250 mcg over one hour., PACU Recovery Or fentaNYL (PF) 50 mcg/mL 2mL syringe (CANCELED)Jump to med 50 mcg, Intravenous, EVERY 5 MIN PRN, Pain, for 5-10 pain score, Starting on Tue10/14/15 at 1659, Until Tue10/14/15 at 1821, for 5-10 pain score Hold for respiratory rate less than 10 per minute. Maximum dose: 250 mcg over one hour., PACU Recovery Group 5: oxyCODONE (ROXICODONE) immediate release tablet 5 mgJump to med 5 mg, Oral, EVERY 4 HOURS PRN, Starting on Tue10/14/15 at 1654, Until Tue10/15/15 at 1625, Pain, mild to moderate pain (1-6), May give an additional 5 mg in 30 minutes once if pain not relieved. Mild to moderate pain (1-6), Routine Or oxyCODONE (ROXICODONE) immediate release tablet 10 mg (CANCELED)Jump to med 10 mg, Oral, EVERY 4 HOURS PRN, Starting on Tue10/14/15 at 1654, Until Tue10/15/15 at 1625, Pain, severe pain (7-10), May give an additional 5 mg in 30 minutes once if pain not relieved. Severe pain (7-10), Routine documented in this encounter Care Teams Spring Bender Relationship Specialty Start Date End Date David Hernandez MD [address] [place] [address] PCP - General Family Medicine 07/16/15 05/09/16 documented as of this encounter
--- OUTSIDE RECORDS SUMMARY | 2024-03-07 02:31 | XMS_ITS | Encounter Summary ---
Author Organization [facility] [place] [address] Care Team Providers Care Barrel Racer Name Role Phone Unavailable Primary Care Provider Unavailabl e Encounter Details Date Type Department Care Team (Late st Contact Info) Description 11/09/2011 - 11/09/2011 11:59 PM EDT Hospital Encounter [place] [id number] [address] Maureen Temporary Pain Discharge Disposition: Home [...] LIBRARY STORAGE ONLY MR SPINE Routine 11/09/2011 12:00 AM EDT Pain documented in this encounter Results * Film Library- Storage only MR Spine (11/09/2011 12:00 AM EDT) Narrative [facility] - 08/01/2015 9:36 PM EST See PACS for result report. Dr Lucrecia Reddy IMG FILM LIBRARY ORD ERABLES [place], [place] documented in this encounter Visit Diagnoses Diagnosis Pain Generalized pain documented in this encounter
--- OUTSIDE RECORDS SUMMARY | 2024-03-07 02:31 | XMS_ITS | Encounter Summary ---
Author Organization [facility] [place] [address] Care Team Providers Care Project Consultant Name Role Phone Santos Hernandez MD Primary Care Provider [phone] Encounter Details Date Type Department Care Team (Latest Contact Info) Description 07/24/2015 - 07/24/2015 11:59 PM EST Hospital Encounter [place] [address] Chas Delaney MD [facility] [place] [address] Pain Discharge Disposition: Home Social History Tobacco Use Types Packs/Day Years Used Date Smoking Tobacco: Never Assessed Sex and Gender Information Value Date Recorded Sex Assigned at Not on file Gender Identity Female 11/18/2018 8:14 PM EDT Sexual Orientation Not on file documented as of this encounter Medications at Time of Discharge Medication Sig Dispensed Refills Start Date End Date teriflunomide 14 mg Tablet Take 14 mg [...] FILM LIBRARY STORAGE ONLY MR SPINE Routine 07/24/2015 12:00 AM EST Pain documented in this encounter Results * Film Library- Storage Only MR Spine (07/24/2015 12:00 AM EST) Narrative [facility] - 07/30/2016 2:03 AM EST This exam is for storage only and is auto-finalizing. Chas Delaney MD IMG FILM LIBRARY ORD ERABLES Performing Organization Address City/State/[facility] Co de Phone Number [place], [place] documented in this encounter Visit Diagnoses Diagnosis Pain Generalized pain documented in this encounter Care Teams Project Consultant Relationship Specialty Start Date End Date Santos Hernandez MD [facility] [place] [address] PCP - General Family Medicine 07/16/15 05/09/16 documented as of this encounter
--- OUTSIDE RECORDS SUMMARY | 2024-03-07 02:31 | XMS_ITS | Encounter Summary ---
Author Organization [facility] Address [facility] [place] [address] Care Team Providers Care Kindergartner Name Role Phone Unavailable Primary Care Provider Unavailabl e Encounter Details Date Type Department Care Team (Late st Contact Info) Description 08/14/2014 - 08/14/2014 11:59 PM EST Hospital Encounter [place] [id number] Dr Maureen Temporary Pain Discharge Disposition: Home [...] FILM LIBRARY STORAGE ONLY MR SPINE Routine 08/14/2014 12:00 AM EST Pain documented in this encounter Results * Film Library- Storage only MR Spine (08/14/2014 12:00 AM EST) Narrative ANKUR - 08/01/2015 9:35 PM EST See PACS for result report. Dr Singer [facility] FILM LIBRARY ORD ERABLES [place], [place] documented in this encounter Visit Diagnoses Diagnosis Pain Generalized pain documented in this encounter
--- OUTSIDE RECORDS SUMMARY | 2024-03-07 02:31 | XMS_ITS | Encounter Summary ---
Author Organization [facility] Address [facility] [place] [address] Care Team Providers Care Net Fisher Name Role Phone David Hernandez MD Primary Care Provider [phone] Reason for Visit * Auth/Cert Specialty Diagnoses / Procedures Referred By Contac t Referred To Contact Diagnoses Lumbar disc herniation LEFT LEG PAIN Procedures PRO LAMINOTOMY, LUMBAR DISK, 1 INTRSP LAMINOTOMY, DECOMPRESSION, FORAMINOTOMY, LUMBAR Referral ID Status Reason Start Date Expiration Date Visits Re quested Visits Authorized [id number] 1 1 Encounter Details Date Type Department Care Team (Latest Contact Info) Description 10/14/2015 11:12 AM EST - 10/15/2015 2:25 PM EST Hospital Encounter 2 [place] [address] Trevor Rodriguez MD [facility] [place] [address] Discharge Disposition: Home Social History Tobacco Use Types Packs/Day Years Used Date Smoking Tobacco: Never Smokeless Tobacco: Never Sex and Gender Information Value Date Recorded Sex Assigned at Not on file Gender Identity Female 11/18/2018 8:14 PM EDT Sexual Orientation Not on file documented as of this encounter Last Filed Vital Signs Vital Sign Reading Time Taken Comments Blood Pressure 110/49 10/15/2015 1:13 PM EST Pulse 67 10/15/2015 1:13 PM EST Temperature 35.7 ??C (96.3 ??F) 10/15/2015 1:13 PM ES T Respiratory Rate 14 10/15/2015 1:13 PM EST Oxygen Saturation 98% 10/15/2015 1:13 PM EST Inhaled Oxygen Concentration - - [...] unit Tab Take 50,000 mg by mouth. 504[address] mg Refills: 0 fluticasone-salmeterol 250-50 mcg/dose Dsdv [...] may be used if needed and are lnov-daw-socpcyw (OTC) medications available at most local pharmacies. Prunes or prune juice, taken daily, can also be helpful for constipation treatmentor prevention and are available at most [employer]. Driving Restrictions*: - [X] No driving for [...] your Primary Care Provider (X)With the Neurosurgery COMMERCIAL SPECIALIST/RN. Important Phone Numbers: Outpatient Nurse: Moraima Urena Inpatient Nurses: Neurosurgical Resident Drum Builder (after 5pm or before 8am): Neurosurgery offices (weekdays between 8am-5pm): Dr. Rodriguez: Dr. Ge: Pediatric Patients , Adult [phone] [address]. Jose: Dr. Wells: Dr. [place]: Dr. Leong David Galarza, Physician Historian Dramatic Arts Diamante Maddox, Nurse Practitioner David Bah Physician Historian Dramatic Arts Mary Beth Dempsey, Nurse Practitioner Your surgeon may not be Drum Builder, especially during the night or on weekends, so be ready to tell about yourself and your surgery when you iesha CC: Primary Care Physician: DAVID HERNANDEZ MD Future Appointments Provider Department Dept Phone 11/03/2015 10:00 AM Jenni Ramirez MD Neurology [phone] Electronically Signed By: FATOU AYALA 10/15/2015 documented [...] may be used if needed and are qlyv-gul-ifiranc (OTC) medications available at most local pharmacies. Prunes or prune juice, taken daily, can also be helpful for constipation treatmentor prevention and are available at most [employer]. Driving Restrictions*: - [X] No driving for [...] your Primary Care Provider (X)With the Neurosurgery COMMERCIAL SPECIALIST/RN. Important Phone Numbers: Outpatient Nurse: Moraima Urena Inpatient Nurses: Neurosurgical Resident Drum Builder (after 5pm or before 8am): Neurosurgery offices (weekdays between 8am-5pm): Dr. Rodriguez: Dr. Ge: Pediatric Patients , Adult [phone] Dr. Jose: Dr. Wells: Dr. [place]: Dr. Leong David Galarza, Physician Historian Dramatic Arts Diamante Maddox, Nurse Practitioner David Bah, Physician Historian Dramatic Arts Mary Beth Dempsey, Nurse Practitioner Your surgeon may not be Drum Builder, especially during the night or on weekends, [...] that the incision could then be left EXPERIMENTAL PREFLIGHT MECHANIC. There is no drai oanh from the incsion, which is well approximated and no erythema present. Patient has her Oxycodone Rx. Patient was escorted by [facility]. * Jerzy Spencer RN - 10/15/2015 1:11 PM EST Record reviewed and patient discussed with multidisciplinary team. No discharge needs identified atthis time. Knowledge Manager remains available as needed for coordination of care and discharge planning.Pt has arrnaged her own transpotation and will get her prescriptions filled at her local [facility] any needs. RN to review instructiosn, medicatiosn, activity and f/u [id number] prior to discharge. JERZY SPENCER RN 10/15/2015 [...] called to [facility]. Pt transferring to 210 for overnoight observation. documented in this encounter [...] Charles MD - 10/16/2015 8:27 AM EST [facility] Operative Note Patient Name: Sherrie Bonner : [id number] MR#: [id number] Case Date: 10/14/2015 Surgeon: Surgeon(s) and Role: [...] brought onto the field. We used the [employer] drill with the M8 drill bit to drill down the L5 lamina on the left side. The hemilaminectomy was then completed with Kerrison rongeurs. Using a nerve root retractor, we then gently retracted the lumbar dura medially, including the axillary nerve root. We were able to identify the L5-S1 disk space. This was then entered with an 11-blade scalpel. Valdovinos's and Riverton's rongeurs were then used to perform the [...] Operative Note Patient Name: Sherrie Bonner : [id number] MR#: [id number] Case Date: 10/14/2015 Surgeon: Surgeon(s) and Role: [...] Associated Diagnoses Date /Time FILM LIBRARY-FLUORO OR [id number] ONL Imaging Routine 10/14/2015 4:5 4 PM EST Scheduled Orders Name Type Priority Associated Diagnoses Orde r Schedule FILM LIBRARY-FLUORO OR [id number] ONL Imaging Routine Once PRN (f or [...] PAIN TYPE AND SCREEN, SDP (FUTURE SURGERY, [facility] SAME DAY PROGRAM ONLY) STAT 10/14/2015 11:28 AM EST ABO/RH TYPING STAT 10/14/2015 11:28 AM EST ANTIBODY SCREEN STAT 10/14/2015 11:28 AM EST documented in this encounter Results * (ABNORMAL) Differential, Automated (10/15/2015 2:33 AM EST) Neutrophils % 92.7 % [facility] Neutr Abs (ANC) 9.17(H) 1.50 - 6.30 x10(3)/mc L [facility] Lymphocytes % 4.4 % [facility] Lymphocytes Abs 0.4(L) 1.0 - 3.6 x10(3)/mc L [facility] Monocytes % 2.6 % [facility] Monocyte Abs 0.3 0.2 - 1.0 x10(3)/mc L [facility] Eosinophils % 0.0 % [facility] Eosinophils Abs 0.0 0.0 - 0.5 x10(3)/mc L [facility] Basophils % 0.1 % [facility] Basophils Abs 0.0 0.0 - 0.2 x10(3)/mc L [facility] Immature Gran % 0.20 % [facility] Comment: Immature granulocytes(IG's)percentage and absolute count will include metamyelocytes, myelocytes, and promyelocytes. Blood smears from CBCs yielding IG's will be scanned manually for concordance. If this scan disagrees with the automated IG or if promyelocytes are noted, a manual differential will be performed. Vero Gran Abs 0.02 0.00 - 0.05 x10(3)/mc L [facility] Blood specimen (specimen) 10/15/2015 2:33 AM EST 10/15/2015 2:39 AM EST Narrative Resulting Agency Comment Spec In Lab Trevor Rodriguez MD HEMATOLOGY ORDERABLE S Performing Organization Address City/[facility] Co de Phone Number [facility] [place] [address] * (ABNORMAL) Hemogram (10/15/2015 2:33 AM EST) WBC 9.9 4.0 - 10.0 x10(3)/[facility] RBC 3.77(L) 3.93 - 5.22 x10(6)/[facility] Hemoglobin 11.5 11.2 - 15.7 gm/dL [facility] Hematocrit 34.6 34.0 - 45.0 % [facility] MCV 91.8 79.0 - 94.0 fL [facility] MCH 30.5 26.6 - 32.2 pg [facility] MCHC 33.2 32.0 - 36.5 gm/dL [facility] Platelets 204 145 - 370 x10(3)/[facility]ORATORY RDWSD 42.2 35.0 - 46.0 fL [facility] RDWCV 12.5 10.9 - 14.4 % [facility] MPV 11.2 9.0 - 12.0 fL [facility] Blood specimen (specimen) 10/15/2015 2:33 AM EST 10/15/2015 2:39 AM EST Narrative Resulting Agency Comment Spec In Lab Trevor Rodriguez MD HEMATOLOGY ORDERABLE S [facility] [place] [address] * (ABNORMAL) Basic Metabolic Panel (non-fasting) (10/15/2015 2:33 AM EST) Glucose Lvl 146 65 - 199 mg/dL [facility] Comment:Diabetes: >=200 mg/d L plus symptoms BUN 15 8 - 18 mg/dL [facility] Creatinine 1.07 0.70 - 1.20 mg/dL [facility] Comment: Please note that the pediatric reference intervals supplied above were not validated at [facility]. Results from pediatric patients should be interpreted in conjunction to the patient's age, height and muscle mass. Sodium 140 135 - 145 mmol/L [facility] Potassium 4.3 3.5 - 5.0 mmol/L [facility] Comment: Please note: ??Patients with WBC >100,000 may have falsely elevated Potassium levels. ??For accurate Potassium quantification in these patients send serum separator tube (gold top) for subsequent determinations. ??Contact the Clinical Chemistry Laboratory if there are any questions. Chloride 104 98 - 107 mmol/L [facility] CO2 25 22 - 31 mmol/L [facility] Anion Gap 11 5 - 15 mmol/L [facility] Calcium 8.5 8.5 - 10.5 mg/dL [facility] Estimated GFR 53(L) >=60 [facility] Comment: This estimated GFR [...] the following links into your internet browser. [email or web address] Blood specimen (specimen) 10/15/2015 2:33 AM EST 10/15/2015 2:39 AM EST Narrative Resulting Agency Comment Spec In Lab Trevor Rodriguez MD CHEMISTRY ORDERABLES Performing Organization Address [facility]/ZIP Co de Phone Number [facility] [place] [address] * Specimen to Pathology (surgical or derm) (10/14/2015 4:35 PM EST) AP Specimen 10/14/2015 4:35 PM EST 10/14/2015 4:35 PM EST Narrative [facility] - 10/14/2015 4:35 PM EST Specimen requisition ordered. ??Separate Pathology report to follow Trevor Rodriguez MD PATHOLOGY/CYTOLOGY O RDERABLES Performing Organization Address [facility] Co de Phone Number [facility] [place] [address] * Antibody screen (10/14/2015 11:28 AM EST) Ab Screen Interp Negative [facility] Expires at 2359 on: 10/17/2015 [facility] Blood specimen (specimen) 10/14/2015 11:28 AM EST 10/14/2015 11:32 AM EST Narrative Resulting Agency Comment Spec In Lab Trevor Rodriguez MD BLOOD BANK LAB ORDER MARBIN Performing Organization Address [facility] Co de Phone Number [facility] [place] [address] * ABO/Rh Typing (10/14/2015 11:28 AM EST) ABORH Type A Pos [facility] Blood specimen (specimen) 10/14/2015 11:28 AM EST 10/14/2015 11:32 AM EST Narrative Resulting Agency Comment Spec In Lab Trevor Rodriguez MD BLOOD BANK LAB ORDER MARBIN Performing Organization Address City/[facility]/ZIP Co de Phone Number [facility] [place] [address] documented in this encounter Visit Diagnoses Diagnosis Lumbar disc herniation- Primary Displacement of lumbar intervertebral disc without myelopathy documented in this encounter Admitting Diagnoses Diagnosis Lumbar [...] Given 10/15/2015 1:30 PM EST 650 mg ceFAZolin (ANCEF) 1g in dextrose 5% 50mL [...] Given 10/14/2015 8:11 PM EST 2 puffs lactated ringers infusion 1,000 mL 1,000 mL, at 100 mL/hr, Intravenous, CONTINUOUS, Starting on Tue10/14/15 at 1200, Until Tue10/14/15 at 1821, Day of Surgery (Day of Procedure) New Bag 10/14/2015 4:13 PM EST New Bag 10/14/2015 2:41 PM EST New Bag 10/14/2015 12:00 PM EST 1,000 mLs 100 mL/hr montelukast (SINGULAIR) tablet 10 mg 10 mg, [...] New Bag 10/14/2015 6:37 PM EST 75 mL/h r 75 mL/hr documented in this encounter Active and Recently [...] 2010 (Given - Provider: Anamaria Manley RN) 0910 (Given - Provider: Sujata Wharton, MARIA T) montelukast (SINGULAIR) tablet 10 mg (CANCELED) 10 mg, Oral, DAILY, First dose on Tue10/14/15 at 2100, Until Discontinued, Routine 2009 (Given - Provider: Anamaria Manley, MARIA T) senna-docusate (PERICOLACE) 8.6-50 mg per tablet 2 tablet (CANCELED) 2 tablet, Oral, 2 TIMES DAILY, First dose on Tue10/14/15 at 2100, Until Discontinued, Routine 2010 (Given - Provider: Anamaria Manley RN) 09 (Given - Provider: uSjata Wharton RN) sodium chloride 0.9 % flush 5 mL (CANCELED) 5 mL, Intravenous, 2 TIMES DAILY, First dose on Tue10/14/15 at 2100, Until Discontinued, Recovery (Recovery-Hospital Unit), Routine 2010 (Given - Provider: Anamaria Manley RN) Continuous Medication Order 10/13/2015 10/14/2015 10/15/2015 lactated [...] Unit) 1837 (New Bag - Provider: Maya Lomas RN) PRN Medication Order 10/13/2015 10/14/2015 10/15/2015 acetaminophen [...] Lizama RN) 0149 (Given - Provider: Dipika Lester, RN)0739 (Given - Provider: Anamaria Manley, RN)1330 (Given - Provider: Sangita Cantu, MARIA T) oxyCODONE (ROXICODONE) immediate release tablet 5 mg(Linked [...] MARIA T)1330 (See Alternative - Provider: Sangita Cantu, MARIA T) thrombin (bovine) (THROMBIN-JMI) solution (CANCELED) ONCE PRN, [...] 0740, Pain, mild pain, Give per rectum ([place]) if unable to take PO. May repeat [...] Routine documented in this encounter Care Teams Net Fisher Relationship Specialty Start Date End Date David Hernandez MD [address] [place] [phone] PCP - General Family Medicine 07/16/15 05/09/16 documented as of this encounter
--- OUTSIDE RECORDS SUMMARY | 2024-03-07 02:31 | XMS_ITS | Encounter Summary ---
Author Organization [facility] Address [facility] [place] [address] Care Team Providers Care Printed Circuit Board Reworker Name Role Phone Unavailable Primary Care Provider Unavailabl e Encounter Details Date Type Department Care Team (Late st Contact Info) Description 06/17/2015 - 06/17/2015 11:59 PM EDT Hospital Encounter [place] [phone] [address] Maureen Temporary Pain Discharge Disposition: Home [...] FILM LIBRARY STORAGE ONLY MR SPINE Routine 06/17/2015 12:00 AM EDT Pain documented in this encounter Results * Film Library- Storage only MR Spine (06/17/2015 12:00 AM EDT) Narrative PRADEEP PASCUAL - 08/01/2015 9:37 PM EST See PACS for result report. Dr Singer [facility] FILM LIBRARY ORD ERABLES [facility] [place], [place] documented in this encounter Visit Diagnoses Diagnosis Pain Generalized pain documented in this encounter
--- OUTSIDE RECORDS SUMMARY | 2024-03-07 02:31 | XMS_ITS | Encounter Summary ---
Author Organization [facility] [place] [address] Care Team Providers Care Shear Operator Automatic Name Role Phone Unavailable Primary Care Provider Unavailabl e Encounter Details Date Type Department Care Team (Late st Contact Info) Description 06/04/2009 Ancillary Procedure [place] [address] Param Kenny MD [facility] [place] [address] Social History Tobacco Use Types Packs/Day Years [...] Comments FILM LIBRARY STORAGE ONLY MAMMO Routine 06/04/2009 12:00 AM EDT documented in this encounter Results * Film Library- Storage Only Mammo (06/04/2009 12:00 AM EDT) Narrative ANKUR - 12/12/2018 10:37 AM EDT This exam is auto-finalizing. It's purpose is for storage only. Param Kenny MD IMG FILM LIBRARY ORD ERABLES [place], [place] documented in this encounter Visit Diagnoses Not on filedocumented in this encounter
--- OUTSIDE RECORDS SUMMARY | 2024-03-07 02:31 | XMS_ITS | Encounter Summary ---
Author Organization [facility] [place] [address] Care Team Providers Care Lead Radiation Therapist Name Role Phone Unavailable Primary Care Provider Unavailabl e Encounter Details Date Type Department Care Team (Late st Contact Info) Description 02/10/2008 Ancillary Procedure [place] [address] Param Kenny MD [facility] [place] [address] Social History Tobacco Use Types Packs/Day Years [...] Comments FILM LIBRARY STORAGE ONLY MAMMO Routine 02/10/2008 12:00 AM EDT documented in this encounter Results * Film Library- Storage Only Mammo (02/10/2008 12:00 AM EDT) Narrative ANKUR - 12/12/2018 10:38 AM EDT This exam is auto-finalizing. It's purpose is for storage only. Param Kenny MD G FILM LIBRARY ORD ERABLES [place], [place] documented in this encounter Visit Diagnoses Not on filedocumented in this encounter
--- OUTSIDE RECORDS SUMMARY | 2024-03-07 02:31 | XMS_ITS | Encounter Summary ---
Author Organization [facility] [place] [address] Care Team Providers Care Hydration Plant Operator Name Role Phone Unavailable Primary Care Provider Unavailabl e Encounter Details Date Type Department Care Team (Late st Contact Info) Description 11/27/2014 Ancillary Procedure [place] [address] Param Kenny MD [facility] [address] [place] [address] Social History Tobacco Use Types Packs/Day Years [...] Comments FILM LIBRARY STORAGE ONLY MAMMO Routine 11/27/2014 12:00 AM EDT documented in this encounter Results * Film Library- Storage Only Mammo (11/27/2014 12:00 AM EDT) Narrative ANKUR - 12/12/2018 10:35 AM EDT This exam is auto-finalizing. It's purpose is for storage only. Param Kenny MD IMG FILM LIBRARY ORD ERABLES [place], [place] documented in this encounter Visit Diagnoses Not on filedocumented in this encounter
--- OUTSIDE RECORDS SUMMARY | 2024-03-07 02:31 | XMS_ITS | Encounter Summary ---
Author Organization [facility] [place] [address] Care Team Providers Care Water Control Station Engineer Name Role Phone Unavailable Primary Care Provider Unavailabl e Encounter Details Date Type Department Care Team (Late st Contact Info) Description 11/21/2012 Ancillary Procedure [place] [address] Param Kenny MD [facility] [place] [address] Social History Tobacco Use Types Packs/Day Years [...] Comments FILM LIBRARY STORAGE ONLY MAMMO Routine 11/21/2012 12:00 AM EDT documented in this encounter Results * Film Library- Storage Only Mammo (11/21/2012 12:00 AM EDT) Narrative ANKUR - 12/12/2018 10:36 AM EDT This exam is auto-finalizing. It's purpose is for storage only. Param Kenny MD IMG FILM LIBRARY ORD ERABLES [place], [place] documented in this encounter Visit Diagnoses Not on filedocumented in this encounter
--- OUTSIDE RECORDS SUMMARY | 2024-03-07 02:31 | XMS_ITS | Encounter Summary ---
Author Organization [facility] Address [facility] [place] [address] Care Team Providers Care Pricing/Signage Team Member Name Role Phone Santos Hernandez MD Primary Care Provider [phone] Reason for Visit * Auth/Cert Specialty Diagnoses / Procedures Referred By Contac t Referred To Contact Diagnoses Lumbar disc herniation LEFT LEG PAIN Procedures PRO LAMINOTOMY, LUMBAR DISK, 1 INTRSP LAMINOTOMY, DECOMPRESSION, FORAMINOTOMY, LUMBAR Referral ID Status Reason Start Date Expiration Date Visits Re quested Visits Authorized [id number] 1 1 Encounter Details Date Type Department Care Team (Late st Contact Info) Description 10/14/2015 2:42 PM EST Anesthesia Event [place] [address] Blas Velasco MD [facility] [place] [address] Niall Chahal MD [facility] [address] [place] [address] Anesthesia Record Procedure Summary Procedure Name Responsible Anesthesiologist Anesthesia Start Time Anesthesia Stop Time LAMINOTOMY, DECOMPRESSION, FORAMINOTOMY, LUMBAR (WRVU 12) (Spine Lumbar) Blas Velasco MD 10/14/15 1442 10/14/15 1652 Events Date Time Event Comment 10/14/2015 1308 1442 AN Verify 1442 Start 1445 An Start Data 1449 An Induction 1451 An Intubation 1455 Anesthesia Ready 1500 Handoff Intra-procedure anesthesia care was transferred after review of the patient's history, current anesthetic/surgical status and plan, according to the ANES Provider Handoff Checklist. 1522 Procedure Start 1644 an connor now 1644 Extubation/LMA Out Patient s pontaneously ventilating. Following commands, sustained head lift. Extubated without any complications. Placed on 6L FM for transport to same day 40 1644 an stop data 1652 Recovery or ICU Handoff Lou ent care was transferred to the destination unit staff after review of the patient's medical history, current anesthetic/surgical status and plan, according to the Provider Handoff Checklist. 165 Stop Meds Name Total Midazolam 2 mg fentaNYL 100 mcg IV Lidocaine 60 mg Propofol 200 mg Rocuronium 50 mg PHENYLephrine 80 mcg Ondansetron 4 mg Dexamethasone 8 mg Neostigmine 5 mg Glycopyrrolate 0.8 mg Lidocaine 4% LTA 4 mL Propofol INF 319.92 mg ceFAZolin (ANCEF) 1g in dextrose 5% 50mL 1 g HYDROmorphone 0.5 mg lactated ringers infusion 1,000 mL 1,000 mL * Agents Name O2 Air Sevoflurane (et) * Blood No blood administrations on file. Lines, Drains, and Airways Type Details Placement Removal Incision 10/14/15; lumbar spi ne; 04/19/22 (LDA cleanup utility RA#[id number]); 1715 (LDA cleanup utility RA#[id number]) 10/14/15 0000 by Kelli Wilkinson RN 04/19/22 1715 by Sergio Chong (RETIRED) Peripheral IV Line - Single Lumen 10/14/15; 1154; metacarpal vein right (top of hand); 20 gauge; intradermal injection, appears comfortable, tolerated well; 10/15/15; 1359 10/14/15 1154 by Hernando Gray RN 10/15/15 1359 by Sangita Cantu, RN ETT Mask Ventilation: Zachary pratt (1); ETT Type: Cuffed, Oral; ETT Size: 7 mm; Mac Blade: 3; Notes: Asleep, Pre-O2; Attempts: 1; Laryngoscopy Grade: 1; ETT Placement Verified By: Capnometry; Secured at Teeth: 21 cm; Inserted by: Fela; Removal Date: 10/14/15; Removal Time: 1644 10/14/16 1451 by Niall Chahal MD 10/14/15 1644 by Keesha Lance Urethral Catheter 10/14/15; 1455; Surg sudeep longer than 2 hours; indwelling double lumen catheter; latex, hydrophilic coated; 14; inserted at this facility; 1; 5; 10; none; drainage bag to dependent drainage; Soares inserted using sterile technique. No resistance met. Clear yellow urine return noted. ; 10/15/15; 1045 10/14/15 1455 by Kelli Wilkinson RN 10/15/15 1045 by Sujata Wharton RN documented in this encounter Social History Tobacco Use Types Packs/Day Years Used Date Smoking Tobacco: Never Smokeless Tobacco: Never Sex and Gender Information Value Date Recorded Sex Assigned at Not on file Gender Identity Female 11/18/2018 8:14 PM EDT Sexual Orientation Not on file documented as of this encounter OR Notes * Anesthesia Postprocedure Evaluation - Blas Velasco MD - 10/14/2015 7:14 PM EST [facility] Department of Anesthesiology Post-procedure Note Patient: Sherire Bonner Procedure Summary Date Anesthesia Start Anesthesia Stop Room / Location 10/14/15 1442 1652 [facility] OR [facility] MAIN OR Procedure Diagnosis Surgeon Responsible Provider LAMINOTOMY, DECOMPRESSION, FORAMINOTOMY, LUMBAR (N/A Spine Lumbar); MICROSCOPE USE (N/A ) (LEFT LEGPAIN) Trevor Rodriguez MD Pouliot, Ryan C, MD All Anesthesia Providers: Anesthesiologist: Milton Macias MD; Blas Velasco MD ECOTHERAPIST: Shyam Sweeney CRNA Learning Development Specialist: Niall Chahal MD Student Nurse Station Air Traffic Control Specialist: Keesha Lance Last (1hr) Vitals: BP 117/59 mmHg (10/14/151826) Temp 36.4 ??C (97.5 ??F) (10/14/151826) Pulse 51 (10/14/151826) Resp 12 (10/14/151826) SpO2 96 % (10/14/151826) Patient Location: PACU/[facility] Level of Consciousness: Awake and Alert Pain Management: Satisfactory Analgesia PONV: None Cardiovascular Status: Hemodynamically Stable and At Baseline Respiratory Status: At Baseline Postoperative Fluid Status: Intravascular EUvolemia Possible Anesthetic Complications: NONE apparent at time of evaluation Final Primary Anesthesia Type: General (The anesthetic type performed was the same as planned.) Comments: * Anesthesia Preprocedure Evaluation - Milton Macias MD - 10/13/2015 4:20 PM EST Pre-Anesthesia Evaluation for: Sherrie macario 55 y.o. female. Procedure(s): LAMINOTOMY, DECOMPRESSION, FORAMINOTOMY, LUMBAR There are no active problems to display for this patient. No past medical history on file. No past surgical history on file. History Substance Use Topics ??? Smoking status: Never Smoker ??? Smokeless tobacco: Never Used ??? Alcohol Use: Not on file History Drug Use Not on file No Known Allergies Medications: MAR and/or home medications have been reviewed. Physical Exam: There were no vitals filed for this visit. There is no weight on file to calculate BMI. Airway Assessment: Mallampati: II TM distance: >3 FB Neck ROM: full Cardiovascular Assessment: cardiovascular exam normal Pulmonary Assessment: breath sounds clear to auscultation pulmonary exam normal Dental Assessment: (+) upper dentures Misc Assessment: Anesthesia Plan: ASA 2 General, with a(n) intravenous induction 55 year old female for laminotomy. PMH includes back pain, MS, restless leg syndrome, and chronic headache. Plan GETA, standard monitors. Pt seen chart reviewed PMHx: -HD, HTN, DM +RAD uses chronic plus rare rescue inhaler -GERD +MS Mild weakness LE and some H/A and fatigue At baseline with minimal symptoms at present OK exercise tolerance NPO Plan Gen ET Discussed possible flare up of MS symptoms abhinav-procedure. Region - Other Informed Consent: Anesthetic plan and risks discussed with patient and spouse. Use of blood products discussed with patient and spouse whom consented to blood products. Plan discussed with resident. PAT Staff Note documented in this encounter Plan of Treatment Not on file documented as of this encounter Visit Diagnoses Not on filedocumented in this encounter Administered Medications Inactive Administered Medications - up to 3 most recent administrations Medication Order MAR Action Action Date Dose Rate Site ceFAZolin (ANCEF) 1g in dextrose 5% 50mL 1,000 mg (1 g), Intravenous, ONCE, 1 dose, On Tue10/14/15 at 1200, Administer over 30 Minutes, To be administered upon arrival to the OR within one hour prior to incision., Day of Surgery (Day of Procedure), Indication for (Active or Suspected): Prophylaxis Given 10/14/2015 3:10 PM EST 1 g dexamethasone (DECADRON) injection PRN, Starting on Tue10/14/15 at 1504, Until Tue10/14/15 at 1652, Anesthesia Intra-op, Routine Given 10/14/2015 3:04 PM EST 8 mg fentaNYL 50 mcg/mL multi-dose injection PRN, Starting on Tue10/14/15 at 1449, Until Tue10/14/15 at 1652, Pain, Anesthesia Intra-op, Routine Given 10/14/2015 2:49 PM EST 100 mcg glycopyrrolate (ROBINUL) multi-dose injection PRN, Starting on Tue10/14/15 at 1610, Until Tue10/14/15 at 1652, Anesthesia Intra-op, Routine Given 10/14/2015 4:10 PM EST 0.8 mg HYDROmorphone (DILAUDID) injection PRN, Starting on Tue10/14/15 at 1530, Until Tue10/14/15 at 1652, Pain, Anesthesia Intra-op, Routine Given 10/14/2015 3:30 PM EST 0.5 mg lactated ringers infusion 1,000 mL 1,000 mL, at 100 mL/hr, Intravenous, CONTINUOUS, Starting on Tue10/14/15 at 1200, Until Tue10/14/15 at 1821, Day of Surgery (Day of Procedure) New Bag 10/14/2015 4:13 PM EST New Bag 10/14/2015 2:41 PM EST New Bag 10/14/2015 12:00 PM EST 1,000 mLs 100 mL/hr lidocaine (PF) (XYLOCAINE) 100 mg/5 mL (2 %) injection PRN, Starting on Tue10/14/15 at 1449, Until Tue10/14/15 at 1652, Anesthesia Intra-op, Routine Given 10/14/2015 2:49 PM EST 60 mg lidocaine (XYLOCAINE) 4 % external solution PRN, Starting on Tue10/14/15 at 1449, Until Tue10/14/15 at 1652, Anesthesia Intra-op Given 10/14/2015 2:49 PM EST 4 mLs midazolam (PF) (VERSED) 1 mg/mL multi-dose injection PRN, Starting on Tue10/14/15 at 1443, Until Tue10/14/15 at 1652, Sleep, Anesthesia Intra-op, Routine Given 10/14/2015 2:43 PM EST 2 mg neostigmine (PROSTIGMINE) multi-dose injection PRN, Starting on Tue10/14/15 at 1610, Until Tue10/14/15 at 1652, Anesthesia Intra-op, Routine Given 10/14/2015 4:10 PM EST 5 mg ondansetron (ZOFRAN) injection PRN, Starting on Tue10/14/15 at 1626, Until Tue10/14/15 at 1652, Nausea, Anesthesia Intra-op, Routine Given 10/14/2015 4:26 PM EST 4 mg PHENYLephrine HCl in NS (PF) (STEPHANIE-SYNEPHRINE) 0.8 mg/10 mL (80 mcg/mL) multi-dose injection Syrg PRN, Starting on Tue10/14/15 at 1459, Until Tue10/14/15 at 1652, Anesthesia Intra-op, Routine Given 10/14/2015 2:59 PM EST 80 mcg propofol (DIPRIVAN) 10 mg/mL bolus injection (Anesthesia) PRN, Starting on Tue10/14/15 at 1449, Until Tue10/14/15 at 1652, Anesthesia Intra-op Given 10/14/2015 2:49 PM EST 200 mg propofol (DIPRIVAN) infusion CONTINUOUS PRN, Starting on Tue10/14/15 at 1508, Until Tue10/14/15 at 1652, Anesthesia Intra-op, Routine New Bag 10/14/2015 3:08 PM EST 50 mcg/kg/min 22.3 mL/hr rocuronium (ZEMURON) multi-dose injection PRN, Starting on Tue10/14/15 at 1449, Until Tue10/14/15 at 1652, Anesthesia Intra-op, Routine Given 10/14/2015 2:49 PM EST 50 mg documented in this encounter Care Teams Pricing/Signage Team Member Relationship Specialty Start Date End Date Santos Hernandez MD [address] [place] [address] PCP - General Family Medicine 07/16/15 05/09/16 documented as of this encounter
--- OUTSIDE RECORDS SUMMARY | 2024-03-07 02:31 | XMS_ITS | Encounter Summary ---
Author Organization [facility] Address [facility] [place] [address] Care Team Providers Care Actionscript Developer Name Role Phone Santos Hernandez MD Primary Care Provider [phone] Reason for Visit * Reason Comments Low Back Pain Bilateral Leg Pain * Consultation (Routine) - Closed Specialty Diagnoses / Procedures Referred By Contac t Referred To Contact Neurosurgery Diagnoses active sciatica, L5, S1 root, possible bone spur Santos Hernandez MD [address] [place] [phone] [facility] [address] [place] [phone] Referral ID Status Reason Start Date Expiration Date V isits Requested Visits Authorized [id number] Closed Consult, Test & Treat Connection [facility] 07/16/2015 07/15/2016 1 1 Encounter Details Date Type Department Care Team (Late st Contact Info) Description 08/11/2015 9:00 AM EST Office [place] [address] Trevor Rodriguez MD [facility] [place] [address] Left leg pain Social History Tobacco Use Types Packs/Day Years Used Date Smoking Tobacco: Never Smokeless Tobacco: Never Sex and Gender Information Value Date Recorded Sex Assigned at Not on file Gender Identity Female 11/18/2018 8:14 PM EDT Sexual Orientation Not on file documented as of this encounter Last Filed Vital Signs Vital Sign Reading Time Taken Comments Blood Pressure 127/58 08/11/2015 8:52 AM EST Pulse - - Temperature - - Respiratory Rate - - Oxygen Saturation - - Inhaled Oxygen Concentration - - Weight 72.6 kg (160 lb) 08/11/2015 8:52 AM EST Height 170.2 cm (5' 7) 08/11/2015 8:52 AM EST Body Mass Index 25.06 08/11/2015 8:52 AM EST documented in this encounter Progress Notes * Trevor Rodriguez MD - 08/11/2015 10:04 AM EST Sherrie Bonner is a 54-year-old woman with a chief complaint of back and left leg pain. This began about three months ago. There is pain radiating down the buttock, posterolateral thigh and calf. She had a trial with oral prednisone, Vicodin which did not produce significant benefit. She had a lumbar epidural steroid injection that gave her one day relief of symptoms. There is no bowel or bladder dysfunction. She has no known allergies. Her past medical history is significant for multiple sclerosis which she has had since 2005 but her symptoms from that have been stable. She also has a history of depression, restless leg syndrome and daily chronic headache. Past surgical history is significant for tubal ligation, a cholecystectomy and left-sided knee surgery. She does not smoke. 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 On examination posterior tibial pulses are palpable bilaterally. Motor strength is full in the lower extremities. Deep tendon reflexes are brisk at the knees and ankles. Straight leg raising is negative on the right, produces leg pain on the left. Sensation is intact to light touch on the right, diminished on the left. She is able to stand on her heels and her toes and her gait is fairly normal in appearance. Review of her lumbar MRI shows preserved lumbar lordosis without spondylolisthesis. There is multilevel disk space narrowing and facet arthropathy at the L5-S1 level, on the left there is a hypertrophic facet as well as a small disk fragment that has migrated to a certain extent cephalad and foraminally. We had a discussion on the uncertain natural history of lumbar disk problems including the SPORT trial. We discussed that over the long-term surgical and nonsurgical treatment of lumbar disk problems is probably similar but that surgery probably allows people to get better faster. We reviewed the risks of lumbar surgery including the risks of anesthesia, visual loss, bleeding, infection, injury to the nerve including weakness, pain, numbness, spinal fluid leakage, epidural fibrosis and failure to relieve her symptoms. We discussed that probably 70% of people who have lumbar disk surgery are happy with the result, about 15% of people think although they may have improved that the surgery does not quite meet their expectations and about 5% of people think they are overall no better. All this was discussed and all questions were answered. She would like to think about her options and will be back in touch with me with how she would like to proceed. documented in this encounter Plan of Treatment Not on file documented as of this encounter Visit Diagnoses Diagnosis Left leg pain Pain in limb documented in this encounter Care Teams Actionscript Developer Relationship Specialty Start Date End Date Santos Hernandez MD [facility] [place] [phone] PCP - General Family Medicine 07/16/15 05/09/16 documented as of this encounter
--- OUTSIDE RECORDS SUMMARY | 2024-03-07 02:31 | XMS_ITS | Encounter Summary ---
Author Organization [facility] [place] [address] Care Team Providers Care Moisture Machine Tender Name Role Phone Unavailable Primary Care Provider Unavailabl e Encounter Details Date Type Department Care Team (Late st Contact Info) Description 11/23/2013 Ancillary Procedure [place] [address] Param Kenny MD [facility] [place] [address] Social History Tobacco Use Types Packs/Day Years [...] Comments FILM LIBRARY STORAGE ONLY MAMMO Routine 11/23/2013 12:00 AM EDT documented in this encounter Results * Film Library- Storage Only Mammo (11/23/2013 12:00 AM EDT) Narrative ANKUR - 12/12/2018 10:36 AM EDT This exam is auto-finalizing. It's purpose is for storage only. Param Kenny MD IMG FILM LIBRARY ORD ERABLES [place], [place] documented in this encounter Visit Diagnoses Not on filedocumented in this encounter
== END ==
PROVIDERS: PCP Family Medicine; Visit Provider Family Medicine
DX: M25.551 Pain in right hip (principal); M16.11 Unilateral primary osteoarthritis, right hip; M53.3 Sacrococcygeal disorders, not elsewhere classified
CPT/HCPCS: 72202; 73502

== ENCOUNTER 2024-04-18 02:00 | Outpatient (CLI) | payer BC, SELFPAY ==
--- NOTE | 2024-04-18 | DI.MAMMO_ITS ---
Exam(s) MAMMO SCREENING EXAM: MAMMO SCREENING CLINICAL HISTORY: Z12.31 Screening. TECHNIQUE: Bilateral full field digital CC and MLO mammographic images were obtained with 3D tomosyn thesis and utilizing computer aided detection (CAD). COMPARISON: None FINDINGS: There are no CAD designations. There are no spiculated masses nor malignant appearing microcalcification groups. There is no significant architectural distortion nor skin thickening-retraction. IMPRESSION: No radiographic evidence of malignancy. BI-RADS Category 1 - Negative Breast Density - Category B - Scattered areas of fibroglandular density Breast density Category C or D implies that the patient has dense breast tissue. Dense breast tissue can make it harder to find cancer on a mammogram. Dense breast tissue is also associated with an incr eased risk of breast cancer. This information about the result of the mammogram report was provided to the patient to raise their awareness. Use this report when you speak with the patient about their risks for breast cancer, which includes their family history. At that time, you may recommend additional screening tests (Ultrasoun d or MRI) as these tests may add significant information. A negative radiographic report should not delay biopsy if a dominant or clinically suspicious mass is present. Up to ten percent of cancers are not identified on mammography. A negative report may reinforce clinical impression. Adenosis and dense breasts may obscure an underlying neoplasm. False positive reports average 6 to 10%. Patient will receive a letter notifying them of these results.
--- OUTSIDE RECORDS SUMMARY | 2024-04-18 02:12 | XMS_ITS | Encounter Summary ---
Author Organization [facility] [place] [address] Care Team Providers Care Devops Developer Name Role Phone Rufina Mccabe MD Primary Care Provider [phone] Encounter Details Date Type Department Care Team (Late st Contact Info) Description 12/14/2022 Ancillary Procedure [place] [address] Rufina Mccabe MD [facility] [address] [facility] [place] [address] Social History Tobacco Use Types Packs/Day Years [...] Mccabe MD IMG FILM LIBRARY OR DERABLES [place], [place] documented in this encounter Visit Diagnoses Not on filedocumented in this encounter Care Teams Devops Developer Relationship Specialty Start Date End Date Rufina Mccabe MD [facility] [address] [place] [address] PCP - General Family Medicine 11/30/18 05/18/23 documented as of this encounter
--- OUTSIDE RECORDS SUMMARY | 2024-04-18 02:12 | XMS_ITS | Encounter Summary ---
Author Organization [facility] Address [facility] [place] [address] Care Team Providers Care Rattling Machine Tender Name Role Phone Rufina Mccabe MD Primary Care Provider [phone] Encounter Details Date Type Department Care Team [...] on filedocumented in this encounter Care Teams Rattling Machine Tender Relationship Specialty Start Date End Date Rufina Mccabe MD [facility] [place] [address] PCP - General Family Medicine 11/30/18 05/18/23 documented as of this encounter
--- OUTSIDE RECORDS SUMMARY | 2024-04-18 02:12 | XMS_ITS | Encounter Summary ---
Author Organization [facility] Address [facility] [place] [address] Care Team Providers Care Inspector Rough Castings Name Role Phone Rufina Mccabe MD Primary Care Provider [phone] Reason for Visit * Reason Comments Medication Refill Encounter Details Date Type Department Care Team ([facility] st Contact Info) Description 12/14/2022 Refill Family Medicine at [facility] [address] [place] [address] Rufina Mccabe MD [facility] [address] [facility] [address] SOB (shortness of breath) on exertion Social [...] breath documented in this encounter Care Teams Inspector Rough Castings Relationship Specialty Start Date End Date Rufina Mccabe MD [facility] [address] [facility] [address] PCP - General Family Medicine 11/30/18 05/18/23 documented as of this encounter
--- OUTSIDE RECORDS SUMMARY | 2024-04-18 02:12 | XMS_ITS | Encounter Summary ---
Author Organization [facility] [place] [address] Care Team Providers Care Speech Pathologist Assistant Name Role Phone Rufina Mccabe MD Primary Care Provider [phone] Reason for Visit * Reason Comments Medication Check Encounter Details Date Type Department Care Team ([facility] Contact Info) Description 12/27/2022 11:30 AM EDT Office Visit Family Medicine at [facility] [address] [place] [address] Rufina Mccabe MD [facility] [address] [facility] [place] [address] Medication management; Multiple sclerosis; Depression, recurrent; Radiculopathy [...] a chiropractor. If yes, which ones in [place] do they cover. I sent a message [...] Care Everywhere. * Low Back Pain: Exercises (Nigerian) documented in this encounter Progress Notes * [...] coupleof weeks ago for the pain at [facility]. Had a CT scan performed was prescribed Oxycodone 5mg. She states the Oxycodone did not touch the pain at all did make her dizzy and lightheaded. She only took it once while at home. Does not see a chiropractor. (I reviewed the ED charting from [facility] in the media tab. CT scan done [...] Blood, Immunoassay Back Pain Note received from [facility] was reviewed in Epic. Discussed idea of [...] an appt with her MS neurologist in [facility]. Ask neurologist if there's any chance her MS is involved in the nerve pain in her left leg. Patient Instructions Please call your insurance to see if they cover a chiropractor. If yes, which ones in [place] do they cover. I sent a message [...] EDT) Fecal Occult Blood, Immunoassay Negative Negative [facility] Stool 02/10/2023 10:4 5 AM EDT 02/24/2023 11:58 AM EDT Narrative Resulting Agency Comment Spec In Lab Rufina Mccabe MD BODY FLUIDS AND STO OLS ORDERABLES [facility] [place] [address] documented in this encounter Visit Diagnoses Diagnosis Medication management Encounter for long-term (current) use of other medications Multiple sclerosis Depression, recurrent Major depressive disorder, recurrent episode, unspecified Radiculopathy of lumbar region Thoracic or lumbosacral neuritis or radiculitis, unspecified Screening for colon cancer Special screening for malignant neoplasms, colon documented in this encounter Care Teams Speech Pathologist Assistant Relationship Specialty Start Date End Date Rufina Mccabe MD [facility] [address] [facility] [place] [address] PCP - General Family Medicine 11/30/18 05/18/23 documented as of this encounter
--- OUTSIDE RECORDS SUMMARY | 2024-04-18 02:12 | XMS_ITS | Encounter Summary ---
Author Organization [facility] Address [facility] [place] [address] Care Team Providers Care Sausage Stuffer Name Role Phone Rufina Mccabe MD Primary Care Provider [phone]- [phone] Encounter Details Date Type Department Care Team (Late st Contact Info) Description 12/18/2019 [place] [phone] Leta Anne LNA Social History Tobacco Use [...] on filedocumented in this encounter Care Teams Sausage Stuffer Relationship Specialty Start Date End Date Rufina Mccabe MD [facility] [address] PHY[address] DWYER[place] [address] PCP - General Family Medicine 11/30/18 05/18/23 documented as of this encounter
--- OUTSIDE RECORDS SUMMARY | 2024-04-18 02:12 | XMS_ITS | Encounter Summary ---
Author Organization [facility] Address [facility] [place] [address] Care Team Providers Care Stem Cutter Name Role Phone Selma Contreras MD Primary Care Provider [phone] Encounter Details Date Type Department Care Team ([facility] Contact Info) Description 10/10/2023 Telephone Family Medicine at [facility] [address] [place] [phone] Deborah Ramsay Social History Tobacco Use Types [...] reschedule an appointment. Can be scheduled by [facility]. Department - [facility] family med Provider - Selma Contreras MD Appt type - Ov Appt notes - Return in about 1 year (around 12/28/2023). documented in this encounter Plan of Treatment Not on file documented as of this encounter Visit Diagnoses Not on filedocumented in this encounter Care Teams Stem Cutter Relationship Specialty Start Date End Date Selma Contreras MD [facility] [address] [place] [address] PCP - General 05/19/23 03/14/24 documented as of this encounter
--- OUTSIDE RECORDS SUMMARY | 2024-04-18 02:12 | XMS_ITS | Encounter Summary ---
Author Organization [facility] Address [facility] [place] [address] Care Team Providers Care Breaker Hand Name Role Phone Rufina Mccabe MD Primary Care Provider Reason for Visit * Reason Onset Date Comments Prior Authorization 08/17/2021 fluticasone propion-salmeteroL (ADVAIR) 250-50 mcg/dose Disk with Device Encounter Details Date Type Department Care Team ([facility] Contact Info) Description 08/17/2021 Telephone Family Medicine at [facility] [address] [place] [address] Nancy Ryan LNA Prior Authorization (fluticasone propion-salmeteroL [...] note were not included. [place] [address] DENIED: Advair Case/Reference #: [id number] Additional Information from Insurance: See media for complete letter * Telephone Encounter - Nancy Ryan LNA - 08/17/2021 12:46 PM EST Medication Prior Authorization Submitted Request received via: [employer] Patient: Sehrrie Bonner Patient : 1960 Insurance Company: [employer] Medicare Part D Electronic Prior Authorization Form Sent via: [employer] [place]: [id number] - Rx #: [id number] Physician: Teddy Colo DO Medication Requested:fluticasone propion-salmeteroL (ADVAIR) 250-50 mcg/dose [...] on filedocumented in this encounter Care Teams Breaker Hand Relationship Specialty Start Date End Date Rufina Mccabe MD [facility] [address] [place] [address] PCP - General Family Medicine 11/30/18 05/18/23 documented as of this encounter
--- OUTSIDE RECORDS SUMMARY | 2024-04-18 02:12 | XMS_ITS | Encounter Summary ---
Author Organization [facility] Address [facility] [place] [address] Care Team Providers Care Financial Aid Officer Name Role Phone Rufina Mccabe MD Primary Care Provider [phone]- [phone] Reason for Visit * Reason Onset Date Comments Public Health Screening 08/14/2020 Encounter Details Date Type Department Care Team ([facility] Contact Info) Description 08/14/2020 Telephone Family Medicine at [facility] [address] [place] [address] Anh Lakhani Public Health Screening Social History [...] on filedocumented in this encounter Care Teams Financial Aid Officer Relationship Specialty Start Date End Date Rufina Mccabe MD [facility] [address] [place] [address] PCP - General Family Medicine 11/30/18 05/18/23 documented as of this encounter
--- OUTSIDE RECORDS SUMMARY | 2024-04-18 02:12 | XMS_ITS | Encounter Summary ---
Author Organization [facility] Address [facility] [place] [address] Care Team Providers Care Fixer Supervisor Name Role Phone Rufina Mccabe MD Primary Care Provider [phone]- [phone] Reason for Visit * Reason Onset Date Comments Medication Refill 03/11/2023 Encounter Details Date Type Department Care Team ([facility] Contact Info) Description 03/11/2023 Refill Family Medicine at [facility] [address] [place] [address] Daniel Hughes PA [facility] [address] DWY[place] [address] Social History Tobacco Use Types Packs/Day Years [...] on filedocumented in this encounter Care Teams Fixer Supervisor Relationship Specialty Start Date End Date Rufina Mccabe MD [facility] DR PH[address] DWY[place] [address] PCP - General Family Medicine 11/30/18 05/18/23 documented as of this encounter
--- OUTSIDE RECORDS SUMMARY | 2024-04-18 02:12 | XMS_ITS | Encounter Summary ---
Author Organization [facility] Address [facility] [place] [address] Care Team Providers Care Guest Request Runner Name Role Phone Rufina Mccabe MD Primary Care Provider [phone] Reason for Visit * Reason Comments Medication Refill Encounter Details Date Type Department Care Team (Late st Contact Info) Description 12/14/2022 Refill Family Medicine at [facility] [address] [place] [address] Rufina Mccabe MD [facility] [place] [address] Social History Tobacco Use Types Packs/Day Years [...] filedocumented in this encounter Care Teams Guest Request Runner Relationship Specialty Start Date End Date Rufina Mccabe MD [facility] [place] [place] [address] PCP - General Family Medicine 11/30/18 05/18/23 documented as of this encounter
--- OUTSIDE RECORDS SUMMARY | 2024-04-18 02:12 | XMS_ITS | Encounter Summary ---
Author Organization [facility] Address [facility] [place] [address] Care Team Providers Care Superintendent Warehouse Name Role Phone Rufina Mccabe MD Primary Care Provider [phone] Reason for Visit * Reason Comments Medication Refill Encounter Details Date Type Department Care Team ([facility] st Contact Info) Description 08/10/2022 Refill Family Medicine at [facility] [address] [place] [address] [facility] [address] [place] [address] Social History Tobacco Use Types Packs/Day Years [...] on filedocumented in this encounter Care Teams Superintendent Warehouse Relationship Specialty Start Date End Date Rufina Mccabe MD [facility] [address] [place] [address] PCP - General Family Medicine 11/30/18 05/18/23 documented as of this encounter
--- OUTSIDE RECORDS SUMMARY | 2024-04-18 02:12 | XMS_ITS | Encounter Summary ---
Author Organization [facility] Address [facility] [place] [address] Care Team Providers Care Bomb Squad Officer Name Role Phone Rufina Mccabe MD Primary Care Provider [phone]- [phone] Reason for Visit * Reason Comments Medication Refill Encounter Details Date Type Department Care Team ([facility] st Contact Info) Description 08/26/2022 Refill Family Medicine at [facility] [address] [place] [phone] Rufina Mccabe MD [facility] DR PH[address] [place] [address] Social History Tobacco Use Types Packs/Day Years [...] on filedocumented in this encounter Care Teams Bomb Squad Officer Relationship Specialty Start Date End Date Rufina Mccabe MD [facility] DR PH[address] [place] [address] PCP - General Family Medicine 11/30/18 05/18/23 documented as of this encounter
--- OUTSIDE RECORDS SUMMARY | 2024-04-18 02:12 | XMS_ITS | Encounter Summary ---
Author Organization [facility] [place] [address] Care Team Providers Care Fish Boning Machine Feeder Name Role Phone Rufina Mccabe MD Primary Care Provider [phone]- [phone] Reason for Referral * Physical Therapy (Routine) - Closed Specialty Diagnoses / Procedures Referred By Contannie t Referred To Contact Physical Therapy Diagnoses Lumbosacral spondylosis without myelopathy Eval & treat - wait for MRI to be completed before scheduling *patient also needs to schedule MRI and f/u with Elizabet (safety questions need to be asked) Elizabet Brooks APRN [facility] [place] [address] [facility] [place] [address] Referral ID Status Reason Start Date Expiration Date V isits Requested Visits Authorized [id number] Closed Evaluate and Treat 12/17/2019 12/16/2020 12 12 Reason for Visit * Reason Comments Back Pain Encounter Details Date Type Department Care Team (Latest Contact Info) Description 12/17/2019 12:00 PM EDT TH Visit (TeleHealth) [facility] [place] [address] Elizabet Brooks APRN [facility] [place] [address] Lumbosacral spondylosis without myelopathy (Primary [...] APRN - 12/17/2019 12:00 PM EDT . [facility] [place] [place] [address] Phone: PAIN MANAGEMENT TELEPHONE FOLLOW UP NOTE DATE OF VISIT 12/17/2019 Patient Sherrie Bonner 1960 REFERRING PROVIDER Rufina Mccabe MD [address] [place] [phone] PRIMARY CARE PROVIDER Rufina Mccabe MD CHIEF [...] by [facility] neurology) The patient verbally consents to this telephone visit and understands that this visit may be billed, similar to a clinic office visit. I provided care to the patient today via telephone call. The total time associated with this visit was the patient did have a pulmonary telephone visit and the manager benefit has ordered some pulmonary function tests and [...] pain which was worked up by a wound care specialist and she is now seeing pulmonology and [...] pain in past week: 7-03/31 MEDICATIONS The [facility] Prescription Monitoring Program was [...] KNEE SURGERY Right approx 2013 Microfracture surgery ([facility], Dr. Barrera) ??? LAMINECTOMY ??? PRO LAMINOTOMY, LUMBAR DISK, 1 INTRSP N/A 10/14/2015 LAMINOTOMY, DECOMPRESSION, FORAMINOTOMY, LUMBAR performed by Trevor Julien MD at [facility] MAIN OR ??? PRO MICROSURG TECHNIQUES, REQ OPER MICROSCOPE N/A 10/14/2015 MICROSCOPE USE performed by Trevor Julien MD at [facility] MAIN OR ??? TUBAL LIGATION [...] would also like her to have a [facility] physical therapy evaluation I did discuss with her this was evidence-based and something that usually local physical therapy providers are not able to do for her. I answered all her questions today. 20 minutes was spent in discussion of present symptoms, future plan of care, documentation. Elizabet Brooks, MS, ASSISTANT DIRECTOR OF NURSING-BC, COLLECTOR OF AQUARIUM SPECIMENS Nurse practitioner [facility] management [facility] documented in this encounter Plan of Treatment Scheduled Referrals Name Type Priority Associated Diagnoses Orde r Schedule Referral to Physical Therapy Outpatient Referral Routine Lumbosacral spondylosis without myelopathy Ordered: 12/17/2019 documented as of this encounter Visit Diagnoses Diagnosis Lumbosacral spondylosis without myelopathy- Primary documented in this encounter Care Teams Fish Boning Machine Feeder Relationship Specialty Start Date End Date Rufina Mccabe MD [facility] [address] [place] [address] PCP - General Family Medicine 11/30/18 05/18/23 documented as of this encounter
--- OUTSIDE RECORDS SUMMARY | 2024-04-18 02:12 | XMS_ITS | Encounter Summary ---
Author Organization [facility] Address [facility] [place] [address] Care Team Providers Care Webmaster Name Role Phone Rufina Mccabe MD Primary Care Provider [phone] Encounter Details Date Type Department Care Team (Late st Contact Info) Description 03/16/2022 E-Consult Family Medicine at [address] [address] Dipika Galarza, [facility] Medication management Social History Tobacco Use Types [...] encounter Miscellaneous Notes * [facility]/16/2022 8:51 AM EDT Select F2 [...] fluoxetine and sertraline. ?? Studies that were predatory animal exterminator (greater than or equal to 4 months) [...] such as ageor sex. References: 1. Denzel Palmoo, HARRY Odonnell, Kamala Castillo. Weight gain and glucose dysregulation with second-generation antipsychotics and antidepressants: a review for primary care physicians. Postgrad Med. 2012;124(4):154-167. Doi:[id number] 2. Brayden Savage, Dewey Avery Elli. Antidepressants and body weight: a comprehensive review and meta-analysis. J Clin Psychiatry. 2010;71(10):2447-0945 3. Italo SR, Mckeon VM, Begum CC, [...] medications documented in this encounter Care Teams Webmaster Relationship Specialty Start Date End Date Rufina Mccabe MD [facility] DR PH[address] DWYER[place] [address] PCP - General Family Medicine 11/30/18 05/18/23 documented as of this encounter
--- OUTSIDE RECORDS SUMMARY | 2024-04-18 02:12 | XMS_ITS | Encounter Summary ---
Author Organization [facility] Address [facility] [place] [address] Care Team Providers Care Cleaner Wall Name Role Phone Rufina Mccabe MD Primary Care Provider [phone]- [phone] Encounter Details Date Type Department Care Team (Late st Contact Info) Description 11/13/2019 Telephone [place] [phone] Leta Anne, TUBE WORKER Social History Tobacco Use Types Packs/Day Years [...] on filedocumented in this encounter Care Teams Cleaner Wall Relationship Specialty Start Date End Date Rufina Mccabe MD [facility] [address] [place] [address] PCP - General Family Medicine 11/30/18 05/18/23 documented as of this encounter
--- OUTSIDE RECORDS SUMMARY | 2024-04-18 02:12 | XMS_ITS | Clinical Summary ---
Author Organization [facility] Address [facility] [place] [address] Care Team Providers Care Senior Living Advisor Name Role Phone Unavailable Primary Care Provider Unavailabl e Allergies No known active allergies Medications Medication [...] in a few weeks depending on how Stephanie Birmingham reopens in the setting of COVID-19. I had intended for Sherrie to have a transthoracic echocardiogram done here at [facility] for the dyspnea work-up. This [...] to review use of the inspiratory muscle strainer tender. I hope that we might see improved mouth pressure measurement and/or sitting and supine spirometry values at our next visit in about 6 weeks if she uses the inspiratory muscle strainer tender routinely. We will explore additional causes of [...] Preservative Free 2020,07/02/2019 Moderna Covid-19 Monovalent 12Yr+ (Value Stream Coach 100mc g) 12/23/2020,11/25/2020 Tdap 11/22/2018 Family History [...] 2) 2011 Advance Directive 2016 Covid-19 Vaccine (3 - 2022-2 4 season) 2023 12/23/2020, 11/25/2020 HPV test [...] Priority Date/Time Associated Diagnosis Comments SURGICAL PATHOLOGY SCAN 04/13/2024 12:00 AM EDT FECAL OCCULT BLOOD, IMMUNOASSAY Routine 02/10/2023 10:45 AM EDT Screening for colon cancer MAMMO SCREENING CAD AND VEL BILATERAL Routine 02/01/2023 9:15 AM EDT Visit for screening mammogram COMPREHENSIVE METABOLIC PANEL Routine 12/15/2021 9:13 AM EDT Multiple sclerosis Vitamin D deficiency HDL/CHOL PROFILE Routine 11/30/2018 10:2 1 AM EDT Routine general medical examination at a [facility] care facility HEPATITIS C ANTIBODY Routine 11/30/2018 10:21 AM EDT Healthcare maintenance HPV Routine 11/22/2018 1:00 PM EDT PREMIUM SERVICE REPRESENTATIVE CYTOLOGY FINAL REPORT Routine 11/22/2018 1:00 PM EDT from Last 3 Months or Most Recently Relevant to Health Maintenance Results * Scan Doc: Surgical Pathology (04/13/2024 12:00 AM EDT) Narrative 04/13/2024 12:00 AM EDT Ordered by an unspecified provider. Scanning Provider MEDIA MGR SCAN EXT O RDR/RSLT * Fecal Occult Blood, Immunoassay (02/10/2023 10:45 AM EDT) Fecal Occult Blood, Immunoassay Negative Negative [facility] Stool 02/10/2023 10:4 5 AM EDT 02/24/2023 11:58 AM EDT Narrative Resulting Agency Comment Spec In Lab Rufina Mccabe MD BODY FLUIDS AND STO OLS ORDERABLES [facility] [address] [place] [address] * Mammo Screening Cad and Vel Bilateral [...] panel (non-fasting) (12/15/2021 9:13 AM EDT) Glucose 97 65 - 199 mg/dL [facility] Comment:Diabetes: >=200 mg/d L plus symptoms Blood Urea Nitrogen 24(H) 8 - 18 mg/dL [facility] Creatinine 0.74 0.70 - 1.20 mg/dL [facility] Sodium 140 135 - 145 mmol/L [facility] Potassium 3.8 3.5 - 5.0 mmol/L [facility] Comment: Please note: ??Patients with WBC >100,000 may have falsely elevated Potassium levels. ??For accurate Potassium quantification in these patients send serum separator tube (gold top) for subsequent determinations. ??Contact the Clinical Chemistry Laboratory if there are any questions. Chloride 102 98 - 107 mmol/L [facility] Carbon Dioxide 26 22 - 31 mmol/L [facility] Anion Gap 12 5 - 15 mmol/L [facility] Calcium 9.3 8.5 - 10.5 mg/dL [facility] Protein, Total 7.3 6.1 - 8.0 g/dL [facility] Albumin 4.5 3.2 - 5.2 g/dL [facility] Aspartate Aminotransferase 15 0 - 30 unit/L [facility] Alanine Aminotransferase 17 0 - 30 unit/L [facility] Alkaline Phosphatase 111(H) 35 - 105 unit/L [facility] Bilirubin, Total 0.9 0.2 - 1.3 mg/dL [facility] Est Glomerular Filtration Rate 88 >=60 mL/min/1. 73 m?? [facility] Comment: This patient? s estimated [...] Lab Tiffany LAINEZ CHEMISTRY ORDERAB LES [facility] [place] [address] * Hepatitis C Antibody (11/30/2018 10:21 AM EDT) Hepatitis C Antibody Negative Negative [facility] Blood specimen (specimen) 11/30/2018 10:21 AM EDT 11/30/2018 10:32 AM EDT Narrative Resulting Agency Comment Spec In Lab Rufina Mccabe MD CHEMISTRY ORDERABLE S [facility] [place] [address] * HDL/Cholesterol Profile (11/30/2018 10:21 AM EDT) Cholesterol, Total 208 mg/dL [facility] Comment: Lower Risk: <200 mg/dL Average Risk: 200-239 mg/dL Higher Risk: >nq=399 mg/dL HDL Cholesterol 68 mg/dL [facility] Comment: Males: ?? Higher Risk: <40 mg/dL Females: ?? HIgher Risk: <50 mg/dL Cholesterol/HDL Ratio 3.1 ratio [facility] Chol/HDL Interpretation See Note [facility] Comment: Lipid management should be guided by a patient? s ASCVD risk, goals and preferences. ACC/AHA Guidelines recommend high intensity statin if clinical ASCVD or LDL greater than or equal to 190 mg/dL. http://Ngt4u.inc.com/BYQ-IYL-Emikpvuro Measure LDL if Total Cholesterol minus HDL Cholesterol is greater than 220 mg/dL. Adults aged 40-75 with LDL 70-189 mg/dL should have their 10 year ASCVD risk estimated with the ACC/AHA ASCVD risk distribution estimator http://tools.acc.org/FXEKS-Cdoe-Tefjctwtc/ Statin should be discussed if risk greater [...] MD CHEMISTRY ORDERABLE S Performing Organization Address [facility] de Phone Number [facility] [place] [address] * HPV (11/22/2018 1:00 PM EDT) HPV16 NEGATIVE NEGATIVE [facility] [...] Mccabe MD PATHOLOGY/CYTOLOGY ORDERABLES Performing Organization Address [facility] de Phone Number [facility] [place] [address] * Wire Weaver Helper Cytology Final Report (11/22/2018 1:00 PM EDT) Wire Weaver Helper Cytology Final Report [id number] ? Location: [facility] The signing pathologist has (i) examined the relevant preparation(s) for the specimen(s) and (ii) rendered or confirmed the diagnosis(es). . ? Wire Weaver Helper Final DIAGNOSIS Normal Negative for intraepithelial lesion or malignancy (NILM). For consensus guidelines for the management of cervical cancer screening test results, please see: ?? http://www.asccp.o rg . Electronically signed by: ??KEM Davila(ASCP), Aislinn Caraballo Verified: ??11/27/2018 ?Weekend Caregiver Performed at: ??-[facility] Dept. of Pathology, [place], [place] HPV RESULTS HPV16 (Result) ?Negative HPV18 [...] to detect low risk HPV types. Sirisha katlyn HPV test Specimen: HPV Testing - Cytology Liquid Based Prep The Sirisha katlyn ? HPV test was validated, performed and results reported through the Laboratory for Clinical Genomics and Advanced Technology (CGAT) at [facility]. ? - Ron Benavidez, PhD, [facility], Director-[facility] Specimen submitted is satisfactory. Endocervical component present. CLINICAL INFORMATION HPV Option: ?Concurrent HPV and Pap CT/NG Option: ?? No Preparation: ? Liquid based Pap Specimen Source: ? Endocervical/Vagin al LMP: ? Post menopausal Hormones?: ? No Hysterectomy?: ? No ?: ? No ?: ? No I.U.D.?: ? No Pelvic Radiation: ?No Prior PREMIUM SERVICE REPRESENTATIVE Therapy?: ?No Hist Abnl Pap/Biopsy?: ?? No Hist of HPV Vaccine?: ?No Hist of Smoking?: ?No Hist of ROSALEE exposure?: ?? No ICD Diagnosis: ? Z12.4 Encounter for screening for malignant neoplasm of cervix . CLINICAL INFORMATION Clinical Data, Significant Therapy and Clinical Impression ?? : ?_ This Pap Test has been evaluated with the assistance of the [employer] Pap Test Imaging System. Note: The Pap test is a screening test for cervical cancer with an inherent false-negative rate dependent upon several variables. For further information please contact the [facility] Laboratory. Reference: Galo BIRD. Post Doctoral Researcher of Pap Smear Results. In: Anitra BS, Alphonso LEWIS, ed. The Pap Smear. [place]: Christopher, 2002: 71-77. [facility] 11/22/2018 1:00 PM EDT Rufina Mccabe MD PATHOLOGY/CYTOLOGY ORDERABLES [facility] [place] [address] from Last 3 Months or Most Recently [...]
--- OUTSIDE RECORDS SUMMARY | 2024-04-18 02:12 | XMS_ITS | Encounter Summary ---
Author Organization [facility] Address [facility] [place] [address] Care Team Providers Care Net Developer Contract Name Role Phone Rufina Mccabe MD Primary Care Provider +1- [phone] Encounter Details Date Type Department Care Team (Late st Contact Info) Description 11/02/2019 Telephone [facility] at [facility] [place] [phone] Charlette Goodman Social History Tobacco Use Types [...] Bonner Sent: 11/04/2019 11:05 AM EDT To: [facility]Pain Team Nurse Subject: [...] on filedocumented in this encounter Care Teams Net Developer Contract Relationship Specialty Start Date End Date Rufina Mccabe MD [facility] [address] [place] [address] PCP - General Family Medicine 11/30/18 05/18/23 documented as of this encounter
--- OUTSIDE RECORDS SUMMARY | 2024-04-18 02:12 | XMS_ITS | Encounter Summary ---
Author Organization [facility] [place] [address] Care Team Providers Care Zoogler Name Role Phone Rufina Mccabe MD Primary Care Provider +1- [phone] Encounter Details Date Type Department Care Team (Late st Contact Info) Description 01/28/2020 Telephone Pain and Spine Center at [facility] [place] [phone] Nori Bowers RN Social History Tobacco Use [...] Bonner Sent: 01/28/2020 8:35 AM EDT To: [facility] Nurse Subject: RE: Stephenie Mcneal, Ok, then what is the treatment for this?, and why was I not informed that I had this? What is the next step that we need to do? documented in this encounter Plan of Treatment Not on file documented as of this encounter Visit Diagnoses Not on filedocumented in this encounter Care Teams Zoogler Relationship Specialty Start Date End Date Rufina Mccabe MD [facility] [address] [address] PCP - General Family Medicine 11/30/18 05/18/23 documented as of this encounter
--- OUTSIDE RECORDS SUMMARY | 2024-04-18 02:12 | XMS_ITS | Encounter Summary ---
Author Organization [facility] [place] [address] Care Team Providers Care Digital Commentator Name Role Phone Rufina Mccabe MD Primary Care Provider +1 [phone] Encounter Details Date Type Department Care Team (Late st Contact Info) Description 12/11/2021 Transcribe [place] [phone] Tiffany Wells PA [address] [facility] [address] [place] [address] Multiple sclerosis; Vitamin D deficiency Social History [...] Vitamin D, 25-Hydroxy (12/15/2021 9:13 AM EDT) Vitamin D Total 25 OH 30 21 - 100 ng/mL [facility] Vit D Interp Sufficient [facility] Blood 12/15/2021 9:13 AM EDT 12/15/2021 9:24 AM EDT Narrative Resulting Agency Comment Spec In Lab Tiffany LAINEZ CHEMISTRY ORDERAB LES [facility] [place] [address] * (ABNORMAL) Comprehensive metabolic panel (non-fasting) (12/15/2021 9:13 AM EDT) Glucose 97 65 - 199 mg/dL [facility] Comment:Diabetes: >=200 mg/d L plus symptoms Blood Urea Nitrogen 24(H) 8 - 18 mg/dL [facility] Creatinine 0.74 0.70 - 1.20 mg/dL [facility] Sodium 140 135 - 145 mmol/L [facility] Potassium 3.8 3.5 - 5.0 mmol/L [facility] Comment: Please note: ??Patients with WBC >100,000 may have falsely elevated Potassium levels. ??For accurate Potassium quantification in these patients send serum separator tube (gold top) for subsequent determinations. ??Contact the Clinical Chemistry Laboratory if there are any questions. Chloride 102 98 - 107 mmol/L [facility] Carbon Dioxide 26 22 - 31 mmol/L [facility] Anion Gap 12 5 - 15 mmol/L [facility] Calcium 9.3 8.5 - 10.5 mg/dL [facility] Protein, Total 7.3 6.1 - 8.0 g/dL [facility] Albumin 4.5 3.2 - 5.2 g/dL [facility] Aspartate Aminotransferase 15 0 - 30 unit/L [facility] Alanine Aminotransferase 17 0 - 30 unit/L [facility] Alkaline Phosphatase 111(H) 35 - 105 unit/L [facility] Bilirubin, Total 0.9 0.2 - 1.3 mg/dL [facility] Est Glomerular Filtration Rate 88 >=60 mL/min/1. 73 m?? [facility] Comment: This patient? s estimated [...] In Lab Tiffany LAINEZ CHEMISTRY ORDERAB LES [facility] [place] [address] documented in this encounter Visit Diagnoses Diagnosis Multiple sclerosis Vitamin D deficiency Unspecified vitamin D deficiency documented in this encounter Care Teams Digital Commentator Relationship Specialty Start Date End Date Rufina Mccabe MD [facility] [address] [place] [address] PCP - General Family Medicine 11/30/18 05/18/23 documented as of this encounter
--- OUTSIDE RECORDS SUMMARY | 2024-04-18 02:12 | XMS_ITS | Encounter Summary ---
Author Organization [facility] Address [facility] [place] [address] Care Team Providers Care Buckle Coverer Name Role Phone Rufina Mccabe MD Primary Care Provider +1- [phone] Encounter Details Date Type Department Care Team (Late st Contact Info) Description 01/12/2023 Telephone Family Medicine at [facility] [address] [place] [address] Rufina Mccabe MD [facility] [address] [place] [address] Social History Tobacco Use Types Packs/Day Years [...] lightheaded. She is made aware that the freelance copywriter can check with again regard to the the pain and spine referral. * Telephone Encounter - Negrita Aly RN - 01/12/2023 4:08 PM EDT Call to patient. Left a voice message to call the office back. The call back number is [phone]. * Telephone Encounter - Debbie Alejandra - 01/12/2023 4:06 PM EDT Call being returned to: Pepper Osman RN Comment: The patient is returning the call from the nurse. Please call back. Caller: Sherrie Bonner Best time to call back: Anytime Ok to leave a message: Yes Ok to send my- message: Unknown MA/Nurse/[employer] websphere portal developer contacted via: Message: Yes Call: Yes Pager: No * Telephone Encounter - Julianne Boucher - 01/12/2023 3:35 PM EDT Attempted to reach nursing; please call patient again. * Telephone Encounter - Pepper Osman RN - 01/12/2023 3:27 PM EDT Attempted to contact patient at [phone], unable to reach. LM on unidentified VM to please callthe office at [phone] and ask to speak to a triage [...] to send my- message: No Offered Appointment: MA/Nurse/Construction Project Manager contacted via: Message: Yes Call: Pager: documented in this encounter Plan of Treatment Not on file documented as of this encounter Visit Diagnoses Diagnosis Radiculopathy of lumbar region Thoracic or lumbosacral neuritis or radiculitis, unspecified documented in this encounter Care Teams Buckle Coverer Relationship Specialty Start Date End Date Rufina Mccabe MD [facility] [place] [address] PCP - General Family Medicine 11/30/18 05/18/23 documented as of this encounter
--- OUTSIDE RECORDS SUMMARY | 2024-04-18 02:12 | XMS_ITS | Encounter Summary ---
Author Organization [facility] Address [facility] [place] [address] Care Team Providers Care Composite Technician Name Role Phone Rufina Mccabe MD Primary Care Provider +1- [phone] Reason for Visit * Reason Comments Medication Refill Encounter Details Date Type Department Care Team ([facility] st Contact Info) Description 09/07/2022 Refill Family Medicine at [facility] [address] [place] [address] Daniel Hughes PA [facility] [address] [place] [address] Social History Tobacco Use Types Packs/Day Years [...] on filedocumented in this encounter Care Teams Composite Technician Relationship Specialty Start Date End Date Rufina Mccabe MD [facility] [address] [place] [address] PCP - General Family Medicine 11/30/18 05/18/23 documented as of this encounter
--- OUTSIDE RECORDS SUMMARY | 2024-04-18 02:12 | XMS_ITS | Encounter Summary ---
Author Organization [facility] Address [facility] [place] [address] Care Team Providers Care Desktop Analyst Name Role Phone Rufina Mccabe MD Primary Care Provider +1- [phone] Encounter Details Date Type Department Care Team [...] on filedocumented in this encounter Care Teams Desktop Analyst Relationship Specialty Start Date End Date Rufina Mccabe MD [facility] [address] [place] [address] PCP - General Family Medicine 11/30/18 05/18/23 documented as of this encounter
--- OUTSIDE RECORDS SUMMARY | 2024-04-18 02:12 | XMS_ITS | Encounter Summary ---
Author Organization [facility] Address [facility] [place] [address] Care Team Providers Care Naval Aircrewman Helicopter Name Role Phone Rufina Mccabe MD Primary Care Provider +1- [phone] Encounter Details Date Type Department Care Team (Late st Contact Info) Description 12/11/2019 [place] [phone] Dorys Moura Social History Tobacco Use Types Packs/Day Years [...] on filedocumented in this encounter Care Teams Naval Aircrewman Helicopter Relationship Specialty Start Date End Date Rufina Mccabe MD [facility] [address] [place] [address] PCP - General Family Medicine 11/30/18 05/18/23 documented as of this encounter
--- OUTSIDE RECORDS SUMMARY | 2024-04-18 02:12 | XMS_ITS | Encounter Summary ---
Author Organization [facility] Address [facility] [place] [address] Care Team Providers Care Universal Grinder Operator Name Role Phone Rufina Mccabe MD Primary Care Provider +1- [phone] Encounter Details Date Type Department Care Team [...] on filedocumented in this encounter Care Teams Universal Grinder Operator Relationship Specialty Start Date End Date Rufina Mccabe MD [facility] [address] [place] [address] PCP - General Family Medicine 11/30/18 05/18/23 documented as of this encounter
--- OUTSIDE RECORDS SUMMARY | 2024-04-18 02:12 | XMS_ITS | Encounter Summary ---
Author Organization [facility] Address [facility] [place] [address] Care Team Providers Care Cloth Checker Name Role Phone Rufina Mccabe MD Primary Care Provider +1- [phone] Reason for Visit * Reason Onset Date Comments Appointment 03/16/2021 Encounter Details Date Type Department Care Team ([facility] Contact Info) Description 03/16/2021 Telephone Family Medicine at [facility] [address] [place] [address] Shital Denise Appointment Social History Tobacco Use [...] send my- message: n Offered Appointment: n MA/Nurse/[place] contacted via: Message: y Call: y Pager: n documented in this encounter Plan of Treatment Not on file documented as of this encounter Visit Diagnoses Not on filedocumented in this encounter Care Teams Cloth Checker Relationship Specialty Start Date End Date Rufina Mccabe MD [facility] [address] [place] [address] PCP - General Family Medicine 11/30/18 05/18/23 documented as of this encounter
--- OUTSIDE RECORDS SUMMARY | 2024-04-18 02:12 | XMS_ITS | Encounter Summary ---
Author Organization [facility] Address [facility] [place] [address] Care Team Providers Care Wrapper Selector Name Role Phone Rufina Mccabe MD Primary Care Provider +1 [phone] Encounter Details Date Type Department Care Team (Latest Contact Info) Description 07/05/2021 2:51 PM EST - 07/05/2021 11:59 PM EST [place] [phone] Screening for colon cancer Discharge Disposition: Home [...] EST) Fecal Occult Blood, Immunoassay Negative Negative [facility] Stool 07/05/2021 2:30 PM EST 07/09/2021 7:17 PM EST Narrative Resulting Agency Comment Spec In Lab Rufina Mccabe MD BODY FLUIDS AND STO OLS ORDERABLES [facility] [place] [address] documented in this encounter Visit Diagnoses Diagnosis Screening for colon cancer Special screening for malignant neoplasms, colon documented in this encounter Care Teams Wrapper Selector Relationship Specialty Start Date End Date Rufina Mccabe MD [facility] [address] [place] [address] PCP - General Family Medicine 11/30/18 05/18/23 documented as of this encounter
--- OUTSIDE RECORDS SUMMARY | 2024-04-18 02:12 | XMS_ITS | Encounter Summary ---
Author Organization [facility] [place] [address] Care Team Providers Care Para Professional Name Role Phone Rufina Mccabe MD Primary Care Provider +1- [phone] Encounter Details Date Type Department Care Team (Latest Contact Info) Description 11/05/2022 8:35 AM EDT Laboratory Appointment Lab [address] [place] [phone] Multiple sclerosis Social History Tobacco Use Types [...] * Differential, Automated (11/05/2022 8:46 AM EDT) Neutrophil % 63.3 % [facility] Neutrophil Absolute 4.08 1.70 - 6.10 x10(3)/[facility] Lymph % 24.7 % [facility] Lymphocytes Abs 1.6 0.9 - 3.2 x10(3)/[facility] Monocyte % 8.4 % [facility] Monocyte Abs 0.5 0.3 - 0.9 x10(3)/[facility] Eos % 2.8 % [facility] Eosinophils Abs 0.2 0.0 - 0.4 x10(3)/[facility] Basophil % 0.6 % [facility] Baso Absolute 0.0 0.0 - 0.1 x10(3)/[facility] Immature Gran % 0.20 % [facility] Comment: Immature granulocytes(IG's)percentage and absolute count will include metamyelocytes, myelocytes, and promyelocytes. Blood smears from CBCs yielding IG's will be scanned manually for concordance. If this scan disagrees with the automated IG or if promyelocytes are noted, a manual differential will be performed. Immature Gran Absolute 0.01 0.00 - 0.04 x10(3)/[facility] Blood 11/05/2022 8:46 AM EDT 11/05/2022 8:49 AM EDT Narrative Resulting Agency Comment Spec In Lab Tiffany LAINEZ HEMATOLOGY ORDERA BLES Performing Organization Address City/State/[facility] Co de Phone Number [facility] [place] [address] * Hemogram (11/05/2022 8:46 AM EDT) White Blood Cell 6.4 4.0 - 9.5 x10(3)/[facility] Red Blood Cell 4.33 4.00 - 5.21 x10(6)/[facility] Hemoglobin 12.9 11.7 - 15.5 g/dL [facility] Hematocrit 39.0 35.7 - 45.8 % [facility] Mean Cell Volume 90.1 82.6 - 94.4 fL [facility] Mean Cell Hemoglobin 29.8 27.1 - 32.0 pg [facility] Mean Cell Hemoglobin Concentration 33.1 31.7 - 35.0 g/dL [facility] Platelet 245 145 - 357 x10(3)/[facility] RDW Standard Deviation 42.0 37.0 - 46.0 fL [facility] RDW coefficient of variation 12.7 11.5 - 14.1 % [facility] Mean Platelet Volume 10.5 7.6 - 12.9 fL [facility] NRBC% auto 0.0 % [facility] NRBC Absolute 0.000 0.000 - 0.000 x10(3)/[facility] Blood 11/05/2022 8:46 AM EDT 11/05/2022 8:49 AM EDT Narrative Resulting Agency Comment Spec In Lab Tiffany LAINEZ HEMATOLOGY ORDERA BLES Performing Organization Address City/[facility] Co de Phone Number [facility] [place] [address] * Hepatic Function Panel (11/05/2022 8:46 AM EDT) Protein, Total 7.4 6.1 - 8.0 g/dL [facility] Albumin 4.4 3.2 - 5.2 g/dL [facility] Aspartate Aminotransferase 17 0 - 30 unit/L [facility] Alanine Aminotransferase 30 0 - 30 unit/L [facility] Alkaline Phosphatase 104 35 - 105 unit/L [facility] Bilirubin, Total 0.6 0.2 - 1.3 mg/dL [facility] Bilirubin, Direct 0.1 0.0 - 0.3 mg/dL [facility] Blood 11/05/2022 8:46 AM EDT 11/05/2022 8:48 AM EDT Narrative Resulting Agency Comment Spec In Lab Tiffany LAINEZ CHEMISTRY ORDERAB LES Performing Organization Address City/[facility] Co de Phone Number [facility] [place] [address] documented in this encounter Visit Diagnoses Diagnosis Multiple sclerosis documented in this encounter Care Teams Para Professional Relationship Specialty Start Date End Date Rufina Mccabe MD [facility] [address] [place] [address] PCP - General Family Medicine 11/30/18 05/18/23 documented as of this encounter
--- OUTSIDE RECORDS SUMMARY | 2024-04-18 02:12 | XMS_ITS | Encounter Summary ---
Author Organization [facility] Address [facility] [place] [address] Care Team Providers Care Shingle Trimmer Name Role Phone Rufina Mccabe MD Primary Care Provider +- [phone] Reason for Visit * Reason Comments Medication Refill Encounter Details Date Type Department Care Team ([facility] st Contact Info) Description 12/14/2022 Refill Family Medicine at [facility] [address] [place] [phone] Rufina Mccabe MD [facility] [address] [place] [address] Social History Tobacco Use Types Packs/Day Years [...] on filedocumented in this encounter Care Teams Shingle Trimmer Relationship Specialty Start Date End Date Rufina Mccabe MD [facility] [address] [place] [address] PCP - General Family Medicine 11/30/18 05/18/23 documented as of this encounter
--- OUTSIDE RECORDS SUMMARY | 2024-04-18 02:12 | XMS_ITS | Encounter Summary ---
Author Organization [facility] Address [facility] [place] [address] Care Team Providers Care Drawbridge Tender Name Role Phone Rufina Mccabe MD Primary Care Provider +1 [phone] Encounter Details Date Type Department Care Team (Latest Contact Info) Description 02/10/2023 9:50 AM EDT - 02/10/2023 11:59 PM EDT Hospital [place] [phone] Screening for colon cancer Discharge Disposition: Home [...] Procedure Name Priority Date/Time Associated Diagnosis Comments FECAL OCCULT BLOOD, IMMUNOASSAY Routine 02/10/2023 10:45 AM EDT Screening for colon cancer documented in this encounter Results * Fecal Occult Blood, Immunoassay (02/10/2023 10:45 AM EDT) Fecal Occult Blood, Immunoassay Negative Negative [facility] Stool 02/10/2023 10:4 5 AM EDT 02/24/2023 11:58 AM EDT Narrative Resulting Agency Comment Spec In Lab Rufina Mccabe MD BODY FLUIDS AND STO OLS ORDERABLES [facility] [place] [address] documented in this encounter Visit Diagnoses Diagnosis Screening for colon cancer Special screening for malignant neoplasms, colon documented in this encounter Care Teams Drawbridge Tender Relationship Specialty Start Date End Date Rufina Mccabe MD [facility] [address] [place] [address] PCP - General Family Medicine 11/30/18 05/18/23 documented as of this encounter
--- OUTSIDE RECORDS SUMMARY | 2024-04-18 02:12 | XMS_ITS | Encounter Summary ---
Author Organization [facility] Address [facility] [place] [address] Care Team Providers Care Pan Washer Name Role Phone Rufina Mccabe MD Primary Care Provider +1- [phone] Encounter Details Date Type Department Care Team [...] on filedocumented in this encounter Care Teams Pan Washer Relationship Specialty Start Date End Date Rufina Mccabe MD [facility] [place] [address] PCP - General Family Medicine 11/30/18 05/18/23 documented as of this encounter
--- OUTSIDE RECORDS SUMMARY | 2024-04-18 02:12 | XMS_ITS | Encounter Summary ---
Author Organization [facility] [place] [address] Care Team Providers Care Storm Sash Maker Name Role Phone Rufina Mccabe MD Primary Care Provider +1- [phone] Reason for Visit * Reason Onset Date Comments Other 08/17/2022 Encounter Details Date Type Department Care Team ([facility] Contact Info) Description 08/17/2022 Telephone Family Medicine at [facility] [address] [place] [phone] Rufina Mccabe MD [facility] [address] [place] [address] Other Social History Tobacco Use Types Packs/Day [...] any information on who was calling. This entry writer was unable to see any messagesabout a call. Please advise Ask caller their first and last name and relationship to the patient: Sherrie Bonner Best time to call back: any Ok to leave a message: yes Ok to send my- message: yes Offered Appointment: NA MA/Nurse/Calder contacted via: Message: yes Call: no Pager: no documented in this encounter Plan of Treatment Not on file documented as of this encounter Visit Diagnoses Not on filedocumented in this encounter Care Teams Storm Sash Maker Relationship Specialty Start Date End Date Rufina Mccabe MD [facility] [address] [place] [address] PCP - General Family Medicine 11/30/18 05/18/23 documented as of this encounter
--- OUTSIDE RECORDS SUMMARY | 2024-04-18 02:12 | XMS_ITS | Encounter Summary ---
Author Organization [facility] [place] [address] Care Team Providers Care Veterinary Technician Assistant Name Role Phone Rufina Mccabe MD Primary Care Provider [phone] Encounter Details Date Type Department Care Team ([facility] st Contact Info) Description 12/17/2019 8:00 AM EDT TH Visit (TeleHealth) [place] [phone] Juventino Milligan MD [facility] [place] [address] Exertional dyspnea Social History Tobacco Use Types [...] Visit Sammi Varela DO [id number] [place] [address] Rufina Mccabe MD [address] [place], [place] [id number] Date of Visit: 12/17/2019 Time of Visit: [...] (August) 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 She had previously seen my colleague, , [...] in a few weeks depending on how [facility] reopens in the setting of COVID-19. I had intended for Sherrie to have a transthoracic echocardiogram done here at [facility] for the dyspnea work-up. This is outstanding and needs to be rescheduled, but I am skeptical that it will show anyproblems with her heart. I told Sherrie that I would send my note to Dr. Varela for review. Relevant Orders Pulmonary Function Testing Medication Changes / Refills Conducted Today: None Follow-Up: Schedule cardiopulmonary exercise test and echocardiogram here at [facility], as soon as feasible. I asked Sherrie [...] applies) [] PRO ESTABLISHED PATIENT LEVEL 1 [[id number]] [] PRO ESTABLISHED PATIENT LEVEL 2 [[id number]] [] PRO ESTABLISHED PATIENT LEVEL 3 [[id number]] [x] PRO ESTABLISHED PATIENT LEVEL 4 [[id number]] [] PRO ESTABLISHED PATIENT LEVEL 5 [[id number]] JUVENTINO MILLIGAN MD 12/17/2019 7:19 AM documented [...] in a few weeks depending on how [facility] reopens in the setting of COVID-19. I had intended for Sherrie to have a transthoracic echocardiogram done here at [facility] for the dyspnea work-up. This is outstanding [...] abnormality documented in this encounter Care Teams Veterinary Technician Assistant Relationship Specialty Start Date End Date Rufina Mccabe MD [facility] [address] [address] PCP - General Family Medicine 11/30/18 05/18/23 documented as of this encounter
--- OUTSIDE RECORDS SUMMARY | 2024-04-18 02:12 | XMS_ITS | Encounter Summary ---
Author Organization [facility] Address [facility] [place] [address] Care Team Providers Care Muck Miner Name Role Phone Mike Love MD Primary Care Provider [phone]- [phone] Encounter Details Date Type Department Care Team ([facility] st Contact Info) Description 11/12/2022 Telephone Family Medicine at [facility] [address] [place] [phone] Delvin Post RN Social History Tobacco Use [...] - 11/12/2022 3:20 PM EDT Copied from [facility] #[id number]. Topic: Triage - Triage >> Nov 12, [...] on filedocumented in this encounter Care Teams Muck Miner Relationship Specialty Start Date End Date Mike Love MD [facility] [address] [place] [address] PCP - General Family Medicine 11/30/18 05/18/23 documented as of this encounter
--- OUTSIDE RECORDS SUMMARY | 2024-04-18 02:12 | XMS_ITS | Encounter Summary ---
Author Organization [facility] Address [facility] [place] [address] Care Team Providers Care Block Bolter Mule Operator Name Role Phone Rufina Mccabe MD Primary Care Provider [phone]- [phone] Reason for Visit * Reason Comments Results review test Medication Refill Encounter Details Date Type Department Care Team (Late st Contact Info) Description 06/02/2021 10:00 AM EDT Office Visit Family Medicine at [facility] [address] [place] [phone] Rufina Mccabe MD [facility] [address] [address] SOB (shortness of breath) on exertion; Routine [...] models are currently recommended by [employer]: [id number] item #[id number] [employer] Deluxe Automatic [id number] ReliOn BP 200 [id number] ([employer]) Omron 10 Series BP785 [employer] BP3 [...] appt with [place] physician next week in [place] Will discuss latest MRI then Strength update: [...] a 501(C) to help the homeless in [place] Connected with the [place]ianna Has a visiting nurse connected with [...] EST) Fecal Occult Blood, Immunoassay Negative Negative [facility] Stool 07/05/2021 2:30 PM EST 07/09/2021 7:17 PM EST Narrative Resulting Agency Comment Spec In Lab Rufina Mccabe MD BODY FLUIDS AND STO OLS ORDERABLES [facility] [place] [address] documented in this encounter Visit Diagnoses Diagnosis SOB (shortness of breath) on exertion Shortness of breath Routine general medical examination at a health care facility Screening for colon cancer Special screening for malignant neoplasms, colon Breast cancer screening by mammogram documented in this encounter Care Teams Block Bolter Mule Operator Relationship Specialty Start Date End Date Rufina Mccabe MD [facility] [address] [place] [address] PCP - General Family Medicine 11/30/18 05/18/23 documented as of this encounter
--- OUTSIDE RECORDS SUMMARY | 2024-04-18 02:12 | XMS_ITS | Encounter Summary ---
Author Organization [facility] Address [facility] [place] [address] Care Team Providers Care Upscale Security Officer Name Role Phone Rufina Mccabe MD Primary Care Provider [phone] Encounter Details Date Type Department Care Team (Latest Contact Info) Description 02/01/2023 8:44 AM EDT - 02/01/2023 11:59 PM EDT Hospital Encounter Mammography/[place] [address] Rufina Mccabe MD [facility] [address]-[place] [address] Visit for screening mammogram Discharge Disposition: Home [...] mammogram documented in this encounter Care Teams Upscale Security Officer Relationship Specialty Start Date End Date Rufina Mccabe MD [facility] [place] [address] PCP - General Family Medicine 11/30/18 05/18/23 documented as of this encounter
--- OUTSIDE RECORDS SUMMARY | 2024-04-18 02:12 | XMS_ITS | Encounter Summary ---
Author Organization [facility] [place] [address] Care Team Providers Care Explosion Welder Name Role Phone Rufina Mccabe MD Primary Care Provider [phone]- [phone] Encounter Details Date Type Department Care Team (Late st Contact Info) Description 10/09/2019 8:00 AM EST Ancillary [place] [phone] Yesy Hansen MD [facility] [place] [address] Pain Social History Tobacco Use Types Packs/Day [...] MD G FILM LIBRARY ORD ERABLES [facility] [place], [place] documented in this encounter Visit Diagnoses Diagnosis Pain Generalized pain documented in this encounter Care Teams Explosion Welder Relationship Specialty Start Date End Date Rufina Mccabe MD [facility] [address] [place] [address] PCP - General Family Medicine 11/30/18 05/18/23 documented as of this encounter
--- OUTSIDE RECORDS SUMMARY | 2024-04-18 02:12 | XMS_ITS | Encounter Summary ---
Author Organization [facility] Address [facility] [place] [address] Care Team Providers Care Medicaid Plan Compliance Director Name Role Phone Rufina Mccabe MD Primary Care Provider [phone]- [phone] Reason for Visit * Reason Onset Date Comments Prior Authorization 09/10/2022 fluticasone furoate-vilanteroL (Breo Ellipta) 100-25 mcg/dose Disk with Device Encounter Details Date Type Department Care Team ([facility] Contact Info) Description 09/10/2022 Telephone Family Medicine at [facility] [address] [facility] [place] [address] Dusty Mercedes MA Prior Authorization (fluticasone furoate-vilanteroL [...] on filedocumented in this encounter Care Teams Medicaid Plan Compliance Director Relationship Specialty Start Date End Date Rufina Mccabe MD [facility] [address] [place] [address] PCP - General Family Medicine 11/30/18 05/18/23 documented as of this encounter
--- OUTSIDE RECORDS SUMMARY | 2024-04-18 02:12 | XMS_ITS | Encounter Summary ---
Author Organization [facility] Address [facility] [place] [address] Care Team Providers Care Air Compressor Mechanic Name Role Phone Selma Contreras MD Primary Care Provider [phone] Reason for Visit * Reason Comments Medication Refill Encounter Details Date Type Department Care Team (Late st Contact Info) Description 08/26/2022 Refill Family Medicine at [facility] [address] [place] [address] Rufina Mccabe MD [facility] [address]-[place] [address] Social History Tobacco Use Types Packs/Day Years [...] AM EST Last filled 08/26/2022 #60 w/[facility] #[id number] - [place], [place] - [address] [place] [address] [address] [address] ?? documented in this encounter Plan of Treatment Not on file documented as of this encounter Visit Diagnoses Not on filedocumented in this encounter Care Teams Air Compressor Mechanic Relationship Specialty Start Date End Date Selma Contreras MD [facility] [place] [address] PCP - General 05/19/23 03/14/24 documented as of this encounter
--- OUTSIDE RECORDS SUMMARY | 2024-04-18 02:12 | XMS_ITS | Encounter Summary ---
Author Organization [facility] Address [facility] [place] [address] Care Team Providers Care Emergency Service Restorer Name Role Phone Rufina Mccabe MD Primary Care Provider [phone]- [phone] Reason for Referral * E-Consultation (Routine) - Closed Specialty Diagnoses / Procedures Referred By Nelda sheppard Referred To Contact Pharmacy Diagnoses Weight gain Procedures eConsult to Amb Pharmacy (Primary Care Use Only) Rufina Mccabe MD [facility] [place] [address] Referral ID Status Reason Start Date Expiration Date Visits Re quested Visits Authorized [id number] Closed 03/12/2022 03/12/2023 1 1 Reason for Visit * Reason Comments Follow-up Encounter Details Date Type Department Care Team ([facility] Contact Info) Description 03/09/2022 11:00 AM EDT Office Visit Family Medicine at [facility] [address] [place] [address] Rufina Mccabe MD [facility] [place] [address] Weight gain Social History Tobacco Use Types [...] SURGERY Right approx 2013 Microfracture surgery ([facility], Dr. Barrera) ??? LAMINECTOMY ??? PRO LAMINOTOMY, LUMBAR DISK, 1 INTRSP N/A 10/14/2015 LAMINOTOMY, DECOMPRESSION, FORAMINOTOMY, LUMBAR performed by Trevor Rodriguez MD at [facility] MAIN OR ??? PRO MICROSURG TECHNIQUES, REQ OPER MICROSCOPE N/A 10/14/2015 MICROSCOPE USE performed by Trevor Rodriguez MD at [facility] MAIN OR ??? TUBAL LIGATION Medications [...] with depressed mood. CBC reviewed. - [facility]; Future Depression Mood is depressed with recent [...] documented in this encounter Results * [facility] (03/09/2022 12:17 PM EDT) Thyroid Stimulating Hormone 2.70 0.27 - 4.20 mcIU/mL [facility] Comment: Reference Interval (mcIU/mL): Females: ??First Trimester: 0.23-3.88 ??Second Trimester: 0.22-3.90 ??Third Trimester: 0.44-4.66 Blood 03/09/2022 12:1 7 PM EDT 03/09/2022 5:09 PM EDT Narrative Resulting Agency Comment Spec In Lab Rufina Mccabe MD CHEMISTRY ORDERABLE S [facility] [place] [address] documented in this encounter Visit Diagnoses Diagnosis Weight gain Abnormal weight gain documented in this encounter Care Teams Emergency Service Restorer Relationship Specialty Start Date End Date Rufina Mccabe MD [facility] [place] [address] PCP - General Family Medicine 11/30/18 05/18/23 documented as of this encounter
--- OUTSIDE RECORDS SUMMARY | 2024-04-18 02:12 | XMS_ITS | Encounter Summary ---
Author Organization [facility] Address [facility] [place] [address] Care Team Providers Care Chief Telephone Operator Name Role Phone Rufina Mccabe MD Primary Care Provider [phone]- [phone] Reason for Referral * Diagnostic Test (Routine) - Closed Specialty Diagnoses / Procedures Referred By Contac t Referred To Contact Cardiology Diagnoses Exertional dyspnea Procedures Echocardiogram Transthoracic([facility]) Emre Milligan MD [facility] [address] [facility] [place] [address] Referral ID Status Reason Start Date Expiration Date V isits Requested Visits Authorized [id number] Closed Specialty Service Requested 09/19/2019 09/18/2020 1 1 Reason for Visit * Diagnostic Test (Routine) - Closed Specialty Diagnoses / Procedures Referred By Contac t Referred To Contact Cardiology Diagnoses Exertional dyspnea Procedures Echocardiogram Transthoracic([facility]) Emre Milligan MD [facility] [place] [address] [facility] [place] [address] Referral ID Status Reason Start Date Expiration Date V isits Requested Visits Authorized [id number] Closed Specialty Service Requested 09/19/2019 09/18/2020 1 1 Encounter Details Date Type Department Care Team (Latest Contact Info) Description 04/07/2020 9:31 AM EDT - 04/07/2020 11:59 PM EDT Hospital Encounter Non-Invasive [place] [address] Emre Milligan MD [facility] [place] [address] Exertional dyspnea Discharge Disposition: Home Social History [...] SHERRIE ? (Age): 1960(59y) Med Rec#: ? [id number] ?Sex: ?F ? Site Loc: ? [facility] ?Ht / Wt: ??170(cm)/77(kg) Pt. Loc: ?Echo Lab ?BSA: ?1.88 Study Date: ?? 04/07/2020 ?Pt. Type: Outpatient Tape: ? Referring: TRACEE Reading: Bernabe Miller ([id number]) Bench Mover: Zeenat Carmen Diagnosis: *Dyspnea, unspecified (R06.00) BP: [...] Vmax ?0.84 ? m/sec ? MV deceleration axuc876.39 ? msec ? MV A-wave Vmax ?0.93 [...] ? Mid-Inferior ?Normal ? Mid-Inferoseptal ?Normal ? Clever-Septal ? Normal ? Clever-Anterior ? Normal ? Clever-Lateral ?Normal ? Clever-Inferior ? Normal ? Clever-Tip ?Normal ? This report has been electronically signed by: Bernabe Miller M.D. ? 04/07/2020 11:17:34 Images reviewed and interpretation verified [facility] Cardiac Ultrasound Laboratory Procedure Note Bernabe Miller MD - 04/07/2020 Procedure: Transthoracic Echocardiogram Patient: MARCELO MONTERO(Age): 1960(59y) Med Rec#: [id number] Sex: F Site Loc: [facility] Ht / Wt: 170(cm)/77(kg) Pt. Loc: Echo Lab BSA: 1.88 Study Date: 04/07/2020 Pt. Type: Outpatient Tape: Referring: NATHAN Reading: Bernabe Miller ([id number]) Bench Mover: Zeenat Carmen Diagnosis: *Dyspnea, unspecified (R06.00) BP: [...] MV E-wave Vmax 0.84 m/sec MV deceleration eomp304.39 msec MV A-wave Vmax 0.93 m/sec MV [...] Normal Mid-Posterolateral Normal Mid-Inferior Normal Mid-Inferoseptal Normal Clever-Septal Normal Clever-Anterior Normal Clever-Lateral Normal Clever-Inferior Normal Clever-Tip Normal This report has been electronically signed by: Bernabe Miller M.D. 04/07/2020 11:17:34 Images reviewed and interpretation verified [facility] Cardiac Ultrasound Laboratory Emre Milligan MD ECHO ORDERABLES documented in this encounter Visit Diagnoses Diagnosis Exertional dyspnea Other dyspnea and respiratory abnormality documented in this encounter Care Teams Chief Telephone Operator Relationship Specialty Start Date End Date Rufina Mccabe MD [facility] [place] [address] PCP - General Family Medicine 11/30/18 05/18/23 documented as of this encounter
--- OUTSIDE RECORDS SUMMARY | 2024-04-18 02:12 | XMS_ITS | Encounter Summary ---
Author Organization [facility] Address [facility] [place] [address] Care Team Providers Care Oil Tester Name Role Phone Rufina Mccabe MD Primary Care Provider [phone]- [phone] Reason for Visit * Reason Comments Medication Refill Encounter Details Date Type Department Care Team ([facility] st Contact Info) Description 09/08/2022 Refill Family Medicine at [facility] [address] [place] [address] Rufina Mccabe MD [facility] [address] [address] SOB (shortness of breath) on exertion Social [...] breath documented in this encounter Care Teams Oil Tester Relationship Specialty Start Date End Date Rufina Mccabe MD [facility] [address] [place] [address] PCP - General Family Medicine 11/30/18 05/18/23 documented as of this encounter
--- OUTSIDE RECORDS SUMMARY | 2024-04-18 02:12 | XMS_ITS | Encounter Summary ---
Author Organization [facility] Address [facility] [place] [address] Care Team Providers Care Design And Sales Consultant Name Role Phone Rufina Mccabe MD Primary Care Provider [phone]- [phone] Encounter Details Date Type Department Care Team (Late st Contact Info) Description 11/09/2019 [place] [phone] Christ Garay Social History Tobacco Use Types [...] on filedocumented in this encounter Care Teams Design And Sales Consultant Relationship Specialty Start Date End Date Rufina Mccabe MD [facility] [address] [address] PCP - General Family Medicine 11/30/18 05/18/23 documented as of this encounter
--- OUTSIDE RECORDS SUMMARY | 2024-04-18 02:12 | XMS_ITS | Encounter Summary ---
Author Organization [facility] Address [facility] [place] [address] Care Team Providers Care Pharmacy Technician Assistant Name Role Phone Rufina Mccabe MD Primary Care Provider [phone]- [phone] Encounter Details Date Type Department Care Team (Late st Contact Info) Description 12/19/2019 [place] [address] Leta Anne LNA Social History Tobacco Use [...] on filedocumented in this encounter Care Teams Pharmacy Technician Assistant Relationship Specialty Start Date End Date Rufina Mccabe MD [facility] [address] [place] [address] PCP - General Family Medicine 11/30/18 05/18/23 documented as of this encounter
--- OUTSIDE RECORDS SUMMARY | 2024-04-18 02:12 | XMS_ITS | Encounter Summary ---
Author Organization [facility] [place] [address] Care Team Providers Care Assistant Department Manager Name Role Phone Rufina Mccabe MD Primary Care Provider [phone] Encounter Details Date Type Department Care Team (Latest Contact Info) Description 12/15/2021 9:00 AM EDT Laboratory Appointment Lab [address] [place] [phone] Multiple sclerosis; Vitamin D deficiency Social History [...] sclerosis Vitamin D deficiency COMPREHENSIVE METABOLIC PANEL Routine 12/15/2021 9:13 AM EDT Multiple sclerosis Vitamin D deficiency documented in this encounter Results * (ABNORMAL) Differential, Automated (12/15/2021 9:13 AM EDT) Pathologist [facility] Neutrophil % 70.1 % [facility] Neutrophil Absolute 7.50(H) 1.70 - 6.10 x10(3)/mc L [facility] Lymph % 21.0 % [facility] Lymphocytes Abs 2.2 0.9 - 3.2 x10(3)/mc L [facility] Monocyte % 6.3 % [facility] Monocyte Abs 0.7 0.3 - 0.9 x10(3)/mc L [facility] Eos % 1.6 % [facility] Eosinophils Abs 0.2 0.0 - 0.4 x10(3)/ L [facility] Basophil % 0.5 % [facility] Baso Absolute 0.0 0.0 - 0.1 x10(3)/mc L [facility] Immature Gran % 0.50 % [facility] Comment: Immature granulocytes(IG's)percentage and absolute count will include metamyelocytes, myelocytes, and promyelocytes. Blood smears from CBCs yielding IG's will be scanned manually for concordance. If this scan disagrees with the automated IG or if promyelocytes are noted, a manual differential will be performed. Immature Gran Absolute 0.05(H) 0.00 - 0.04 x10(3)/mc L [facility] Blood 12/15/2021 9:13 AM EDT 12/15/2021 9:24 AM EDT Narrative Resulting Agency Comment Spec In Lab Tiffany LAINEZ HEMATOLOGY ORDERA BLES [facility] [place] [address] * (ABNORMAL) Hemogram (12/15/2021 9:13 AM EDT) [facility] White Blood Cell 10.7(H) 4.0 - 9.5 x10(3)/[facility] Red Blood Cell 4.47 4.00 - 5.21 x10(6)/ L [facility] Hemoglobin 13.5 11.7 - 15.5 g/dL [facility] Hematocrit 40.8 35.7 - 45.8 % [facility] Mean Cell Volume 91.3 82.6 - 94.4 fL [facility] Mean Cell Hemoglobin 30.2 27.1 - 32.0 pg [facility] Mean Cell Hemoglobin Concentration 33.1 31.7 - 35.0 g/dL [facility] Platelet 306 145 - 357 x10(3)/[facility] LABORATORY RDW Standard Deviation 42.9 37.0 - 46.0 [facility] RDW coefficient of variation 12.9 11.5 - 14.1 % [facility] Mean Platelet Volume 10.2 7.6 - 12.9 fL [facility] NRBC% auto 0.0 % [facility] NRBC Absolute 0.000 0.000 - 0.000 x10(3)/[facility] Blood 12/15/2021 9:13 AM EDT 12/15/2021 9:24 AM EDT Narrative Resulting Agency Comment Spec In Lab Tiffany LAINEZ HEMATOLOGY ORDERA BLES [facility] [place] [address] * (ABNORMAL) Comprehensive metabolic panel (non-fasting) (12/15/2021 9:13 AM EDT) [facility] Glucose 97 65 - 199 mg/dL [facility] Comment:Diabetes: >=200 mg/d L plus symptoms Blood Urea Nitrogen 24(H) 8 - 18 mg/dL [facility] Creatinine 0.74 0.70 - 1.20 mg/dL [facility] Sodium 140 135 - 145 mmol/L [facility] Potassium 3.8 3.5 - 5.0 mmol/L [facility] Comment: Please note: ??Patients with WBC >100,000 may have falsely elevated Potassium levels. ??For accurate Potassium quantification in these patients send serum separator tube (gold top) for subsequent determinations. ??Contact the Clinical Chemistry Laboratory if there are any questions. Chloride 102 98 - 107 mmol/L [facility] Carbon Dioxide 26 22 - 31 mmol/L [facility] Anion Gap 12 5 - 15 mmol/L [facility] Calcium 9.3 8.5 - 10.5 mg/dL [facility] Protein, Total 7.3 6.1 - 8.0 g/dL [facility] Albumin 4.5 3.2 - 5.2 g/dL [facility] Aspartate Aminotransferase 15 0 - 30 unit/L [facility] Alanine Aminotransferase 17 0 - 30 unit/L [facility] Alkaline Phosphatase 111(H) 35 - 105 unit/L [facility] Bilirubin, Total 0.9 0.2 - 1.3 mg/dL [facility] Est Glomerular Filtration Rate 88 >=60 mL/min/1. 73 m?? [facility] Comment: This patient? s estimated [...] LAINEZ CHEMISTRY ORDERAB LES Performing Organization Address City/[facility]/ZIP Co de Phone Number [facility] [place] [address] * Vitamin D, 25-Hydroxy (12/15/2021 9:13 AM EDT) Vitamin D Total 25 OH 30 21 - 100 ng/mL [facility] Vit D Interp Sufficient [facility] Blood 12/15/2021 9:13 AM EDT 12/15/2021 9:24 AM EDT Narrative Resulting Agency Comment Spec In Lab Tiffany LAINEZ CHEMISTRY ORDERAB LES Performing Organization Address [facility] Co de Phone Number [facility] [place] [address] documented in this encounter Visit Diagnoses Diagnosis Multiple sclerosis Vitamin D deficiency Unspecified vitamin D deficiency documented in this encounter Care Teams Assistant Department Manager Relationship Specialty Start Date End Date Rufina Mccabe MD [facility] [address] [facility] [place] [address] PCP - General Family Medicine 11/30/18 05/18/23 documented as of this encounter
--- OUTSIDE RECORDS SUMMARY | 2024-04-18 02:12 | XMS_ITS | Encounter Summary ---
Author Organization [facility] Address [facility] [place] [address] Care Team Providers Care Draftsperson Name Role Phone Rufina Mccabe MD Primary Care Provider [phone] Encounter Details Date Type Department Care Team [...] on filedocumented in this encounter Care Teams Draftsperson Relationship Specialty Start Date End Date Rufina Mccabe MD [facility] [place] [address] PCP - General Family Medicine 11/30/18 05/18/23 documented as of this encounter
--- OUTSIDE RECORDS SUMMARY | 2024-04-18 02:12 | XMS_ITS | Encounter Summary ---
Author Organization [facility] Address [facility] [place] [address] Care Team Providers Care Forgeman Helper Name Role Phone Rufina Mccabe MD Primary Care Provider [phone] Encounter Details Date Type Department Care Team (Late st Contact Info) Description 06/02/2022 Trans[place] [phone] Tiffany Wells PA [address] [facility] [address] [place] [address] Multiple sclerosis Social History Tobacco Use Types [...] Protein, Total 7.4 6.1 - 8.0 g/dL [facility] Albumin 4.4 3.2 - 5.2 g/dL [facility] Aspartate Aminotransferase 17 0 - 30 unit/L [facility] Alanine Aminotransferase 30 0 - 30 unit/L [facility] Alkaline Phosphatase 104 35 - 105 unit/L [facility] Bilirubin, Total 0.6 0.2 - 1.3 mg/dL [facility] Bilirubin, Direct 0.1 0.0 - 0.3 mg/dL [facility] Blood 11/05/2022 8:46 AM EDT 11/05/2022 8:48 AM EDT Narrative Resulting Agency Comment Spec In Lab Tiffany LAINEZ CHEMISTRY ORDERAB LES [facility] [place] [address] documented in this encounter Visit Diagnoses Diagnosis Multiple sclerosis documented in this encounter Care Teams Forgeman Helper Relationship Specialty Start Date End Date Rufina Mccabe MD [facility] [address] [place] [address] PCP - General Family Medicine 11/30/18 05/18/23 documented as of this encounter
--- OUTSIDE RECORDS SUMMARY | 2024-04-18 02:13 | XMS_ITS | Encounter Summary ---
Author Organization [facility] Address [facility] [place] [address] Care Team Providers Care Bottle Packer Name Role Phone Rufina Mccabe MD Primary Care Provider [phone] Reason for Visit * Reason Comments Referral * Consultation (Routine) - Closed Specialty Diagnoses / Procedures Referred By Nelda sheppard Referred To Contact Pulmonology Diagnoses SOB (shortness of breath) Rufina Mccabe MD [facility] [address] [place] [address] [facility] [address] [place] [phone] Referral ID Status Reason Start Date Expiration Date V isits Requested Visits Authorized [id number] Closed Specialty Service Requested 12/13/2018 12/13/2019 1 1 Encounter Details Date Type Department Care Team (Late st Contact Info) Description 02/19/2019 9:00 AM EDT Office [place] [address] Tabatha Martel MD [facility] [place] [address] PINA (dyspnea on exertion) Social [...] of this patient. Please contact us at [phone] for any further questions or requests. 03/12/2019 [...] abnormality documented in this encounter Care Teams Bottle Packer Relationship Specialty Start Date End Date Rufina Mccabe MD [facility] [address] [place] [address] PCP - General Family Medicine 11/30/18 05/18/23 documented as of this encounter
--- OUTSIDE RECORDS SUMMARY | 2024-04-18 02:13 | XMS_ITS | Encounter Summary ---
Author Organization [facility] Address [facility] [place] [address] Care Team Providers Care Centrex Radio Operator Name Role Phone Rufina Mccabe MD Primary Care Provider [phone]- [phone] Encounter Details Date Type Department Care Team (Late st Contact Info) Description 12/13/2018 Telephone Family Medicine at [facility] [address] [place] [place] [address] Rufina Mccabe MD [facility] DR PHYLLIS [place]ARN[place] [address] Social History Tobacco Use Types Packs/Day Years [...] we have not received recent labs from [facility] and she should reach out to them and request them again. * Telephone Encounter - David Pulliam - 12/21/2018 4:10 PM EDT Patient is calling back to see if we received the lab results from [facility]. Please give the patient a call back [...] she agreed. She had a CBC at [facility] in Sep 2018 as part of [place] drug monitoring. She'll call [facility] lab and ask them to fax her February labs to for the certified bench jeweler technician's review as they require a recent CBC (last 6 months). * Telephone Encounter - Rufina Mccabe MD - 12/13/2018 9:24 AM EDT Regarding: FW:test results Contact: ----- Message ----- From: Sherrie Bonner Sent: 12/08/2018 9:16 AM To: [facility] Primary Care Team S1 Nurse Subject: RE:test [...] reach out to them through the computer ([facility] e-consult). It will likely take a few days for them to get back to me, and then you'll hear from me again. Meanwhile, have you had any changes in your breathing? Warm regards, Rufina Mccabe MD Family Medicine [facility] ----- Message ----- From: Sherrie Bonner Sent: [...] Warm regards, Rufina Mccabe MD Family Medicine [facility] P.S. Your mammogram was normal too. The breast center will send you a letter about that. documented in this encounter Plan of Treatment Not on file documented as of this encounter Visit Diagnoses Not on filedocumented in this encounter Care Teams Centrex Radio Operator Relationship Specialty Start Date End Date Rufina Mccabe MD [facility] DR PHYLL[address] [place]ARN[place] [address] PCP - General Family Medicine 11/30/18 05/18/23 documented as of this encounter
--- OUTSIDE RECORDS SUMMARY | 2024-04-18 02:13 | XMS_ITS | Encounter Summary ---
Author Organization [facility] [place] [address] Care Team Providers Care Rosin Barrel Filler Name Role Phone Vidhya Benitez DO Primary Care Provider Reason for Referral * Diagnostic Test (Routine) - Closed Specialty Diagnoses / Procedures Referred By Contac t Referred To Contact Radiology Diagnoses Other chest pain Procedures NM Pharmacologic Stress CT Component Cameron Saldivar MD [facility] [place] [address] [place] [address] Referral ID Status Reason Start Date Expiration Date V isits Requested Visits Authorized [id number] Closed Specialty Service Requested 10/19/2018 10/19/2019 1 1 Reason for Visit * Diagnostic Test (Routine) - Closed Specialty Diagnoses / Procedures Referred By Contac t Referred To Contact Radiology Diagnoses Other chest pain Procedures NM Pharmacologic Stress CT Component Cameron Saldivar MD [facility] [place] [address] [place] [address] Referral ID Status Reason Start Date Expiration Date V isits Requested Visits Authorized [id number] Closed Specialty Service Requested 10/19/2018 10/19/2019 1 1 Encounter Details Date Type Department Care Team (Late st Contact Info) Description 11/02/2018 8:54 AM EDT - 11/02/2018 10:40 AM EDT Hospital Encounter Nuclear Medicine at [facility] [place] [address] Cameron Saldivar MD [facility] [place] [address] Other chest pain Discharge Disposition: Home Social [...] pain documented in this encounter Care Teams Rosin Barrel Filler Relationship Specialty Start Date End Date Vidhya Benitez DO PCP - General Family Medicine 05/10/16 11/29/18 documented as of this encounter
--- OUTSIDE RECORDS SUMMARY | 2024-04-18 02:13 | XMS_ITS | Encounter Summary ---
Author Organization [facility] [place] [address] Care Team Providers Care Sander Setter Name Role Phone EliVidhya Primary Care Provider [phone] Encounter Details Date Type Department Care Team (Late st Contact Info) Description 11/08/2018 9:45 AM EDT Ancillary [place] [phone] Fidelina Priest MD [facility] [place] [address] Pain Social History Tobacco Use Types Packs/Day [...] Clinic C-Arm (02/12/2019 5:07 PM EDT) Narrative [facility] - 02/12/2019 5:07 PM EDT See PACS for result report. Fidelina Priest MD [facility] ORD ER[facility] [place], [place] documented in this encounter Visit Diagnoses Diagnosis Pain Generalized pain documented in this encounter Care Teams Sander Setter Relationship Specialty Start Date End Date Vidhya Benitez DO PCP - General Family Medicine 05/10/16 11/29/18 documented as of this encounter
--- OUTSIDE RECORDS SUMMARY | 2024-04-18 02:13 | XMS_ITS | Encounter Summary ---
Author Organization [facility] [place] [address] Care Team Providers Care Content Engineer Name Role Phone Vidhya Benitez DO Primary Care Provider [phone] Encounter Details Date Type Department Care Team ([facility] st Contact Info) Description 11/22/2018 Telephone [place] [phone] Ann Jaimes Social History Tobacco Use Types [...] not aware that she would need a services delivery driver. She said sh would call the office back to schedule once she has spoken with her . documented in this encounter Plan of Treatment Not on file documented as of this encounter Visit Diagnoses Not on filedocumented in this encounter Care Teams Content Engineer Relationship Specialty Start Date End Date Vidhya Benitez DO PCP - General Family Medicine 05/10/16 11/29/18 documented as of this encounter
--- OUTSIDE RECORDS SUMMARY | 2024-04-18 02:13 | XMS_ITS | Encounter Summary ---
Author Organization [facility] [place] [address] Care Team Providers Care Front End Software Developer Name Role Phone Vidhya Benitez DO Primary Care Provider Reason for Visit * Diagnostic Test (Routine) - Closed Specialty Diagnoses / Procedures Referred By Nelda sheppard Referred To Contact Radiology Diagnoses Other chest pain Procedures NM Pharmacologic Stress Myocardial Perfusion Cameron Saldivar MD [facility] [place] [address] [place] [address] Referral ID Status Reason Start Date Expiration Date V isits Requested Visits Authorized [id number] Closed Specialty Service Requested 10/19/2018 10/19/2019 1 1 Encounter Details Date Type Department Care Team (Late st Contact Info) Description 11/02/2018 8:53 AM EDT Hospital Encounter [place] [phone] Cameron Saldivar MD [facility] [place] [address] Discharge Disposition: Home Social History [...] below. ? Electronically signed by: PRADEEP Christopher [facility] ([phone]), at 11/02/2018 5:25 PM Narrative 11/02/2018 5:25 [...] on filedocumented in this encounter Care Teams Front End Software Developer Relationship Specialty Start Date End Date Vidhya Benitez DO PCP - General Family Medicine 05/10/16 11/29/18 documented as of this encounter
--- OUTSIDE RECORDS SUMMARY | 2024-04-18 02:13 | XMS_ITS | Encounter Summary ---
Author Organization [facility] [place] [address] Care Team Providers Care Cost And Risk Analysis Manager Name Role Phone Rufina Mccabe MD Primary Care Provider [phone] Encounter Details Date Type Department Care Team ([facility] st Contact Info) Description 12/12/2018 External Results [place] [address] Provider, Scanning Social History Tobacco Use Types [...] on filedocumented in this encounter Care Teams Cost And Risk Analysis Manager Relationship Specialty Start Date End Date Rufina Mccabe MD [facility] [address] [place] [address] PCP - General Family Medicine 11/30/18 05/18/23 documented as of this encounter
--- OUTSIDE RECORDS SUMMARY | 2024-04-18 02:13 | XMS_ITS | Encounter Summary ---
Author Organization [facility] Address [facility] [place] [address] Care Team Providers Care Distribution Center Manager Name Role Phone Rufina Mccabe MD Primary Care Provider [phone] Reason for Visit * Reason Comments Cough Encounter Details Date Type Department Care Team ([facility] st Contact Info) Description 12/26/2018 9:30 AM EDT Office Visit Family Medicine at [facility] [address] [place] [address] Rufina Mccabe MD [facility] [address] PHYLL[address] [place] [address] Acute URI Social History Tobacco Use Types [...] include drinking lots of fluids and taking iezi-mzp-yjqstku pain medicine. You will probably feel better [...] of fluids you drink. ?? Take an pvtw-czr-xjjbfzx pain medicine, such as acetaminophen (Tylenol), ibuprofen (Advil, Motrin), or naproxen (Aleve). Read and follow all instructions on the label. ?? Before you use cough and cold medicines, check the label. These medicines may not be safe for young children or for people with certain health problems. ?? Be careful when taking shec-yrm-ltyqzdd cold or flu medicines and Tylenol at [...] more? Visit our health information library at [email or web address]. You can also view health information on [employer], your personal patient account. Log in or sign uptoday. Enter K520 in the search box to learn more about Upper Respiratory Infection (Cold): Care Instructions. Current as of: April 26, 2018 Content Version: 12.0 ?? [id number] [employer]. Care instructions adapted under license by [facility]. If you have questions about a medical condition or this instruction, always ask your healthcare professional. [employer] disclaims any warranty or liability for your [...] include drinking lots of fluids and taking djmh-nww-udqxsqo pain medicine. You will probably feel better [...] of fluids you drink. ?? Take an vvde-qkc-nryrmbk pain medicine, such as acetaminophen (Tylenol), ibuprofen (Advil, Motrin), or naproxen (Aleve). Read and follow all instructions on the label. ?? Before you use cough and cold medicines, check the label. These medicines may not be safe for young children or for people with certain health problems. ?? Be careful when taking qjcv-iar-cfiuaqz cold or flu medicines and Tylenol at [...] more? Visit our health information library at [email or web address]. You can also view health information on [employer], your personal patient account. Log in or sign uptoday. Enter K520 in the search box to learn more about Upper Respiratory Infection (Cold): Care Instructions. Current as of: April 26, 2018 Content Version: 12.0 ?? [id number] [employer]. Care instructions adapted under license by [facility]. If you have questions about a medical condition or this instruction, always ask your healthcare professional. [employer] disclaims any warranty or liability for your use of this information. documented in this encounter Plan of Treatment Not on file documented as of this encounter Visit Diagnoses Diagnosis Acute URI Acute upper respiratory infections of unspecified site documented in this encounter Care Teams Distribution Center Manager Relationship Specialty Start Date End Date Rufina Mccabe MD [facility] [address] [place] [address] PCP - General Family Medicine 11/30/18 05/18/23 documented as of this encounter
--- OUTSIDE RECORDS SUMMARY | 2024-04-18 02:13 | XMS_ITS | Encounter Summary ---
[place] [address] Care Team Providers Care Matrix Worker Name Role Phone Rufina Mccabe MD Primary Care Provider [phone] Encounter Details Date Type Department Care Team (Late st Contact Info) Description 05/29/2019 [place] [phone] Sammi Varela, DO [address] [place] [address] [place] [address] Multiple sclerosis Social History Tobacco Use Types [...] with reflex Culture (09/17/2019 11:47 AM EST) Glucose, Urine Dipstick Negative Negative mg/dL [facility] Protein, Urine Dipstick Negative Negative mg/dL [facility] Bilirubin, Urine Dipstick Negative Negative mg/dL [facility] Comment: Clinical correlation required for positive Urine Bilirubin results as false positive may occur with some drugs and drug related products. If a false positive is suspected a serum total bilirubin should be considered if clinically indicated. Urobilinogen, Urine Dipstick Normal Normal mg/dL [facility] pH, Urn (dipstick) 5.5 5.0 - 8.0 [facility] Blood, Urine Dipstick Negative Negative mg/dL [facility] Ketone, Urine Dipstick Negative Negative mg/dL [facility] Nitrite, Urine Dipstick Negative Negative [facility] Leukocytes, Urine Dipstick Negative Negative [facility] Appearance, Urine Dipstick Clear Clear [facility] Specific Uvalda Urine Automated >=1.030 1.002 - 1.030 [facility] Color, Urine Dipstick Yellow [facility] Reflex to Culture No [facility] Urine specimen obtained by clean catch procedure (specimen) 09/17/2019 11:47 AM EST 09/17/2019 11:55 AM EST Narrative Resulting Agency Comment Spec In Lab Sammi Varela DO URINE ORDERABLES [facility] [place] [id number] * (ABNORMAL) Comprehensive metabolic panel (non-fasting) (09/17/2019 11:43 AM EST) Glucose 101 65 - 199 mg/dL [facility] Comment:Diabetes: >=200 mg/d L plus symptoms Blood Urea Nitrogen 15 8 - 18 mg/dL [facility] Creatinine 0.67(L) 0.70 - 1.20 mg/dL [facility] Sodium 141 135 - 145 mmol/L [facility] Potassium 3.7 3.5 - 5.0 mmol/L [facility] Comment: Please note: ??Patients with WBC >100,000 may have falsely elevated Potassium levels. ??For accurate Potassium quantification in these patients send serum separator tube (gold top) for subsequent determinations. ??Contact the Clinical Chemistry Laboratory if there are any questions. Chloride 106 98 - 107 mmol/L [facility] Carbon Dioxide 23 22 - 31 mmol/L [facility] Anion Gap 12 5 - 15 mmol/L [facility] Calcium 9.3 8.5 - 10.5 mg/dL [facility] Protein, Total 7.4 6.1 - 8.0 gm/dL [facility] Albumin 4.4 3.2 - 5.2 gm/dL [facility] Aspartate Aminotransferase 19 0 - 30 unit/L [facility] Alanine Aminotransferase 16 0 - 30 unit/L [facility] Alkaline Phosphatase 109(H) 35 - 105 unit/L [facility] Bilirubin, Total 0.4 0.2 - 1.3 mg/dL [facility] Est Glomerular Filtration Rate 97 >=60 mL/min/1. 73 m?? [facility] Comment: The eGFR was calculated using the CKD-EPI equation. As with all creatinine based estimates of kidney function, eGFR values calculated with the CKD-EPI equation are not accurate in patients with acute kidney failure, extremes of body mass or the acutely ill. [email or web address] eGFR 112 >=60 mL/min/1. 73 m?? [facility] Comment: The eGFR was calculated using the CKD-EPI equation. As with all creatinine based estimates of kidney function, eGFR values calculated with the CKD-EPI equation are not accurate in patients with acute kidney failure, extremes of body mass or the acutely ill. [email or web address] Blood specimen (specimen) 09/17/2019 11:43 AM EST 09/17/2019 11:56 AM EST Narrative Resulting Agency Comment Spec In Lab Sammi Varela DO CHEMISTRY ORDERABLES [facility] [place] [address] documented in this encounter Visit Diagnoses Diagnosis Multiple sclerosis documented in this encounter Care Teams Matrix Worker Relationship Specialty Start Date End Date Rufina Mccabe MD [facility] DR [facility] [address] PCP - General Family Medicine 11/30/18 05/18/23 documented as of this encounter
--- OUTSIDE RECORDS SUMMARY | 2024-04-18 02:13 | XMS_ITS | Encounter Summary ---
Author Organization [facility] [place] [address] Care Team Providers Care Helpdesk Administrator Name Role Phone Rufina Mccabe MD Primary Care Provider [phone] Reason for Visit * Reason Onset Date Comments Follow-up 07/02/2019 schedule f/u Encounter Details Date Type Department Care Team (Late st Contact Info) Description 07/02/2019 [place] [phone] Ana Blount RN Follow-up (schedule f/u) Social [...] EST Called Sherrie to f/u on her [facility] message regarding scheduling f/u with Dr. Lucero today or Dr. Martel in Jul. She states she could not stay today due impending weather and travel distance. She would like to coordinate f/u for [facility]. when she will be seeing her PMD at [facility] at 8am. Was able to offer a 9:30 f/u with Dr. Martel which she accepted. We reviewed purpose of the appointmentwill be to discuss test results/findings in person and make a plan for next steps with Dr. Dodgeaving the practice in August. Sherrie denies further questions at this time. Ana Blount, RN, BSN Pulmonary Department [email or web address] Phone: [phone] Pager: [phone] documented in this encounter Plan of Treatment Not on file documented as of this encounter Visit Diagnoses Not on filedocumented in this encounter Care Teams Helpdesk Administrator Relationship Specialty Start Date End Date Rufina Mccabe MD [facility] [address] [facility] [facility] [address] PCP - General Family Medicine 11/30/18 05/18/23 documented as of this encounter
--- OUTSIDE RECORDS SUMMARY | 2024-04-18 02:13 | XMS_ITS | Encounter Summary ---
Author Organization [facility] Address [facility] [address] [place] [id number] Care Team Providers Care Retirement Officer Name Role Phone Vidhya Benitez DO Primary Care Provider Reason for Referral * Surgical (Routine) - Specialty Diagnoses / Procedures Referred By Contac t Referred To Contact Diagnoses Spondylosis of lumbar region without myelopathy or radiculopathy Procedures RADIOFREQUENCY-LUMBAR/SACRAL Fidelina Priest MD [facility] PAIN [place] [id number] Referral ID Status Reason Start Date Expiration Date V isits Requested Visits Authorized [id number] Consult, Test & Treat 11/08/2018 11/08/2019 1 1 Reason for Visit * Reason Comments Back Pain * Surgical (Routine) - Closed Specialty Diagnoses / Procedures Referred By Contac t Referred To Contact Pain Management Diagnoses Spondylosis without myelopathy or radiculopathy, lumbosacral region Left RFA NPO Procedures PRO DSTR PARAVERTEBRAL FCT JNT NRVES LUMBAR OR SACRAL SINGLE PROCEDURE 1 Elizabet Brooks, STAVE LOG CUT OFF SAW OPERATOR [facility] [address] Fidelina Priest MD [facility] [place] [address] Referral ID Status Reason Start Date Expiration Date Visits Re quested Visits Authorized [id number] Closed 11/08/2018 11/08/2019 1 1 Encounter Details Date Type Department Care Team (Latest Contact Info) Description 11/08/2018 9:45 AM EDT Procedure visit Pain Management at [facility] [place] [address] Fidelina Priest MD [facility] [place] [address] Spondylosis of lumbar region without myelopathy or [...] LUMBAR performed by Trevor Rodriguez MD at [facility] MAIN OR ??? PRO MICROSURG TECHNIQUES, REQ OPER MICROSCOPE N/A 10/14/2015 MICROSCOPE USE performed by Trevor Rodriguez MD at [facility] MAIN OR ??? TUBAL LIGATION ALLERGIES: Patient [...] file Gets together: Not on file Attends spiritism service: Not on file Active member of [...] 2. 3. Patient states they have a mechanic welder truck driver to transport after procedure? Yes 4. Patient [...] Physician-Pain Management CC: Vidhya Benitez, DO [address] [place] [address] documented in this encounter Plan of Treatment [...] Physician-Pain Management CC: Vidhya Benitez DO [address] [place] [address] Fidelina Priest MD PROCEDURE/MINOR SURG ICAL ORDERABLES [...] mg documented in this encounter Care Teams Retirement Officer Relationship Specialty Start Date End Date Vidhya Benitez DO PCP - General Family Medicine 05/10/16 11/29/18 documented as of this encounter
--- OUTSIDE RECORDS SUMMARY | 2024-04-18 02:13 | XMS_ITS | Encounter Summary ---
Author Organization [facility] Address [facility] [place] [address] Care Team Providers Care Middle School History Teacher Name Role Phone Rufina Mccabe MD Primary Care Provider [phone] Encounter Details Date Type Department Care Team (Late st Contact Info) Description 01/08/2019 [place] [phone] Dusty Hui Social History Tobacco Use Types [...] on filedocumented in this encounter Care Teams Middle School History Teacher Relationship Specialty Start Date End Date Rufina Mccabe MD [facility] [address] [facility] [place] [address] PCP - General Family Medicine 11/30/18 05/18/23 documented as of this encounter
--- OUTSIDE RECORDS SUMMARY | 2024-04-18 02:13 | XMS_ITS | Encounter Summary ---
Author Organization [facility] Address [facility] [place] [address] Care Team Providers Care Home Manager Name Role Phone Rufina Mccabe MD Primary Care Provider [phone] Encounter Details Date Type Department Care Team (Latest Contact Info) Description 11/30/2018 10:24 AM EDT - 11/30/2018 11:59 PM EDT Hospital En[place] [address] SOB (shortness of breath) on exertion Discharge [...] breath documented in this encounter Care Teams Home Manager Relationship Specialty Start Date End Date Rufina Mccabe MD [facility] [place] [address] PCP - General Family Medicine 11/30/18 05/18/23 documented as of this encounter
--- OUTSIDE RECORDS SUMMARY | 2024-04-18 02:13 | XMS_ITS | Encounter Summary ---
[place] [address] Care Team Providers Care Supervisor Metal Cans Name Role Phone Eli Vidhya Primary Care Provider [phone] Reason for Visit * Reason Onset Date Comments Pre Procedure Call 11/07/2018 Encounter Details Date Type Department Care Team (Late Contact Info) Description 11/07/2018 Telephone [place] [phone] Camille Alberts LNA Pre Procedure Call Social [...] a pacemaker) on 11/08/18 (date of procedure). Carton Inspector: The patient was reminded that they need to have a gas truck driver accompany them to her procedure [...] No Prior to checking in at 3D General Administrator, please be sure to empty your bladder. Patient confirmed understanding that if they do not follow the above their instructions, their procedure is likely to be cancelled. JOSE Gusman documented in this encounter Plan of Treatment Not on file documented as of this encounter Visit Diagnoses Not on filedocumented in this encounter Care Teams Supervisor Metal Cans Relationship Specialty Start Date End Date Vidhya Benitez DO PCP - General Family Medicine 05/10/16 11/29/18 documented as of this encounter
--- OUTSIDE RECORDS SUMMARY | 2024-04-18 02:13 | XMS_ITS | Encounter Summary ---
Author Organization [facility] Address [facility] [place] [address] Care Team Providers Care Residential Gas Heat Technician Name Role Phone EliVidhya Primary Care Provider Encounter Details Date Type Department Care Team (Late st Contact Info) Description 11/02/2018 10:41 AM EDT - 11/02/2018 11:59 PM EDT Hospital Encounter [place] [address] Cameron Saldivar MD [facility] [place] [address] Other chest pain Discharge Disposition: Home Social [...] pain documented in this encounter Care Teams Residential Gas Heat Technician Relationship Specialty Start Date End Date Vidhya Benitez DO PCP - General Family Medicine 05/10/16 11/29/18 documented as of this encounter
--- OUTSIDE RECORDS SUMMARY | 2024-04-18 02:13 | XMS_ITS | Encounter Summary ---
Author Organization [facility] Address [facility] [place] [address] Care Team Providers Care Machine Rug Cleaner Name Role Phone Rufina Mccabe MD Primary Care Provider [phone] Encounter Details Date Type Department Care Team (Late st Contact Info) Description 10/09/2019 8:00 AM EST - 10/09/2019 8:30 AM EST [place] [phone] Yesy Hansen MD [facility] [place] [address] INJECTION, FACET JOINT, W\FLUORO, LUMBAR, SINGLE (WRVU [...] KNEE SURGERY Right approx 2013 Microfracture surgery ([facility], Dr. Barrera) ??? LAMINECTOMY ??? PRO LAMINOTOMY, LUMBAR DISK, 1 INTRSP N/A 10/14/2015 LAMINOTOMY, DECOMPRESSION, FORAMINOTOMY, LUMBAR performed by Trevor Rodriguez MD at [facility] MAIN OR ??? PRO MICROSURG TECHNIQUES, REQ OPER MICROSCOPE N/A 10/14/2015 MICROSCOPE USE performed by Trevor Rodriguez MD at [facility] MAIN OR ??? TUBAL LIGATION There [...] file Gets together: Not on file Attends sabianist service: Not on file Active member of [...] Sincerely, Ralph Sheridan MD Pain Management Fellow [address] [address] [email or web address] * Yesy Hansen MD - 10/02/2019 10:28 AM EST Visit rescheduled. Physical Exam documented in this encounter Miscellaneous Notes * Op Note - Yesy Hansen MD - 10/09/2019 8:06 AM EST Pain Management Operative Note Patient Name: Sherrie Bonner : [id number] MR#: [id number] Case Date: 10/09/2019 Surgeon: Surgeon(s) and Role: [...] discharge criteria to the care of a courier delivery driver. The patient received written instructions as [...] for the entire procedure. Yesy Hansen MD Food And Beverage Cashier of Anesthesiology [facility] [address] [address] / [email or web address] CC: Rufina Mccabe MD [email or web address] [...] Joint) documented in this encounter Care Teams Machine Rug Cleaner Relationship Specialty Start Date End Date Rufina Mccabe MD [facility] [address] [place] [address] PCP - General Family Medicine 11/30/18 05/18/23 documented as of this encounter
--- OUTSIDE RECORDS SUMMARY | 2024-04-18 02:13 | XMS_ITS | Encounter Summary ---
Author Organization [facility] [place] [address] Care Team Providers Care Porcelain Mixer Name Role Phone Rufina Mccabe MD Primary Care Provider [phone] Reason for Referral * Diagnostic Test (Emergency) - Specialty Diagnoses / Procedures Referred By Nelda sheppard Referred To Contact Radiology Diagnoses Chest pain, unspecified type Procedures CTA Chest for Pulmonary Embolus w Contrast Rufina Mccabe MD [facility] [address] [place] [address] [facility] [place] [address] Referral ID Status Reason Start Date Expiration Date Visits Requested Visits Authorized [id number] Specialty Service Requested 01/25/2019 01/25/2020 1 1 Encounter Details Date Type Department Care Team (Latest Contact Info) Description 03/06/2019 2:03 PM EDT - 03/06/2019 11:59 PM EDT Hospital [place] [address] Chest pain, unspecified type; PINA [...] abnormality documented in this encounter Care Teams Porcelain Mixer Relationship Specialty Start Date End Date Rufina Mccabe MD [facility] [address] [place] [address] PCP - General Family Medicine 11/30/18 05/18/23 documented as of this encounter
--- OUTSIDE RECORDS SUMMARY | 2024-04-18 02:13 | XMS_ITS | Encounter Summary ---
Author Organization [facility] Address [facility] [place] [address] Care Team Providers Care Egg Breaking Machine Operator Name Role Phone Rufina Mccabe MD Primary Care Provider Encounter Details Date Type Department Care Team (Latest Contact Info) Description 11/30/2018 9:18 AM EDT - 11/30/2018 9:42 AM EDT Hospital Encounter Mammography/[place] [address] Rufina Mccabe MD [facility] [address] [place] [address] Healthcare maintenance Discharge Disposition: Home Social History [...] facility documented in this encounter Care Teams Egg Breaking Machine Operator Relationship Specialty Start Date End Date Rufina Mccabe MD [facility] [address] [address] PCP - General Family Medicine 11/30/18 05/18/23 documented as of this encounter
--- OUTSIDE RECORDS SUMMARY | 2024-04-18 02:13 | XMS_ITS | Encounter Summary ---
Author Organization [facility] [place] [address] Care Team Providers Care Auto Glass Technician Name Role Phone Rufina Mccabe MD Primary Care Provider [phone] Encounter Details Date Type Department Care Team (Latest Contact Info) Description 11/30/2018 9:55 AM EDT Laboratory Appointment Lab [address] [place] [phone] Healthcare maintenance; Routine general medical examination at [...] 10:21 AM EDT) Cholesterol, Total 208 mg/dL [facility] Comment: Lower Risk: <200 mg/dL Average Risk: 200-239 mg/dL Higher Risk: >lh=451 mg/dL HDL Cholesterol 68 mg/dL [facility] Comment: Males: ?? Higher Risk: <40 mg/dL Females: ?? HIgher Risk: <50 mg/dL Cholesterol/HDL Ratio 3.1 ratio [facility] Chol/HDL Interpretation See Note [facility] Comment: Lipid management should be guided by a patient? s ASCVD risk, goals and preferences. ACC/AHA Guidelines recommend high intensity statin if clinical ASCVD or LDL greater than or equal to 190 mg/dL. http://Questra.com/EXF-YRN-Tkouyutow Measure LDL if Total Cholesterol minus HDL Cholesterol is greater than 220 mg/dL. Adults aged 40-75 with LDL 70-189 mg/dL should have their 10 year ASCVD risk estimated with the ACC/AHA ASCVD risk inspector subassembly http://tools.acc.org/XGVQJ-Clsk-Hdixyhpbn/ Statin should be discussed if risk greater [...] Lab Rufina Mccabe MD CHEMISTRY ORDERABLE S [facility] [place] [address] * LDL Cholesterol, Direct (11/30/2018 10:21 AM EDT) LDL Cholesterol, Direct 140 mg/dL [facility] Comment: Lowest Risk: <100 mg/dL Lower Risk: 100-129 mg/dL Borderline High Risk: 130-159 mg/dL High Risk: 160-189 mg/dL Very High Risk: >ct=430 mg/dL Blood specimen (specimen) 11/30/2018 10:21 AM EDT 11/30/2018 10:32 AM EDT Narrative Resulting Agency Comment Spec In Lab Rufina Mccabe MD CHEMISTRY ORDERABLE S Performing Organization Address [facility] Co de Phone Number [facility] [place] [address] * Hepatitis C Antibody (11/30/2018 10:21 AM EDT) Hepatitis C Antibody Negative Negative [facility] Blood specimen (specimen) 11/30/2018 10:21 AM EDT 11/30/2018 10:32 AM EDT Narrative Resulting Agency Comment Spec In Lab Rufina Mccabe MD CHEMISTRY ORDERABLE S Performing Organization Address [facility] de Phone Number [facility] [place] [address] * Hemoglobin A1c (11/30/2018 10:21 AM EDT) Hemoglobin A1c 5.0 4.3 - 5.6 % [facility] Comment: Reference Range: 4.3 - [...] Mellitus, Diabetes Care 2013; 36: Suppl. 1, S67-77 Estimated Average Glucose 97 mg/dL [facility] Comment: eAG equivalents for HbA1c [...] into estimated average glucose values. ??Diabetes Care 2008:31(8):1056-8375. Blood specimen (specimen) 11/30/2018 10:21 AM EDT 11/30/2018 10:32 AM EDT Narrative Resulting Agency Comment Spec In Lab Rufina Mccabe MD CHEMISTRY ORDERABLE S Performing Organization Address City/State/[facility] Co de Phone Number [facility] [place] [address] documented in this encounter Visit Diagnoses Diagnosis Healthcare maintenance Routine general medical examination at a health care facility Routine general medical examination at a health care facility documented in this encounter Care Teams Auto Glass Technician Relationship Specialty Start Date End Date Rufina Mccabe MD [facility] [address] [address] PCP - General Family Medicine 11/30/18 05/18/23 documented as of this encounter
--- OUTSIDE RECORDS SUMMARY | 2024-04-18 02:13 | XMS_ITS | Encounter Summary ---
Author Organization [facility] Address [facility] [place] [address] Care Team Providers Care Carpenter Repair Name Role Phone Rufina Mccabe MD Primary Care Provider [phone]- [phone] Encounter Details Date Type Department Care Team (Late st Contact Info) Description 08/07/2019 [place] [phone] Annalisa Maldonado Social History Tobacco Use Types [...] on filedocumented in this encounter Care Teams Carpenter Repair Relationship Specialty Start Date End Date Rufina Mccabe MD [facility] [address] [place] [address] PCP - General Family Medicine 11/30/18 05/18/23 documented as of this encounter
--- OUTSIDE RECORDS SUMMARY | 2024-04-18 02:13 | XMS_ITS | Encounter Summary ---
Author Organization [facility] Address [facility] [place] [address] Care Team Providers Care Veterans Contact Representative Name Role Phone Rufina Mccabe MD Primary Care Provider +1- [phone] Reason for Referral * Diagnostic Test (Emergency) - Closed Specialty Diagnoses / Procedures Referred By Contac t Referred To Contact Radiology Diagnoses Exertional dyspnea Procedures CT Angiogram Chest for Pulmonary Embolus w Contrast Emre Milligan MD [facility] [place] [address] [facility] [place] [address] Referral ID Status Reason Start Date Expiration Date V isits Requested Visits Authorized [id number] Closed Specialty Service Requested 09/17/2019 03/17/2021 1 1 Reason for Visit * Diagnostic Test (Emergency) - Closed Specialty Diagnoses / Procedures Referred By Contac t Referred To Contact Radiology Diagnoses Exertional dyspnea Procedures CT Angiogram Chest for Pulmonary Embolus w Contrast Emre Milligan MD [facility] [place] [address] [facility] [place] [address] Referral ID Status Reason Start Date Expiration Date V isits Requested Visits Authorized [id number] Closed Specialty Service Requested 09/17/2019 03/17/2021 1 1 Encounter Details Date Type Department Care Team (Latest Contact Info) Description 09/25/2019 8:13 AM EST - 09/25/2019 9:14 AM EST Hospital Encounter CT Scan at [facility] [address] Emre Milligan MD [facility] [place] [address] Exertional dyspnea Discharge Disposition: Home Social History [...] below. ? Electronically signed by: Yulia Washburn, [facility] ([phone]), at 09/25/2019 10:23 AM Narrative 09/25/2019 10:23 [...] this report, please contact the number below. Emre Milligan MD IMG CT ORDERABLES documented [...] mLs documented in this encounter Care Teams Veterans Contact Representative Relationship Specialty Start Date End Date Rufina Mccabe MD [facility] [place] [address] PCP - General Family Medicine 11/30/18 05/18/23 documented as of this encounter
--- OUTSIDE RECORDS SUMMARY | 2024-04-18 02:13 | XMS_ITS | Encounter Summary ---
Author Organization [facility] [place] [address] Care Team Providers Care Shoe Puller Name Role Phone Vidhya Benitez DO Primary Care Provider Reason for Referral * Diagnostic Test (Routine) - Closed Specialty Diagnoses / Procedures Referred By Contac t Referred To Contact Radiology Diagnoses Other chest pain Procedures NM Pharmacologic Stress Myocardial Perfusion Cameron Saldivar MD [facility] [place] [address] [place] [address] Referral ID Status Reason Start Date Expiration Date V isits Requested Visits Authorized [id number] Closed Specialty Service Requested 10/19/2018 10/19/2019 1 1 Reason for Visit * Diagnostic Test (Routine) - Closed Specialty Diagnoses / Procedures Referred By Contac t Referred To Contact Radiology Diagnoses Other chest pain Procedures NM Pharmacologic Stress Myocardial Perfusion Cameron Saldivar MD [facility] [place] [address] [place] [address] Referral ID Status Reason Start Date Expiration Date V isits Requested Visits Authorized [id number] Closed Specialty Service Requested 10/19/2018 10/19/2019 1 1 Encounter Details Date Type Department Care Team (Late st Contact Info) Description 11/02/2018 8:49 AM EDT - 11/02/2018 8:52 AM EDT Hospital Encounter Nuclear Medicine [facility] [place] [address] Cameron Saldivar MD [facility] [place] [address] Other chest pain Discharge Disposition: Home Social [...] below. ? Electronically signed by: Ascencion Day, [facility] ([phone]), at 11/02/2018 5:25 PM Narrative 11/02/2018 5:25 [...] the number below. Electronically signed by: Ascencion Day, [facility]([phone]), at 11/02/2018 5:25 PM Cameron Saldivar MD IMG [place] ORDERABLES documented [...] mCi documented in this encounter Care Teams Shoe Puller Relationship Specialty Start Date End Date Vidhya Benitez DO PCP - General Family Medicine 05/10/16 11/29/18 documented as of this encounter
--- OUTSIDE RECORDS SUMMARY | 2024-04-18 02:13 | XMS_ITS | Encounter Summary ---
Author Organization [facility] [place] [address] Care Team Providers Care Parts Puller Name Role Phone Vidhya Benitez DO Primary Care Provider Encounter Details Date Type Department Care Team ([facility] st Contact Info) Description 11/24/2018 Telephone [place] [address] Jeanie Linn Social History Tobacco Use Types [...] on filedocumented in this encounter Care Teams Parts Puller Relationship Specialty Start Date End Date Vidhya Benitez DO PCP - General Family Medicine 05/10/16 11/29/18 documented as of this encounter
--- OUTSIDE RECORDS SUMMARY | 2024-04-18 02:13 | XMS_ITS | Encounter Summary ---
Author Organization [facility] Address [facility] [place] [address] Care Team Providers Care Reinforcing Steel Erector Name Role Phone Rufina Mccabe MD Primary Care Provider +1- [phone] Encounter Details Date Type Department Care Team (Late st Contact Info) Description 05/28/2019 Telephone [place] [address] Charlette Goodman Social History Tobacco Use Types [...] on filedocumented in this encounter Care Teams Reinforcing Steel Erector Relationship Specialty Start Date End Date Rufina Mccabe MD [facility] [address] [place] [address] PCP - General Family Medicine 11/30/18 05/18/23 documented as of this encounter
--- OUTSIDE RECORDS SUMMARY | 2024-04-18 02:13 | XMS_ITS | Encounter Summary ---
Author Organization Counts Include [facility] Address [facility] [place] [address] Care Team Providers Care Science Teacher Name Role Phone Rufina Mccabe MD Primary Care Provider [phone]- [phone] Reason for Referral * Diagnostic Test (Routine) - Closed Specialty Diagnoses / Procedures Referred By Contac t Referred To Contact Cardiology Diagnoses Exertional dyspnea Procedures Echocardiogram Transthoracic([facility]) Juventino Milligan MD [facility] [place] [address] [facility] [place] [address] Referral ID Status Reason Start Date Expiration Date V isits Requested Visits Authorized [id number] Closed Specialty Service Requested 09/19/2019 09/18/2020 1 1 * Diagnostic Test (Emergency) - Closed Specialty Diagnoses / Procedures Referred By Contac t Referred To Contact Radiology Diagnoses Exertional dyspnea Procedures CT Angiogram Chest for Pulmonary Embolus w Contrast Juventino Milligan MD [facility] [place] [address] [facility] [place] [address] Referral ID Status Reason Start Date Expiration Date V isits Requested Visits Authorized [id number] Closed Specialty Service Requested 09/17/2019 03/17/2021 1 1 Reason for Visit * Reason Comments Follow-up Encounter Details Date Type Department Care Team (Late st Contact Info) Description 09/17/2019 10:00 AM EST Office [place] [address] Juventino Milligan MD [facility] [place] [address] Exertional dyspnea; Respiratory muscle weakness; High risk [...] per day. She will send message via [employer] once she is able to do this with goal to then increase pressure to 13 cm H20 and repeat cycle of progressive breaths on this. * Juventino Milligan MD - 09/17/2019 10:00 AM EST [facility] Section of Pulmonary and Critical Care Medicine Follow-Up Visit Date of Encounter: 09/17/2019 Location: Office Referring Provider: Rufina Mccabe MD [address] [place] [address] Pulmonary Problem List: 1. Exertional [...] KNEE SURGERY Right approx 2013 Microfracture surgery ([facility], Dr. Barrera) ??? LAMINECTOMY ??? PRO LAMINOTOMY, LUMBAR DISK, 1 INTRSP N/A 10/14/2015 LAMINOTOMY, DECOMPRESSION, FORAMINOTOMY, LUMBAR performed by Trevor Rodriguez MD at [facility] MAIN OR ??? PRO MICROSURG TECHNIQUES, REQ OPER MICROSCOPE N/A 10/14/2015 MICROSCOPE USE performed by Trevor Rodriguez MD at [facility] MAIN OR ??? TUBAL LIGATION Updated Social History: Never smoker. Says that she ran cross-country and track in high school. Current Medications: Medications 09/17/19 09 Medication Sig Taking? albuterol 90 mcg/actuation HFA [...] to review use of the inspiratory muscle sales trainer. I hope that we might see improved mouth pressure measurement and/or sitting and supine spirometry values at our next visit in about 6 weeks if she uses the inspiratory muscle sales trainer routinely. We will explore additional causes [...] to testing, if needed. Relevant Orders Echocardiogram Transthoracic([facility]) CT Angiogram Chest for Pulmonary Embolus w [...] to review use of the inspiratory muscle sales trainer. I hope that we might see improved mouth pressure measurement and/or sitting and supine spirometry values at our next visit in about 6 weeks if she uses the inspiratory muscle sales trainer routinely. We will explore additional causes [...] [place] ? (Age): 1960(59y) Med Rec#: ? [id number] ?Sex: ?F ? [place] Loc: ? [facility] ?Ht / Wt: ??170(cm)/77(kg) Pt. Loc: ?Echo Lab ?BSA: ?1.88 Study Date: ?? 04/07/2020 ?Pt. Type: Outpatient Tape: ? Referring: TRACEE Reading: Bernabe Miller ([id number]) Trade Economist: Zeenat Carmen Diagnosis: *Dyspnea, unspecified (R06.00) BP: [...] Vmax ?0.84 ? m/sec ? MV deceleration bwse253.39 ? msec ? MV A-wave Vmax ?0.93 [...] ? Mid-Inferior ?Normal ? Mid-Inferoseptal ?Normal ? [place]-Septal ? Normal ? [place]-Anterior ? Normal ? [place]-Lateral ?Normal ? [place]-Inferior ? Normal ? [place]-Tip ?Normal ? This report has been electronically signed by: Bernabe Miller M.D. ? 04/07/2020 11:17:34 Images reviewed and interpretation verified [facility] Cardiac Ultrasound Laboratory Procedure Note Bernabe Miller MD - 04/07/2020 Procedure: Transthoracic Echocardiogram Patient: HA NEWMAN (Age): 1960(59y) Med Rec#: [id number] Sex: F Site Loc: [facility] Ht / Wt: 170(cm)/77(kg) Pt. Loc: Echo Lab BSA: 1.88 Study Date: 04/07/2020 Pt. Type: Outpatient Tape: Referring: MARTHA Reading: Bernabe Miller ([id number]) Trade Economist: Zeenat Carmen Diagnosis: *Dyspnea, unspecified (R06.00) BP: [...] MV E-wave Vmax 0.84 m/sec MV deceleration qife395.39 msec MV A-wave Vmax 0.93 m/sec MV [...] Normal Mid-Posterolateral Normal Mid-Inferior Normal Mid-Inferoseptal Normal [place]-Septal Normal [place]-Anterior Normal [place]-Lateral Normal [place]-Inferior Normal [place]-Tip Normal This report has been electronically signed by: Bernabe Miller M.D. 04/07/2020 11:17:34 Images reviewed and interpretation verified [facility] Cardiac Ultrasound Laboratory Juventino Milligan MD ECHO [...] below. ? Electronically signed by: Yulia Washburn [facility] ([phone]), at 09/25/2019 10:23 AM Narrative 09/25/2019 10:23 [...] this report, please contact the number below. Juventino Milligan MD IMG CT ORDERABLES * Acetylcholine Receptor Ab Binding (09/17/2019 11:43 AM EST) [facility] Achr Binding Ab (DECEMBER) 0.00 <=0.02 nmol/L [facility] Comment: ADDITIONAL INFORMATION This test was developed and its performance characteristics determined by [facility] in a manner consistent with CLIA requirements. This test has not been cleared or approved by the U.S. Food and Drug Administration. Test Performed by: [place] [address] Wastewater Treatment Supervisor: Guero Bateman M.D. Ph.D.; CLIA# [id number] Blood specimen (specimen) 09/17/2019 11:43 AM EST 09/17/2019 4:07 PM EST Narrative Resulting Agency Comment Spec In Lab Juventino Milligan MD LAB SEND OUT ORDERAB LES Performing Organization Address City/[facility]/[place] [address] * Aldolase (09/17/2019 11:43 AM EST) [facility] Aldolase (DECEMBER) 4.0 <7.7 unit/L [facility] Comment: Test Performed by: [address] [address] Wastewater Treatment Supervisor: Guero Bateman M.D. Ph.D.; CLIA# [id number] Blood specimen (specimen) 09/17/2019 11:43 AM EST 09/17/2019 4:07 PM EST Narrative Resulting Agency Comment Spec In Lab Juventino Milligan MD LAB SEND OUT ORDERAB LES Performing Organization Address City/[facility]/ZIP Co de Phone Number [facility] [place] [address] * TSH (09/17/2019 11:43 AM EST) Thyroid Stimulating Hormone 2.23 0.27 - 4.20 mcIU/mL [facility] Blood specimen (specimen) 09/17/2019 11:43 AM EST 09/17/2019 11:56 AM EST Narrative Resulting Agency Comment Spec In Lab Juventino Milligan MD CHEMISTRY ORDERABLES Performing Organization Address City/[facility] Co de Phone Number [facility] [place] [address] * CK (09/17/2019 11:43 AM EST) Creatine Kinase 68 0 - 160 unit/L [facility] Blood specimen (specimen) 09/17/2019 11:43 AM EST 09/17/2019 11:56 AM EST Narrative Resulting Agency Comment Spec In Lab Juventino Milligan MD CHEMISTRY ORDERABLES Performing Organization Address City/[facility] de Phone Number [facility] [place] [address] documented in this encounter Visit Diagnoses Diagnosis Exertional dyspnea Other dyspnea and respiratory abnormality Respiratory muscle weakness Muscle weakness (generalized) High risk medication use Encounter for long-term (current) use of other medications Exertional dyspnea Other dyspnea and respiratory abnormality Respiratory muscle weakness Muscle weakness (generalized) Exertional dyspnea Other dyspnea and respiratory abnormality documented in this encounter Care Teams Science Teacher Relationship Specialty Start Date End Date Rufina Mccabe MD [facility] [address] [place] [address] PCP - General Family Medicine 11/30/18 05/18/23 documented as of this encounter
--- OUTSIDE RECORDS SUMMARY | 2024-04-18 02:13 | XMS_ITS | Encounter Summary ---
Author Organization [facility] Address [facility] [place] [address] Care Team Providers Care Mounter Name Role Phone Vidhya Benitez DO Primary Care Provider Reason for Visit * Diagnostic Test (Routine) - Closed Specialty Diagnoses / Procedures Referred By Nelda sheppard Referred To Contact Radiology Diagnoses Other chest pain Procedures NM Pharmacologic Stress Myocardial Perfusion Cameron Saldivar MD [facility] [place] [address] [place] [address] Referral ID Status Reason Start Date Expiration Date V isits Requested Visits Authorized [id number] Closed Specialty Service Requested 10/19/2018 10/19/2019 1 1 Encounter Details Date Type Department Care Team (Late st Contact Info) Description 11/02/2018 8:54 AM EDT - 11/02/2018 10:40 AM EDT Hospital En[place] [address] Cameron Saldivar MD [facility] [place] [address] Discharge Disposition: Home Social History [...] mCi documented in this encounter Care Teams Mounter Relationship Specialty Start Date End Date Vidhya Benitez DO PCP - General Family Medicine 05/10/16 11/29/18 documented as of this encounter
--- OUTSIDE RECORDS SUMMARY | 2024-04-18 02:13 | XMS_ITS | Encounter Summary ---
Author Organization [facility] Address [facility] [place] [address] Care Team Providers Care Home Planning Consultant Salesperson Name Role Phone Rufina Mccabe MD Primary Care Provider +[phone] Encounter Details Date Type Department Care Team (Latest Contact Info) Description 09/25/2019 9:15 AM EST - 09/25/2019 11:59 PM EST Hospital Encounter [place] [address] Respiratory muscle weakness Discharge Disposition: Home Social [...] (generalized) documented in this encounter Care Teams Home Planning Consultant Salesperson Relationship Specialty Start Date End Date Rufina Mccabe MD [facility] DR [address] [place] [address] PCP - General Family Medicine 11/30/18 05/18/23 documented as of this encounter
--- OUTSIDE RECORDS SUMMARY | 2024-04-18 02:13 | XMS_ITS | Encounter Summary ---
Author Organization [facility] Address [facility] [place] [address] Care Team Providers Care Rubber Goods Inspector Name Role Phone Rufina Mccabe MD Primary Care Provider +1- [phone] Encounter Details Date Type Department Care Team (Late st Contact Info) Description 07/02/2019 Orders Only Family Medicine at [address] [place] [address] Rufina Mccabe MD [facility] [place] [address] Routine general medical examination at a health [...] facility documented in this encounter Care Teams Rubber Goods Inspector Relationship Specialty Start Date End Date Rufina Mccabe MD [facility] [place] [address] PCP - General Family Medicine 11/30/18 05/18/23 documented as of this encounter
--- OUTSIDE RECORDS SUMMARY | 2024-04-18 02:13 | XMS_ITS | Encounter Summary ---
Author Organization [facility] [address] Care Team Providers Care Shake Cutter Name Role Phone Ruifna Mccabe MD Primary Care Provider [phone]- [phone] Reason for Referral * Diagnostic Test (Emergency) - Specialty Diagnoses / Procedures Referred By Nelda sheppard Referred To Contact Radiology Diagnoses Chest pain, unspecified type Procedures CTA Chest for Pulmonary Embolus w Contrast Rufina Mccabe MD [facility] [place] [address] [facility] [place] [address] Referral ID Status Reason Start Date Expiration Date Visits Requested Visits Authorized [id number] Specialty Service Requested 01/25/2019 01/25/2020 1 1 Encounter Details Date Type Department Care Team (Late st Contact Info) Description 01/25/2019 Orders Only Family Medicine at [facility] [address] [place] [address] Rufina Mccabe MD [facility] [place] [address] Chest pain, unspecified type Social [...] type documented in this encounter Care Teams Shake Cutter Relationship Specialty Start Date End Date Rufina Mccabe MD [facility] DR PH[address] [place] [address] PCP - General Family Medicine 11/30/18 05/18/23 documented as of this encounter
--- OUTSIDE RECORDS SUMMARY | 2024-04-18 02:13 | XMS_ITS | Encounter Summary ---
Author Organization [facility] [address] Care Team Providers Care Ordnance Equipment Worker Name Role Phone Rufina Mccabe MD Primary Care Provider +1- [phone] Encounter Details Date Type Department Care Team (Late st Contact Info) Description 10/02/2019 1:00 PM EST Ancillary [place] [address] Yesy Hansen MD [facility] [place] [address] Pain Social History Tobacco Use Types Packs/Day [...] pain documented in this encounter Care Teams Ordnance Equipment Worker Relationship Specialty Start Date End Date Rufina Mccabe MD [facility] DR PHY[address] [place] [address] PCP - General Family Medicine 11/30/18 05/18/23 documented as of this encounter
--- OUTSIDE RECORDS SUMMARY | 2024-04-18 02:13 | XMS_ITS | Encounter Summary ---
Author Organization [facility] Address [facility] [place] [address] Care Team Providers Care Software Clerk Name Role Phone Rufina Mccabe MD Primary Care Provider +1- [phone] Encounter Details Date Type Department Care Team (Latest Contact Info) Description 03/06/2019 1:14 PM EDT - 03/06/2019 2:02 PM EDT Hospital Encounter XRay at [address] [place] [address] Tabatha Martel MD [facility] [place] [address] PINA (dyspnea on exertion) Discharge Disposition: Home [...] abnormality documented in this encounter Care Teams Software Clerk Relationship Specialty Start Date End Date Rufina Mccabe MD [facility] [place] [address] PCP - General Family Medicine 11/30/18 05/18/23 documented as of this encounter
--- OUTSIDE RECORDS SUMMARY | 2024-04-18 02:13 | XMS_ITS | Encounter Summary ---
Author Organization [facility] [place] [address] Care Team Providers Care Teacher Aide Clerical Name Role Phone Vidhya Benitez DO Primary Care Provider Encounter Details Date Type Department Care Team (Late st Contact Info) Description 11/22/2018 Telephone [place] [phone] Ann Jaimes Social History Tobacco Use Types [...] - 11/22/2018 2:27 PM EDT Sherrie Bonner [id number] Diagnosis: Healthcare maintenance 1. Have you ever had a colonoscopy before? [x] YES [] NO If Yes, Date of Last [place]: per patient 2008 If yes, did you have any problems with the procedure? [] YES [x] NO Explain: What type of sedation was used: 2. Do you take any Blood Thinners? [] YES [] NO If Yes, type: 3. Do you have a Pacemaker or Defibrillator device? [] YES [x] NO If Yes send in[employer] message to [employer] ENDO DEVICE CHECK 4. Are you a [...] NO 11. You must have a responsible green party stay at the facility during your procedure and drive you home? [x] YES 12. Is there any other information you would like to give us to aid in scheduling? Height: 5'7 Weight:184 BMI: 28.8 Age:58 y.o. documented in this encounter Plan of Treatment Not on file documented as of this encounter Visit Diagnoses Not on filedocumented in this encounter Care Teams Teacher Aide Clerical Relationship Specialty Start Date End Date Vidhya Benitez DO PCP - General Family Medicine 05/10/16 11/29/18 documented as of this encounter
--- OUTSIDE RECORDS SUMMARY | 2024-04-18 02:13 | XMS_ITS | Encounter Summary ---
Author Organization [facility] [place] [address] Care Team Providers Care Cementing Bulk Material Operator Name Role Phone Rufina Mccabe MD Primary Care Provider [phone] Reason for Visit * Reason Comments Pain Management Back Pain Encounter Details Date Type Department Care Team (Late st Contact Info) Description 09/11/2019 10:00 AM EST Office Visit [place] [address] Elizabet Brooks APRN [facility] [address] Facet arthritis of lumbar region (Primary Dx) [...] encounter Progress Notes * Elizabet Brooks Dewey, SURGICAL GARMENT FITTER - 09/11/2019 10:00 AM EST . [facility] [place] [address] Phone: PAIN MANAGEMENT NEW PATIENT / CONSULTATION NOTE DATE OF VISIT 09/11/2019 Patient Sherrie Bonner 1960 REFERRING PROVIDER Mayra Ocampo APRN [facility] [address] [place] [address] PRIMARY CARE PROVIDER Rufina Mccabe MD CHIEF [...] sclerosis, depression, and chronic headaches (followed by [facility] neurology). Interval history: Sherrie had a LESI [...] pain which was worked up by a technician semiconductor development and she is now seeing pulmonology and sees the next on Tuesday. 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 Barrera) ??? LAMINECTOMY ??? PRO LAMINOTOMY, LUMBAR DISK, 1 INTRSP N/A 10/14/2015 LAMINOTOMY, DECOMPRESSION, FORAMINOTOMY, LUMBAR performed by Trevor Julien MD at [facility] MAIN OR ??? PRO MICROSURG TECHNIQUES, REQ OPER MICROSCOPE N/A 10/14/2015 MICROSCOPE USE performed by Trevor Julien MD at [facility] MAIN OR ??? TUBAL LIGATION FAMILY HISTORY [...] for the same day. Elizabet Brooks, MS, BUCKET CHUCKER-BC, SURGICAL GARMENT FITTER Nurse practitioner [facility] documented in this encounter Plan of Treatment Scheduled Orders Name Type Priority Associated Diagnoses Orde r Schedule INJECTION, FACET JOINT,W\FLUORO, LUMBAR, SINGLE Procedures Routine Facet arthritis of lumbar region Ordered: 09/11/2019 documented as of this encounter Visit Diagnoses Diagnosis Facet arthritis of lumbar region- Primary Lumbosacral spondylosis without myelopathy documented in this encounter Care Teams Cementing Bulk Material Operator Relationship Specialty Start Date End Date Rufina Mccabe MD [facility] [address] [place] [address] PCP - General Family Medicine 11/30/18 05/18/23 documented as of this encounter
--- OUTSIDE RECORDS SUMMARY | 2024-04-18 02:13 | XMS_ITS | Encounter Summary ---
Author Organization [facility] [place] [address] Care Team Providers Care Passenger Booking Clerk Name Role Phone Rufina Mccabe MD Primary Care Provider [phone] Encounter Details Date Type Department Care Team (Latest Contact Info) Description 09/17/2019 11:35 AM EST Laboratory Appointment Lab [address] [place] [phone] Multiple sclerosis; High risk medication use; Respiratory [...] EST) Glucose, Urine Dipstick Negative Negative mg/dL [facility] Protein, Urine Dipstick Negative Negative mg/dL [facility] Bilirubin, Urine Dipstick Negative Negative mg/dL [facility] Comment: Clinical correlation required for positive Urine Bilirubin results as false positive may occur with some drugs and drug related products. If a false positive is suspected a serum total bilirubin should be considered if clinically indicated. Urobilinogen, Urine Dipstick Normal Normal mg/dL [facility] pH, Urn (dipstick) 5.5 5.0 - 8.0 [facility] Blood, Urine Dipstick Negative Negative mg/dL [facility] Ketone, Urine Dipstick Negative Negative mg/dL [facility] Nitrite, Urine Dipstick Negative Negative [facility] Leukocytes, Urine Dipstick Negative Negative mcL [facility] Appearance, Urine Dipstick Clear Clear [facility] Specific [place] Urine Automated >=1.030 1.002 - 1.030 [facility] Color, Urine Dipstick Yellow [facility] Reflex to Culture No [facility] Urine specimen obtained by clean catch procedure (specimen) 09/17/2019 11:47 AM EST 09/17/2019 11:55 AM EST Narrative Resulting Agency Comment Spec In Lab Sammi C Irvington DO URINE ORDERABLES Performing Organization Address City/[facility]/ZIP Co de Phone Number [facility] [place] [address] * Differential, Automated (09/17/2019 11:43 AM EST) Pathologist [facility] Neutrophil % 60.3 % [facility] Neutrophil Absolute 3.34 1.70 - 6.10 x10(3)/[facility] Lymph % 30.6 % [facility] Lymphocytes Abs 1.7 0.9 - 3.2 x10(3)/[facility] Monocyte % 5.6 % [facility] Monocyte Abs 0.3 0.3 - 0.9 x10(3)/[facility] Eos % 2.7 % [facility] Eosinophils Abs 0.2 0.0 - 0.4 x10(3)/[facility] Basophil % 0.4 % [facility] Baso Absolute 0.0 0.0 - 0.1 x10(3)/[facility] Immature Gran % 0.40 % [facility] Comment: Immature granulocytes(IG's)percentage and absolute count will include metamyelocytes, myelocytes, and promyelocytes. Blood smears from CBCs yielding IG's will be scanned manually for concordance. If this scan disagrees with the automated IG or if promyelocytes are noted, a manual differential will be performed. Immature Gran Absolute 0.02 0.00 - 0.04 x10(3)/[facility] Blood specimen (specimen) 09/17/2019 11:43 AM EST 09/17/2019 11:55 AM EST Narrative Resulting Agency Comment Spec In Lab Sammi C Irvington DO HEMATOLOGY ORDERABLE S Performing Organization Address City/[facility]/ZIP Co de Phone Number [facility] [place] [address] * (ABNORMAL) Hemogram (09/17/2019 11:43 AM EST) Pathologist [facility] White Blood Cell 5.5 4.0 - 9.5 x10(3)/ L [facility] Red Blood Cell 4.25 4.00 - 5.21 x10(6)/[facility] Hemoglobin 12.6 11.7 - 15.5 gm/dL [facility] Hematocrit 40.2 35.7 - 45.8 % [facility] Mean Cell Volume 94.6(H) 82.6 - 94.4 fL [facility] Mean Cell Hemoglobin 29.6 27.1 - 32.0 pg [facility] Mean Cell Hemoglobin Concentration 31.3(L) 31.7 - 35.0 gm/dL [facility] Platelet 244 145 - 357 x10(3)/[facility] RDW Standard Deviation 43.4 37.0 - 46.0 fL [facility] RDW coefficient of variation 12.4 11.5 - 14.1 % [facility] Mean Platelet Volume 10.8 7.6 - 12.9 fL [facility] NRBC% auto 0.0 % [facility] NRBC Absolute 0.000 0.000 - 0.000 x10(3)/[facility] Blood specimen (specimen) 09/17/2019 11:43 AM EST 09/17/2019 11:55 AM EST Narrative Resulting Agency Comment Spec In Lab Sammi Varela DO HEMATOLOGY ORDERABLE S [facility] [place] [address] * CK (09/17/2019 11:43 AM EST) Creatine Kinase 68 0 - 160 unit/L [facility] Blood specimen (specimen) 09/17/2019 11:43 AM EST 09/17/2019 11:56 AM EST Narrative Resulting Agency Comment Spec In Lab mEre Milligan MD CHEMISTRY ORDERABLES Performing Organization Address [facility] Co de Phone Number [facility] [place] [address] * TSH (09/17/2019 11:43 AM EST) [facility] Thyroid Stimulating Hormone 2.23 0.27 - 4.20 mcIU/mL [facility] Blood specimen (specimen) 09/17/2019 11:43 AM EST 09/17/2019 11:56 AM EST Narrative Resulting Agency Comment Spec In Lab Emre Milligan MD CHEMISTRY ORDERABLES Performing Organization Address [facility] de Phone Number [facility] [place] [address] * Aldolase (09/17/2019 11:43 AM EST) [facility] Aldolase (DECEMBER) 4.0 <7.7 unit/L [facility] Comment: Test Performed by: [place] [address] Piano And Organ Refinisher: Guero Bateman M.D. Ph.D.; CLIA# [id number] Blood specimen (specimen) 09/17/2019 11:43 AM EST 09/17/2019 4:07 PM EST Narrative Resulting Agency Comment Spec In Lab Emre Milligan MD LAB SEND OUT ORDERAB LES Performing Organization Address [facility] Co de Phone Number [facility] [place] [address] * Acetylcholine Receptor Ab Binding (09/17/2019 11:43 AM EST) [facility] Achr Binding Ab (DECEMBER) 0.00 <=0.02 nmol/L [facility] Comment: ADDITIONAL INFORMATION This test was developed and its performance characteristics determined by [facility] in a manner consistent with CLIA requirements. This test has not been cleared or approved by the U.S. Food and Drug Administration. Test Performed by: [facility] - [address] [address] Piano And Organ Refinisher: Guero Bateman M.D. Ph.D.; CLIA# [id number] Blood specimen (specimen) 09/17/2019 11:43 AM EST 09/17/2019 4:07 PM EST Narrative Resulting Agency Comment Spec In Lab Emre Milligan MD LAB SEND OUT ORDERAB LES [facility] [place] [address] * (ABNORMAL) Comprehensive metabolic panel (non-fasting) (09/17/2019 11:43 AM EST) Glucose 101 65 - 199 mg/dL [facility] Comment:Diabetes: >=200 mg/d L plus symptoms Blood Urea Nitrogen 15 8 - 18 mg/dL [facility] Creatinine 0.67(L) 0.70 - 1.20 mg/dL [facility] Sodium 141 135 - 145 mmol/L [facility] Potassium 3.7 3.5 - 5.0 mmol/L [facility] Comment: Please note: ??Patients with WBC >100,000 may have falsely elevated Potassium levels. ??For accurate Potassium quantification in these patients send serum separator tube (gold top) for subsequent determinations. ??Contact the Clinical Chemistry Laboratory if there are any questions. Chloride 106 98 - 107 mmol/L [facility] Carbon Dioxide 23 22 - 31 mmol/L [facility] Anion Gap 12 5 - 15 mmol/L [facility] Calcium 9.3 8.5 - 10.5 mg/dL [facility] Protein, Total 7.4 6.1 - 8.0 gm/dL [facility] Albumin 4.4 3.2 - 5.2 gm/dL [facility] Aspartate Aminotransferase 19 0 - 30 unit/L [facility] Alanine Aminotransferase 16 0 - 30 unit/L [facility] Alkaline Phosphatase 109(H) 35 - 105 unit/L [facility] Bilirubin, Total 0.4 0.2 - 1.3 mg/dL [facility] Est Glomerular Filtration Rate 97 >=60 mL/min/1. 73 m?? [facility] Comment: The eGFR was calculated using the CKD-EPI equation. As with all creatinine based estimates of kidney function, eGFR values calculated with the CKD-EPI equation are not accurate in patients with acute kidney failure, extremes of body mass or the acutely ill. http://Si [email or web address] eGFR 112 >=60 mL/min/1. 73 m?? [facility] Comment: The eGFR was calculated using the CKD-EPI equation. As with all creatinine based estimates of kidney function, eGFR values calculated with the CKD-EPI equation are not accurate in patients with acute kidney failure, extremes of body mass or the acutely ill. http://Si [email or web address] Blood specimen (specimen) 09/17/2019 11:43 AM EST 09/17/2019 11:56 AM EST Narrative Resulting Agency Comment Spec In Lab Sammi Varela DO CHEMISTRY ORDERABLES [facility] [place] [address] documented in this encounter Visit Diagnoses Diagnosis Multiple sclerosis High risk medication use Encounter for long-term (current) use of other medications Respiratory muscle weakness Muscle weakness (generalized) documented in this encounter Care Teams Passenger Booking Clerk Relationship Specialty Start Date End Date Rufina Mccabe MD [facility] [address] [place] [address] PCP - General Family Medicine 11/30/18 05/18/23 documented as of this encounter
--- OUTSIDE RECORDS SUMMARY | 2024-04-18 02:13 | XMS_ITS | Encounter Summary ---
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 2. Following instructions left in the [...] on filedocumented in this encounter Care Teams Patient Accounts Coordinator Relationship Specialty Start Date End Date Rufina Mccabe MD [facility] [address] [place] [address] PCP - General Family Medicine 11/30/18 05/18/23 documented as of this encounter
--- OUTSIDE RECORDS SUMMARY | 2024-04-18 02:13 | XMS_ITS | Encounter Summary ---
Author Organization [facility] Address [facility] [place] [address] Care Team Providers Care Bill Hiker Name Role Phone Rufina Mccabe MD Primary Care Provider [phone] Encounter Details Date Type Department Care Team (Latest Contact Info) Description 07/02/2019 10:00 AM EST Clinical Support Family Medicine at [facility] [address] [place] [address] Routine general medical examination at a health [...] facility documented in this encounter Care Teams Bill Hiker Relationship Specialty Start Date End Date Rufina Mccabe MD [facility] [address] [address] PCP - General Family Medicine 11/30/18 05/18/23 documented as of this encounter
--- OUTSIDE RECORDS SUMMARY | 2024-04-18 02:13 | XMS_ITS | Encounter Summary ---
Author Organization [facility] Address [facility] [place] [address] Care Team Providers Care Dairy Hand Name Role Phone Vidhya Benitez DO Primary Care Provider Encounter Details Date Type Department Care Team ([facility] st Contact Info) Description 11/06/2018 Telephone Cardiology at [address] [phone] Vidhya Charles RN Social History Tobacco Use [...] on filedocumented in this encounter Care Teams Dairy Hand Relationship Specialty Start Date End Date Vidhya Benitez DO PCP - General Family Medicine 05/10/16 11/29/18 documented as of this encounter
--- OUTSIDE RECORDS SUMMARY | 2024-04-18 02:13 | XMS_ITS | Encounter Summary ---
Author Organization [facility] Address [facility] [place] [address] Care Team Providers Care Cardiac Rehabilitation Specialist Name Role Phone Rufina Mccabe MD Primary Care Provider [phone] Encounter Details Date Type Department Care Team (Latest Contact Info) Description 10/09/2019 7:15 AM EST - 10/09/2019 8:23 AM EST Hospital [place] [address] Yesy Hansen MD [facility] [place] [address] Spondylosis without myelopathy or radiculopathy, lumbar region; [...] SURGERY Right approx 2013 Microfracture surgery ([facility], Dr. Barrera) ??? LAMINECTOMY ??? PRO LAMINOTOMY, LUMBAR DISK, 1 INTRSP N/A 10/14/2015 LAMINOTOMY, DECOMPRESSION, FORAMINOTOMY, LUMBAR performed by Trevor Rodriguez MD at [facility] MAIN OR ??? PRO MICROSURG TECHNIQUES, REQ OPER MICROSCOPE N/A 10/14/2015 MICROSCOPE USE performed by Trevor Rodriguez MD at [facility] MAIN OR ??? TUBAL LIGATION There [...] file Gets together: Not on file Attends jain service: Not on file Active member of [...] Sincerely, Ralph [place]idan MD Pain Management Fellow [address] [address] [email or web address] * Yesy Hansen MD - 10/02/2019 10:28 AM EST Visit rescheduled. 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 The patient received written instructions as [...] for the entire procedure. Yesy Hansen MD Chain Tender of Anesthesiology [facility] [address] [phone] / [email or web address] CC: Rufina Mccabe MD @[email or web address]@ documented in [...] Joint) documented in this encounter Care Teams Cardiac Rehabilitation Specialist Relationship Specialty Start Date End Date Rufina Mccabe MD [facility] [address] [place] [address] PCP - General Family Medicine 11/30/18 05/18/23 documented as of this encounter
--- OUTSIDE RECORDS SUMMARY | 2024-04-18 02:13 | XMS_ITS | Encounter Summary ---
Author Organization [facility] Address [facility] [place] [address] Care Team Providers Care Tree Wrapper Name Role Phone Rufina Mccabe MD Primary Care Provider [phone] Encounter Details Date Type Department Care Team (Latest Contact Info) Description 11/30/2018 9:43 AM EDT - 11/30/2018 10:23 AM EDT Hospital Encounter XRay at [address] [place] [address] Rufina Mccabe MD [facility] [address] [place] [address] SOB (shortness of breath) on exertion Discharge [...] breath documented in this encounter Care Teams Tree Wrapper Relationship Specialty Start Date End Date Rufina Mccabe MD [facility] [address] [place] [address] PCP - General Family Medicine 11/30/18 05/18/23 documented as of this encounter
--- OUTSIDE RECORDS SUMMARY | 2024-04-18 02:13 | XMS_ITS | Encounter Summary ---
Author Organization [facility] Address [facility] [place] [address] Care Team Providers Care Community Liaison Name Role Phone Vidhya Benitez DO Primary Care Provider Reason for Referral * Consultation (Routine) - Closed Specialty Diagnoses / Procedures Referred By Nelda sheppard Referred To Contact Gastroenterology Diagnoses Healthcare maintenance Rufina Mccabe MD [facility] [place] [address] [facility] End[address] [place] [address] Referral ID Status Reason Start Date Expiration Date V isits Requested Visits Authorized [id number] Closed Test Only 11/22/2018 11/22/2019 1 1 Reason for Visit * Reason Comments Establish Care Encounter Details Date Type Department Care Team (Late st Contact Info) Description 11/22/2018 1:00 PM EDT Office Visit Family Medicine at [facility] [address] [place] [address] Rufina Mccabe MD [facility] [address] [place], [place] [id number] Annual physical exam (Primary Dx); Screening for [...] your insurance to see how much your niv-xd-kkhdcv cost would be (2) Be prepared for [...] is a painful condition that can have terminal gauger supervisor pain consequences. More information can be found at: https://www.cdc.gov/shingles/fact-sheets/whdbbyse-mysbfazri-ewtzfs.html General nutrition guidelines regarding food choices: Most [...] more? Visit our health information library at [email or web address]. You can also view health information on [employer], your personal patient account. Log in or sign uptoday. Enter Y074 in the search box to learn more about Well Visit, Women 50 to 65: Care Instructions. Current as of: August 03, 2018 Content Version: 12.0 ?? [id number] [employer]. Care instructions adapted under license by [facility]. If you have questions about a medical condition or this instruction, always ask your healthcare professional. [employer] disclaims any warranty or liability for your use of this information. documented in this encounter Progress Notes * Rufina Mccabe MD - 11/22/2018 1:00 PM EDT Images from the original note were not included. Here for an Annual Exam New patient to al/ [facility] primary care practice Switching from Vidhya Benitez in [place] for communication reasons Other involved providers: Gillian [...] going up the stairs Had PFTs at [facility], 5 - 10 years ago Used to [...] KNEE SURGERY Right approx 2013 Microfracture surgery ([facility], Dr. Barrera) ??? LAMINECTOMY ??? PRO LAMINOTOMY, LUMBAR DISK, 1 INTRSP N/A 10/14/2015 LAMINOTOMY, DECOMPRESSION, FORAMINOTOMY, LUMBAR performed by Trevor Rodriguez MD at [facility] MAIN OR ??? PRO MICROSURG TECHNIQUES, REQ OPER MICROSCOPE N/A 10/14/2015 MICROSCOPE USE performed by Trevor Rodriguez MD at [facility] MAIN OR ??? TUBAL LIGATION Medications 11/22/18 [...] Discussed patient's most recent lipids, drawn in [place] Patient articulated understanding Bone health: Discussed nutrition [...] your insurance to see how much your ukr-ph-eqbzbf cost would be (2) Be prepared for [...] is a painful condition that can have mcc pain consequences. More information can be found at: https://www.cdc.gov/shingles/fact-sheets/zdgxibrl-daxlvrzcw-jgznif.html General nutrition guidelines regarding food choices: Most [...] more? Visit our health information library at [email or web address]. You can also view health information on [employer], your personal patient account. Log in or sign uptoday. Enter Y074 in the search box to learn more about Well Visit, Women 50 to 65: Care Instructions. Current as of: August 03, 2018 Content Version: 12.0 ?? [id number] [employer]. Care instructions adapted under license by [facility]. If you have questions about a medical condition or this instruction, always ask your healthcare professional. [employer] disclaims any warranty or liability for your [...] cervix HPV Routine 11/22/2018 1:00 PM EDT TELECOMMUNICATIONS FIELD TECHNICIAN CYTOLOGY INTERPRETATION Routine 11/22/2018 1:00 PM EDT TELECOMMUNICATIONS FIELD TECHNICIAN CYTOLOGY FINAL REPORT Routine 11/22/2018 1:00 PM [...] AM EDT) LDL Cholesterol, Direct 140 mg/dL [facility] Comment: Lowest Risk: <100 mg/dL Lower Risk: 100-129 mg/dL Borderline High Risk: 130-159 mg/dL High Risk: 160-189 mg/dL Very High Risk: >gu=344 mg/dL Blood specimen (specimen) 11/30/2018 10:21 AM EDT 11/30/2018 10:32 AM EDT Narrative Resulting Agency Comment Spec In Lab Rufina Mccabe MD CHEMISTRY ORDERABLE S Performing Organization Address City/[facility]/ZIP Co de Phone Number [facility] [place] [address] * HDL/Cholesterol Profile (11/30/2018 10:21 AM EDT) Cholesterol, Total 208 mg/dL [facility] Comment: Lower Risk: <200 mg/dL Average Risk: 200-239 mg/dL Higher Risk: >br=771 mg/dL HDL Cholesterol 68 mg/dL [facility] Comment: Males: ?? Higher Risk: <40 mg/dL Females: ?? HIgher Risk: <50 mg/dL Cholesterol/HDL Ratio 3.1 ratio [facility] Chol/HDL Interpretation See Note [facility] Comment: Lipid management should be guided by a patient? s ASCVD risk, goals and preferences. ACC/AHA Guidelines recommend high intensity statin if clinical ASCVD or LDL greater than or equal to 190 mg/dL. http://Etherios.com/ZEE-SAB-Melbnllod Measure LDL if Total Cholesterol minus HDL Cholesterol is greater than 220 mg/dL. Adults aged 40-75 with LDL 70-189 mg/dL should have their 10 year ASCVD risk estimated with the ACC/AHA ASCVD risk building estimator http://tools.acc.org/PEKGH-Rpmb-Axitivkkr/ Statin should be discussed if risk greater [...] Lab Rufina Mccabe MD CHEMISTRY ORDERABLE S [facility] [place] [address] * Hemoglobin A1c (11/30/2018 10:21 AM EDT) Hemoglobin A1c 5.0 4.3 - 5.6 % [facility] Comment: Reference Range: 4.3 - [...] Mellitus, Diabetes Care 2013; 36: Suppl. 1, S67-56 Estimated Average Glucose 97 mg/dL [facility] Comment: eAG equivalents for HbA1c [...] into estimated average glucose values. ??Diabetes Care 2008:31(8):9721-1765. Blood specimen (specimen) 11/30/2018 10:21 AM EDT 11/30/2018 10:32 AM EDT Narrative Resulting Agency Comment Spec In Lab Rufina Mccabe MD CHEMISTRY ORDERABLE S [facility] [place] [address] * Hepatitis C Antibody (11/30/2018 10:21 AM EDT) Hepatitis C Antibody Negative Negative [facility] Blood specimen (specimen) 11/30/2018 10:21 AM EDT 11/30/2018 10:32 AM EDT Narrative Resulting Agency Comment Spec In Lab Rufina Mccabe MD CHEMISTRY ORDERABLE S Performing Organization Address [facility] Co de Phone Number [facility] [place] [address] * XR Chest PA & Lateral (Generic) [...] contact the number below. Electronically signed by: LÓPEZ NAGY [facility]([phone]), at 11/30/2018 10:33 AM Rufina Mccabe MD IMG DX ORDERABLES * [...] PM EDT 11/22/2018 4:33 PM EDT Narrative [facility] - 11/22/2018 4:34 PM EDT Specimen requisition ordered. ??Separate Pathology report to follow Resulting Agency Comment Spec In Lab Rufina Mccabe MD PATHOLOGY/CYTOLOGY ORDERABLES [facility] [place] [address] * Stove Tender Cytology Final Report (11/22/2018 1:00 PM EDT) Stove Tender Cytology Final Report [id number] ? Location: [facility] The signing pathologist has (i) examined the relevant preparation(s) for the specimen(s) and (ii) rendered or confirmed the diagnosis(es). . ? Stove Tender Final DIAGNOSIS Normal Negative for intraepithelial lesion or malignancy (NILM). For consensus guidelines for the management of cervical cancer screening test results, please see: ?? http://www.asccp.o rg . Electronically signed by: ??KEM Davila(ASCP)Aislinn Verified: ??11/27/2018 ?Working Foreman Performed at: ??-[facility] Dept. of Pathology, [place], [place] HPV RESULTS HPV16 (Result) ?Negative HPV18 [...] intended to detect low risk HPV types. KeyView katlyn HPV test Specimen: HPV Testing - Cytology Liquid Based Prep The Sirisha katlyn ? HPV test was validated, performed and results reported through the Laboratory for Clinical Genomics and Advanced Technology (CGAT) at [facility]. ? - Ron Benavidez, PhD, [facility], Director-[facility] STATEMENT OF ADEQUACY Specimen submitted is satisfactory. Endocervical component present. CLINICAL INFORMATION HPV Option: ?Concurrent HPV and Pap CT/NG Option: ?? No Preparation: ? Liquid based Pap Specimen Source: ? Endocervical/Vagin al LMP: ? Post menopausal Hormones?: ? No Hysterectomy?: ? No ?: ? No ?: ? No I.U.D.?: ? No Pelvic Radiation: ?No Prior TELECOMMUNICATIONS FIELD TECHNICIAN Therapy?: ?No Hist Abnl Pap/Biopsy?: ?? No Hist of HPV Vaccine?: ?No Hist of Smoking?: ?No Hist of ROSALEE exposure?: ?? No ICD Diagnosis: ? Z12.4 Encounter for screening for malignant neoplasm of cervix . CLINICAL INFORMATION Clinical Data, Significant Therapy and Clinical Impression ?? : ?_ This Pap Test has been evaluated with the assistance of the [employer] America[employer] Pap Test Imaging System. Note: The Pap test is a screening test for cervical cancer with an inherent false-negative rate dependent upon several variables. For further information please contact the [facility] Laboratory. Reference: Galo BIRD. Assembler For Puller Over Machine of Pap Smear Results. In: Anitra BS, Alphonso HH, ed. The Pap Smear. [facility]: Christopher, 2002: 71-77. [facility] 11/22/2018 1:00 PM EDT Rufina Mccabe MD PATHOLOGY/CYTOLOGY ORDERABLES Performing Organization Address [facility] Co de Phone Number [facility] [place] [address] * TELECOMMUNICATIONS FIELD TECHNICIAN Cytology Interpretation (11/22/2018 1:00 PM EDT) Stove Tender Cytology Interpretation [facility] Comment:Stove Tender Cytology Final R eport Endocervical Component Present [facility] AP Specimen 11/22/2018 1:00 PM EDT 11/27/2018 11:44 AM EDT Rufina Mccabe MD PATHOLOGY/CYTOLOGY ORDERABLES Performing Organization Address [facility]/ZIP Co de Phone Number [facility] [place] [address] * HPV (11/22/2018 1:00 PM EDT) HPV16 NEGATIVE NEGATIVE [facility] HPV 18 NEGATIVE NEGATIVE [facility] HPV Other HR NEGATIVE NEGATIVE [facility] HPV Interpretation See Comment [facility] Comment: NEGATIVE for high-risk HPV [...] In Lab Rufina Mccabe MD PATHOLOGY/[place] [address] documented in this encounter Visit Diagnoses Diagnosis Annual physical exam- Primary Routine general medical examination at a health care facility Screening for malignant neoplasm of the cervix Healthcare maintenance Routine general medical examination at a health care facility SOB (shortness of breath) on exertion Shortness of breath Routine [facility] Healthcare maintenance Routine general medical examination at a health care facility SOB (shortness of breath) on exertion Shortness of breath SOB (shortness of breath) on exertion Shortness of breath documented in this encounter Care Teams Community Liaison Relationship Specialty Start Date End Date Vidhya Benitez DO PCP - General Family Medicine 05/10/16 11/29/18 documented as of this encounter
--- OUTSIDE RECORDS SUMMARY | 2024-04-18 02:13 | XMS_ITS | Encounter Summary ---
Author Organization [facility] [place] [address] Care Team Providers Care Rivet Spinner Name Role Phone Rufina Mccabe MD Primary Care Provider [phone] Encounter Details Date Type Department Care Team (Late st Contact Info) Description 05/28/2019 Telephone [facility] [place] [address] Edith Chaney RN Social History Tobacco Use [...] Miscellaneous Notes * Telephone Encounter - Edith Chanye RN - 05/28/2019 3:59 PM EDT In [...] on filedocumented in this encounter Care Teams Rivet Spinner Relationship Specialty Start Date End Date Rufina Mccabe MD [facility] [address] [address] PCP - General Family Medicine 11/30/18 05/18/23 documented as of this encounter
--- OUTSIDE RECORDS SUMMARY | 2024-04-18 02:14 | XMS_ITS | Encounter Summary ---
Author Organization [facility] Address [facility] [place] [address] Care Team Providers Care Floor Steward/Stewardess Name Role Phone Santos Hernandez MD Primary Care Provider [phone] Reason for Visit * Diagnostic Test (Routine) - Closed Specialty Diagnoses / Procedures Referred By Contac t Referred To Contact Radiology Diagnoses Left leg pain Procedures MRI Lumbar Spine With/WO Contrast MRI Lumbar Spine Without Contrast (GENERIC) Trevor Rodriguez MD [facility] [place] [address] [place] [address] Referral ID Status Reason Start Date Expiration Date V isits Requested Visits Authorized [id number] Closed Specialty Service Requested 03/08/2016 03/08/2017 1 1 Encounter Details Date Type Department Care Team (Latest Contact Info) Description 04/05/2016 9:17 AM EDT - 04/05/2016 11:59 PM EDT Hospital [place] [address] Trevor Rodriguez MD [facility] [place] [address] Left leg pain Discharge Disposition: Home Social [...] the clinical situation (Reference- Jarvik et al, [id number]). Findings: (Prevalence in patients without low back [...] mLs documented in this encounter Care Teams Floor Steward/Stewardess Relationship Specialty Start Date End Date Santos Hernandez MD [facility] [place] [address] PCP - General Family Medicine 07/16/15 05/09/16 documented as of this encounter
--- OUTSIDE RECORDS SUMMARY | 2024-04-18 02:14 | XMS_ITS | Encounter Summary ---
Author Organization [facility] Address [facility] [place] [address] Care Team Providers Care Salesperson Terrazzo Tiles Name Role Phone Santos Hernandez MD Primary Care Provider [phone] Reason for Visit * Auth/Cert Specialty Diagnoses / Procedures Referred By Contac t Referred To Contact Diagnoses Lumbar disc herniation LEFT LEG PAIN Procedures PRO LAMINOTOMY, LUMBAR DISK, 1 INTRSP LAMINOTOMY, DECOMPRESSION, FORAMINOTOMY, LUMBAR Referral ID Status Reason Start Date Expiration Date Visits Re quested Visits Authorized [id number] 1 1 Encounter Details Date Type Department Care Team (Late st Contact Info) Description 10/14/2015 2:42 PM EST Anesthesia Event [place] [address] Blas Velasco MD [facility] [place] [address] Niall Chahal MD [facility] [place] [address] Anesthesia Record Procedure Summary Procedure Name Responsible [...] Fela; Removal Date: 10/14/15; Removal Time: 1644 02/23/16 1451 by Niall Chahal MD 10/14/15 1644 by Keesha Lance Urethral Catheter 10/14/15; 1455; Surg sudeep longer than 2 hours; indwelling double lumen catheter; latex, hydrophilic coated; 14; inserted at this facility; 1; 5; 10; none; drainage bag to dependent drainage; Soares inserted using sterile technique. No resistance met. Clear yellow urine return noted. ; 10/15/15; 1045 10/14/15 1455 by Kelli Wilkinson, RN 10/15/15 1045 by Sujata Wharton RN [...] Velasco MD - 10/14/2015 7:14 PM EST [facility] Department of Anesthesiology Post-procedure Note Patient: Sherrie Bonner Procedure Summary Date Anesthesia Start Anesthesia Stop Room / Location 10/14/15 1442 1652 [facility] OR [facility] MAIN OR Procedure Diagnosis Surgeon Responsible Provider LAMINOTOMY, DECOMPRESSION, FORAMINOTOMY, LUMBAR (N/A Spine Lumbar); MICROSCOPE USE (N/A ) (LEFT LEGPAIN) Trevor Rodriguez MD Pouliot, Ryan C, MD All Anesthesia Providers: Anesthesiologist: Milton Macias MD; Blas Velasco MD FINANCIAL LEGAL ASSISTANT: Shyam Sweeney CRNA Parts Professional: Niall Chahal MD Student Nurse Carpet Layer: Keesha Lance Last (1hr) Vitals: BP 117/59 mmHg (10/14/151826) Temp 36.4 ??C (97.5 ??F) (10/14/151826) Pulse 51 (10/14/151826) Resp 12 (10/14/151826) SpO2 96 % (10/14/151826) Patient Location: PACU/[facility] Level of Consciousness: Awake and [...] mg documented in this encounter Care Teams Salesperson Terrazzo Tiles Relationship Specialty Start Date End Date Santos Hernandez MD [address] [place] [address] PCP - General Family Medicine 07/16/15 05/09/16 documented as of this encounter
--- OUTSIDE RECORDS SUMMARY | 2024-04-18 02:14 | XMS_ITS | Encounter Summary ---
[place] [address] Care Team Providers Care Judo Instructor Name Role Phone Santos Hernandez MD Primary Care Provider [phone] Reason for Visit * Reason Onset Date Comments Other 10/27/2015 Encounter Details Date Type Department Care Team ([facility] st Contact Info) Description 10/27/2015 Telephone [place] [address] Abby Tomas, RN Other Social History Tobacco [...] on filedocumented in this encounter Care Teams Judo Instructor Relationship Specialty Start Date End Date Santos Hernandez MD [address] [place] [address] PCP - General Family Medicine 07/16/15 05/09/16 documented as of this encounter
--- OUTSIDE RECORDS SUMMARY | 2024-04-18 02:14 | XMS_ITS | Encounter Summary ---
Author Organization [facility] Address [facility] [place] [address] Care Team Providers Care Domestic Laundry Worker Name Role Phone Vidhya Benitez DO Primary Care Provider [phone] Reason for Referral * Physical Therapy (Routine) - Specialty Diagnoses / Procedures Referred By Contac t Referred To Contact Physical Therapy Diagnoses Cervical spondylosis without myelopathy José Miguel Vieira, SURFACING TECHNICIAN [facility] [place] [address] Referral ID Status Reason Start Date Expiration Date V isits Requested Visits Authorized [id number] Evaluate and Treat 07/30/2016 01/26/2017 12 12 Reason for Visit * Reason Comments Neck Pain Bilateral Arm Pain Bilateral Shoulder Pain * Consultation (Routine) - Closed Specialty Diagnoses / Procedures Referred By Contac t Referred To Contact Orthopaedics Diagnoses chronic neck pain Procedures chronic neck pain Sammi Varela, [address] [place] [address] [facility] [address] [address] [place] [address] Referral ID Status Reason Start Date Expiration Date Visits Re quested Visits Authorized [id number] Closed 02/06/2016 02/05/2017 1 1 Encounter Details Date Type Department Care Team (Late st Contact Info) Description 07/30/2016 11:00 AM EST Office [place] [address] José Miguel Vieira, SURFACING TECHNICIAN 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 Her accompanies her today in the exam [...] later. I encouraged her to consider a [place]-certified physical therapist for her neck, but she [...] myelopathy documented in this encounter Care Teams Domestic Laundry Worker Relationship Specialty Start Date End Date Vidhya Benitez DO PCP - General Family Medicine 05/10/16 11/29/18 documented as of this encounter
--- OUTSIDE RECORDS SUMMARY | 2024-04-18 02:14 | XMS_ITS | Encounter Summary ---
Author Organization [facility] Address [facility] [place] [address] Care Team Providers Care Electronic Equipment Installer Name Role Phone Unavailable Primary Care Provider Unavailabl e Encounter Details Date Type Department Care Team (Late st Contact Info) Description 08/14/2014 - 08/14/2014 11:59 PM EST Hospital Encounter [place] [phone] Dr Maureen Temporary Pain Discharge Disposition: Home [...] See PACS for result report. Dr Singer [facility] FILM LIBRARY ORD ERABLES [place], [place] documented in this encounter Visit Diagnoses Diagnosis Pain Generalized pain documented in this encounter
--- OUTSIDE RECORDS SUMMARY | 2024-04-18 02:14 | XMS_ITS | Encounter Summary ---
Author Organization [facility] Address [facility] [place] [address] Care Team Providers Care School Transportation Director Name Role Phone Santos Hernandez MD Primary Care Provider [phone] Reason for Visit * Auth/Cert Specialty Diagnoses / Procedures Referred By Contac t Referred To Contact Diagnoses Lumbar disc herniation LEFT LEG PAIN Procedures PRO LAMINOTOMY, LUMBAR DISK, 1 INTRSP LAMINOTOMY, DECOMPRESSION, FORAMINOTOMY, LUMBAR Referral ID Status Reason Start Date Expiration Date Visits Re quested Visits Authorized [id number] 1 1 Encounter Details Date Type Department Care Team (Latest Contact Info) Description 10/14/2015 - 10/14/2015 11:11 AM [facility] Hospital Encounter [place] [address] Trevor Rodriguez MD [facility] [address] Discharge Disposition: Home Social History Tobacco Use [...] Surgical Pathology Report (10/14/2015 4:35 PM EST) Final Diagnosis [id number] ? Location: [facility] The signing pathologist has (i) examined the [...] sections are submitted. ??Gross examination only. ??shb 10/15/2015 2:30 PM EST [facility] STRUCTURE OF INTERVERTEBRAL DISC / Unknown 10/14/2015 4:35 PM EST 10/14/2015 4:35 PM EST Trevor Rodriguez MD PATHOLOGY/CYTOLOGY O RDERABLES Performing Organization Address City/State/[facility] Co de Phone Number [facility] [place] [address] documented in this encounter Visit Diagnoses Not on filedocumented in this encounter Care Teams School Transportation Director Relationship Specialty Start Date End Date Santos Hernandez MD [facility] [place] [address] PCP - General Family Medicine 07/16/15 05/09/16 documented as of this encounter
--- OUTSIDE RECORDS SUMMARY | 2024-04-18 02:14 | XMS_ITS | Encounter Summary ---
Author Organization [facility] Address [facility] [place] [address] Care Team Providers Care Extractions Technologist Name Role Phone Unavailable Primary Care Provider Unavailabl e Encounter Details Date Type Department Care Team (Late st Contact Info) Description 06/17/2015 - 06/17/2015 11:59 PM EDT Hospital Encounter [place] [phone] [address] Maureen Temporary Pain Discharge Disposition: Home [...] See PACS for result report. Dr Singer [facility] FILM LIBRARY ORD ERABLES [place], [place] documented in this encounter Visit Diagnoses Diagnosis Pain Generalized pain documented in this encounter
--- OUTSIDE RECORDS SUMMARY | 2024-04-18 02:14 | XMS_ITS | Encounter Summary ---
Author Organization Formerly [facility] [address] Care Team Providers Care Psychiatric Nursing Assistant Name Role Phone Santos Hernandez MD Primary Care Provider Reason for Visit * Reason Comments Medication Refill Encounter Details Date Type Department Care Team (Late st Contact Info) Description 04/15/2016 Ref[place] [address] Rosana Kennedy FEED WEIGHER [facility] [place] [address] [place] [address] Social History Tobacco Use Types Packs/Day Years [...] on filedocumented in this encounter Care Teams Psychiatric Nursing Assistant Relationship Specialty Start Date End Date Santos Hernandez MD [address] [place] [address] PCP - General Family Medicine 07/16/15 05/09/16 documented as of this encounter
--- OUTSIDE RECORDS SUMMARY | 2024-04-18 02:14 | XMS_ITS | Encounter Summary ---
Author Organization [facility] [address] Care Team Providers Care Child Welfare Counselor Name Role Phone Vidhya Benitez DO Primary Care Provider Reason for Referral * Surgical (Routine) - Specialty Diagnoses / Procedures Referred By Nelda sheppard Referred To Contact Diagnoses Radiculopathy of lumbar region Procedures TRANSFORAMINAL INJECTION Christoph Daugherty MD [facility] [place] [address] Referral ID Status Reason Start Date Expiration Date V isits Requested Visits Authorized [id number] Consult, Test & Treat 06/03/2016 06/03/2017 1 1 Reason for Visit * Reason Comments Back Pain radiating down LLE Encounter Details Date Type Department Care Team (Latest Contact Info) Description 06/03/2016 9:00 AM EDT Procedure visit [place] [address] David Mendoza DO [facility] [place] [address] Radiculopathy of lumbar region Social History Tobacco [...] No 2. Patient states they have a lead driver to transport after procedure? Yes 3. [...] discharge criteria to the care of a lead driver. The patient received written instructions as [...] - Pain Management CC: Vidhya Benitez DO [address] [place] [address] documented in this encounter Plan of Treatment [...] discharge criteria ??to the care of a lead driver. ??The patient received written instructions as [...] - Pain Management CC: Vidhya Benitez DO [address] [place], [place] [id number] David Araya DO PROCEDURE/MINOR SURG ICAL ORDERABLES [...] mLs documented in this encounter Care Teams Child Welfare Counselor Relationship Specialty Start Date End Date Vidhya Benitez DO PCP - General Family Medicine 05/10/16 11/29/18 documented as of this encounter
--- OUTSIDE RECORDS SUMMARY | 2024-04-18 02:14 | XMS_ITS | Encounter Summary ---
Author Organization [facility] Address [facility] [place] [address] Care Team Providers Care Field Foreman Name Role Phone Santos Hernandez MD Primary Care Provider [phone] Reason for Visit * Reason Comments Follow-up Encounter Details Date Type Department Care Team (Latest Contact Info) Description 11/27/2015 1:30 PM EDT Office [place] [phone] Trevor Rodriguez MD [facility] [address] Intervertebral disc disorder with radiculopathy of lumbar [...] unspecified documented in this encounter Care Teams Field Foreman Relationship Specialty Start Date End Date Santos Hernandez MD [facility] [place] [address] PCP - General Family Medicine 07/16/15 05/09/16 documented as of this encounter
--- OUTSIDE RECORDS SUMMARY | 2024-04-18 02:14 | XMS_ITS | Encounter Summary ---
Author Organization [facility] [place] [address] Care Team Providers Care Machine Cloth Measurer Name Role Phone Unavailable Primary Care Provider Unavailabl e Encounter Details Date Type Department Care Team (Late st Contact Info) Description 11/27/2014 Ancillary Procedure [place] [address] Param Kenny MD [facility] [place] [address] Social History Tobacco Use Types Packs/Day Years [...] Kenny MD IMG FILM LIBRARY ORD ERABLES [place], [place] documented in this encounter Visit Diagnoses Not on filedocumented in this encounter
--- OUTSIDE RECORDS SUMMARY | 2024-04-18 02:14 | XMS_ITS | Encounter Summary ---
Author Organization Formerly [facility] [place] [address] Care Team Providers Care Clothing Busheler Name Role Phone Santos Hernandez MD Primary Care Provider [phone] Encounter Details Date Type Department Care Team (Late st Contact Info) Description 03/08/2016 Orders [place] [address] Trevor Rodriguez MD [facility] [place] [address] Social History Tobacco Use Types Packs/Day Years [...] on filedocumented in this encounter Care Teams Clothing Busheler Relationship Specialty Start Date End Date Santos Hernandez MD [facility] [place] [address] PCP - General Family Medicine 07/16/15 05/09/16 documented as of this encounter
--- OUTSIDE RECORDS SUMMARY | 2024-04-18 02:14 | XMS_ITS | Encounter Summary ---
Author Organization Formerly [facility] [place] [address] Care Team Providers Care Elevator Pilot Name Role Phone EliVidhya Primary Care Provider Encounter Details Date Type Department Care Team ([facility] st Contact Info) Description 06/02/2016 Telephone Pain Management at [facility] [place] [phone] Aislinn Orozco, RN Social History Tobacco Use [...] Notes * Telephone Encounter - Aislinn Orozco, MAYCO - 06/02/2016 1:09 PM EDT Sherrie Bonner :1960 Contact made [...] a pacemaker) on 06-03-16 (date of procedure). School Office Assistant: The patient was reminded that they need to have a flatbed truck driver accompany them to her procedure [...] No Prior to checking in at [employer] Nurse, please be sure to empty your bladder. Patient confirmed understanding that if they do not follow the above their instructions, their procedure is likely to be cancelled. Aislinn Orozco LPN documented in this encounter Plan of Treatment Not on file documented as of this encounter Visit Diagnoses Not on filedocumented in this encounter Care Teams Elevator Pilot Relationship Specialty Start Date End Date Vidhya Benitez DO PCP - General Family Medicine 05/10/16 11/29/18 documented as of this encounter
--- OUTSIDE RECORDS SUMMARY | 2024-04-18 02:14 | XMS_ITS | Encounter Summary ---
Author Organization [facility] [place] [address] Care Team Providers Care Supervisor Cooler Service Name Role Phone Vidhya Benitez DO Primary Care Provider [phone] Reason for Visit * Reason Onset Date Comments Other 06/09/2016 Encounter Details Date Type Department Care Team ([facility] Contact Info) Description 06/09/2016 Telephone [place] [phone] Lyly Baez [facility] [place] [address] Other Social History Tobacco Use Types Packs/Day [...] will not be able to return to [facility] in [facility] to get a physical copy of her xray but by our fax request to them fax [phone] they will send report for review at Dr. Delaney's appt 06/22 regarding her neck. In the meantime she is advised to please contact [facility] and request release of disc to be [facility]. She verbalizes understanding and states she will proceed. Update to clinic staff. No further concerns identified at this time. documented in this encounter Plan of Treatment Not on file documented as of this encounter Visit Diagnoses Not on filedocumented in this encounter Care Teams Supervisor Cooler Service Relationship Specialty Start Date End Date Vidhya Benitez DO PCP - General Family Medicine 05/10/16 11/29/18 documented as of this encounter
--- OUTSIDE RECORDS SUMMARY | 2024-04-18 02:14 | XMS_ITS | Encounter Summary ---
Author Organization [facility] [place] [address] Care Team Providers Care Occupational Therapist Per Diem Name Role Phone Unavailable Primary Care Provider Unavailabl e Encounter Details Date Type Department Care Team (Late st Contact Info) Description 06/04/2009 Ancillary Procedure [place] [address] Param Kenny MD [facility] [place] [address] Social History Tobacco Use Types Packs/Day Years [...] Kenny MD G FILM LIBRARY ORD ERABLES [place], [place] documented in this encounter Visit Diagnoses Not on filedocumented in this encounter
--- OUTSIDE RECORDS SUMMARY | 2024-04-18 02:14 | XMS_ITS | Encounter Summary ---
Author Organization [facility] [place] [address] Care Team Providers Care Curriculum Consultant Name Role Phone Santos Hernandez MD Primary Care Provider [phone] Encounter Details Date Type Department Care Team (Late st Contact Info) Description 03/16/2016 Ref[place] [address] Rosana Kennedy, [facility] [place] [address] Social History Tobacco Use Types Packs/Day Years [...] on filedocumented in this encounter Care Teams Curriculum Consultant Relationship Specialty Start Date End Date Santos Hernandez MD [facility] [place] [address] PCP - General Family Medicine 07/16/15 05/09/16 documented as of this encounter
--- OUTSIDE RECORDS SUMMARY | 2024-04-18 02:14 | XMS_ITS | Encounter Summary ---
Author Organization [facility] Address [facility] [place] [address] Care Team Providers Care Machine Tool Rebuilder Name Role Phone Vidhya Benitez DO Primary Care Provider [phone] Reason for Visit * Reason Comments Back Pain * Consultation (Routine) - Closed Specialty Diagnoses / Procedures Referred By Contac t Referred To Contact Pain Management Diagnoses Low back pain low back pain discuss RFA Mayra Ocampo, DALILA [address] [place] [address] [facility] [address] [place] [phone] Referral ID Status Reason Start Date Expiration Date Visits Re quested Visits Authorized [id number] Closed 10/11/2018 10/11/2019 1 1 Encounter Details Date Type Department Care Team (Late st Contact Info) Description 10/19/2018 2:45 PM EST Office [place] [address] Elizabet Brooks, NUCLEAR CONTROL ROOM OPERATOR [facility] [place] [address] Lumbosacral spondylosis without myelopathy Social History Tobacco [...] this encounter Progress Notes * Elizabet Brooks, NUCLEAR CONTROL ROOM OPERATOR - 10/19/2018 2:45 PM EST [facility] [place] [address] Phone: PAIN MANAGEMENT NEW PATIENT / CONSULTATION NOTE DATE OF VISIT 10/19/2018 Patient Sherrie Bonner 1960 REFERRING PROVIDER Mayra Ocampo APRN [address] [address] PRIMARY CARE PROVIDER Vidhya Benitez DO CHIEF [...] sclerosis, depression, and chronic headaches (followed by [facility] neurology). 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 PRO MICROSURG TECHNIQUES, REQ OPER MICROSCOPE N/A 10/14/2015 MICROSCOPE USE performed by Trevor Julien MD at [facility] MAIN OR ??? TUBAL LIGATION FAMILY [...] because [place]. I answered all her questions today. Elizabet Brooks, MS, RESIDENTIAL SALES REPRESENTATIVE-BC, NUCLEAR CONTROL ROOM OPERATOR Nurse practitioner Pain management [facility] documented in this encounter Plan of Treatment Not on file documented as of this encounter Visit Diagnoses Diagnosis Lumbosacral spondylosis without myelopathy documented in this encounter Care Teams Machine Tool Rebuilder Relationship Specialty Start Date End Date Vidhya Benitez DO PCP - General Family Medicine 05/10/16 11/29/18 documented as of this encounter
--- OUTSIDE RECORDS SUMMARY | 2024-04-18 02:14 | XMS_ITS | Encounter Summary ---
Author Organization [facility] [address] Care Team Providers Care Lard Mixer Name Role Phone Unavailable Primary Care Provider Unavailabl e Encounter Details Date Type Department Care Team (Late st Contact Info) Description 11/09/2011 - 11/09/2011 11:59 PM EDT Hospital Encounter [place] [phone] Dr Maureen Temporary Pain Discharge Disposition: Home [...] MR Spine (11/09/2011 12:00 AM EDT) Narrative [facility] - 08/01/2015 9:36 PM EST See PACS for result report. Dr Lucrecia Reddy IMG FILM LIBRARY ORD ERABLES [place], [place] documented in this encounter Visit Diagnoses Diagnosis Pain Generalized pain documented in this encounter
--- OUTSIDE RECORDS SUMMARY | 2024-04-18 02:14 | XMS_ITS | Encounter Summary ---
Author Organization [facility] [place] [address] Care Team Providers Care Biodiesel Product Development Manager Name Role Phone Santos Hernandez MD Primary Care Provider [phone] Encounter Details Date Type Department Care Team (Late st Contact Info) Description 02/26/2016 [place] [phone] Rosana Kennedy APRN [facility] [place] [address] Social History Tobacco Use Types Packs/Day Years [...] on filedocumented in this encounter Care Teams Biodiesel Product Development Manager Relationship Specialty Start Date End Date Santos Hernandez MD [address] [place] [address] PCP - General Family Medicine 07/16/15 05/09/16 documented as of this encounter
--- OUTSIDE RECORDS SUMMARY | 2024-04-18 02:14 | XMS_ITS | Encounter Summary ---
Author Organization [facility] [place] [address] Care Team Providers Care Director Digital Analytics Name Role Phone EliVidhya Primary Care Provider [phone] Encounter Details Date Type Department Care Team ([facility] st Contact Info) Description 06/06/2017 Telephone [place] [phone] Edith Chaney, RN Social History Tobacco Use [...] to patient as she had sent an inZeo message to Nae Soni, ? I was [...] on filedocumented in this encounter Care Teams Director Digital Analytics Relationship Specialty Start Date End Date Vidhya Benitez DO PCP - General Family Medicine 05/10/16 11/29/18 documented as of this encounter
--- OUTSIDE RECORDS SUMMARY | 2024-04-18 02:14 | XMS_ITS | Encounter Summary ---
Author Organization [place] [address] Care Team Providers Care Global Expansion Sales Director Name Role Phone Vidhya Benitez DO Primary Care Provider Reason for Referral * Diagnostic Test (Routine) - Closed Specialty Diagnoses / Procedures Referred By Contac t Referred To Contact Radiology Diagnoses Other chest pain Procedures NM Pharmacologic Stress Myocardial Perfusion Cameron Saldivar MD [facility] [place] [address] [place] [address] Referral ID Status Reason Start Date Expiration Date V isits Requested Visits Authorized [id number] Closed Specialty Service Requested 10/19/2018 10/19/2019 1 1 * Diagnostic Test (Routine) - Closed Specialty Diagnoses / Procedures Referred By Contac t Referred To Contact Radiology Diagnoses Other chest pain Procedures NM Pharmacologic Stress CT Component Cameron Saldivar MD [facility] [place] [address] [place] [address] Referral ID Status Reason Start Date Expiration Date V isits Requested Visits Authorized [id number] Closed Specialty Service Requested 10/19/2018 10/19/2019 1 1 Reason for Visit * Reason Comments Chest Pain Ekg * Consultation (Routine) - Closed Specialty Diagnoses / Procedures Referred By Nelda sheppard Referred To Contact Cardiology Diagnoses LEFT SIDED INTERMITTENT CHEST PAIN Mayra Ocampo, LOG GETTER [address] [place] [address] [facility] Cardiology [address] [place] [phone] Referral ID Status Reason Start Date Expiration Date V isits Requested Visits Authorized [id number] Closed Consult, Test & Treat Connection Center 10/12/2018 10/12/2019 1 1 Encounter Details Date Type Department Care Team (Late st Contact Info) Description 10/19/2018 10:40 AM EST Office Visit Cardiology at [address] [address] Cameron Saldivar MD [facility] [place] [address] Other chest pain (Primary Dx) Social History [...] from the original note were not included. [facility] [place] [address] CARDIOLOGY/ VASCULAR OUTPATIENT NOTE Sherrie Benitez, Reason for consult: chest pain SUBJECTIVE: Pleasant 58 year old female who has a history of multiple sclerosis (has a neurologist in [place]) who is referred for further evaluation of left sided chest pain. She states that she has noticed this more over the past 2 months. 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 [...] strength Skin: no new rashes Results for SHERRIE ROBERTSON ( ) as of 10/19/2018 11:25 [...] below. ? Electronically signed by: [facility] ([phone]), at 11/02/2018 5:25 PM Narrative 11/02/2018 5:25 [...] number below. Electronically signed by: [facility]([phone]), at 11/02/2018 5:25 PM Cameron Saldivar MD [...] below. ? Electronically signed by: [facility] ([phone]), at 11/02/2018 5:25 PM Narrative 11/02/2018 5:25 [...] number below. Electronically signed by: [facility]([phone]), at 11/02/2018 5:25 PM Cameron Saldivar MD [facility] [place] ORDERABLES * Nuclear Pharmacologic Stress Cardiology [...] (Bezet) 417 ms MUSE SYSTEM Calculated P [place] 55 degrees MUSE SYSTEM Calculated R [place] 57 degrees MUSE SYSTEM Calculated T [place] 61 degrees MUSE SYSTEM INTERPRETATION Normal sinus rhythm Normal ECG No previous ECGs available Confirmed by MD Diana, Ron Hughes ([id number]) on 10/19/2018 9:30:14 PM MUSE SYSTEM 10/19/2018 11:0 4 AM EST 10/19/2018 9:30 PM EST Cameron Saldivar MD ECG ORDERABLES MUSE SYSTEM documented in this encounter Visit Diagnoses Diagnosis Other chest pain- Primary Other chest pain Other chest pain documented in this encounter Care Teams Global Expansion Sales Director Relationship Specialty Start Date End Date Vidhya Benitez DO PCP - General Family Medicine 05/10/16 11/29/18 documented as of this encounter
--- OUTSIDE RECORDS SUMMARY | 2024-04-18 02:14 | XMS_ITS | Encounter Summary ---
[place] [address] Care Team Providers Care Sheet Metal Worker Apprentice Name Role Phone Vidhya Benitez DO Primary Care Provider [phone] Reason for Visit * Reason Onset Date Comments Pre Procedure Call 07/04/2017 Encounter Details Date Type Department Care Team (Late st Contact Info) Description 07/04/2017 Telephone [place] [phone] Radha Mancilla RN Pre Procedure Call Social [...] on 07/06/17 (date of procedure) with their local company intermodal truck driver. 2. Following instructions left in the [...] on filedocumented in this encounter Care Teams Sheet Metal Worker Apprentice Relationship Specialty Start Date End Date Vidhya Benitez DO PCP - General Family Medicine 05/10/16 11/29/18 documented as of this encounter
--- OUTSIDE RECORDS SUMMARY | 2024-04-18 02:14 | XMS_ITS | Encounter Summary ---
Author Organization [facility] Address [facility] [place] [address] Care Team Providers Care Wood Shingle Roofer Name Role Phone Unavailable Primary Care Provider Unavailabl e Encounter Details Date Type Department Care Team (Late st Contact Info) Description 11/09/2011 12:15 AM EDT - 11/09/2011 11:59 PM EDT Hospital Encounter [place] [address] [address] Maureen Temporary Pain Discharge Disposition: Home [...] Lucrecia Reddy IMG FILM LIBRARY ORD ERABLES [place], [place] documented in this encounter Visit Diagnoses Diagnosis Pain Generalized pain documented in this encounter
--- OUTSIDE RECORDS SUMMARY | 2024-04-18 02:14 | XMS_ITS | Encounter Summary ---
Author Organization [facility] [place] [address] Care Team Providers Care Farm Manager Name Role Phone Santos Hernandez MD Primary Care Provider [phone] Encounter Details Date Type Department Care Team (Late st Contact Info) Description 12/30/2015 Ancillary Procedure [place] [phone] Param Kenny MD [facility] [place] [address] Social History Tobacco Use Types Packs/Day Years [...] Only Mammo (12/30/2015 12:00 AM EDT) Narrative [facility] - 12/12/2018 10:35 AM EDT This exam is auto-finalizing. It's purpose is for storage only. Param Kenny MD G FILM LIBRARY ORD ERABLES [facility] [place], [place] documented in this encounter Visit Diagnoses Not on filedocumented in this encounter Care Teams Farm Manager Relationship Specialty Start Date End Date Santos Hernandez MD [address] [place] [phone] PCP - General Family Medicine 07/16/15 05/09/16 documented as of this encounter
--- OUTSIDE RECORDS SUMMARY | 2024-04-18 02:14 | XMS_ITS | Encounter Summary ---
Author Organization [facility] Address [facility] [place] [address] Care Team Providers Care Citrus Fruit Colorer Name Role Phone David Hernandez MD Primary Care Provider [phone] Reason for Visit * Auth/Cert Specialty Diagnoses / Procedures Referred By Contac t Referred To Contact Diagnoses Lumbar disc herniation LEFT LEG PAIN Procedures PRO LAMINOTOMY, LUMBAR DISK, 1 INTRSP LAMINOTOMY, DECOMPRESSION, FORAMINOTOMY, LUMBAR Referral ID Status Reason Start Date Expiration Date Visits Re quested Visits Authorized [id number] 1 1 Encounter Details Date Type Department Care Team (Late st Contact Info) Description 10/14/2015 12:58 PM EST - 10/14/2015 3:26 PM EST [place] [address] Trevor Rodriguez MD [facility] [place] [address] LAMINOTOMY, DECOMPRESSION, FORAMINOTOMY, LUMBAR (WRVU 12) Social [...] unit Tab Take 50,000 mg by mouth. 19482 mg Refills: 0 fluticasone-salmeterol 250-50 mcg/dose Dsdv [...] may be used if needed and are flgg-rar-ankepin (OTC) medications available at most local pharmacies. Prunes or prune juice, taken daily, can also be helpful for constipation treatmentor prevention and are available at most [employer]. Driving Restrictions*: - [X] No driving for [...] your Primary Care Provider (X)With the Neurosurgery EXHIBITION CARVER/RN. Important Phone Numbers: Outpatient Nurse: Moraima Urena Inpatient Nurses: Neurosurgical Resident Solvent Station Attendant (after 5pm or before 8am): Neurosurgery offices (weekdays between 8am-5pm): Dr. Rodriguez: Dr. Ge: Pediatric Patients , Adult [phone] [address]. Jose: Dr. Wells: Dr. Elmore: Dr. Leong David Galarza, Physician Geotechnical Operating Engineer Diamante Maddox, Nurse Practitioner David Bah, Physician Geotechnical Operating Engineer Mary Beth Dempsey, Nurse Practitioner Your surgeon may not be Solvent Station Attendant, especially during the night or on weekends, so be ready to tell about yourself and your surgery when you iesha CC: Primary Care Physician: DAVID HERNANDEZ MD Future Appointments Provider Department Dept Phone 11/03/2015 10:00 AM Jenni Ramirez MD Neurology [phone] Electronically Signed By: FATOU AYALA 10/15/2015 documented [...] may be used if needed and are kdxt-var-nsnhehj (OTC) medications available at most local pharmacies. Prunes or prune juice, taken daily, can also be helpful for constipation treatmentor prevention and are available at most [employer]. Driving Restrictions*: - [X] No driving for [...] your Primary Care Provider (X)With the Neurosurgery EXHIBITION CARVER/RN. Important Phone Numbers: Outpatient Nurse: Moraima Urena Inpatient Nurses: Neurosurgical Resident Solvent Station Attendant (after 5pm or before 8am): Neurosurgery offices (weekdays between 8am-5pm): Dr. Rodriguez: Dr. Ge: Pediatric Patients , Adult [phone] Dr. Jose: Dr. Wells: Dr. Elmore: Dr. Leong David Galarza, Physician Geotechnical Operating Engineer Diamante Maddox, Nurse Practitioner David Bah, Physician Geotechnical Operating Engineer Mary Beth Dempsey, Nurse Practitioner Your surgeon may not be Solvent Station Attendant, especially during the night or on weekends, so be ready to tell about yourself and your surgery when you eisha CC: Primary Care Physician: DAVID HERNANDEZ MD [...] Oxycodone Rx. Patient was escorted by [facility] via to [facility] where met her. * Jerzy Spencer RN - 10/15/2015 1:11 PM EST Record reviewed and patient discussed with multidisciplinary team. No discharge needs identified atthis time. Spring Encaser remains available as needed for coordination of care and discharge planning.Pt has arrnaged her own transpotation and will get her prescriptions filled at her local [facility] any needs. RN to review instructiosn, medicatiosn, activity and f/u [id number] prior to discharge. JERZY SPENCER RN 10/15/2015 [...] Charles MD - 10/16/2015 8:27 AM EST [facility] [place] Operative Note Patient Name: Sherrie Bonner : [id number] MR#: [id number] Case Date: 10/14/2015 Surgeon: Surgeon(s) and Role: [...] Operative Note Patient Name: Sherrie Bonner : [id number] MR#: [id number] Case Date: 10/14/2015 Surgeon: Surgeon(s) and Role: [...] Associated Diagnoses Date /Time FILM LIBRARY-FLUORO OR [id number]-ZNW-[id number] ONL Imaging Routine 10/14/2015 4:5 4 PM EST Scheduled Orders Name Type Priority Associated Diagnoses Orde r Schedule FILM LIBRARY-FLUORO OR S-[id number] ONL Imaging Routine Once PRN (f or Radiant use) for 1 Occurrences starting 10/14/2015 until 10/14/2015 documented as of this encounter Procedures Procedure Name Priority Date/Time Associated Diagnosis Comments HEMOGRAM Routine 10/15/2015 2:33 AM EST DIFFERENTIAL, AUTOMATED Routine 10/15/2015 2:33 AM EST CBC (WITH DIFF) Routine 10/15/2015 2:33 AM EST BASIC METABOLIC PANEL Routine 10/15/2015 2:33 AM EST SPECIMEN TO PATHOLOGY Routine 10/14/2015 4:35 PM EST MICROSCOPE USE (WRVU 3.46) 10/14/2015 2:45 PM EST LEFT LEG PAIN LAMINOTOMY, DECOMPRESSION, FORAMINOTOMY, LUMBAR (WRVU 12) 10/14/2015 2:45 PM EST LEFT LEG PAIN TYPE AND SCREEN, SDP (FUTURE SURGERY, [facility] [place] SAME DAY PROGRAM ONLY) STAT 10/14/2015 11:28 AM EST ABO/RH TYPING STAT 10/14/2015 11:28 AM EST ANTIBODY SCREEN STAT 10/14/2015 11:28 AM EST documented in this encounter Results * (ABNORMAL) Differential, Automated (10/15/2015 2:33 AM EST) Neutrophil % 92.7 % [facility] Neutrophil Absolute 9.17(H) 1.50 - 6.30 x10(3)/mc L [facility] Lymph % 4.4 % [facility] Lymphocytes Abs 0.4(L) 1.0 - 3.6 x10(3)/mc L [facility] Monocyte % 2.6 % [facility] Monocyte Abs 0.3 0.2 - 1.0 x10(3)/mc L [facility] Eos % 0.0 % [facility] Eosinophils Abs 0.0 0.0 - 0.5 x10(3)/mc L [facility] Basophil % 0.1 % [facility] Baso Absolute 0.0 0.0 - 0.2 x10(3)/mc L [facility] Immature Gran % 0.20 % [facility] Comment: Immature granulocytes(IG's)percentage and absolute count will include metamyelocytes, myelocytes, and promyelocytes. Blood smears from CBCs yielding IG's will be scanned manually for concordance. If this scan disagrees with the automated IG or if promyelocytes are noted, a manual differential will be performed. Immature Gran Absolute 0.02 0.00 - 0.05 x10(3)/mc L [facility] Blood specimen (specimen) 10/15/2015 2:33 AM EST 10/15/2015 2:39 AM EST Narrative Resulting Agency Comment Spec In Lab Trevor Rodriguez MD HEMATOLOGY ORDERABLE S [facility] [place] [address] * (ABNORMAL) Hemogram (10/15/2015 2:33 AM EST) White Blood Cell 9.9 4.0 - 10.0 x10(3)/mc L [facility] Red Blood Cell 3.77(L) 3.93 - 5.22 x10(6)/mc L [facility] Hemoglobin 11.5 11.2 - 15.7 gm/dL [facility] Hematocrit 34.6 34.0 - 45.0 % [facility] Mean Cell Volume 91.8 79.0 - 94.0 fL [facility] Mean Cell Hemoglobin 30.5 26.6 - 32.2 pg [facility] Mean Cell Hemoglobin Concentration 33.2 32.0 - 36.5 gm/dL [facility] Platelet 204 145 - 370 x10(3)/mc L [facility] RDW Standard Deviation 42.2 35.0 - 46.0 fL [facility] RDW coefficient of variation 12.5 10.9 - 14.4 % [facility] Mean Platelet Volume 11.2 9.0 - 12.0 fL [facility] Blood specimen (specimen) 10/15/2015 2:33 AM EST 10/15/2015 2:39 AM EST Narrative Resulting Agency Comment Spec In Lab Trevor Rodriguez MD HEMATOLOGY ORDERABLE S [facility] [place] [address] * (ABNORMAL) Basic Metabolic Panel (non-fasting) (10/15/2015 2:33 AM EST) Glucose 146 65 - 199 mg/dL [facility] Comment:Diabetes: >=200 mg/d L plus symptoms Blood Urea Nitrogen 15 8 - 18 mg/dL [facility] Creatinine 1.07 0.70 - 1.20 mg/dL [facility] Comment: Please note that the pediatric reference intervals supplied above were not validated at [facility] [place]. Results from pediatric patients should be interpreted in conjunction to the patient's age, height and muscle mass. Sodium 140 135 - 145 mmol/L [facility] Potassium 4.3 3.5 - 5.0 mmol/L [facility] Comment: Please note: ??Patients with WBC >100,000 may have falsely elevated Potassium levels. ??For accurate Potassium quantification in these patients send serum separator tube (gold top) for subsequent determinations. ??Contact the Clinical Chemistry Laboratory if there are any questions. Chloride 104 98 - 107 mmol/L [facility] Carbon Dioxide 25 22 - 31 mmol/L [facility] Anion Gap 11 5 - 15 mmol/L [facility] Calcium 8.5 8.5 - 10.5 mg/dL [facility] Est Glomerular Filtration Rate 53(L) >=60 [facility] Comment: This estimated GFR (eGFR) value [...] the following links into your internet browser. [email or web address] Blood specimen (specimen) 10/15/2015 2:33 AM EST 10/15/2015 2:39 AM EST Narrative Resulting Agency Comment Spec In Lab Trevor Rodriguez MD CHEMISTRY ORDERABLES Performing Organization Address [facility]/ZIP Co de Phone Number [facility] [place] [address] * Specimen to Pathology (surgical or derm) (10/14/2015 4:35 PM EST) AP Specimen 10/14/2015 4:35 PM EST 10/14/2015 4:35 PM EST Narrative [facility] - 10/14/2015 4:35 PM EST Specimen requisition ordered. ??Separate Pathology report to follow Trevor Rodriguez MD PATHOLOGY/CYTOLOGY O RDERABLES Performing Organization Address [facility] Co de Phone Number [facility] [place] [address] * Antibody screen (10/14/2015 11:28 AM EST) Ab Screen Interp Negative [facility] Expires at 2359 on: 10/17/2015 [facility] Blood specimen (specimen) 10/14/2015 11:28 AM EST 10/14/2015 11:32 AM EST Narrative Resulting Agency Comment Spec In Lab Trevor Rodriguez MD BLOOD BANK LAB ORDER MARBIN Performing Organization Address City/[facility]/ZIP Co de Phone Number [facility] [place] [address] * ABO/Rh Typing (10/14/2015 11:28 AM EST) ABORH Type A Pos [facility] Blood specimen (specimen) 10/14/2015 11:28 AM EST 10/14/2015 11:32 AM EST Narrative Resulting Agency Comment Spec In Lab Trevor Rodriguez MD BLOOD BANK LAB ORDER MARBIN [facility] [place] [address] documented in this encounter Visit Diagnoses Not [...] 0042 (Given - Provid er: Anamaria Manley RN)06 (Given - Provider: Anamaria Manley RN) famotidine [...] Discontinued, Routine 2010 (Given - Provider: Anamaria Manley, MARIA T) 0908 (Given - Provider: Sujata Wharton RN) sodium chloride 0.9 % flush [...] Anamaria Manley RN)1330 (Given - Provider: Sangita Cantu, MARIA [...] Routine 1711 (See Alternative - Provider: Laura Lizama, MARIA T) 0149 (See Alternative - Provider: Dipika Lester, MARIA T)0739 (See Alternative - Provider: Anamaria Manley RN)1330 (See Alternative - Provider: Sangita Cantu RN) [...] 0740, Pain, mild pain, Give per rectum ([place]) if unable to take PO. May repeat [...] Routine documented in this encounter Care Teams Citrus Fruit Colorer Relationship Specialty Start Date End Date David Hernandez MD [facility] [place] [address] PCP - General Family Medicine 07/16/15 05/09/16 documented as of this encounter
--- OUTSIDE RECORDS SUMMARY | 2024-04-18 02:14 | XMS_ITS | Encounter Summary ---
Author Organization [facility] [place] [address] Care Team Providers Care Field Marketing Associate Name Role Phone EliVidhya Primary Care Provider Encounter Details Date Type Department Care Team (Late st Contact Info) Description 05/10/2016 1:00 PM EDT Office [place] [address] Trevor Rodriguez MD [facility] [address] [place] [address] Left leg pain Social History Tobacco Use [...] limb documented in this encounter Care Teams Field Marketing Associate Relationship Specialty Start Date End Date Vidhya Benitez DO PCP - General Family Medicine 05/10/16 11/29/18 documented as of this encounter
--- OUTSIDE RECORDS SUMMARY | 2024-04-18 02:14 | XMS_ITS | Encounter Summary ---
Author Organization [facility] [place] [address] Care Team Providers Care Housekeeper Cleaning Cooking Name Role Phone Santos Hernandez MD Primary Care Provider [phone] Encounter Details Date Type Department Care Team (Late st Contact Info) Description 04/14/2016 [place] [phone] Rosana Kennedy APRN [facility] [place] [place] [address] Social History Tobacco Use Types Packs/Day Years [...] on filedocumented in this encounter Care Teams Housekeeper Cleaning Cooking Relationship Specialty Start Date End Date Santos Hernandez MD [address] [place] [address] PCP - General Family Medicine 07/16/15 05/09/16 documented as of this encounter
--- OUTSIDE RECORDS SUMMARY | 2024-04-18 02:14 | XMS_ITS | Encounter Summary ---
Author Organization [facility] Address [facility] [place] [address] Care Team Providers Care Junior Linux Administrator Name Role Phone Vidhya Benitez DO Primary Care Provider Reason for Referral * Routine Exam (Routine) - Specialty Diagnoses / Procedures Referred By Contac t Referred To Contact Diagnoses Lumbosacral spondylosis without myelopathy Procedures NERVE BLOCK - LUMBOSACRAL - [place] Pete Hansen MD [facility] [place] [address] Referral ID Status Reason Start Date Expiration Date Visits Requested Visits Authorized [id number] Specialty Service Requested 07/06/2017 07/06/2018 1 1 [...] ADDL LEVEL PROCEDURE 1 Trevor Rodriguez MD [facility] [place] [address] Pete Hansen MD [facility] [place] [address] Referral ID Status Reason Start Date Expiration Date Visits Re quested Visits Authorized [id number] Closed 07/06/2017 07/06/2018 1 1 Encounter Details Date Type Department Care Team (Latest Contact Info) Description 07/06/2017 3:30 PM EST Procedure [place] [address] Pete Hansen MD [facility] [place] [address] Lumbosacral spondylosis without myelopathy Social History Tobacco [...] Post -Procedure Pain Log Patient: Sherrie Bonner [id number] It is important for you to keep [...] No 2. Patient states they have a sales warehouse driver to transport after procedure? Yes 3. [...] discharge criteria to the care of a sales warehouse driver. The patient received writteninstructions as documented [...] HANSEN MD CC: Vidhya Benitez DO @PCPADD@ documented in this encounter Plan [...] discharge criteria ??to the care of a sales warehouse driver. ??The patient received written instructions as [...] mg documented in this encounter Care Teams Junior Linux Administrator Relationship Specialty Start Date End Date Vidhya Benitez DO PCP - General Family Medicine 05/10/16 11/29/18 documented as of this encounter
--- OUTSIDE RECORDS SUMMARY | 2024-04-18 02:14 | XMS_ITS | Encounter Summary ---
Author Organization [facility] [place] [address] Care Team Providers Care Milk Bottler Name Role Phone Santos Hernandez MD Primary Care Provider [phone] Encounter Details Date Type Department Care Team (Latest Contact Info) Description 07/24/2015 - 07/24/2015 11:59 PM EST Hospital Encounter [place] [address] Chas Delaney MD [facility] [place] [address] Pain Discharge Disposition: Home Social History Tobacco [...] MR Spine (07/24/2015 12:00 AM EST) Narrative [facility] - 07/30/2016 2:03 AM EST This exam is for storage only and is auto-finalizing. Chas Delaney MD IMG FILM LIBRARY ORD ERABLES Performing Organization Address City/State/[facility] Co de Phone Number [place], [place] documented in this encounter Visit Diagnoses Diagnosis Pain Generalized pain documented in this encounter Care Teams Milk Bottler Relationship Specialty Start Date End Date Santos Hernandez MD [facility] [place] [address] PCP - General Family Medicine 07/16/15 05/09/16 documented as of this encounter
--- OUTSIDE RECORDS SUMMARY | 2024-04-18 02:14 | XMS_ITS | Encounter Summary ---
Author Organization [facility] [place] [address] Care Team Providers Care Coordinate Measuring Machine Operator Name Role Phone Santos Hernandez MD Primary Care Provider [phone] Encounter Details Date Type Department Care Team (Late st Contact Info) Description 03/03/2016 [place] [address] Rosana Kennedy APRN [facility] [place] [address] Social History Tobacco Use Types Packs/Day Years [...] on filedocumented in this encounter Care Teams Coordinate Measuring Machine Operator Relationship Specialty Start Date End Date Santos Hernandez MD [address] [place] [address] PCP - General Family Medicine 07/16/15 05/09/16 documented as of this encounter
--- OUTSIDE RECORDS SUMMARY | 2024-04-18 02:14 | XMS_ITS | Encounter Summary ---
Author Organization [facility] [place] [address] Care Team Providers Care Cloud Automation Tester Name Role Phone Unavailable Primary Care Provider Unavailabl e Encounter Details Date Type Department Care Team (Late st Contact Info) Description 02/10/2008 Ancillary Procedure [place] [address] Param Kenny MD [facility] [place] [address] Social History Tobacco Use Types Packs/Day Years [...] Kenny MD G FILM LIBRARY ORD ERABLES [place], [place] documented in this encounter Visit Diagnoses Not on filedocumented in this encounter
--- OUTSIDE RECORDS SUMMARY | 2024-04-18 02:14 | XMS_ITS | Encounter Summary ---
Author Organization [facility] Address [facility] [place] [address] Care Team Providers Care Efficiency Analyst Name Role Phone Santos Hernandez MD Primary Care Provider [phone] Reason for Visit * Reason Comments Low Back Pain Bilateral Leg Pain * Consultation (Routine) - Closed Specialty Diagnoses / Procedures Referred By Contac t Referred To Contact Neurosurgery Diagnoses active sciatica, L5, S1 root, possible bone spur Santos Hernandez MD [address] [place] [phone] [facility] [address] [place] [phone] Referral ID Status Reason Start Date Expiration Date V isits Requested Visits Authorized [id number] Closed Consult, Test & Treat Connection Center 07/16/2015 07/15/2016 1 1 Encounter Details Date Type Department Care Team (Late st Contact Info) Description 08/11/2015 9:00 AM EST Office [place] [address] Trevor Rodriguez MD [facility] [place] [address] Left leg pain Social History Tobacco Use [...] limb documented in this encounter Care Teams Efficiency Analyst Relationship Specialty Start Date End Date Santos Hernandez MD [facility] [place] [address] PCP - General Family Medicine 07/16/15 05/09/16 documented as of this encounter
--- OUTSIDE RECORDS SUMMARY | 2024-04-18 02:14 | XMS_ITS | Encounter Summary ---
Author Organization [facility] Address [facility] [place] [address] Care Team Providers Care Hoop Expander Name Role Phone Santos Hernandez MD Primary Care Provider [phone] Reason for Visit * Consultation (Routine) - Closed Specialty Diagnoses / Procedures Referred By Nelda sheppard Referred To Contact Neurology Diagnoses Chronic Migraines Sammi Varela, DO [address] [place] [address] [facility] [address] [place] [address] Referral ID Status Reason Start Date Expiration Date V isits Requested Visits Authorized [id number] Closed Consult, Test & Treat 07/14/2015 07/13/2016 1 1 Encounter Details Date Type Department Care Team (Late st Contact Info) Description 11/18/2015 10:00 AM EDT Office [place] [phone] César Kimble MD [facility] [place] [address] New daily persistent headache Social History Tobacco [...] Daily Persistent Headache (NDPH) Treatment: Go to [employer] and buy the Members Jovanni CoQ10 300 mg and start one every morning Go to [employer] and buy the store brand magnesium oxide [...] LUMBAR performed by Trevor Rodriguez MD at [facility] MAIN OR ??? Pro microsurg techniques, req oper microscope N/A 10/14/2015 MICROSCOPE USE performed by Trevor Rodriguez MD at [facility] MAIN OR ??? Laminectomy ??? Tubal [...] months. Plan/Instructions given to patient: Go to [employer] and buy the Members Jovanni CoQ10 300 mg and start one every morning Go to [employer] and buy the store brand magnesium oxide [...] headache documented in this encounter Care Teams Hoop Expander Relationship Specialty Start Date End Date Santos Hernandez MD [address] [place] [address] PCP - General Family Medicine 07/16/15 05/09/16 documented as of this encounter
--- OUTSIDE RECORDS SUMMARY | 2024-04-18 02:14 | XMS_ITS | Encounter Summary ---
Author Organization [facility] Address [facility] [place] [address] Care Team Providers Care Goodwill Ambassador Name Role Phone David Hernandez MD Primary Care Provider [phone] Reason for Visit * Auth/Cert Specialty Diagnoses / Procedures Referred By Contac t Referred To Contact Diagnoses Lumbar disc herniation LEFT LEG PAIN Procedures PRO LAMINOTOMY, LUMBAR DISK, 1 INTRSP LAMINOTOMY, DECOMPRESSION, FORAMINOTOMY, LUMBAR Referral ID Status Reason Start Date Expiration Date Visits Re quested Visits Authorized [id number] 1 1 Encounter Details Date Type Department Care Team (Latest Contact Info) Description 10/14/2015 11:12 AM EST - 10/15/2015 2:25 PM EST Hospital Encounter [address] [place] [address] Trevor Rodriguez MD [facility] [place] [address] [address] Discharge Disposition: Home Social History Tobacco Use [...] unit Tab Take 50,000 mg by mouth. 07965 mg Refills: 0 fluticasone-salmeterol 250-50 mcg/dose Dsdv [...] may be used if needed and are wkhs-owp-tppdejn (OTC) medications available at most local pharmacies. Prunes or prune juice, taken daily, can also be helpful for constipation treatmentor prevention and are available at most [employer]. Driving Restrictions*: - [X] No driving for [...] your Primary Care Provider (X)With the Neurosurgery PIER RUNNER/RN. Important Phone Numbers: Outpatient Nurse: Moraima Urena Inpatient Nurses: Neurosurgical Resident Front End Software Engineer (after 5pm or before 8am): Neurosurgery offices (weekdays between 8am-5pm): Dr. Rodriguez: Dr. Ge: Pediatric Patients , Adult [phone] Dr. Jose: Dr. Wells: Dr. Elmore: Dr. Leong David Galarza, Physician Quarry Plug And Feather Driller Diamante Maddox, Nurse Practitioner David Bah Physician Quarry Plug And Feather Driller Mary Beth Dempsey, Nurse Practitioner Your surgeon may not be Front End Software Engineer, especially during the night or on weekends, so be ready to tell about yourself and your surgery when you iesha CC: Primary Care Physician: DAVID HERNANDEZ MD Future Appointments Provider Department Dept Phone 11/03/2015 10:00 AM Jenni Ramirez MD Neurology [phone] Electronically Signed By: FATOU AYALA 10/15/2015 documented [...] may be used if needed and are lnag-kds-mzxmyzp (OTC) medications available at most local pharmacies. Prunes or prune juice, taken daily, can also be helpful for constipation treatmentor prevention and are available at most [employer]. Driving Restrictions*: - [X] No driving for [...] your Primary Care Provider (X)With the Neurosurgery PIER RUNNER/RN. Important Phone Numbers: Outpatient Nurse: Moraima Urena Inpatient Nurses: Neurosurgical Resident Front End Software Engineer (after 5pm or before 8am): Neurosurgery offices (weekdays between 8am-5pm): Dr. Rodriguez: Dr. Ge: Pediatric Patients , Adult [phone] Dr. Jose: Dr. Wells: Dr. Elmore: Dr. Leong David Galarza, Physician Quarry Plug And Feather Driller Diamante Maddox, Nurse Practitioner David Bah, Physician Quarry Plug And Feather Driller Mary Beth Dempsey, Nurse Practitioner Your surgeon may not be Front End Software Engineer, especially during the night or on weekends, [...] be left NEY. There is no drai oanh from the incsion, which is well approximated and no erythema present. Patient has her Oxycodone Rx. Patient was escorted by [facility] via to [facility] where met her. * Jerzy Spencer RN - 10/15/2015 1:11 PM EST Record reviewed and patient discussed with multidisciplinary team. No discharge needs identified atthis time. Rack Washer remains available as needed for coordination of care and discharge planning.Pt has arrnaged her own transpotation and will get her prescriptions filled at her local [facility] any needs. RN to review instructiosn, medicatiosn, activity and f/u [id number] prior to discharge. JERZY SPENCER RN 10/15/2015 [...] in this encounter H&P Notes * Dom Chrales MD - 10/14/2015 2:41 PM EST Neurosurgery [...] Charles MD - 10/16/2015 8:27 AM EST [facility] Operative Note Patient Name: Sherrie Bonner : [id number] MR#: [id number] Case Date: 10/14/2015 Surgeon: Surgeon(s) and Role: [...] brought onto the field. We used the Right Hemisphere Reg drill with the M8 drill bit [...] Operative Note Patient Name: Sherrie Bonner : [id number] MR#: [id number] Case Date: 10/14/2015 Surgeon: Surgeon(s) and Role: [...] Associated Diagnoses Date /Time FILM LIBRARY-FLUORO OR [id number] ONL Imaging Routine 10/14/2015 4:5 4 PM EST Scheduled Orders Name Type Priority Associated Diagnoses Orde r Schedule FILM LIBRARY-FLUORO OR [id number]-[id number] ONL Imaging Routine Once PRN (f or [...] PAIN TYPE AND SCREEN, SDP (FUTURE SURGERY, [facility] SAME DAY PROGRAM ONLY) STAT 10/14/2015 11:28 AM EST ABO/RH TYPING STAT 10/14/2015 11:28 AM EST ANTIBODY SCREEN STAT 10/14/2015 11:28 AM EST documented in this encounter Results * (ABNORMAL) Differential, Automated (10/15/2015 2:33 AM EST) Neutrophil % 92.7 % [facility] Neutrophil Absolute 9.17(H) 1.50 - 6.30 x10(3)/mc L [facility] Lymph % 4.4 % [facility] Lymphocytes Abs 0.4(L) 1.0 - 3.6 x10(3)/mc L [facility] Monocyte % 2.6 % [facility] Monocyte Abs 0.3 0.2 - 1.0 x10(3)/mc L [facility] Eos % 0.0 % [facility] Eosinophils Abs 0.0 0.0 - 0.5 x10(3)/mc L [facility] Basophil % 0.1 % [facility] Baso Absolute 0.0 0.0 - 0.2 x10(3)/mc L [facility] Immature Gran % 0.20 % [facility] Comment: Immature granulocytes(IG's)percentage and absolute count will include metamyelocytes, myelocytes, and promyelocytes. Blood smears from CBCs yielding IG's will be scanned manually for concordance. If this scan disagrees with the automated IG or if promyelocytes are noted, a manual differential will be performed. Immature Gran Absolute 0.02 0.00 - 0.05 x10(3)/mc L [facility] Blood specimen (specimen) 10/15/2015 2:33 AM EST 10/15/2015 2:39 AM EST Narrative Resulting Agency Comment Spec In Lab Trevor Rodriguez MD HEMATOLOGY ORDERABLE S Performing Organization Address City/State/[facility] Co de Phone Number [facility] [place] [address] * (ABNORMAL) Hemogram (10/15/2015 2:33 AM EST) White Blood Cell 9.9 4.0 - 10.0 x10(3)/mc L [facility] Red Blood Cell 3.77(L) 3.93 - 5.22 x10(6)/mc L [facility] Hemoglobin 11.5 11.2 - 15.7 gm/dL [facility] Hematocrit 34.6 34.0 - 45.0 % [facility] Mean Cell Volume 91.8 79.0 - 94.0 fL [facility] Mean Cell Hemoglobin 30.5 26.6 - 32.2 pg [facility] Mean Cell Hemoglobin Concentration 33.2 32.0 - 36.5 gm/dL [facility] Platelet 204 145 - 370 x10(3)/mc L [facility] RDW Standard Deviation 42.2 35.0 - 46.0 fL [facility] RDW coefficient of variation 12.5 10.9 - 14.4 % [facility] Mean Platelet Volume 11.2 9.0 - 12.0 fL [facility] Blood specimen (specimen) 10/15/2015 2:33 AM EST 10/15/2015 2:39 AM EST Narrative Resulting Agency Comment Spec In Lab Trevor Rodriguez MD HEMATOLOGY ORDERABLE S [facility] [place] [address] * (ABNORMAL) Basic Metabolic Panel (non-fasting) (10/15/2015 2:33 AM EST) Glucose 146 65 - 199 mg/dL [facility] Comment:Diabetes: >=200 mg/d L plus symptoms Blood Urea Nitrogen 15 8 - 18 mg/dL [facility] Creatinine 1.07 0.70 - 1.20 mg/dL [facility] Comment: Please note that the pediatric reference intervals supplied above were not validated at [facility]. Results from pediatric patients should be interpreted in conjunction to the patient's age, height and muscle mass. Sodium 140 135 - 145 mmol/L [facility] Potassium 4.3 3.5 - 5.0 mmol/L [facility] Comment: Please note: ??Patients with WBC >100,000 may have falsely elevated Potassium levels. ??For accurate Potassium quantification in these patients send serum separator tube (gold top) for subsequent determinations. ??Contact the Clinical Chemistry Laboratory if there are any questions. Chloride 104 98 - 107 mmol/L [facility] Carbon Dioxide 25 22 - 31 mmol/L [facility] Anion Gap 11 5 - 15 mmol/L [facility] Calcium 8.5 8.5 - 10.5 mg/dL [facility] Est Glomerular Filtration Rate 53(L) >=60 [facility] Comment: This estimated GFR (eGFR) [...] the following links into your internet browser. [email or web address] Blood specimen (specimen) 10/15/2015 2:33 AM EST 10/15/2015 2:39 AM EST Narrative Resulting Agency Comment Spec In Lab Trevor Rodriguez MD CHEMISTRY ORDERABLES Performing Organization Address [facility] Co de Phone Number [facility] [place] [address] * Specimen to Pathology (surgical or derm) (10/14/2015 4:35 PM EST) AP Specimen 10/14/2015 4:35 PM EST 10/14/2015 4:35 PM EST Narrative [facility] - 10/14/2015 4:35 PM EST Specimen requisition ordered. ??Separate Pathology report to follow Trevor Rodriguez MD PATHOLOGY/CYTOLOGY O RDERABLES Performing Organization Address [facility] Co de Phone Number [facility] [address] * Antibody screen (10/14/2015 11:28 AM EST) Ab Screen Interp Negative [facility] Expires at 2359 on: 10/17/2015 [facility] Blood specimen (specimen) 10/14/2015 11:28 AM EST 10/14/2015 11:32 AM EST Narrative Resulting Agency Comment Spec In Lab Trevor Rodriguez MD BLOOD BANK LAB ORDER MARBIN Performing Organization Address [facility] Co de Phone Number [facility] [address] * ABO/Rh Typing (10/14/2015 11:28 AM EST) ABORH Type A Pos [facility] Blood specimen (specimen) 10/14/2015 11:28 AM EST 10/14/2015 11:32 AM EST Narrative Resulting Agency Comment Spec In Lab Trevor Rodriguez MD BLOOD BANK LAB ORDER MARBIN Performing Organization Address [facility]/ZIP Co [place] [address] documented in this encounter Visit Diagnoses Diagnosis [...] Procedure), Indication for (Active or Suspected): Prophylaxis 151 (Given - Provider: Shyam Sweeney CRNA) ceFAZolin [...] 250/50 mcg 2010 (Given - Provider: Anamaria Manley, MARIA T) 09 (Given - Provider: Sujata Wharton, MARIA T) [...] Anamaria Manley RN) 09 (Given - Provider: Sujata Wharton RN) sodium [...] Lester, RN)0739 (Given - Provider: Anamaria Manley, MARIA T)1330 (Given - Provider: Sangita Cantu, MARIA T) [...] RN) 0149 (See Alternative - Provider: Dipika Lester RN)0739 (See Alternative - Provider: Anamaria Manley, MARIA [...] 0740, Pain, mild pain, Give per rectum (AR) if unable to take PO. May repeat [...] Routine documented in this encounter Care Teams Goodwill Ambassador Relationship Specialty Start Date End Date David Hernandez MD [address] [place] [phone] PCP - General Family Medicine 07/16/15 05/09/16 documented as of this encounter
--- OUTSIDE RECORDS SUMMARY | 2024-04-18 02:14 | XMS_ITS | Encounter Summary ---
Author Organization [facility] [place] [address] Care Team Providers Care Labeler Name Role Phone Unavailable Primary Care Provider Unavailabl e Encounter Details Date Type Department Care Team (Late st Contact Info) Description 11/21/2012 Ancillary Procedure [place] [address] Param Kenny MD [facility] [place] [address] Social History Tobacco Use Types Packs/Day Years [...] Kenny MD IMG FILM LIBRARY ORD ERABLES [place], [place] documented in this encounter Visit Diagnoses Not on filedocumented in this encounter
--- OUTSIDE RECORDS SUMMARY | 2024-04-18 02:14 | XMS_ITS | Encounter Summary ---
Author Organization [facility] [place] [address] Care Team Providers Care Commercial Drone Pilot Name Role Phone Unavailable Primary Care Provider Unavailabl e Encounter Details Date Type Department Care Team (Late st Contact Info) Description 11/23/2013 Ancillary Procedure [place] [address] Param Kenny MD [facility] [place] [address] Social History Tobacco Use Types Packs/Day Years [...] Kenny MD IMG FILM LIBRARY ORD ERABLES [place], [place] documented in this encounter Visit Diagnoses Not on filedocumented in this encounter
--- OUTSIDE RECORDS SUMMARY | 2024-04-18 02:14 | XMS_ITS | Encounter Summary ---
Author Organization [facility] Address [facility] [place] [address] Care Team Providers Care Brim Edge Trimmer Name Role Phone aSntos Hernandez MD Primary Care Provider [phone] Reason for Referral * Consultation (Routine) - Closed Specialty Diagnoses / Procedures Referred By Contac t Referred To Contact Pain Management Diagnoses Left leg pain Trevor Rodriguez MD [facility] [place] [address] [facility] [address] [place] [address] Referral ID Status Reason Start Date Expiration Date V isits Requested Visits Authorized [id number] Closed Consult, Test & Treat 04/05/2016 04/05/2017 1 1 Reason for Visit * Reason Comments Back Pain lower Left Leg Pain lower calf Encounter Details Date Type Department Care Team (Late st Contact Info) Description 04/05/2016 2:00 PM EDT Office Visit [place] [phone] [facility] [place] [address] Left leg pain Social History [...] calf pain. Report of her ultrasound from [facility] in [place] shows no evidence for DVT. Her lumbar [...] limb documented in this encounter Care Teams Brim Edge Trimmer Relationship Specialty Start Date End Date Santos Hernandez MD [address] [place] [address] PCP - General Family Medicine 07/16/15 05/09/16 documented as of this encounter
--- OUTSIDE RECORDS SUMMARY | 2024-04-18 02:14 | XMS_ITS | Encounter Summary ---
Author Organization [facility] Address [facility] [place] [address] Care Team Providers Care Shoddy Mill Worker Name Role Phone Melissa Loco DO Primary Care Provider Reason for Visit * Reason Comments Pain Management Left Leg Pain * Consultation (Routine) - Closed Specialty Diagnoses / Procedures Referred By Nelda t Referred To Contact Pain Management Diagnoses Left leg pain Trevor Rodriguez MD [facility] [place] [address] [facility] [address] [place] [phone] Referral ID Status Reason Start Date Expiration Date V isits Requested Visits Authorized [id number] Closed Consult, Test & Treat 04/05/2016 04/05/2017 1 1 Encounter Details Date Type Department Care Team (Latest Contact Info) Description 05/10/2016 11:00 AM EDT Office [place] [phone] Nae Vela APRN [facility] [place] [address] Facet arthropathy, lumbar; Sciatica, left; Spondylosis of [...] documented in this encounter Progress Notes * Nae Vela, MAIL PROCESSING EQUIPMENT MECHANIC - 05/10/2016 11:00 AM EDT [facility] [place] [address] Phone: PAIN MANAGEMENT NEW PATIENT / CONSULTATION NOTE DATE OF VISIT 05/10/2016 Patient Sherrie Bonner 1960 REFERRING PROVIDER Trevor Rodriguez MD [facility] [place] [address] PRIMARY CARE PROVIDER MELISSA LOCO DO CHIEF [...] sclerosis, depression, and chronic headaches (followed by [facility] neurology). 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 Pro microsurg techniques, req oper microscope N/A 10/14/2015 MICROSCOPE USE performed by Trevor Rodriguez MD at [facility] MAIN OR ??? Laminectomy ??? Tubal [...] answered to her satisfaction. Nae Vela, MSN, [employer], MAIL PROCESSING EQUIPMENT MECHANIC Nurse Practitioner [facility] documented in this encounter Plan of Treatment Not on file documented as of this encounter Visit Diagnoses Diagnosis Facet arthropathy, lumbar Lumbosacral spondylosis without myelopathy Sciatica, left Spondylosis of lumbar region without myelopathy or radiculopathy Lumbosacral spondylosis without myelopathy documented in this encounter Care Teams Shoddy Mill Worker Relationship Specialty Start Date End Date Melissa Loco DO PCP - General Family Medicine 05/10/16 11/29/18 documented as of this encounter
--- OUTSIDE RECORDS SUMMARY | 2024-04-18 02:14 | XMS_ITS | Encounter Summary ---
Author Organization [facility] Address [facility] [place] [address] Care Team Providers Care Control Manager Name Role Phone Santos Hernandez MD Primary Care Provider [phone] Encounter Details Date Type Department Care Team (Late st Contact Info) Description 03/25/2016 Telephone [place] [phone] Moraima Urena RN Social History Tobacco Use [...] called in to the [facility] pharmacy in [place], [place]. I asked specifically about swelling, temperature, [...] on filedocumented in this encounter Care Teams Control Manager Relationship Specialty Start Date End Date Santos Hernandez MD [facility] [place] [address] PCP - General Family Medicine 07/16/15 05/09/16 documented as of this encounter
--- OUTSIDE RECORDS SUMMARY | 2024-04-18 02:14 | XMS_ITS | Encounter Summary ---
Author Organization [facility] [place] [address] Care Team Providers Care Shore Worker Name Role Phone Santos Hernandez MD Primary Care Provider [phone] Encounter Details Date Type Department Care Team (Late st Contact Info) Description 03/08/2016 Orders [place] [address] Moraima Urena RN Left leg pain Social [...] limb documented in this encounter Care Teams Shore Worker Relationship Specialty Start Date End Date Santos Hernandez MD [facility] [place] [address] PCP - General Family Medicine 07/16/15 05/09/16 documented as of this encounter
== END 2024-04-18 02:20 ==
LOC: DI 02:00
PROVIDERS: PCP Family Medicine; Visit Provider Family Medicine
DX: Z12.31 Encounter for screening mammogram for malignant neoplasm of breast (principal)
CPT/HCPCS: 77063; 77067

== ENCOUNTER 2024-06-20 00:55 | Outpatient (CLI) | payer BC, SELFPAY ==
--- NOTE | 2024-06-20 09:35 | DI.MRI_ITS ---
Exam(s) MR BRAIN WO EXAM: MR BRAIN WO CLINICAL HISTORY: F/U MS, TECHNIQUE: Multiplanar multisequence MRI of the brain was performed. COMPARISON: MR MRI Brain w/o Contrast from 03/24/2021 FINDINGS: VENTRICLES AND EXTRA AXIAL SPACES: Normal in size and morphology for the patient's age. MIDLINE SHIFT: None. CEREBRAL PARENCHYMA: No focus of restricted diffusion to suggest acute infarct. No space-occupying le blane identified. Stable multiple high signal foci in the white matter, mainly superiorly in the bilat eral frontal lobes. No areas of restricted diffusion. BRAINSTEM/CEREBELLUM: Normal. VISUALIZED PARANASAL SINUSES: Mild mucous retention floor right maxillary sinus. MASTOIDS:Clear. Vasculature: Normal flow void. PITUITARY GLAND: Unremarkable. ORBITS: Unremarkable. IMPRESSION: Stable bilateral high signal foci in the white matter consistent with patient's history multiple scle rosis. DATA REPOSITORY:
--- NOTE | 2024-06-20 10:25 | DI.MRI_ITS ---
Exam(s) MR CERVICAL SPINE WO EXAM: MR CERVICAL SPINE WO CLINICAL HISTORY: F/U MS TECHNIQUE: Multiplanar multisequence MRI of the cervical spine was performed without intravenous con trast. COMPARISON: MR MRI Spine Cervical w/o Contrast from 03/24/2021 FINDINGS: BONES: Vertebral body heights are maintained. Alignment is normal. Bone marrow signal intensity is wi thin normal limits. CERVICAL CORD: Craniovertebral junction is unremarkable. The cervical cord is normal size and signal intensity. SOFT TISSUES: Unremarkable. C2-3: No disc herniation or bulge is identified. No evidence of neural foraminal narrowing. No signi ficant central canal stenosis. C3-4: Minimal disc bulging. No evidence of neural foraminal narrowing. No significant central canal stenosis. C4-5: Mild loss of disc height and endplate osteophytes. Mild bilateralneural foraminal narrowing. N o significant central canal stenosis. C5-6: No small endplate osteophytes and minimal disc bulging..Mild neural foraminal narrowing. No sig nificant central canal stenosis. C6-7: Minimal disc bulging. Left neural foraminal narrowing. No significant central canal stenosis. C7-T1: No disc herniation or bulge is identified. No evidence of neural foraminal narrowing. No signi ficant central canal stenosis. IMPRESSION: Normal signal in the cervical spinal cord. Degenerative changes from C3-4 through C6-7. No evidence of disc herniation . DATA REPOSITORY:
== END 2024-06-20 01:15 ==
LOC: DI 00:56
PROVIDERS: PCP Family Medicine; Visit Provider Physician Assistant Surgical
DX: M50.323 Other cervical disc degeneration at C6-C7 level (principal); G53 Cranial nerve disorders in diseases classified elsewhere
CPT/HCPCS: 70551; 72141

== ENCOUNTER 2024-06-20 10:30 | Outpatient (CLI) | payer BC, SELFPAY ==
[2024-06-20 10:49] LABS: Abs Immature Grans 0.01 10^3/uL (0.0-0.06); Absolute Basophil Count 0.03 10^3/uL (0.0-0.2); Absolute Eosinophil Count 0.17 10^3/uL (0.0-0.7); Absolute Lymphocyte Count 1.72 10^3/uL (1.2-3.4); Absolute Monocyte Count 0.42 10^3/uL (0.1-0.8); Absolute Neutrophil Count 3.23 10^3/uL (1.2-6.7); Basophils % 0.5 %; HCT 39.6 % (36.0-46.0); HGB 13.5 g/dL (11.2-15.7); Immature Grans % 0.2 %; Lymphocytes % 30.8 %; MCH 31.2 pg (27.0-33.0); MCHC 34.1 % (32.0-36.0); MCV 92 fL (80-95); MPV 10.8 fL (8.0-11.0); Monocytes % 7.5 %; Platelet Count 263 10^3/uL (130-400); RBC 4.33 10^6/uL (3.93-5.22); RDW 12.7 % (11.7-14.6); RDW-SD 42.6 fL; WBC 5.58 10^3/uL (4.4-10.8)
[2024-06-20 10:57] LABS: ALT 20 U/L (14-59); AST 20 U/L (15-37); Albumin 3.4 g/dL (3.4-5.0); Alkaline Phosphatase 137 U/L (46-116); Anion Gap 5.2 mmol/L (3-11); BUN 17 mg/dL (7-18); Bilirubin, Total 0.61 mg/dL (0.2-1.0); CO2 30.8 mmol/L (21.0-32.0); CREATININE 0.8 mg/dL (0.55-1.02); Calcium 9.1 mg/dL (8.5-10.1); Chloride 107 mmol/L (98-107); Estimated GFR 83.26 (mL/min/1.73m2); Glucose 95 mg/dL (74-106); Potassium 4.2 mmol/L (3.5-5.1); Sodium 143 mmol/L (136-145); Total Protein 7.5 g/dL (6.4-8.2)
== END 2024-06-20 10:31 | disposition home or self-care (01) ==
LOC: LBO 10:31
PROVIDERS: PCP Family Medicine; Visit Provider Physician Assistant Surgical
DX: G35 Multiple sclerosis (principal)
CPT/HCPCS: 36415; 80053; 85025

== ENCOUNTER 2024-07-24 17:06 | Outpatient (REF) | payer BC, SELFPAY ==
--- NOTE | 2024-07-24 09:00 | PAPFT_PTH ---
PATIENT: Sherrie Bonner LOC: [facility] U#:[id number] AGE/SX: 63/F ROOM: RE07/24/[address]: Annalisa Rutherford : 1960 BED: DIS: 07/24/2024 SPEC #: [id number] RECD: 07/24/24 17:50 STATUS: STARLA REEugenio #: [id number] TIA: 07/24/24 09:[address]: Annalisa Rutherford DEPT[facility] Cytology RECD BY: Darlin King Tissues: 1 - CX/ENDOCX FOR PAP SMEARS Procedures: PAP THIN PREP/UVM Screening HPV DNA PROBE Comments: [id number] (HPV 16 & 18/45)
== END 2024-07-24 17:07 | disposition home or self-care (01) ==
LOC: NCHCN 17:06
PROVIDERS: PCP Family Medicine; Visit Provider Family Medicine
DX: Z00.00 Encounter for general adult medical examination without abnormal findings (principal); Z12.4 Encounter for screening for malignant neoplasm of cervix; Z01.419 Encounter for gynecological examination (general) (routine) without abnormal findings
CPT/HCPCS: 88142; 87624